=== PATIENT | female | born 1955 | race Caucasian/White ===

== ENCOUNTER → 2019-08-18 08:15 | Outpatient (BNVA) | payer MEDICARE, MEDICAID, SELFPAY | PROVIDERS: PCP Nurse Practitioner Family; Visit Provider Psychiatry & Neurology Psychiatry | DX: F33.2 Major depressive disorder, recurrent severe without psychotic features (principal); F41.1 Generalized anxiety disorder; F43.12 Post-traumatic stress disorder, chronic | CPT/HCPCS: 99204 ==

== ENCOUNTER 2019-08-27 17:51 | Emergency (ER) | payer MEDICARE, MEDICAID, SELFPAY ==
[2019-08-27 17:53] VITALS: BP 159/72; PULSE 68; RESP 12; TEMP 36.9; O2SAT 95; BMI 38.2
--- NOTE | 2019-08-27 18:24 | W.ED.WEAKNES ---
HPI - Weakness General: Chief complaint: Weakness Stated complaint: Weakness and fatigue Time Seen by Provider: 08/27/19 18:10 History of Present Illness: HPI Narrative: Patient states she feels generally weak and not well. States she had roughly 5 L drawn off in dialysis today. States this is typical for her. She is on a strict 32 oz fluid restriction. States she is nauseated. States they jack out her dialysis fropm 4 to 4.5 hours today which did make her tired. Is alert and oriented, no pain anywhere, no soa, just malaise. She is able to eat ice chips and states that these are helping with nausea. MD Complaint: generalized weakness Onset (ago): hour(s) Duration: constant Severity: moderate Severity scale (1-10): 4 Relieving factors: none Exacerbating factors: movement Associated symptoms: Reports nausea; Denies chest pain, chills, dysuria, easy bruising, fever(s) or headache(s) Review of Systems Const: Reports: fatigue and malaise; Denies: fever, chills or change in appetite Eyes: Denies: change in vision, blurry vision, eye discharge or eye redness ENMT: Denies: throat pain, uvular edema, painful swallowing, mouth pain, dental pain, nasal congestion or facial/sinus pain Card: Denies: chest pain, irregular heart rhythm, swelling of feet/ankles, shortness of breath on exertion, shortness of breath when lying down or leg pain with exertion Resp: Denies: shortness of breath, productive cough, wheezing or coughing up blood GI: Reports: nausea : Denies: flank pain, difficulty urinating, painful urination, urinary frequency, urinary urgency or urinary hesitancy Musc: Denies: neck pain, back pain, extremity pain or extremity swelling Skin/Breast: Denies: rash, itching, redness, yellow skin or dry skin Neuro: Denies: headache, numbness in extremities, weakness in extremities, changes in sensation, lack of coordination or difficulty walking Psych: Denies: anxiety, depression, mood swings, panic attacks, sleeping less, suicidal ideation or homicidal ideation Endo: Denies: excessive urination, excessive thirst or tired all the time Hussein/Lymph: Denies: easy bruising, petechiae or enlarged lymph nodes All/Imm: Denies: hives, throat swelling, facial swelling, acute wheezing or seasonal allergies PFSH ED PFSH: Statuses (acute, chronic, etc) shown below reflect problem list status as previously entered and may not be historically accurate Medical History Chronic disease of respiratory system (Acute) Diabetes (Acute) End stage renal disease (Acute) High blood pressure (Acute) Hypertension (Acute) Surgical History History of cholecystectomy (Acute) Stented coronary artery (Acute) Social History Smoking and tobacco status: former smoker Quit status (tobacco): has quit using tobacco Year quit tobacco: 2009 Second hand smoke exposure: Yes Smoking risk assessment/counseling performed?: No Physical Exam Const: COMMON NORMALS: no apparent distress, oriented x3, no limitations, healthy appearing, alert and well nourished GENERAL APPEARANCE: cooperative, comfortable, well kempt and well developed ORIENTATION/CONSCIOUSNESS: Yes awake, Yes oriented to person, Yes oriented to place and Yes oriented to time HENMT: COMMON NORMALS: normocephalic, head/scalp atraumatic, hearing grossly normal bilaterally, external ears normal, EAC's normal, TM's normal bilaterally, external nose normal, nasal mucous membranes and turbinates normal, moist oral mucous membranes, oropharynx normal, dentition normal and gingiva normal HEAD & SCALP: normal to inspection, normocephalic and atraumatic FACE & SINUS: normal facial exam NOSE: external nose normal and nasal mucous membranes and turbinates normal EXTERNAL EAR: Yes external ears normal EXTERNAL AUDITORY CANAL: EAC's normal TYMPANIC MEMBRANE: TM's normal bilaterally MOUTH: oral and palatal mucosa normal, lip normal and tongue normal THROAT: no uvular edema Eye: COMMON NORMALS: PERRL, EOMs intact bilaterally, conjunctivae normal, no scleral icterus and normal visual levi by confrontation GENERAL EYE: normal appearance of both eyes and normal light reflex VISUAL ACUITY: Yes acuity normal ALIGNMENT: Yes alignment normal PERIORBITAL: periorbital findings normal EYELID: eyelids normal CONJUNCTIVA: Yes conjunctivae normal SCLERA: sclerae normal PUPIL: Yes PERRL and Yes accommodation reflex normal DIRECT OPHTHALMOSCOPY: Yes normal light reflex Neck/C-Spine: COMMON NORMALS: full ROM, no lymphadenopathy, supple, no meningeal signs and no JVD GENERAL: Yes normal visual inspection CAROTIDS: Yes normal carotid upstroke CERVICAL SPINE: Yes cervical ROM normal Lymph: LYMPHATIC: no lymphadenopathy noted Chest: COMMONS NORMALS: inspection of chest normal CHEST: Yes symmetrical chest wall rise Resp: COMMON NORMALS: normal respiratory effort, no retractions, no use of accessory muscles and clear to auscultation bilaterally EFFORT & INSPECTION: Yes able to speak in complete sentences and Yes symmetric chest movement AUSCULTATION: clear to auscultation bilaterally Cardio: COMMON NORMALS: no JVD, regular rate, regular rhythm, S1 normal heart sound, S2 normal heart sound, no murmurs and peripheral pulses 2+ throughout RATE: regular rate RHYTHM: regular rhythm HEART SOUNDS: S1 normal and S2 normal PERIPHERAL PULSES: pulses 2+ throughout GI: COMMON NORMALS: normal to inspection, nondistended, normoactive bowel sounds and non-tender : COMMON NORMALS: Yes no CVA tenderness BLADDER/KIDNEY EXAM: Yes no CVA tenderness Back/Pelvis: COMMON NORMALS: no CVA tenderness, thoracic and lumbar spine normal to inspection, no thoracic nor lumbar tenderness and thoraco-lumbar ROM normal Extremity: COMMON NORMALS: normal to inspection, full ROM, normal capillary refill, no calf tenderness and no pedal edema Neuro: COMMON NORMALS: oriented x3, CN's II-XII intact bilaterally, moves all extremities, no focal motor deficits, no sensory deficits noted and gait normal SENSORIUM/ORIENTATION: Yes alert, Yes oriented to person, Yes oriented to place and Yes oriented to time MENINGEAL SIGNS: Yes no meningeal signs SPEECH: speech normal GAIT: Yes normal gait MOTOR EXAM: strength 5/5 throughout, no pronator drift and no tremor noted Psych: COMMON NORMALS: mental status grossly normal, thought process normal, cooperative, affect normal, speech normal and activity/motor behavior normal APPEARANCE: Yes well kempt SPEECH: Yes normal speech THOUGHT PROCESS: normal thought process THOUGHT CONTENT: Yes normal thought content INSIGHT: insight good Skin: COMMON NORMALS: no rashes or lesions noted, no wounds, skin turgor normal and no jaundice GENERAL SKIN EXAM: no rashes or lesions noted and turgor normal Course ED course: Patient resting in bed. Troponin is chronically elevated and todays level is lower than last recorded in June. Vital Signs: Vital signs: Vital Signs Temperature 98.4 F 08/27/19 17:53 Pulse Rate 64 08/27/19 19:47 Respiratory Rate 18 08/27/19 19:47 Blood Pressure 124/52 08/27/19 19:47 Pulse Oximetry 94 08/27/19 19:47 MDM - Weakness Differential Diagnosis: Weakness Differential Diagnosis: Likely anemia and dehydration Lab Data: Attestation: I reviewed the patient's lab results. Labs: Lab Results 08/27/19 08/27/19 08/27/19 Range/Units 18:25 18:25 18:25 WBC 7.1 (4.0-10.0) 10^3/ uL RBC 3.86 L (4.1-5.3) 10^6/u L Hgb 11.2 L (11.5-15.3) g/dL Hct 36.2 L (37.0-47.0) % MCV 93.8 (81-99) fL MCH 29.0 (28.0-34.0) pg MCHC 30.9 (30.0-36.0) g/dL RDW 13.6 (12.1-15.1) % Plt Count 154 (130-400) 10^3/c mm MPV 11.1 H (7.4-10.4) fL Neut % (Auto) 81.8 % Lymph % (Auto) 11.5 % [place] % (Auto) 5.3 % Eos % (Auto) 0.7 % Baso % (Auto) 0.1 % Neut # (Auto) 5.8 (1.8-7.7) 10^3/u L Lymph # (Auto) 0.8 (0.8-4.8) 10^3/u L [place] # (Auto) 0.4 (0.2-0.9) 10^3/u L Eos # (Auto) 0.1 (0.0-0.8) 10^3/u L Baso # (Auto) 0.0 (0.0-0.1) 10^3/u L Nucleated RBC % (a uto) 0 % Nucleated RBCs # 0.0 /100WBC Sodium 137 (136-145) mmol/L Potassium 4.9 (3.5-5.1) mmol/L Chloride 96 L (98-107) mmol/L Carbon Dioxide 30 H (22-29) mmol/L Anion Gap 15.9 (5-19) BUN 35 H (8-23) mg/dL Creatinine 6.6 H* (0.5-0.9) mg/dL GFR Calculation 6.3 L (90-130) mL/min Glucose 176 H (74-106) mg/dL Calcium 9.6 (8.8-10.2) mg/Dl Phosphorus 4.5 (2.5-4.5) mg/dL Magnesium 2.0 (1.7-2.3) mg/dL Total Bilirubin 0.3 (0.15-1.2) mg/dL AST 13 (0-32) U/L ALT 13 (0-33) U/L Alkaline Phosphata se 103 (35-105) IU/L Troponin T Gen 5 n g/L 120 H* (0-10) ng/mL Total Protein 7.3 (6.6-8.7) g/dL Albumin 4.0 (3.5-5.2) g/dL Globulin 3.3 (1.3-4.6) g/dL 08/27/19 Range/Units 20:09 WBC (4.0-10.0) 10^3/ uL RBC (4.1-5.3) 10^6/u L Hgb (11.5-15.3) g/dL Hct (37.0-47.0) % MCV (81-99) fL MCH (28.0-34.0) pg MCHC (30.0-36.0) g/dL RDW (12.1-15.1) % Plt Count (130-400) 10^3/c mm MPV (7.4-10.4) fL Neut % (Auto) % Lymph % (Auto) % [place] % (Auto) % Eos % (Auto) % Baso % (Auto) % Neut # (Auto) (1.8-7.7) 10^3/u L Lymph # (Auto) (0.8-4.8) 10^3/u L [place] # (Auto) (0.2-0.9) 10^3/u L Eos # (Auto) (0.0-0.8) 10^3/u L Baso # (Auto) (0.0-0.1) 10^3/u L Nucleated RBC % (a uto) % Nucleated RBCs # /100WBC Sodium (136-145) mmol/L Potassium (3.5-5.1) mmol/L Chloride (98-107) mmol/L Carbon Dioxide (22-29) mmol/L Anion Gap (5-19) BUN (8-23) mg/dL Creatinine (0.5-0.9) mg/dL GFR Calculation (90-130) mL/min Glucose (74-106) mg/dL Calcium (8.8-10.2) mg/Dl Phosphorus (2.5-4.5) mg/dL Magnesium (1.7-2.3) mg/dL Total Bilirubin (0.15-1.2) mg/dL AST (0-32) U/L ALT (0-33) U/L Alkaline Phosphata se (35-105) IU/L Troponin T Gen 5 n g/L 120 H* (0-10) ng/mL Total Protein (6.6-8.7) g/dL Albumin (3.5-5.2) g/dL Globulin (1.3-4.6) g/dL Discharge Plan Discharge Patient Disposition: Home, Self-Care Clinical Impression: Malaise and fatigue Condition: Stable Prescriptions: New Zofran 4 mg tablet 4 mg PO Q6H 7 Days Qty: 28 RF: 0 No Action metoprolol tartrate 50 mg tablet 50 mg PO DAILY RF: 0 zolpidem [Ambien] 5 mg tablet 5 mg PO .Hs RF: 0 ciprofloxacin HCl [Cipro] 500 mg tablet 500 mg PO BID RF: 0 metronidazole [Flagyl] 500 mg tablet 500 mg PO Q8H RF: 0 prednisone 20 mg tablet 20 mg PO BID RF: 0 doxycycline hyclate 100 mg capsule 100 mg PO BID RF: 0 metoprolol succinate [Toprol XL] 25 mg tablet extended release 24 hr 12.5 mg PO DAILY RF: 0 Eliquis 2.5 mg tablet 2.5 mg PO BID RF: 0 meloxicam 7.5 mg tablet 7.5 mg PO DAILY RF: 0 diphenoxylate-atropine [Lomotil] 2.5-0.025 mg tablet 2 tab PO QID RF: 0 losartan 100 mg tablet 100 mg PO DAILY RF: 0 minoxidil 2.5 mg tablet 2.5 mg PO BID RF: 0 oxycodone-acetaminophen 5-325 mg tablet 1 tab PO BID PRNRF: 0 levothyroxine [Synthroid] 25 mcg tablet 25 mcg PO DAILY RF: 0 trazodone 50 mg tablet See Rx Instructions PO .HS PRN (Reason: sleep) Qty: 60 RF: 1 clopidogrel [Plavix] 75 mg tablet 75 mg PO DAILY Qty: 30 RF: 6 Referrals: [facility] [Other] Laisha Campoverde [Primary Care Provider] - Discharge Diet: Usual diet Discharge Activity: Resume usual activity Patient Instructions: Fatigue (ED) Coding Level of Care Code ED [employer] Representative for Hector Fwcallie Exam Problem Focused
[2019-08-27] MEDS: sodium chloride 0.9% 500 ML IV (18:42)
[2019-08-27 19:00] LABS: Basophils % 0.1 %; Eosinophils # 0.1 10^3/uL (0.0-0.8); Eosinophils % 0.7 %; Hematocrit 36.2 % (37.0-47.0); Hemoglobin 11.2 g/dL (11.5-15.3); Lymphocytes # 0.8 10^3/uL (0.8-4.8); Lymphocytes % 11.5 %; Mean Corpuscular HGB Conc 30.9 g/dL (30.0-36.0); Mean Corpuscular Volume 93.8 fL (81-99); Mean Platelet Volume 11.1 fL (7.4-10.4); Monocytes # 0.4 10^3/uL (0.2-0.9); Monocytes % 5.3 %; Neutrophils # 5.8 10^3/uL (1.8-7.7); Neutrophils % 81.8 %; Nucleated Red Blood Cells % 0 %; Platelet Count 154 10^3/cmm (130-400); Red Blood Count 3.86 10^6/uL (4.1-5.3); Red Cell Distribution Width 13.6 % (12.1-15.1); White Blood Count 7.1 10^3/uL (4.0-10.0)
[2019-08-27 19:10] LABS: Alanine Aminotransferase 13 U/L (0-33); Alkaline Phosphatase 103 IU/L (35-105); Anion Gap 15.9 (5-19); Aspartate Amino Transferase 13 U/L (0-32); Blood Urea Nitrogen 35 mg/dL (8-23); Calcium 9.6 mg/Dl (8.8-10.2); Carbon Dioxide 30 mmol/L (22-29); Chloride 96 mmol/L (98-107); Globulin 3.3 g/dL (1.3-4.6); Glomerular Filtration Rate 6.3 mL/min (90-130); Glucose 176 mg/dL (74-106); Phosphorus 4.5 mg/dL (2.5-4.5); Potassium 4.9 mmol/L (3.5-5.1); Sodium 137 mmol/L (136-145); Total Bilirubin 0.3 mg/dL (0.15-1.2); Total Protein 7.3 g/dL (6.6-8.7)
--- NOTE | 2019-08-27 19:14 | PC.NURSE ---
CREATININE 6.6
--- NOTE | 2019-08-27 19:20 | PC.NURSE ---
Introduced self to patient and initiated vital signs. Pt is A&O x 4 and agreeable. Pt states that the reason for the ER visit today is due to general malaise due to taking off too much fluid during dialysis . Reassured patient of needs and will continue to monitor. Awaiting provider at bedside.
[2019-08-27 19:47] VITALS: BP 124/52; PULSE 64; RESP 18; O2SAT 94
[2019-08-27 20:30] LABS: Troponin T (5th) Once 120 ng/mL (0-10)
[2019-08-27 20:48] LABS: Troponin T (5th) Once 120 ng/mL (0-10)
[2019-08-27 21:00] VITALS: BP 146/49; RESP 18; O2SAT 96
[2019-08-27 22:00] VITALS: BP 93/67; RESP 18; O2SAT 95
[2019-08-27 23:00] VITALS: BP 173/123; PULSE 66; RESP 18; TEMP 36.5; O2SAT 95
[2019-08-28] VITALS (8 sets, daily range): BP systolic 107–140; BP diastolic 42–114; PULSE 64–74; RESP 16–18; O2SAT 92–96
--- NOTE | 2019-08-28 01:01 | PC.NURSE ---
Patient is resting comfortably in the room.
== END 2019-08-28 07:32 | disposition home or self-care (01) ==
PROVIDERS: Emergency Provider Emergency Medicine; PCP Nurse Practitioner Family
DX: R53.81 Other malaise (principal); R53.83 Other fatigue; Z79.01 Long term (current) use of anticoagulants; Z79.02 Long term (current) use of antithrombotics/antiplatelets; Z87.891 Personal history of nicotine dependence; E11.22 Type 2 diabetes mellitus with diabetic chronic kidney disease; I12.0 Hypertensive chronic kidney disease with stage 5 chronic kidney disease or end stage renal disease; N18.6 End stage renal disease
CPT/HCPCS: 80053; 83735; 84100; 84484; 85025; 96360; 99282; J7040

== ENCOUNTER 2019-09-09 15:53 | Observation (INO) | payer MEDICARE, MEDICAID, SELFPAY ==
[2019-09-09] VITALS (7 sets, daily range): BP systolic 174–198; BP diastolic 78–90; PULSE 71–112; RESP 16–18; TEMP 36.6–36.8; O2SAT 97–100; BMI 39.4
--- NOTE | 2019-09-09 16:02 | ED_ITS ---
Entered by Harper Ko, acting as scribe for Keith Vincent DO HPI - Chest Pain General: Chief Complaint: Chest Pain Stated Complaint: CHEST PAIN Time Seen by Provider: 09/09/19 16:02 History of Present Illness: HPI narrative: 64 yo female presents with chest pain. Pt states that she had to go to [place] today, she was on her way back when her chest started hurting and it radiated down her arms. Pt states that she became short of breath. Pt states that she has had a stent placed about 5-6 months ago. Pt states that her pain isn't as bad right now. Pt states that EMS gave her some aspirin. MD complaint: chest pain Associated symptoms: Reports dyspnea; Deny abdominal pain, fever(s), nausea, palpitations or vomiting Review of Systems Const: Reports: fatigue and malaise; Denies: fever, body aches, change in appetite or change in weight Eyes: Denies: change in vision, blurry vision, blind spots, photophobia, eye discomfort, eye discharge or eye redness ENMT: Denies: throat pain, uvular edema, enlarged tonsils, painful swallowing, hoarseness or mouth pain Card: Reports: chest pain and shortness of breath on exertion; Denies: palpitations or irregular heart rhythm Resp: Reports: shortness of breath; Denies: productive cough, non-productive cough, wheezing, pain on inspiration or change in phlegm color GI: Denies: abdominal pain, nausea, vomiting or vomiting blood : Denies: flank pain, difficulty urinating, painful urination or urinary frequency Musc: Denies: neck pain, back pain, extremity pain or extremity swelling Skin/Breast: Denies: rash, itching, redness, sensitivity to light, skin pain or skin swelling Neuro: Denies: headache, numbness in extremities, weakness in extremities or changes in sensation Psych: Reports: sleeping less; Denies: anxiety, depression, mood swings, panic attacks or sleeping more Endo: Denies: excessive urination, excessive thirst or tired all the time PFSH ED PFSH: Statuses (acute, chronic, etc) shown below reflect problem list status as previously entered and may not be historically accurate Medical History Chronic disease of respiratory system (Acute) Diabetes (Acute) End stage renal disease (Acute) High blood pressure (Acute) Hypertension (Acute) Surgical History History of cholecystectomy (Acute) Stented coronary artery (Acute) Social History Smoking and tobacco status: former smoker Quit status (tobacco): has quit using tobacco Year quit tobacco: 2009 Second hand smoke exposure: Yes Smoking risk assessment/counseling performed?: No Physical Exam Const: COMMON NORMALS: no apparent distress, average body habitus, oriented x3, no limitations, healthy appearing, alert and well nourished HENMT: COMMON NORMALS: normocephalic, head/scalp atraumatic, hearing grossly normal bilaterally, external ears normal, EAC's normal, TM's normal bilaterally, external nose normal, oropharynx normal, dentition normal and gingiva normal; nasal mucous membranes&turbinates abnorm and oral mucous membranes not moist HEAD & SCALP: normocephalic and atraumatic NOSE: external nose normal; nasal mucous membranes&turbinates abnorm EXTERNAL EAR: Yes external ears normal EXTERNAL AUDITORY CANAL: EAC's normal TYMPANIC MEMBRANE: TM's normal bilaterally THROAT: no uvular edema Eye: COMMON NORMALS: PERRL, EOMs intact bilaterally, conjunctivae normal, no scleral icterus, no papilledema, normal visual levi by confrontation and fundi normal bilaterally CONJUNCTIVA: Yes conjunctivae normal PUPIL: Yes PERRL DIRECT OPHTHALMOSCOPY: Yes no papilledema and Yes fundi normal bilaterally Neck/C-Spine: COMMON NORMALS: full ROM, no lymphadenopathy, supple, no meningeal signs, no JVD, thyroid normal and no carotid bruits THYROID: thyroid normal Chest: COMMONS NORMALS: inspection of chest normal and palpation of chest normal Resp: COMMON NORMALS: normal respiratory effort, no retractions, no use of accessory muscles, clear to auscultation bilaterally and percussion normal AUSCULTATION: clear to auscultation bilaterally PERCUSSION: percussion normal Cardio: COMMON NORMALS: no JVD, regular rate, regular rhythm, S1 normal heart sound, S2 normal heart sound, no gallops, no clicks, no murmurs, no rub and peripheral pulses 2+ throughout RATE: regular rate RHYTHM: regular rhythm HEART SOUNDS: S1 normal and S2 normal PERIPHERAL PULSES: pulses 2+ throughout GI: COMMON NORMALS: normal to inspection, nondistended, normoactive bowel sounds, soft to palpation, non-tender, no hepatosplenomegaly, no masses and no bruits PALPATION: Yes soft and Yes no hepatosplenomegaly : COMMON NORMALS: Yes no CVA tenderness and Yes external appearance normal BLADDER/KIDNEY EXAM: Yes no CVA tenderness Back/Pelvis: COMMON NORMALS: no CVA tenderness, thoracic and lumbar spine normal to inspection, no thoracic nor lumbar tenderness, thoraco-lumbar ROM normal and straight leg raise negative bilaterally Extremity: COMMON NORMALS: normal to inspection, full ROM, normal capillary refill, no joint enlargement, no clubbing, cyanosis or edema, no calf tenderness and no pedal edema Neuro: COMMON NORMALS: oriented x3 SENSORIUM/ORIENTATION: Yes alert MENINGEAL SIGNS: Yes no meningeal signs Skin: COMMON NORMALS: no rashes or lesions noted, no wounds, skin turgor normal, no jaundice, no petechiae and no mottling GENERAL SKIN EXAM: no rashes or lesions noted and turgor normal Course Vital Signs: Vital signs: Vital Signs Temperature 97.9 F 09/09/19 15:56 Pulse Rate 89 09/09/19 15:56 Respiratory Rate 18 09/09/19 15:56 Blood Pressure 174/84 09/09/19 15:56 Pulse Oximetry 97 09/09/19 15:56 MDM - Chest Pain Lab Data: Labs: Lab Results 09/09/19 09/09/19 09/09/19 Range/Units 16:27 16:27 16:27 WBC 9.3 (4.0-10.0) 10^3/ uL RBC 3.43 L (4.1-5.3) 10^6/u L Hgb 10.5 L (11.5-15.3) g/dL Hct 34.2 L (37.0-47.0) % MCV 99.7 H (81-99) fL MCH 30.6 (28.0-34.0) pg MCHC 30.7 (30.0-36.0) g/dL RDW 13.3 (12.1-15.1) % Plt Count 181 (130-400) 10^3/c mm MPV 11.7 H (7.4-10.4) fL Neut % (Auto) 76.5 % Lymph % (Auto) 17.6 % [place] % (Auto) 4.7 % Eos % (Auto) 0.1 % Baso % (Auto) 0.1 % Neut # (Auto) 7.1 (1.8-7.7) 10^3/u L Lymph # (Auto) 1.6 (0.8-4.8) 10^3/u L [place] # (Auto) 0.4 (0.2-0.9) 10^3/u L Eos # (Auto) 0.0 (0.0-0.8) 10^3/u L Baso # (Auto) 0.0 (0.0-0.1) 10^3/u L Nucleated RBC % (a uto) 0 % Nucleated RBCs # 0.0 /100WBC Sodium 138 (136-145) mmol/L Potassium 4.8 (3.5-5.1) mmol/L Chloride 97 L (98-107) mmol/L Carbon Dioxide 22 (22-29) mmol/L Anion Gap 23.8 H (5-19) BUN 101 H* D (8-23) mg/dL Creatinine 12.0 H* (0.5-0.9) mg/dL GFR Calculation 3.2 L (90-130) mL/min Glucose 287 H (74-106) mg/dL Calcium 9.2 (8.5-10.5) mg/dL Total Bilirubin 0.3 (0.15-1.2) mg/dL AST 10 (0-32) U/L ALT 8 (0-33) U/L Alkaline Phosphata se 78 (35-105) IU/L Troponin T Baselin e 451 H* (0-10) ng/mL NT-Pro-B Natriuret Pep 89136 H (0-125) pg/mL Total Protein 6.8 (6.6-8.7) g/dL Albumin 3.9 (3.5-5.2) g/dL Globulin 2.9 (1.3-4.6) g/dL Lipase 29 (13-60) U/L Discharge Plan Discharge Patient Disposition: Admitted As Inpatient Clinical Impression: Chest pain Qualifiers: Chest pain type: chest pain due to myocardial ischemia Ischemic chest pain type: unstable angina pectoris Qualified Code(s): I20.0 - Unstable angina Chronic renal failure Qualifiers: Chronic kidney disease stage: unspecified stage Qualified Code(s): N18.9 - Chronic kidney disease, unspecified Condition: Stable Referrals: [facility] [Other] Laisha Campoverde [Primary Care Provider] - Coding Level of Care Code ED [facility] Former for [facility] Fwd Exam Problem Focused The documentation recorded by the Maikel finley Kialy, accurately reflects the service I personally performed and the decisions made by me, Keith Vincent, DO Sep 09, 2019 15:53
--- NOTE | 2019-09-09 16:03 | ECG_ITS ---
Measurements Intervals [place] Rate: 79 P: 66 SC: 176 QRS: -5 QRSD: 78 T: 79 QT: 363 QTc: 418 SINUS RHYTHM POSSIBLE LEFT ATRIAL ENLARGEMENT [-0.1mV P WAVE IN V1/V2] NONSPECIFIC T-WAVE ABNORMALITY Compared to ECG 07/04/2019 04:54:53 T-wave abnormality now present Prolonged QT interval no longer present Electronically Signed On 09-09-2019 17:36:43 STRUCTURES ASSEMBLER by Karan Allison M.D. [id number]
--- NOTE | 2019-09-09 16:25 | XR_ITS ---
WS: [id number] CHEST XRAY TECHNIQUE: Portable chest. CLINICAL INFORMATION: chest pain COMPARISON: July 03, 2019 FINDINGS: Heart: Cardiomegaly. Aortic calcification. Right central venous catheter with tip in the SVC. Lungs: Chronic emphysematous changes. No acute pulmonary infiltrates. Bones: Normal visualized bony structures. XR/XR chest 1V portable [id number] IMPRESSION: Cardiomegaly. No acute chest findings.
[2019-09-09 16:49] LABS: Basophils % 0.1 %; Eosinophils % 0.1 %; Hematocrit 34.2 % (37.0-47.0); Hemoglobin 10.5 g/dL (11.5-15.3); Lymphocytes # 1.6 10^3/uL (0.8-4.8); Lymphocytes % 17.6 %; Mean Corpuscular HGB Conc 30.7 g/dL (30.0-36.0); Mean Corpuscular Hemoglobin 30.6 pg (28.0-34.0); Mean Corpuscular Volume 99.7 fL (81-99); Mean Platelet Volume 11.7 fL (7.4-10.4); Monocytes # 0.4 10^3/uL (0.2-0.9); Monocytes % 4.7 %; Neutrophils # 7.1 10^3/uL (1.8-7.7); Neutrophils % 76.5 %; Nucleated Red Blood Cells % 0 %; Platelet Count 181 10^3/cmm (130-400); Red Blood Count 3.43 10^6/uL (4.1-5.3); Red Cell Distribution Width 13.3 % (12.1-15.1); White Blood Count 9.3 10^3/uL (4.0-10.0)
[2019-09-09 17:06] LABS: Alanine Aminotransferase 8 U/L (0-33); Albumin Level 3.9 g/dL (3.5-5.2); Alkaline Phosphatase 78 IU/L (35-105); Anion Gap 23.8 (5-19); Aspartate Amino Transferase 10 U/L (0-32); Calcium 9.2 mg/dL (8.5-10.5); Carbon Dioxide 22 mmol/L (22-29); Chloride 97 mmol/L (98-107); Globulin 2.9 g/dL (1.3-4.6); Glomerular Filtration Rate 3.2 mL/min (90-130); Glucose 287 mg/dL (74-106); Lipase 29 U/L (13-60); Potassium 4.8 mmol/L (3.5-5.1); Sodium 138 mmol/L (136-145); Total Bilirubin 0.3 mg/dL (0.15-1.2); Total Protein 6.8 g/dL (6.6-8.7)
[2019-09-09 17:20] LABS: Troponin(5th) Baseline 451 ng/mL (0-10)
[2019-09-09 17:21] LABS: Blood Urea Nitrogen 101 mg/dL (8-23)
[2019-09-09 17:29] LABS: NT Pro B Type Natriuretic Pept 64294 pg/mL (0-125)
--- NOTE | 2019-09-09 18:01 | PC.NURSE ---
pt given a sandwich and sprite at this time.
--- NOTE | 2019-09-09 18:17 | P.HP_ITS ---
Providers/Chief Complaint Primary Care Provider: Laisha Campoverde Chief Complaint: CHEST PAIN History of Present Illness Amanda Ha is a 64 year old female with past medical history of hypertension, diabetes, dyslipidemia, end-stage renal disease on hemodialysis through a port in her right chest as the fistula in her left arm is not functioning and has been followed by a vascular surgeon for that, CAD post PCI to mid LAD in December 2018 with presented to the hospital in June 2019 with symptoms of chest pain and at that time stress test showed small area of mild reversibility in the basal to mid inferolateral segment and artifact could not be ruled out because no prone images could be done. She presents to the ER today as on her way back from her doctors visit to [place] she started having chest pressure-like symptoms radiating down both her arms without any nausea or vomiting, diaphoresis, dizziness, palpitations. Patient states usually she does not have any chest pain or shortness of breath on rest or exertion. She can do her usual activities without any difficulties other than back pain. Patient states since her PCI this is her third time she has had chest pain and it has been increasing every time gradually. Patient usually goes for dialysis Friday but she missed her dialysis session yesterday because she did not feel well. Patient denies of having any palpitations, loss of consciousness, dizziness. Patient at baseline is occasionally noncompliant with the dialysis. In the ER patient was treated with nitro and her symptoms were relieved she was found to have high blood pressure for which her usual oral medications were given. Patient states she usually takes her medications but sometimes she forgets. Usually her blood pressure ranges from 150- 160. Last Stress test in 06/29 PERFUSION FINDINGS Large area fixed perfusion defect noted in mid to distal anterior and inferoapical wall of the left ventricle suggestive of old myocardial infarction versus scarring without significant mavis-infarct ischemia. Medium-size area of decreased tracer uptake was noted in basal to distal inferior and inferolateral wall on rest images which improved over stress images in the inferior wall suggestive of artifact. There appeared to be small area of reversibility in the basal to mid inferolateral wall whcih in the absence of prone images could be artifact. FUNCTIONAL RESULTS (calculated via Gated SPECT) Stress Image LV EF (%): 23 Stress EDV (mL):243 TID: 1.1 Stress ESV (mL):187 Rest Image LV EF (%): 23 FUNCTIONAL FINDINGS: Mid to distal anterior apical and inferoapical dyskinesis IMPRESSIONS Large area of old myocardial infarction versus scarring noted in mid to distal anterior, apical wall of the left ventricle extending into the inferoapical region without mavis-infarct ischemia. Small area of mild reversibility noted in basal to mid inferolateral lateral segment of the left ventricle which in the absence of prone images could also represent artifact however cannot rule out ischemia, clinical correlation advised.TID ratio is elevated which could be secondary to left ventricle hypertrophy/subendocardial ischemia , multivessel coronary artery disease is another possibility. Lupe Bertrand MD (Electronically Signed) Final Date: 24 June 2019 15:53 Last ECHO 06/2019 FINDINGS Left Ventricle Left ventricular cavity not well visualized. Normal left ventricular size, systolic function and wall thickness, with no regional wall motion abnormalities. Grade I/IV diastolic dysfunction (abnormal relaxation filling pattern), normal to mildly elevated filling pressures. Left ventricular ejection fraction is estimated at 60%. Right Ventricle Normal right ventricular size and systolic function. Normal right ventricular systolic pressure. Right Atrium Mildly increased right atrial size. Left Atrium Mildly increased left atrial size. Mitral Valve Structurally normal mitral valve. Trace mitral valve regurgitation. Aortic Valve Structurally normal aortic valve without significant sclerosis or stenosis. There is no aortic regurgitation. Tricuspid Valve Structurally normal tricuspid valve without significant stenosis or regurgitation. Pulmonary artery systolic pressure is normal. Pulmonic Valve Pulmonic valve not well visualized. Pericardium Normal pericardium without effusion. Aorta Normal ascending aorta dimension. CONCLUSIONS Left ventricular cavity not well visualized. Normal left ventricular size, systolic function and wall thickness, with no regional wall motion abnormalities. Grade I/IV diastolic dysfunction (abnormal relaxation filling pattern), normal to mildly elevated filling pressures. Left ventricular ejection fraction is estimated at 60%. Mildly increased right atrial size. Mildly increased left atrial size. Structurally normal mitral valve. Trace mitral valve regurgitation. No change from 01/04/2019 Dr. Karan Allison MD (Electronically Signed) Final Date: 17 June 2019 11:42 S Review of Systems Const: Denies: fever, chills, body aches, change in appetite, malaise, night sweats, diaphoresis, change in sleep pattern, daytime sleepiness or snoring Eyes: Denies: change in vision, blurry vision, photophobia, eye discomfort or eye discharge ENMT: Denies: throat pain, enlarged tonsils, hoarseness, mouth pain, oral sores/lesions, dry mouth, tinnitus, nasal congestion or post nasal drip Card: Reports: chest pain; Denies: palpitations, irregular heart rhythm, edema, swelling of feet/ankles, lightheadedness, syncope, pre-syncope, shortness of breath on exertion, shortness of breath when lying down, leg pain with exertion or bluish discoloration of hands/feet Resp: Denies: shortness of breath, productive cough, non-productive cough, wheezing, stridor, pain on inspiration, change in phlegm color, coughing up blood or chest congestion GI: Denies: abdominal pain, nausea, vomiting, vomiting blood, coffee grounds in vomit, difficulty swallowing, heartburn/indigestion, diarrhea, constipation, bloating, cramping, change in bowel habits, painful bowel movements, blood in stool or black tarry stool : Denies: flank pain, painful urination, urinary frequency, urinary urgency, urinary hesitancy, nighttime urination or blood in urine Musc: Denies: neck pain, back pain, extremity pain, joint pain, joint swelling, redness, joint stiffness or limited range of motion Neuro: Denies: headache, numbness in extremities, weakness in extremities, changes in sensation, lack of coordination, difficulty walking, frequent falls, dizziness, vertigo, confusion, slurred speech, difficulty communicating thoughts or seizure-like activity Psych: Denies: anxiety, depression, mood swings, panic attacks, hopelessness or irritability Endo: Denies: excessive urination, excessive thirst, tired all the time, cold intolerance, excessive sweating, flushing or heat intolerance Hussein/Lymph: Denies: easy bruising or easy bleeding All/Imm: Denies: tongue swelling, facial swelling or acute wheezing Medications/Allergies Home Medications Medication Instructions Recorded Confirmed Last Taken Type aspirin [Aspir-81] 81 mg PO DAILY 09/09/19 09/09/19 09/08/19 History Allergies Allergy/AdvReac Type Severity Reaction Status Date / Time adhesive Allergy Unknown Verified 09/07/19 14:46 codeine Allergy Unknown Verified 09/07/19 14:46 duloxetine [From Cymbalta] Allergy Unknown Verified 09/07/19 14:46 PFSH Acute PFSH: Statuses (acute, chronic, etc) shown below reflect problem list status as previously entered and may not be historically accurate Medical History Chronic disease of respiratory system (Acute) Diabetes (Acute) End stage renal disease (Acute) High blood pressure (Acute) Hypertension (Acute) Surgical History History of cholecystectomy (Acute) Stented coronary artery (Acute) Social History Smoking and tobacco status: former smoker Quit status (tobacco): has quit using tobacco Year quit tobacco: 2009 Second hand smoke exposure: Yes Smoking risk assessment/counseling performed?: No Vitals/I&O/Wt Last Vital Signs Temp 97.9 F 09/09/19 15:56 Pulse 78 09/09/19 17:55 Resp 18 09/09/19 17:55 BP 174/84 09/09/19 17:55 Pulse Ox 99 09/09/19 17:55 Weight last 48 hrs Weight 114.305 kg Physical Exam Narrative: EXAM NARRATIVE: General: No acute distress, AO x3 HEENT: PERRLA, pupils bilaterally equal and reactive Chest: Normal vesicular breath sounds, no added sounds, equal good air entry bilaterally CVS: S1-S2 regular, no murmurs, no tachycardia, no gallops, no rubs Abdomen: Soft, nontender, no organomegaly, bowel sounds present Neuro: No focal deficits, no facial deformity, AO x3, power 5/5 in all limbs Data : 09/09/19 16:27 09/09/19 16:27 A&P Assessment and plan (1) Chest pain: Status: Acute Qualifiers: Chest pain type: chest pain due to myocardial ischemia Ischemic chest pain type: unstable angina pectoris Qualified Code(s): I20.0 - Unstable angina Code(s): R07.9 - Chest pain, unspecified (2) Chronic renal failure: Status: Acute Qualifiers: Chronic kidney disease stage: unspecified stage Qualified Code(s): N18.9 - Chronic kidney disease, unspecified Code(s): N18.9 - Chronic kidney disease, unspecified Additional A&P Information Chest discomfort: Most likely atypical due to missed dialysis session and elevated blood pressures. Given her extensive cardiac history unstable angina cannot be ruled out. Patient's last stress test in June was inconclusive as no prone images were available so artifact could not be ruled out. Patient has been having recurrent episodes of chest pain since her PCI in December 2018. Just because patient recently had a stress test there is no point of doing a stress test again. We will continue with home dose of aspirin, Plavix, statin. We will check lipid panel, TSH tomorrow morning. Last HbA1c in February 2019 was 5.6. Continue home dose of Lopressor, losartan. Cardiac diet. ESRD on maintenance hemodialysis: Patient missed her dialysis session yesterday. We will consult nephrology for dialysis tomorrow morning. Patient does not have any symptoms of blood work suggestive of acidosis, hyperkalemia. Her creatinine right now is 12. Baseline creatinine mostly seems to be running from 6-7. But she does have had creatinine as high as 12.4 in past. Hypertension: Blood pressure right now elevated. On evaluation blood pressure was 170/84. We will continue her home medications of losartan, Lopressor, minoxidil. Continue chronic home medications for now. Full code Cardiac renal diet Attestations Medical Necessity Statement*: Admission for more likely less than 2 midnights for atypical chest discomfort. 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
--- NOTE | 2019-09-09 18:44 | PC.NURSE ---
ekg done 1843
--- NOTE | 2019-09-09 19:49 | PC.NURSE ---
Introduced self to patient and initiated vital signs. Pt is A&O x 4 and agreeable. Pt states that the reason for the ER visit today is due to chest pain which presented around 1100 today. Reassured patient of needs and will continue to monitor.
--- NOTE | 2019-09-09 20:47 | PM.CONSULT ---
Providers/Reason For Consult Consulting Physican/Specialty*: Cardiovascular medicine Reason for Consult*: Recurrent chest pain Attending Physician: Keegan Forrest MD Primary Care Provider: Laisha Campoverde History of Present Illness History of Present Illness Amanda Ha is a 64 year old female who is back today with chest pain. She is an end-stage renal disease patient with a tremendous number of medical problems who visits the hospital and the emergency room frequently with chest pain. When one looks back over her recent chart this is the 10th admission since December of last year for chest pain. On the first of those she had two stents placed to her LAD. She literally came back the day after she was discharged after the stent was placed on January 06 and was readmitted. She was discharged the following day and returned again to the hospital the day after that. Therefore she had 3 admissions in 5 days. After that she was discharged in the early part of January. She has been readmitted on January 30, March 01, May 18, June 17, June 22 and July 03. She has had 2 stress test during that time. The most recent was on June 24 which showed a scar in the distribution of the LAD. There was no obvious significant ischemia. The stents are in the LAD. At the time of her angiogram in December of last year her right coronary artery and circumflex showed mild disease. She is a noncompliant patient and on half of those last 10 admissions she has missed her dialysis session the day before. She will then become volume overloaded and hypertensive and present to the emergency room. That is what happened again this time. She missed her dialysis yesterday stating that I did not feel good . She has told me that before. She was driving today and had the onset of chest pain and presented herself to the emergency room. She was hypertensive with a blood pressure of 175/84. She has not been given any medications here in the emergency room. Her chest pain has resolved entirely. Her troponin is mildly elevated but usually is. Her creatinine is 12. Her EKG is unchanged from previous tracings. Her BNP is greater than 64,000. She has a history of diastolic heart failure. Review of Systems General: Reports: 10 or more systems reviewed and unremarkable except in HPI and below Meds/Allergies Home Medications and Allergies Home Medications Medication Instructions Recorded Confirmed Type apixaban 2.5 mg tablet 2.5 mg PO BID 08/18/19 09/09/19 History diphenoxylate-atropine 2.5 2 tab PO QID 08/18/19 09/09/19 History mg-0.025 mg tablet levothyroxine 25 mcg tablet 25 mcg PO DAILY tab 08/18/19 09/09/19 History losartan 100 mg tablet 100 mg PO DAILY tab 08/18/19 09/09/19 History meloxicam 7.5 mg tablet 7.5 mg PO DAILY tab 08/18/19 09/09/19 History metoprolol succinate 25 mg 12.5 mg PO DAILY tab 08/18/19 09/09/19 History tablet,extended release 24 hr minoxidil 2.5 mg tablet 2.5 mg PO BID 08/18/19 09/09/19 History oxycodone-acetaminophen 5 mg-325 1 tab PO BID PRN tab 08/18/19 09/09/19 History mg tablet zolpidem 5 mg tablet 5 mg PO .Hs tab 08/18/19 09/09/19 History aspirin [Aspir-81] 81 mg PO DAILY 09/09/19 09/09/19 History Allergies Allergy/AdvReac Type Severity Reaction Status Date / Time adhesive Allergy Unknown Verified 09/07/19 14:46 codeine Allergy Unknown Verified 09/07/19 14:46 duloxetine [From Cymbalta] Allergy Unknown Verified 09/07/19 14:46 PFSH Acute PFSH: Statuses (acute, chronic, etc) shown below reflect problem list status as previously entered and may not be historically accurate Medical History Anemia (Acute) Anticoagulation adequate with anticoagulant therapy (Acute) Atrial fibrillation (Acute) Chronic bronchitis (Acute) Chronic chest pain (Acute) Chronic disease of respiratory system (Acute) Chronic pain disorder (Acute) Diabetes (Acute) Diastolic heart failure (Acute) Emphysema of lung (Acute) End-stage renal disease on hemodialysis (Acute) Fibromyalgia (Acute) GERD (gastroesophageal reflux disease) (Acute) Hypertension (Acute) Hypothyroidism (Acute) Irritable bowel syndrome (Acute) Noncompliance (Acute) Sleep apnea (Acute) Venous insufficiency (Acute) Surgical History History of cholecystectomy (Acute) Stented coronary artery (Acute) Social History (Reviewed 09/09/19 @ 16:05 by Harper Banegas Smoking and tobacco status: former smoker Quit status (tobacco): has quit using tobacco Year quit tobacco: 2009 Second hand smoke exposure: Yes Smoking risk assessment/counseling performed?: No Vitals/I&O/Wt Last Vital Signs Temp 97.9 F 09/09/19 15:56 Pulse 78 09/09/19 17:55 Resp 18 09/09/19 17:55 BP 174/84 09/09/19 17:55 Pulse Ox 99 09/09/19 17:55 Weight last 48 hrs Weight 252 lb Physical Exam Narrative: EXAM NARRATIVE: GENERAL: In general she looks perfectly comfortable and well without chest pain at this time HEENT: Exam within normal limits. NECK: Supple without jugular vein distention. The carotid upstroke is normal without bruits. BACK: Exam normal. LUNGS: Clear. HEART: Regular rate and rhythm. ABDOMEN: Benign without organomegaly or tenderness. EXTREMITIES: No edema. NEUROLOGIC: Exam normal. SKIN: Unremarkable. Data Other Data: Other data: BNP greater than 64,000. First troponin IV 51. Second 468. 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 (3) Atrial fibrillation: Status: Acute Code(s): I48.91 - Unspecified atrial fibrillation (4) Diastolic heart failure: Status: Acute Code(s): I50.30 - Unspecified diastolic (congestive) heart failure (5) Chronic pain disorder: Status: Acute Code(s): G89.4 - Chronic pain syndrome (6) Chronic renal failure: Status: Acute Qualifiers: Chronic kidney disease stage: unspecified stage Qualified Code(s): N18.9 - Chronic kidney disease, unspecified Code(s): N18.9 - Chronic kidney disease, unspecified (7) Chest pain: Status: Acute Qualifiers: Chest pain type: chest pain due to myocardial ischemia Ischemic chest pain type: unstable angina pectoris Qualified Code(s): I20.0 - Unstable angina Code(s): R07.9 - Chest pain, unspecified (8) Osteoarthritis of left knee: Status: Acute Code(s): M17.12 - Unilateral primary osteoarthritis, left knee (9) Post-traumatic stress disorder, chronic: Status: Acute Code(s): F43.12 - Post-traumatic stress disorder, chronic (10) Generalized anxiety disorder: Status: Acute Code(s): F41.1 - Generalized anxiety disorder (11) Major depressive disorder, recurrent severe without psychotic features: Status: Acute Code(s): F33.2 - Major depressive disorder, recurrent severe without psychotic features (12) Chronic chest pain: Status: Acute Code(s): R07.9 - Chest pain, unspecified; G89.29 - Other chronic pain (13) Noncompliance: Status: Acute Code(s): Z91.19 - Patient's noncompliance with other medical treatment and regimen (14) Elevated troponin: Status: Acute Code(s): R79.89 - Other specified abnormal findings of blood chemistry Additional A&P Information This appears to be another episode of volume overload with hypertension as a result of her skipping her dialysis session. The troponin elevation is chronic and I do not think to the relatively small delta of 17 is clinically significant in his situation. She does this on multiple occasions and simply does not go to her dialysis session which causes volume overload, hypertension and then she develops chest pain. This is much like 5 or 6 of the previous admissions over the last several weeks to months. There is been no change in her EKG. Her BNP is over 64,000. At this point I would continue to treat her medically. I do not see an indication for stress testing or coronary angiography. I would not stop the Eliquis at this point. I would continue her diet, plan to dialyze her as soon as possible hopefully tomorrow and then discharge her thereafter. 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 History Comprehensive Exam Comprehensive Medical Decision Making High Complexity Diagnoses End-stage renal disease on hemodialysis N18.6; Z99.2 Anticoagulation adequate with anticoagulant therapy Z79.01 Atrial fibrillation I48.91 Diastolic heart failure I50.30 Chronic pain disorder G89.4 Chronic renal failure N18.9 Chronic kidney disease stage: unspecified stage Chest pain I20.0 Chest pain type: chest pain due to myocardial ischemia Ischemic chest pain type: unstable angina pectoris Osteoarthritis of left knee M17.12 Post-traumatic stress disorder, chronic F43.12 Generalized anxiety disorder F41.1 Major depressive disorder, recurrent severe without psychotic features F33.2 Chronic chest pain R07.9; G89.29 Noncompliance Z91.19 Elevated troponin R79.89 Time Spent (min) 84
--- NOTE | 2019-09-09 21:30 | PC.NURSE ---
Received patient via stretcher from the emergency room. Patient is alert and oriented at this time. Patient denies pain at this time. Redressed patient's IV site, 20Gauge in the right A/C. Flushes, IV patent and blood return. Admission assessment completed per flow sheet. Provided teaching to patient regarding hospital room orientation and call light system. Return demonstration regarding call light system. Notified Dr. Lee, patient states, I am a diabetic New orders received for AC and HS blood sugar checks and sliding scale. Patient has left arm fistula and dialysis cath on the right chest. Will continue to monitor patient and instructed patient to notify nursing of any needs. Patient verbalizes understanding. Care Continued.
[2019-09-09 21:42] LABS: Glucose Point of Care 245 mg/dL (70-110)
[2019-09-09] MEDS: zolpidem 5 mg Tablet PO (21:49)
[2019-09-09] MEDS: losartan 50 mg Tablet 100 MG PO (21:49)
[2019-09-09] MEDS: diphenoxylate/atropine Tablet 2 TAB PO (21:50)
--- NOTE | 2019-09-09 22:03 | ECG_ITS ---
Measurements Intervals [place] Rate: 77 P: 73 AR: 167 QRS: 17 QRSD: 98 T: 80 QT: 391 QTc: 445 SINUS RHYTHM NONSPECIFIC T-WAVE ABNORMALITY Compared to ECG 09/09/2019 16:06:03 No significant changes Electronically Signed On 09-10-2019 15:57:14 TECHNICAL SERVICE REP by Karan Allison M.D. [email or web address]
[2019-09-09] MEDS: oxyCODONE-APAP 5-325 mg Tablet 1 TAB PO (23:23)
[2019-09-10] VITALS (7 sets, daily range): BP systolic 128–198; BP diastolic 50–90; PULSE 70–112; RESP 12–20; TEMP 36.8–36.9; O2SAT 95–97
[2019-09-10 06:56] LABS: Basophils % 0.3 %; Eosinophils # 0.1 10^3/uL (0.0-0.8); Eosinophils % 0.9 %; Hematocrit 29.6 % (37.0-47.0); Lymphocytes # 1.9 10^3/uL (0.8-4.8); Lymphocytes % 24.2 %; Mean Corpuscular HGB Conc 30.4 g/dL (30.0-36.0); Mean Corpuscular Volume 95.5 fL (81-99); Mean Platelet Volume 10.9 fL (7.4-10.4); Monocytes # 0.6 10^3/uL (0.2-0.9); Monocytes % 7.8 %; Neutrophils % 65.6 %; Nucleated Red Blood Cells % 0 %; Platelet Count 167 10^3/cmm (130-400); Red Cell Distribution Width 13.5 % (12.1-15.1); White Blood Count 7.7 10^3/uL (4.0-10.0)
[2019-09-10 07:14] LABS: Alanine Aminotransferase 7 U/L (0-33); Albumin Level 3.3 g/dL (3.5-5.2); Alkaline Phosphatase 65 IU/L (35-105); Anion Gap 23.3 (5-19); Aspartate Amino Transferase 9 U/L (0-32); Carbon Dioxide 23 mmol/L (22-29); Chloride 95 mmol/L (98-107); Glomerular Filtration Rate 3.1 mL/min (90-130); Glucose 167 mg/dL (74-106); Potassium 5.3 mmol/L (3.5-5.1); Sodium 136 mmol/L (136-145); Total Bilirubin 0.3 mg/dL (0.15-1.2); Total Protein 6.3 g/dL (6.6-8.7)
[2019-09-10 07:23] LABS: Blood Urea Nitrogen 104 mg/dL (8-23); Phosphorus 8.7 mg/dL (2.5-4.5)
[2019-09-10 07:53] LABS: Glucose Point of Care 135 mg/dL (70-110)
--- NOTE | 2019-09-10 08:51 | P.PN_ITS ---
Subjective Subjective: Interval history: Amanda has had no problems overnight. I see her as she is being dialyzed this morning. No further chest pain. Vitals/I&O/Wt Last Vital Signs Temp 98.4 F 09/10/19 04:00 Pulse 79 09/10/19 07:49 Resp 12 09/10/19 07:49 BP 128/50 09/10/19 07:49 Pulse Ox 96 09/10/19 07:49 09/09/19 09/10/19 09/10/19 22:59 06:59 14:59 Intake Total 300 / 300 Balance 300 / 300 Weight last 48 hrs Weight 259 lb 12.8 oz Weight 252 lb Physical Exam Narrative: EXAM NARRATIVE: GENERAL: In general she is comfortable lying flat in dialysis. HEENT: Exam within normal limits. NECK: Supple without jugular vein distention. The carotid upstroke is normal without bruits. BACK: Exam normal. LUNGS: Clear. HEART: Regular rate and rhythm. ABDOMEN: Benign without organomegaly or tenderness. EXTREMITIES: No edema. NEUROLOGIC: Exam normal. SKIN: Unremarkable. Data : 09/10/19 06:50 09/10/19 06:50 A&P Assessment and plan (1) Elevated troponin: Status: Acute Code(s): R79.89 - Other specified abnormal findings of blood chemistry (2) Chronic chest pain: Status: Acute Code(s): R07.9 - Chest pain, unspecified; G89.29 - Other chronic pain (3) Noncompliance: Status: Acute Code(s): Z91.19 - Patient's noncompliance with other medical treatment and regimen (4) End-stage renal disease on hemodialysis: Status: Acute Code(s): N18.6 - End stage renal disease; Z99.2 - Dependence on renal dialysis (5) Anticoagulation adequate with anticoagulant therapy: Status: Acute Code(s): Z79.01 - penitentiary (current) use of anticoagulants (6) Atrial fibrillation: Status: Acute Code(s): I48.91 - Unspecified atrial fibrillation (7) Diastolic heart failure: Status: Acute Code(s): I50.30 - Unspecified diastolic (congestive) heart failure (8) Chronic pain disorder: Status: Acute Code(s): G89.4 - Chronic pain syndrome (9) Major depressive disorder, recurrent severe without psychotic features: Status: Acute Code(s): F33.2 - Major depressive disorder, recurrent severe without psychotic features (10) Generalized anxiety disorder: Status: Acute Code(s): F41.1 - Generalized anxiety disorder Additional A&P Information She remained stable. From my standpoint, she can be discharged after dialysis. I have asked her many times to keep her dialysis schedule. No change in medications. Attestations Medical Necessity Statement*: Not applicable Coding Level of Care Code Acute Sales Order Coordinator for [facility] Fwd History Detailed Exam Detailed Medical Decision Making Moderate Complexity Diagnoses Elevated troponin R79.89 Chronic chest pain R07.9; G89.29 Noncompliance Z91.19 End-stage renal disease on hemodialysis N18.6; Z99.2 Anticoagulation adequate with anticoagulant therapy Z79.01 Atrial fibrillation I48.91 Diastolic heart failure I50.30 Chronic pain disorder G89.4 Major depressive disorder, recurrent severe without psychotic features F33.2 Generalized anxiety disorder F41.1
[2019-09-10] MEDS: oxyCODONE-APAP 5-325 mg Tablet 1 TAB PO (11:29)
--- NOTE | 2019-09-10 12:09 | PC.NURSE ---
dialysis completed.pt tolerated procedure well
[2019-09-10] MEDS: aspirin 81 mg EC Tablet PO (12:35)
[2019-09-10] MEDS: levothyroxine 25 mcg Tablet PO (12:35)
[2019-09-10] MEDS: minoxidil 10 mg Tablet 2.5 MG PO (12:36)
[2019-09-10] MEDS: diphenoxylate/atropine Tablet 2 TAB PO (12:36)
[2019-09-10] MEDS: metoprolol succinate ER (24 HR) 25 mg Tablet 12.5 MG PO (12:38)
[2019-09-10] MEDS: losartan 50 mg Tablet 100 MG PO (12:38)
[2019-09-10] MEDS: apixaban 5 mg Tablet 2.5 MG PO (12:39)
[2019-09-10] MEDS: clopidogrel 75 mg Tablet PO (12:39)
[2019-09-10] MEDS: meloxicam 7.5 mg tablet PO (12:40)
--- NOTE | 2019-09-10 12:49 | P.DS_ITS ---
Discharge Providers Date of Admission: 09/09/19 17:29 Date of Discharge: 09/10/19 Attending Provider at Admission: Keegan Forrest MD Attending Provider at Discharge: Keegan Forrest MD Primary Care Provider: Laisha Campoverde Diagnoses at Discharge Discharge Diagnosis (1) Elevated troponin: Status: Acute (2) Chronic chest pain: Status: Acute (3) Noncompliance: Status: Acute (4) End-stage renal disease on hemodialysis: Status: Acute (5) Anticoagulation adequate with anticoagulant therapy: Status: Acute (6) Atrial fibrillation: Status: Acute (7) Diastolic heart failure: Status: Acute (8) Chronic pain disorder: Status: Acute (9) Major depressive disorder, recurrent severe without psychotic features: Status: Acute (10) Generalized anxiety disorder: Status: Acute Reason for Visit Reason for Visit: Reason For Visit: CHEST PAIN, CRF Hospital Course Discharge Summary: Amanda Ha is a 64 year old female with past medical history of hypertension, diabetes, dyslipidemia, end-stage renal disease on hemodialysis through a port in her right chest as the fistula in her left arm is not functioning and has been followed by a vascular surgeon for that, CAD post PCI to mid LAD in December 2018 with presented to the hospital in June 2019 with symptoms of chest pain and at that time stress test showed small area of mild reversibility in the basal to mid inferolateral segment and artifact could not be ruled out because no prone images could be done. She presents to the ER on September 09 as [address] her way back from her doctors visit to [place] she started having chest pressure-like symptoms radiating down both her arms without any nausea or vomiting, diaphoresis, dizziness, palpitations. Patient states usually she does not have any chest pain or shortness of breath on rest or exertion. She can do her usual activities without any difficulties other than back pain. Patient usually goes for dialysis Friday but she missed her dialysis session yesterday because she did not feel well. Patient was admitted to the hospital to rule out ACS due to her significant cardiac history. Patient was seen by technology architect and it was deemed as she recently had a stress test and for last 2 months her symptoms are most likely due to missed dialysis session leading to mildly elevated blood pressures. Patient did not have any similar symptoms while being in the hospital. Patient underwent dialysis on September 10. Patient stated she missed her dialysis session because she was feeling overwhelmed with her appointment with vascular surgeon at [place] for nonfunctioning graft. Patient denies of having any suicidal or homicidal ideations and is very compliant with her medications. Home health has been set up for patient has she lives alone to help her with her daily affairs. She is being discharged in hemodynamically stable condition at chest pain-free state. Physical Exam Narrative: EXAM NARRATIVE: General: No acute distress, AO x3 HEENT: PERRLA, pupils bilaterally equal and reactive Chest: Normal vesicular breath sounds, no added sounds, equal good air entry bilaterally CVS: S1-S2 regular, no murmurs, no tachycardia, no gallops, no rubs Abdomen: Soft, nontender, no organomegaly, bowel sounds present Neuro: No focal deficits, no facial deformity, AO x3, power 5/5 in all limbs Discharge Data Data Completed and Pending: Completed Studies During Hospitalization Category Date Time Status XR chest 1V kayce ble [id number] Stat Exams 09/09/19 16:25 Completed Pending at discharge Category Date Time Status Complete Blood Co unt w/Auto AM LABS Lab 09/11/19 04:00 Ordered Complete Blood Co unt w/Auto AM LABS Lab 09/12/19 04:00 Ordered Comprehensive Met abolic Panel AM LA BS Lab 09/11/19 04:00 Ordered Comprehensive Met abolic Panel AM LA BS Lab 09/12/19 04:00 Ordered Phosphorus AM LAB S Lab 09/11/19 04:00 Ordered Phosphorus AM LAB S Lab 09/12/19 04:00 Ordered Labs from last 24 hours 09/10/19 09/10/19 09/10/19 07:48 06:50 06:50 WBC 7.7 RBC 3.10 L Hgb 9.0 L Hct 29.6 L MCV 95.5 MCH 29.0 MCHC 30.4 RDW 13.5 Plt Count 167 MPV 10.9 H Neut % (Auto) 65.6 Lymph % (Auto) 24.2 [place] % (Auto) 7.8 Eos % (Auto) 0.9 Baso % (Auto) 0.3 Neut # (Auto) 5.0 Lymph # (Auto) 1.9 [place]borne # (Auto) 0.6 Eos # (Auto) 0.1 Baso # (Auto) 0.0 Nucleated RBC % (a uto) 0 Nucleated RBCs # 0.0 Sodium 136 Potassium 5.3 H Chloride 95 L Carbon Dioxide 23 Anion Gap 23.3 H BUN 104 H* Creatinine 12.3 H* GFR Calculation 3.1 L Glucose 167 H POC Glucose 135 Calcium 9.0 Phosphorus 8.7 H* Total Bilirubin 0.3 AST 9 ALT 7 Alkaline Phosphata se 65 Troponin I 6 Hour Troponin I Hi Sens Del Troponin T Baselin e Troponin T 120 Min [place] Delta Troponin T NT-Pro-B Natriuret Pep Total Protein 6.3 L Albumin 3.3 L Globulin 3.0 Lipase 09/09/19 09/09/19 09/09/19 22:05 21:34 18:30 WBC RBC Hgb Hct MCV MCH MCHC RDW Plt Count MPV Neut % (Auto) Lymph % (Auto) Os[place] % (Auto) Eos % (Auto) Baso % (Auto) Neut # (Auto) Lymph # (Auto) [place] # (Auto) Eos # (Auto) Baso # (Auto) Nucleated RBC % (a uto) Nucleated RBCs # Sodium Potassium Chloride Carbon Dioxide Anion Gap BUN Creatinine GFR Calculation Glucose POC Glucose 245 Calcium Phosphorus Total Bilirubin AST ALT Alkaline Phosphata se Troponin I 6 Hour 472.0 H Troponin I Hi Sens Del 21.0 H* Troponin T Baselin e Troponin T 120 Min [place] 468.30 H Delta Troponin T 17.30 H* NT-Pro-B Natriuret Pep Total Protein Albumin Globulin Lipase 09/09/19 09/09/19 09/09/19 16:27 16:27 16:27 WBC 9.3 RBC 3.43 L Hgb 10.5 L Hct 34.2 L MCV 99.7 H MCH 30.6 MCHC 30.7 RDW 13.3 Plt Count 181 MPV 11.7 H Neut % (Auto) 76.5 Lymph % (Auto) 17.6 [place] % (Auto) 4.7 Eos % (Auto) 0.1 Baso % (Auto) 0.1 Neut # (Auto) 7.1 Lymph # (Auto) 1.6 [place] # (Auto) 0.4 Eos # (Auto) 0.0 Baso # (Auto) 0.0 Nucleated RBC % (a uto) 0 Nucleated RBCs # 0.0 Sodium 138 Potassium 4.8 Chloride 97 L Carbon Dioxide 22 Anion Gap 23.8 H BUN 101 H* D Creatinine 12.0 H* GFR Calculation 3.2 L Glucose 287 H POC Glucose Calcium 9.2 Phosphorus Total Bilirubin 0.3 AST 10 ALT 8 Alkaline Phosphata se 78 Troponin I 6 Hour Troponin I Hi Sens Del Troponin T Baselin e 451 H* Troponin T 120 Min [place] Troponin T NT-Pro-B Natriuret Pep 20109 H Total Protein 6.8 Albumin 3.9 Globulin 2.9 Lipase 29 Vitals: Last Vital Signs Temp 98.4 F 09/10/19 04:00 Pulse 87 09/10/19 12:00 Resp 20 H 09/10/19 12:00 BP 144/61 09/10/19 12:38 Pulse Ox 97 09/10/19 12:00 Discharge Plan Discharge Patient Disposition: Home Health Service Condition: Stable Prescriptions: Continued zolpidem [Ambien] 5 mg tablet 5 mg PO .Hs RF: 0 metoprolol succinate [Toprol XL] 25 mg tablet extended release 24 hr 12.5 mg PO DAILY RF: 0 Eliquis 2.5 mg tablet 2.5 mg PO BID RF: 0 meloxicam 7.5 mg tablet 7.5 mg PO DAILY RF: 0 diphenoxylate-atropine [Lomotil] 2.5-0.025 mg tablet 2 tab PO QID RF: 0 losartan 100 mg tablet 100 mg PO DAILY RF: 0 minoxidil 2.5 mg tablet 2.5 mg PO BID RF: 0 oxycodone-acetaminophen 5-325 mg tablet 1 tab PO BID PRN (Reason: Pain) RF: 0 levothyroxine [Synthroid] 25 mcg tablet 25 mcg PO DAILY RF: 0 trazodone 50 mg tablet See Rx Instructions PO .HS PRN (Reason: sleep) Qty: 60 RF: 1 clopidogrel [Plavix] 75 mg tablet 75 mg PO DAILY Qty: 30 RF: 6 Aspir-81 81 mg Tablet,Delayed Release (Dr/Ec) 81 mg PO DAILY RF: 0 Discharge Orders: Discharge Order (Routine); Ordered 09/10/19 Ordered By: Keegan Forrest Referrals: Laisha Campoverde [Primary Care Provider] - 2 weeks (You have a hospital followup at [facility] with Laisha Campoverde on September 24 at 10:15am. Any appointment changes, please call them at [phone]) Lupe Bertrand MD [Physician] - 2 weeks (You have a cardiology followup at [facility] with ERIKA Pereyra on FridaySeptember 20 at 10:00am . Any appointment changes, please call them at [phone]) Discharge Diet: Cardiac Discharge Activity: Resume usual activity Patient Instructions: Chest Pain (DC) Discharge Date/Time: 09/10/19 14:31 Discharge Attestations Time Spent in Discharge Care*: less than 30 min Specific Discharge Activities: Specific discharge activities: educating p atient, discussing with pillowcase maker/social workers/dc planners and evaluating patient/reviewing data Status at Discharge: Cognitive status at discharge: cognitively intact , Behavioral status at discharge: cooperative , Functional status at discharge: independent ambulation Overall status at discharge: patient is back to baseline Quality Metrics Clinical Quality Measures During this hospital stay, did patient experience: None Coding Level of Care Code 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
== END 2019-09-10 14:31 | disposition home health service (06) ==
LOC: ER 19:54 → CSU 19:56
PROVIDERS: Admitting Provider Student in an Organized Health Care Education/Training Program; Emergency Provider Family Medicine; PCP Nurse Practitioner Family; Visit Provider Student in an Organized Health Care Education/Training Program
DX: R07.89 Other chest pain (principal); I12.0 Hypertensive chronic kidney disease with stage 5 chronic kidney disease or end stage renal disease; N18.6 End stage renal disease; E11.22 Type 2 diabetes mellitus with diabetic chronic kidney disease; E78.5 Hyperlipidemia, unspecified; R79.89 Other specified abnormal findings of blood chemistry; Z91.19 Patient's noncompliance with other medical treatment and regimen; Z99.2 Dependence on renal dialysis; Z79.01 Long term (current) use of anticoagulants; I48.91 Unspecified atrial fibrillation; I50.30 Unspecified diastolic (congestive) heart failure; G89.29 Other chronic pain; F41.9 Anxiety disorder, unspecified; Z79.82 Long term (current) use of aspirin; Z79.02 Long term (current) use of antithrombotics/antiplatelets; F33.2 Major depressive disorder, recurrent severe without psychotic features; M79.7 Fibromyalgia; G47.30 Sleep apnea, unspecified; Z95.5 Presence of coronary angioplasty implant and graft; Z82.49 Family history of ischemic heart disease and other diseases of the circulatory system; Z87.891 Personal history of nicotine dependence
CPT/HCPCS: 12345; 36415; 36416; 71045; 80053; 82962; 83690; 83880; 84100; 84484; 85025; 93005; 96374; 99283; 99285; G0378

== ENCOUNTER 2019-09-11 13:16 | Observation (INO) | payer MEDICARE, MEDICAID, SELFPAY ==
[2019-09-11] VITALS (13 sets, daily range): BP systolic 134–166; BP diastolic 43–93; PULSE 63–86; RESP 17–20; TEMP 36.4–36.8; O2SAT 93–98; BMI 39.1
--- NOTE | 2019-09-11 13:42 | ED_ITS ---
Entered by Irene Sheth, acting as scribe for HPI - Back Pain/Injury General: Chief Complaint: Back Pain/Injury Stated Complaint: BACK PAIN ; N/V Time Seen by Provider: 09/11/19 13:41 Source: patient and RN notes reviewed Mode of arrival: EMS Limitations: no limitations History of Present Illness: HPI Narrative: 64 yo female presents to ED with complaints of back pain (chronic), dizziness, nausea and vomiting (since 0600 this morning). The patient states her back has worsened over the weekend. She said she has had back pain all her life but it has worsened. The pain is worse in her lumbar, on both sides of her spine. She is due to see Dr Kofi molina. She said she has had nausea and liquid diarrhea that began at 0600 this morning. The patient was discharged yesterday from a 2 day inpatient stay here. MD elicited complaint: back pain (chronic) Pertinent past history: prior back pain Onset (ago): year(s) (chronic) Timing: constant Severity: severe Similar Symptoms Previously: Yes Quality: sharp and spasming Location: lumbar spine and thoracic spine Radiation: none Exacerbating factors: movement and supine positioning Relieving factors: none Context: other (chronic) Associated symptoms: Reports no associated symptoms; Deny abdominal pain, chills, dysuria, fever(s) or urinary urgency Work related injury: No Review of Systems General: Reports: 10 or more systems reviewed and unremarkable except in HPI and below Const: Denies: fever, chills or body aches Eyes: Denies: photophobia ENMT: Denies: enlarged tonsils Card: Reports: chest pain; Denies: palpitations, irregular heart rhythm, edema or swelling of feet/ankles Resp: Denies: shortness of breath, productive cough or non-productive cough GI: Denies: abdominal pain : Denies: flank pain, difficulty urinating, painful urination, urinary f requency, urinary urgency or urinary hesitancy Musc: Reports: extremity pain (left shoulder), joint pain (left shoulder) and limited range of motion; Denies: neck pain or extremity swelling Skin/Breast: Denies: rash, itching or redness Neuro: Denies: headache, numbness in extremities or weakness in extremities Psych: Denies: sleeping more Endo: Denies: excessive urination, excessive thirst or tired all the time All/Imm: Denies: acute wheezing PFSH ED PFSH: Statuses (acute, chronic, etc) shown below reflect problem list status as previously entered and may not be historically accurate Medical History (Updated 09/11/19 @ 19:52 by Emily Malloy MD, [facility]) Anemia (Acute) Anticoagulation adequate with anticoagulant therapy (Acute) Atrial fibrillation (Acute) Carotid artery disease (Acute) Chronic bronchitis (Acute) Chronic chest pain (Acute) Chronic disease of respiratory system (Acute) Chronic pain disorder (Acute) Coronary artery disease (Acute) Diabetes (Acute) Diastolic heart failure (Acute) Emphysema of lung (Acute) End-stage renal disease on hemodialysis (Acute) Fibromyalgia (Acute) GERD (gastroesophageal reflux disease) (Acute) Hypertension (Acute) Hypothyroidism (Acute) Irritable bowel syndrome (Acute) Noncompliance (Acute) Sleep apnea (Acute) Venous insufficiency (Acute) Surgical History (Updated 09/11/19 @ 18:17 by Ruben Marie MD) History of appendectomy (Acute) History of cholecystectomy (Acute) Stented coronary artery (Acute) Family History (Updated 09/11/19 @ 18:17 by Ruben Marie MD) Other CAD (coronary artery disease) Social History (Updated 09/11/19 @ 18:18 by Ruben Marie MD) Smoking and tobacco status: former smoker Quit status (tobacco): has quit using tobacco Year quit tobacco: 2009 Second hand smoke exposure: Yes Smoking risk assessment/counseling performed?: No Alcohol intake: never Substance/Drug Use: unknown Physical Exam Const: COMMON NORMALS: no apparent distress, average body habitus, oriented x3, no limitations, healthy appearing, alert and well nourished HENMT: COMMON NORMALS: normocephalic, head/scalp atraumatic and moist oral mucous membranes HEAD & SCALP: normocephalic and atraumatic Eye: COMMON NORMALS: PERRL, EOMs intact bilaterally, conjunctivae normal and no scleral icterus CONJUNCTIVA: Yes conjunctivae normal PUPIL: Yes PERRL Neck/C-Spine: COMMON NORMALS: full ROM, supple, no meningeal signs, no JVD and no carotid bruits Chest: COMMONS NORMALS: inspection of chest normal and palpation of chest normal Resp: COMMON NORMALS: normal respiratory effort, no retractions, no use of accessory muscles, clear to auscultation bilaterally and percussion normal AUSCULTATION: clear to auscultation bilaterally PERCUSSION: percussion normal Cardio: COMMON NORMALS: no JVD, regular rate, regular rhythm, S1 normal heart sound, S2 normal heart sound, no gallops, no clicks, no murmurs, no rub and peripheral pulses 2+ throughout RATE: regular rate RHYTHM: regular rhythm HEART SOUNDS: S1 normal and S2 normal PERIPHERAL PULSES: pulses 2+ throughout GI: COMMON NORMALS: normal to inspection, nondistended, normoactive bowel sounds, soft to palpation, non-tender, no hepatosplenomegaly, no masses and no bruits PALPATION: Yes soft and Yes no hepatosplenomegaly : COMMON NORMALS: Yes no CVA tenderness BLADDER/KIDNEY EXAM: Yes no CVA tenderness Back/Pelvis: COMMON NORMALS: no CVA tenderness LUMBAR SPINE/LOWER BACK: Yes paraspinal muscle tenderness and Yes paraspinal muscle spasm Extremity: COMMON NORMALS: normal to inspection, full ROM, normal capillary refill, no calf tenderness and no pedal edema Neuro: COMMON NORMALS: oriented x3 SENSORIUM/ORIENTATION: Yes alert MENINGEAL SIGNS: Yes no meningeal signs OTHER: significant lightheadedness on sitting Skin: COMMON NORMALS: no rashes or lesions noted, no wounds, skin turgor normal, no jaundice, no petechiae and no mottling GENERAL SKIN EXAM: no rashes or lesions noted and turgor normal Course Consultations: Consultation #1: Dr. Marie, hospitalist. He kindly accepted the patient to his service. Vital Signs: Vital signs: Vital Signs Temperature 98.2 F 09/11/19 13:33 Pulse Rate 76 09/11/19 19:07 Respiratory Rate 18 09/11/19 19:07 Blood Pressure 157/48 09/11/19 19:07 Pulse Oximetry 98 09/11/19 19:07 MDM - Back Pain/Injury MDM Narrative: Medical decision making narrative: 64-year-old female patient who presented to the emergency department back pain, nausea and dizziness. She was discharged yesterday from the hospital for chest pain and elevated troponin. She has had a recent cardiac work-up with no significant findings. Evaluation in the ED shows an elevated troponin, up from what it was on admission, but of more concern is the fact that she has severe dizziness and l ightheadedness when she sits or stands. She is able to lie down without difficulty. About a year ago she had a carotid Doppler which showed greater than 70% occlusion in 1 of her carotid arteries. Uncertain if this may be related to the occlusion. She is being admitted to the hospital on observation status for further evaluation and management. Medical Records: Attestation: I reviewed the patient's medical records. Lab Data: Attestation: I reviewed the patient's lab results. Labs: Lab Results 09/11/19 09/11/19 09/11/19 Range/Units 14:14 14:32 14:32 WBC 7.4 (4.0-10.0) 10^3/ uL RBC 3.53 L (4.1-5.3) 10^6/u L Hgb 10.7 L (11.5-15.3) g/dL Hct 34.7 L (37.0-47.0) % MCV 98.3 (81-99) fL MCH 30.3 (28.0-34.0) pg MCHC 30.8 (30.0-36.0) g/dL RDW 13.4 (12.1-15.1) % Plt Count 170 (130-400) 10^3/c mm MPV 10.6 H (7.4-10.4) fL Neut % (Auto) 69.0 % Lymph % (Auto) 18.0 % [place] % (Auto) 10.0 % Eos % (Auto) 1.5 % Baso % (Auto) 0.3 % Neut # (Auto) 5.1 (1.8-7.7) 10^3/u L Lymph # (Auto) 1.3 (0.8-4.8) 10^3/u L [place] # (Auto) 0.7 (0.2-0.9) 10^3/u L Eos # (Auto) 0.1 (0.0-0.8) 10^3/u L Baso # (Auto) 0.0 (0.0-0.1) 10^3/u L Nucleated RBC % (a uto) 0 % Nucleated RBCs # 0.0 /100WBC Sodium (136-145) mmol/L Potassium (3.5-5.1) mmol/L Chloride (98-107) mmol/L Carbon Dioxide (22-29) mmol/L Anion Gap (5-19) BUN (8-23) mg/dL Creatinine (0.5-0.9) mg/dL GFR Calculation (90-130) mL/min Glucose (74-106) mg/dL Calcium (8.5-10.5) mg/dL Total Bilirubin (0.15-1.2) mg/dL AST (0-32) U/L ALT (0-33) U/L Alkaline Phosphata se (35-105) IU/L Troponin T Gen 5 n g/L 545 H* (0-10) ng/mL Total Protein (6.6-8.7) g/dL Albumin (3.5-5.2) g/dL Globulin (1.3-4.6) g/dL Lipase (13-60) U/L Influenza Type A A g Negative (Negative) POC Influenza B Ag Negative (Negative) 09/11/19 09/11/19 Range/Units 14:32 16:31 WBC (4.0-10.0) 10^3/ uL RBC (4.1-5.3) 10^6/u L Hgb (11.5-15.3) g/dL Hct (37.0-47.0) % MCV (81-99) fL MCH (28.0-34.0) pg MCHC (30.0-36.0) g/dL RDW (12.1-15.1) % Plt Count (130-400) 10^3/c mm MPV (7.4-10.4) fL Neut % (Auto) % Lymph % (Auto) % [place] % (Auto) % Eos % (Auto) % Baso % (Auto) % Neut # (Auto) (1.8-7.7) 10^3/u L Lymph # (Auto) (0.8-4.8) 10^3/u L [place] # (Auto) (0.2-0.9) 10^3/u L Eos # (Auto) (0.0-0.8) 10^3/u L Baso # (Auto) (0.0-0.1) 10^3/u L Nucleated RBC % (a uto) % Nucleated RBCs # /100WBC Sodium 139 (136-145) mmol/L Potassium 5.4 H (3.5-5.1) mmol/L Chloride 99 (98-107) mmol/L Carbon Dioxide 25 (22-29) mmol/L Anion Gap 20.4 H (5-19) BUN 74 H (8-23) mg/dL Creatinine 9.6 H* (0.5-0.9) mg/dL GFR Calculation 4.1 L (90-130) mL/min Glucose 172 H (74-106) mg/dL Calcium 9.1 (8.5-10.5) mg/dL Total Bilirubin 0.3 (0.15-1.2) mg/dL AST 9 (0-32) U/L ALT 7 (0-33) U/L Alkaline Phosphata se 75 (35-105) IU/L Troponin T Gen 5 n g/L 531 H* (0-10) ng/mL Total Protein 6.7 (6.6-8.7) g/dL Albumin 3.7 (3.5-5.2) g/dL Globulin 3.0 (1.3-4.6) g/dL Lipase 28 (13-60) U/L Influenza Type A A g (Negative) POC Influenza B Ag (Negative) Discharge Plan Discharge Patient Disposition: Placed in Observation Admit Provider: Ruben Marie Clinical Impression: Dizziness, Low back pain Condition: Stable Coding Level of Care Code ED Pharmaceutical Officer for g Fwd The documentation recorded by the Domenic finley Valerie R, accurately reflects the service I personally performed and the decisions made by Gama pathak Adegoke I, MD, [facility] Sep 11, 2019 13:16
--- NOTE | 2019-09-11 13:59 | ECG_ITS ---
Measurements Intervals [place] Rate: 77 P: 61 AR: 165 QRS: -18 QRSD: 83 T: 68 QT: 369 QTc: 420 SINUS RHYTHM POSSIBLE ANTERIOR MYOCARDIAL INFARCTION , OF INDETERMINATE AGE [30 ms Q WAVE IN V3/V4, OR R < 0.2 mV IN V4] Compared to ECG 09/09/2019 22:55:00 Myocardial infarct finding now present T-wave abnormality no longer present Electronically Signed On 09-11-2019 16:24:57 VISUAL MERCHANDISING SPECIALIST by Lisa Watson M.D. [email or web address]
[2019-09-11] MEDS: ondansetron 2 mg/ML SDV 2 mL 4 MG IM (14:17)
[2019-09-11] MEDS: orphenadrine 30 mg/mL Inj 2 mL 60 MG IM (14:18)
[2019-09-11 14:42] LABS: Basophils % 0.3 %; Eosinophils # 0.1 10^3/uL (0.0-0.8); Eosinophils % 1.5 %; Hematocrit 34.7 % (37.0-47.0); Hemoglobin 10.7 g/dL (11.5-15.3); Lymphocytes # 1.3 10^3/uL (0.8-4.8); Mean Corpuscular HGB Conc 30.8 g/dL (30.0-36.0); Mean Corpuscular Hemoglobin 30.3 pg (28.0-34.0); Mean Corpuscular Volume 98.3 fL (81-99); Mean Platelet Volume 10.6 fL (7.4-10.4); Monocytes # 0.7 10^3/uL (0.2-0.9); Neutrophils # 5.1 10^3/uL (1.8-7.7); Nucleated Red Blood Cells % 0 %; Platelet Count 170 10^3/cmm (130-400); Red Blood Count 3.53 10^6/uL (4.1-5.3); Red Cell Distribution Width 13.4 % (12.1-15.1); White Blood Count 7.4 10^3/uL (4.0-10.0)
[2019-09-11] MEDS: fentaNYL 50 mcg/mL INJ 2mL IVP (14:44)
[2019-09-11 14:57] LABS: Alanine Aminotransferase 7 U/L (0-33); Albumin Level 3.7 g/dL (3.5-5.2); Alkaline Phosphatase 75 IU/L (35-105); Anion Gap 20.4 (5-19); Aspartate Amino Transferase 9 U/L (0-32); Blood Urea Nitrogen 74 mg/dL (8-23); Calcium 9.1 mg/dL (8.5-10.5); Carbon Dioxide 25 mmol/L (22-29); Chloride 99 mmol/L (98-107); Glomerular Filtration Rate 4.1 mL/min (90-130); Glucose 172 mg/dL (74-106); Lipase 28 U/L (13-60); Potassium 5.4 mmol/L (3.5-5.1); Sodium 139 mmol/L (136-145); Total Bilirubin 0.3 mg/dL (0.15-1.2); Total Protein 6.7 g/dL (6.6-8.7)
[2019-09-11 15:02] LABS: Troponin T (5th) Once 545 ng/mL (0-10)
[2019-09-11 15:05] LABS: Influenza A by IFA Negative (Negative); Influenza B by IFA Negative (Negative)
[2019-09-11 17:05] LABS: Troponin T (5th) Once 531 ng/mL (0-10)
--- NOTE | 2019-09-11 17:06 | PC.NURSE ---
2 [facility] trop 53
--- NOTE | 2019-09-11 18:11 | PM.CONSULT ---
Providers/Reason For Consult Consulting Physican/Specialty*: Hospitalist Reason for Consult*: Elevated troponin Primary Care Provider: Laisha Campoverde History of Present Illness History of Present Illness Amanda Ha is a 64 year old female who was recently in the hospital for chest pain and elevated troponin and had cardiology consultation performed. She represents reporting initially she has low back pain that has been bothering her while in the hospital and was worse today. She reports this is been going on for quite a while and is paraspinal. She has had no fevers. She reports she had dialysis and had a normal session yesterday. She reports she has been compliant with her medicines. She reports since this morning she is also had some dizziness. She describes some dizziness when she sits up, associated with some nausea. She reports the room is not spinning. She denies any focal neurologic defects. She reports when she lays back she feels better and is not dizzy and is not nauseous. She specifically denies any chest discomfort, upper back pain. Review of Systems General: Reports: 10 or more systems reviewed and unremarkable except in HPI and below Const: Denies: fever or chills Eyes: Denies: blurry vision ENMT: Denies: throat pain Card: Reports: lightheadedness; Denies: chest pain Resp: Denies: shortness of breath GI: Denies: abdominal pain : Denies: flank pain Musc: Denies: neck pain Skin/Breast: Denies: rash Neuro: Reports: dizziness; Denies: headache Psych: Denies: anxiety Endo: Reports: tired all the time Hussein/Lymph: Denies: easy bruising All/Imm: Denies: hives Meds/Allergies Home Medications and Allergies Home Medications Medication Instructions Recorded Confirmed Type apixaban 2.5 mg tablet 2.5 mg PO BID 08/18/19 09/09/19 History diphenoxylate-atropine 2.5 2 tab PO QID 08/18/19 09/09/19 History mg-0.025 mg tablet levothyroxine 25 mcg tablet 25 mcg PO DAILY tab 08/18/19 09/09/19 History losartan 100 mg tablet 100 mg PO DAILY tab 08/18/19 09/09/19 History meloxicam 7.5 mg tablet 7.5 mg PO DAILY tab 08/18/19 09/09/19 History metoprolol succinate 25 mg 12.5 mg PO DAILY tab 08/18/19 09/09/19 History tablet,extended release 24 hr minoxidil 2.5 mg tablet 2.5 mg PO BID 08/18/19 09/09/19 History oxycodone-acetaminophen 5 mg-325 1 tab PO BID PRN tab 08/18/19 09/09/19 History mg tablet zolpidem 5 mg tablet 5 mg PO .Hs tab 08/18/19 09/09/19 History Aspir-81 81 mg PO DAILY 09/09/19 09/09/19 History Allergies Allergy/AdvReac Type Severity Reaction Status Date / Time adhesive Allergy Unknown Verified 09/07/19 14:46 codeine Allergy Unknown Verified 09/07/19 14:46 duloxetine [From Cymbalta] Allergy Unknown Verified 09/07/19 14:46 PFSH Acute PFSH: Statuses (acute, chronic, etc) shown below reflect problem list status as previously entered and may not be historically accurate Medical History (Updated 09/11/19 @ 18:31 by Ruben Marie MD) Anemia (Acute) Anticoagulation adequate with anticoagulant therapy (Acute) Atrial fibrillation (Acute) Carotid artery disease (Acute) Chronic bronchitis (Acute) Chronic chest pain (Acute) Chronic disease of respiratory system (Acute) Chronic pain disorder (Acute) Coronary artery disease (Acute) Diabetes (Acute) Diastolic heart failure (Acute) Emphysema of lung (Acute) End-stage renal disease on hemodialysis (Acute) Fibromyalgia (Acute) GERD (gastroesophageal reflux disease) (Acute) Hypertension (Acute) Hypothyroidism (Acute) Irritable bowel syndrome (Acute) Noncompliance (Acute) Sleep apnea (Acute) Venous insufficiency (Acute) Surgical History (Updated 09/11/19 @ 18:17 by Ruben Marie MD) History of appendectomy (Acute) History of cholecystectomy (Acute) Stented coronary artery (Acute) Family History (Updated 09/11/19 @ 18:17 by Ruben Marie MD) Other CAD (coronary artery disease) Social History (Updated 09/11/19 @ 18:18 by Ruben Marie MD) Smoking and tobacco status: former smoker Quit status (tobacco): has quit using tobacco Year quit tobacco: 2009 Second hand smoke exposure: Yes Smoking risk assessment/counseling performed?: No Alcohol intake: never Substance/Drug Use: unknown Vitals/I&O/Wt Last Vital Signs Temp 98.2 F 09/11/19 13:33 Pulse 63 09/11/19 17:30 Resp 18 09/11/19 17:30 BP 134/53 09/11/19 17:30 Pulse Ox 97 09/11/19 17:30 Weight last 48 hrs Weight 113.398 kg Physical Exam Narrative: EXAM NARRATIVE: General exam is an obese white female in no apparent distress HEENT: Pupils equally round reactive to light. Oropharynx is clear Neck is supple no lymphadenopathy or thyromegaly Cardiovascular regular rate and rhythm without murmur. Dialysis catheter noted chest Lungs clear no wheezing or crackles Abdomen is soft, obese. Nontender. Positive bowel sounds. Extremities no cyanosis clubbing or edema, AV fistula with positive thrill and bruit deferred Skin without rash Neuro no obvious focal deficits. Reports significant dizziness with sitting up. Reports she is unable to stand secondary to dizziness. However, orthostatic blood pressures and heart rates obtained laying and sitting demonstrate no orthostasis. Data Other Data: Other data: Liver function tests normal. EKG demonstrates a sinus rhythm, left axis deviation, poor R wave progression unchanged from prior. Chest x-ray shows dialysis catheter, no infiltrate. Troponin 531 at 2 hours, 545 initially. Influenza negative. A&P Assessment and plan (1) Elevated troponin: Elevated troponin is similar to her previous. She has no evidence of chest discomfort currently. EKG is unchanged. This is secondary to her renal disease. Status: Acute Code(s): R79.89 - Other specified abnormal findings of blood chemistry (2) Dizziness: At this point she reports dizziness with standing. She reports she cannot ambulate. She did have dialysis yesterday. Secondary to her inability to stand we cannot get true orthostatic blood pressures on her. Dizziness could be secondary to atherosclerotic disease, or just some fluid depletion from recent dialysis. We will give back a slight amount of fluid. CTA of neck and head. Status: Acute Code(s): R42 - Dizziness and giddiness (3) Low back pain: Musculoskeletal Status: Acute Code(s): M54.5 - Low back pain Additional A&P Information End-stage renal disease on hemodialysis Hypertension Coronary disease Anemia, chronic History of paroxysmal atrial fibrillation History of diastolic heart failure, currently compensated Type 2 diabetes Chronic pain syndrome GERD Hypothyroidism Multiple other medical problems as outlined in past medical history Consult Attestations Medical Necessity Statement: Will need less than 2 midnight stay for evaluation of dizziness. Time Spent in Patient Care: Greater than 35 minutes Coding Level of Care Code Acute Pegger Dobby Looms for Chg Fwd Diagnoses Elevated troponin R79.89 Dizziness R42 Low back pain M54.5
[2019-09-11] MEDS: sodium chloride 0.9% 250 ML IV (19:05)
--- NOTE | 2019-09-11 19:08 | CTR_ITS ---
PROCEDURE INFORMATION: Exam: CT Angiography Head With Contrast Exam date and time: 09/11/2019 7:16 PM Age: 64 years old Clinical indication: Condition or disease; Occlusion or stenosis of cerebral arteries; Additional info: Dizziness, history of severe carotid artery disease TECHNIQUE: Imaging protocol: Computed tomography angiography of the head with intravenous contrast. 3D rendering: MIP and/or 3D reconstructed images were created by the technologist. Total DLP: 2598.74 mGy-cm Radiation optimization: All CT scans at this facility use at least one of these dose optimization techniques: automated exposure control; mA and/or kV adjustment per patient size (includes targeted exams where dose is matched to clinical indication); or iterative reconstruction. Contrast material: VISI; Contrast volume: 95 ml; Contrast route: IV; COMPARISON: CT head wo con* [id number] 06/05/2019 7:52 PM FINDINGS: Right internal carotid artery: Calcified plaque within the cavernous portion of the right internal carotid artery with moderate stenosis. Right anterior cerebral artery: Unremarkable. No occlusion or significant stenosis. No aneurysm. Right middle cerebral artery: Unremarkable. No occlusion or significant stenosis. No aneurysm. 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 Right vertebral artery: Calcified plaque with moderate stenosis in the intracranial portion of the distal right vertebral artery. Left internal carotid artery: Calcified plaque in the cavernous portion of the left internal carotid artery with mild stenosis. Left anterior cerebral artery: Unremarkable. No occlusion or significant stenosis. No aneurysm. Left middle cerebral artery: Unremarkable. No occlusion or significant stenosis. No aneurysm. Left posterior cerebral artery: Unremarkable. No occlusion or significant stenosis. No aneurysm. Left vertebral artery: Calcified plaque with severe stenosis of the distal intracranial portion of the left vertebral artery. Basilar artery: Unremarkable. No occlusion or significant stenosis. No aneurysm. IMPRESSION: 1. Calcified plaque in the distal vertebral arteries with moderate stenosis on the right and severe stenosis on the left. 2. Calcified plaque in the cavernous portions of the internal carotid arteries with moderate stenosis on the right and mild stenosis on the left. PROCEDURE INFORMATION: Exam: CT Angiography Neck With Contrast Exam date and time: 09/11/2019 7:16 PM Age: 64 years old Clinical indication: Condition or disease; Occlusion or stenosis of cerebral arteries; Additional info: Dizziness, history of severe carotid artery disease TECHNIQUE: Imaging protocol: Computed tomography angiography of the neck with intravenous contrast. 3D rendering: MIP and/or 3D reconstructed images were created by the technologist. Total DLP: 2598.74 mGy-cm Radiation optimization: All CT scans at this facility use at least one of these dose optimization techniques: automated exposure control; mA and/or kV adjustment per patient size (includes targeted exams where dose is matched to clinical indication); or iterative reconstruction. Contrast material: VISI; Contrast volume: 95 ml; Contrast route: IV; COMPARISON: CT head wo con* [id number] 06/05/2019 7:52 PM FINDINGS: VASCULATURE: Right common carotid artery: Unremarkable. No stenosis. No dissection or occlusion. Right internal carotid artery: Calcified plaque with 50% diameter stenosis of the proximal right internal carotid artery. Right external carotid artery: Unremarkable. No occlusion or stenosis of the origin. Right vertebral artery: Calcified plaque with moderate stenosis in the proximal right vertebral artery. Left common carotid artery: Unremarkable. No stenosis. No dissection or occlusion. Left internal carotid artery: Calcified plaque with 90% stenosis in the proximal left internal carotid artery. Left external carotid artery: Calcified plaque with severe stenosis in the proximal left external carotid artery. Left vertebral artery: Calcified plaque and mild stenosis in the proximal left vertebral artery. Subclavian arteries: Calcified atherosclerotic plaque and severe stenosis in the proximal left subclavian artery. NECK: Bones/joints: No acute fracture. Soft tissues: Normal. No significant soft tissue swelling. CT/CT angio headneck* [id number] IMPRESSION: 1. Calcified plaque with 90% diameter stenosis in the proximal left internal carotid artery. 2. Calcified plaque with 50% stenosis in the proximal right internal carotid artery. 3. Calcified plaque with severe stenosis in the proximal left subclavian artery. 4. Calcified plaque with moderate stenosis in the proximal right vertebral artery. COMMENT: Reference per NASCET criteria for degree of stenosis: Mild: less than 50% stenosis. Moderate: 50-69% stenosis. Severe: 70-94% stenosis. Near occlusion: 95-99% stenosis. Radiation Dose CTDIVOL = (mGy): DLP = 2598.74~2598.74 (mGy-cm)
[2019-09-11] MEDS: iodixanol 320 mg/mL 100mL Btl IV (19:17)
[2019-09-11] MEDS: fentaNYL 50 mcg/mL INJ 2mL XX (19:47)
[2019-09-11] MEDS: promethazine 25 mg/mL SDV 1 mL IM (19:47)
[2019-09-12] VITALS (8 sets, daily range): BP systolic 128–173; BP diastolic 71–88; PULSE 69–86; RESP 18–24; TEMP 36.6–36.9; O2SAT 95–98
[2019-09-12] MEDS: trazodone 50 mg Tablet 25 MG PO (00:48)
[2019-09-12] MEDS: oxyCODONE-APAP 5-325 mg Tablet 1 TAB PO ×3 (00:49→18:02)
[2019-09-12 06:29] LABS: Basophils % 0.2 %; Eosinophils # 0.2 10^3/uL (0.0-0.8); Eosinophils % 2.1 %; Hematocrit 32.2 % (37.0-47.0); Hemoglobin 10.1 g/dL (11.5-15.3); Lymphocytes # 2.5 10^3/uL (0.8-4.8); Lymphocytes % 30.9 %; Mean Corpuscular HGB Conc 31.4 g/dL (30.0-36.0); Mean Corpuscular Hemoglobin 30.5 pg (28.0-34.0); Mean Corpuscular Volume 97.3 fL (81-99); Mean Platelet Volume 11.5 fL (7.4-10.4); Monocytes # 0.6 10^3/uL (0.2-0.9); Monocytes % 7.9 %; Neutrophils # 4.7 10^3/uL (1.8-7.7); Neutrophils % 58.2 %; Nucleated Red Blood Cells % 0 %; Platelet Count 173 10^3/cmm (130-400); Red Blood Count 3.31 10^6/uL (4.1-5.3); Red Cell Distribution Width 13.4 % (12.1-15.1)
[2019-09-12 06:42] LABS: Anion Gap 23.6 (5-19); Carbon Dioxide 21 mmol/L (22-29); Chloride 97 mmol/L (98-107); Glomerular Filtration Rate 3.6 mL/min (90-130); Glucose 121 mg/dL (74-106); Osmolality Calculated 283 mOsm/kg (285-295); Potassium 5.6 mmol/L (3.5-5.1); Sodium 136 mmol/L (136-145)
[2019-09-12 06:43] LABS: Blood Urea Nitrogen 84 mg/dL (8-23)
[2019-09-12] MEDS: metoprolol succinate ER (24 HR) 25 mg Tablet 12.5 MG PO (09:53)
[2019-09-12] MEDS: apixaban 5 mg Tablet 2.5 MG PO ×2 (09:53→18:02)
[2019-09-12] MEDS: clopidogrel 75 mg Tablet PO (09:53)
[2019-09-12] MEDS: aspirin 81 mg EC Tablet PO (09:53)
[2019-09-12] MEDS: levothyroxine 25 mcg Tablet PO (09:53)
--- NOTE | 2019-09-12 12:05 | PM.CONSULT ---
Providers/Reason For Consult Consulting Physican/Specialty*: [place]/ Telephrology Reason for Consult*: ESRD management and dialysis needs Requesting Physcian: Ruben Marie Attending Physician: Ruben Marie MD Primary Care Provider: Laisha Campoverde History of Present Illness History of Present Illness Amanda Ha is a 64 year old female who presented with dizziness & feeling of passing out. Nephrology was consulted for ESRD management and dialysis needs. No chest pain or shortness of breath. Last dialysis was on friday. No nausea or vomiting Review of Systems Const: Denies: fever, chills or body aches Eyes: Denies: blurry vision ENMT: Denies: throat pain Card: Reports: lightheadedness and pre-syncope; Denies: chest pain, palpitations or shortness of breath on exertion GI: Denies: abdominal pain, nausea, vomiting or diarrhea : Denies: flank pain Musc: Denies: back pain Skin/Breast: Denies: rash Neuro: Denies: headache Meds/Allergies Home Medications and Allergies Home Medications Medication Instructions Recorded Confirmed Type apixaban 2.5 mg tablet 2.5 mg PO BID 08/18/19 09/11/19 History diphenoxylate-atropine 2.5 2 tab PO QID 08/18/19 09/11/19 History mg-0.025 mg tablet levothyroxine 25 mcg tablet 25 mcg PO DAILY tab 08/18/19 09/11/19 History losartan 100 mg tablet 100 mg PO DAILY tab 08/18/19 09/11/19 History meloxicam 7.5 mg tablet 7.5 mg PO DAILY tab 08/18/19 09/11/19 History metoprolol succinate 25 mg 12.5 mg PO DAILY tab 08/18/19 09/11/19 History tablet,extended release 24 hr minoxidil 2.5 mg tablet 2.5 mg PO BID 08/18/19 09/11/19 History oxycodone-acetaminophen 5 mg-325 1 tab PO BID PRN tab 08/18/19 09/11/19 History mg tablet zolpidem 5 mg tablet 5 mg PO .Hs tab 08/18/19 09/11/19 History aspirin [Aspir-81] 81 mg PO DAILY 09/09/19 09/11/19 History Allergies Allergy/AdvReac Type Severity Reaction Status Date / Time adhesive Allergy Unknown Verified 09/07/19 14:46 codeine Allergy Unknown Verified 09/07/19 14:46 duloxetine [From Cymbalta] Allergy Unknown Verified 09/07/19 14:46 Current Medications Current Medications Generic Name Dose Route Start Last Admin Trade Name Freq PRN Reason Stop Dose Admin Apixaban 2.5 mg 09/12/19 09:00 09/12/19 09:53 Eliquis PO 2.5 mg BID JOSEFINA Administration Aspirin 81 mg 09/12/19 09:00 09/12/19 09:53 Aspirin Ec PO 81 mg DAILY JOSEFINA Administration Clopidogrel Bisulfate 75 mg 09/12/19 09:00 09/12/19 09:53 Plavix PO 75 mg DAILY JOSEFINA Administration Levothyroxine Sodium 25 mcg 09/12/19 09:00 09/12/19 09:53 Synthroid PO 25 mcg DAILY JOSEFINA Administration Metoprolol Succinate 12.5 mg 09/12/19 09:00 09/12/19 09:53 Toprol Xl PO 12.5 mg DAILY JOSEFINA Administration Oxycodone/Acetaminophen 1 tab 09/12/19 00:41 09/12/19 09:53 Percocet 5-325 Mg PO 1 tab BID JOSEFINA Administration Promethazine HCl 25 mg 09/11/19 19:37 09/11/19 19:47 Phenergan IM 25 mg Q6H PRN Administration NAUSEA Trazodone HCl 25 mg 09/12/19 00:30 09/12/19 00:48 Desyrel PO 25 mg BEDTIME JOSEFINA Administration PFSH Acute PFSH: Statuses (acute, chronic, etc) shown below reflect problem list status as previously entered and may not be historically accurate Medical History Anemia (Acute) Anticoagulation adequate with anticoagulant therapy (Acute) Atrial fibrillation (Acute) Carotid artery disease (Acute) Chronic bronchitis (Acute) Chronic chest pain (Acute) Chronic disease of respiratory system (Acute) Chronic pain disorder (Acute) Coronary artery disease (Acute) Diabetes (Acute) Diastolic heart failure (Acute) Emphysema of lung (Acute) End-stage renal disease on hemodialysis (Acute) Fibromyalgia (Acute) GERD (gastroesophageal reflux disease) (Acute) Hypertension (Acute) Hypothyroidism (Acute) Irritable bowel syndrome (Acute) Noncompliance (Acute) Sleep apnea (Acute) Venous insufficiency (Acute) Surgical History History of appendectomy (Acute) History of cholecystectomy (Acute) Stented coronary artery (Acute) Family History Other CAD (coronary artery disease) Social History Smoking and tobacco status: former smoker Quit status (tobacco): has quit using tobacco Year quit tobacco: 2009 Second hand smoke exposure: Yes Smoking risk assessment/counseling performed?: No Alcohol intake: never Substance/Drug Use: unknown Vitals/I&O/Wt Last Vital Signs Temp 98.4 F 09/12/19 11:18 Pulse 69 09/12/19 11:18 Resp 24 H 09/12/19 11:18 BP 173/88 09/12/19 11:18 Pulse Ox 95 09/12/19 11:18 09/11/19 09/12/19 09/12/19 22:59 06:59 14:59 Intake Total 480 / 480 300 / 780 240 / 240 Balance 480 / 480 300 / 780 240 / 240 Weight last 48 hrs Weight 108.862 kg Weight 113.398 kg Physical Exam Const: COMMON NORMALS: no apparent distress GENERAL APPEARANCE: cooperative and comfortable ORIENTATION/CONSCIOUSNESS: Yes awake, Yes oriented to person, Yes oriented to place and Yes oriented to time Resp: COMMON NORMALS: clear to auscultation bilaterally AUSCULTATION: clear to auscultation bilaterally Cardio: COMMON NORMALS: S1 normal heart sound and S2 normal heart sound HEART SOUNDS: S1 normal and S2 normal GI: AUSCULTATION: Yes normoactive bowel sounds Extremity: GENERAL: Yes edema Neuro: SENSORIUM/ORIENTATION: Yes oriented to person, Yes oriented to place and Yes oriented to time Skin: COMMON NORMALS: no rashes or lesions noted GENERAL SKIN EXAM: no rashes or lesions noted A&P Assessment and plan (1) End-stage renal disease on hemodialysis: No indication for dialysis today. Will plan tommorrow Status: Acute Code(s): N18.6 - End stage renal disease; Z99.2 - Dependence on renal dialysis (2) Hypertension: BP under control Status: Acute Code(s): I10 - Essential (primary) hypertension (3) Anemia: Hb within goal Status: Acute Code(s): D64.9 - Anemia, unspecified Consult Attestations Medical Necessity Statement: Near syncope Coding Level of Care Code Acute Padding Machine Operator for Chg Fwd Diagnoses End-stage renal disease on hemodialysis N18.6; Z99.2 Hypertension I10 Anemia D64.9
--- NOTE | 2019-09-12 12:27 | P.TS_ITS ---
Transfer Summary Providers Date of Admission: 09/11/19 18:54 Date of Discharge: 09/12/19 Attending Provider at Admission: Ruben Marie MD Attending Provider at Transfer: Ruben Marie MD Primary Care Provider: Laisha Campoverde Anticipated Date of Transfer: Anticipated date of transfer: 09/12/19 Receiving Facility & Provider: Receiving Provider: [] Receiving facility: [] Diagnoses at Discharge Discharge Diagnosis (1) End-stage renal disease on hemodialysis: Status: Acute Problem details: Receives dialysis Friday. Potassium slightly high. Kayexalate given 30 g p.o. on September 12 (2) Hypertension: Status: Acute Problem details: Elevated but stable (3) Anemia: Status: Acute Problem details: Stable Reason for Visit Reason for Visit: Reason For Visit: BACK PAIN ; N/V Hospital Course Hospital Course: Amanda is a 64-year-old white female who presented to the emergency department complaining of dizziness, vomiting upon standing and sitting up. She was not orthostatic. She had received dialysis that day and reported she regularly receives dialysis and had not missed any sessions lately. She reported no significant headache. She reported no chest discomfort. She was having some low back pain as well. Laboratory demonstrated an elevated troponin of 531, elevated potassium of 5.4. The emergency department asked that I evaluate her for her elevated troponin. She had had a recent hospital stay and cardiology consultation within 7 days regarding this, which was thought to be secondary to her renal failure. She had had a recent stress test, in June which showed no obvious ischemia. The main concern I had in the emergency department was possible posterior circulation symptoms with severe dizziness with standing. Evaluation occurred with a CTA of her head and neck. 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 Right side demonstrated moderate disease. No vascular surgery availability and I discussed this in detail with the patient. She requested transfer to [facility] where she had seen vascular surgery regarding difficulty with an AV fistula in her left arm. This was arranged. Dr. Rincon graciously accepted the patient. At time of transfer, patient had had resolution of her dizziness. She did receive a fluid bolus initially secondary to this. Physical Exam Narrative: EXAM NARRATIVE: General exam no apparent distress Cardiovascular regular in rhythm without murmur Lungs clear Abdomen is soft obese nontender Extremities no cyanosis or clubbing. Left AV fistula with thrill and bruit. Neuro no obvious focal deficits. TS Data Data Completed and Pending: Completed Studies During Hospitalization Category Date Time Status CT angio headneck * [id number] Urge nt Cat Scan 09/11/19 19:08 Completed Pending at discharge Category Date Time Status Clostridium Diffi cile BY PCR Stat Lab 09/11/19 21:43 Uncollected Labs from last 24 hours 09/12/19 09/12/19 09/11/19 06:21 06:21 16:31 WBC 8.0 RBC 3.31 L Hgb 10.1 L Hct 32.2 L MCV 97.3 MCH 30.5 MCHC 31.4 RDW 13.4 Plt Count 173 MPV 11.5 H Neut % (Auto) 58.2 Lymph % (Auto) 30.9 [place] % (Auto) 7.9 Eos % (Auto) 2.1 Baso % (Auto) 0.2 Neut # (Auto) 4.7 Lymph # (Auto) 2.5 [place] # (Auto) 0.6 Eos # (Auto) 0.2 Baso # (Auto) 0.0 Nucleated RBC % (a uto) 0 Nucleated RBCs # 0.0 Sodium 136 Potassium 5.6 H Chloride 97 L Carbon Dioxide 21 L Anion Gap 23.6 H BUN 84 H* Creatinine 10.7 H* GFR Calculation 3.6 L Glucose 121 H Calculated Osmolal ity 283 L Calcium 9.0 Total Bilirubin AST ALT Alkaline Phosphata se Troponin T Gen 5 n g/L 531 H* Total Protein Albumin Globulin Lipase Influenza Type A A g POC Influenza B Ag 09/11/19 09/11/19 09/11/19 14:32 14:32 14:32 WBC 7.4 RBC 3.53 L Hgb 10.7 L Hct 34.7 L MCV 98.3 MCH 30.3 MCHC 30.8 RDW 13.4 Plt Count 170 MPV 10.6 H Neut % (Auto) 69.0 Lymph % (Auto) 18.0 [place] % (Auto) 10.0 Eos % (Auto) 1.5 Baso % (Auto) 0.3 Neut # (Auto) 5.1 Lymph # (Auto) 1.3 [place] # (Auto) 0.7 Eos # (Auto) 0.1 Baso # (Auto) 0.0 Nucleated RBC % (a uto) 0 Nucleated RBCs # 0.0 Sodium 139 Potassium 5.4 H Chloride 99 Carbon Dioxide 25 Anion Gap 20.4 H BUN 74 H Creatinine 9.6 H* GFR Calculation 4.1 L Glucose 172 H Calculated Osmolal ity Calcium 9.1 Total Bilirubin 0.3 AST 9 ALT 7 Alkaline Phosphata se 75 Troponin T Gen 5 n g/L 545 H* Total Protein 6.7 Albumin 3.7 Globulin 3.0 Lipase 28 Influenza Type A A g POC Influenza B Ag 09/11/19 14:14 WBC RBC Hgb Hct MCV MCH MCHC RDW Plt Count MPV Neut % (Auto) Lymph % (Auto) [place] % (Auto) Eos % (Auto) Baso % (Auto) Neut # (Auto) Lymph # (Auto) [place] # (Auto) Eos # (Auto) Baso # (Auto) Nucleated RBC % (a uto) Nucleated RBCs # Sodium Potassium Chloride Carbon Dioxide Anion Gap BUN Creatinine GFR Calculation Glucose Calculated Osmolal ity Calcium Total Bilirubin AST ALT Alkaline Phosphata se Troponin T Gen 5 n g/L Total Protein Albumin Globulin Lipase Influenza Type A A g Negative POC Influenza B Ag Negative Vitals: Last Vital Signs Temp 98.4 F 09/12/19 11:18 Pulse 69 09/12/19 11:18 Resp 24 H 09/12/19 11:18 BP 173/88 09/12/19 11:18 Pulse Ox 95 09/12/19 11:18 TS Medications Medications Home Medications apixaban 2.5 mg tablet 2.5 mg PO BID 08/18/19 [History Confirmed 09/11/19] diphenoxylate-atropine 2.5 mg-0.025 mg tablet 2 tab PO QID 08/18/19 [History Confirmed 09/11/19] levothyroxine 25 mcg tablet 25 mcg PO DAILY tab 08/18/19 [History Confirmed 09/11/19] losartan 100 mg tablet 100 mg PO DAILY tab 08/18/19 [History Confirmed 09/11/19] meloxicam 7.5 mg tablet 7.5 mg PO DAILY tab 08/18/19 [History Confirmed 09/11/19] metoprolol succinate 25 mg tablet,extended release 24 hr 12.5 mg PO DAILY tab 08/18/19 [History Confirmed 09/11/19] minoxidil 2.5 mg tablet 2.5 mg PO BID 08/18/19 [History Confirmed 09/11/19] oxycodone-acetaminophen 5 mg-325 mg tablet 1 tab PO BID PRN tab 08/18/19 [History Confirmed 09/11/19] trazodone 50 mg tablet See Rx Instructions PO .HS PRN #60 tab 08/18/19 [Rx Confirmed 09/11/19] zolpidem 5 mg tablet 5 mg PO .Hs tab 08/18/19 [History Confirmed 09/11/19] clopidogrel 75 mg tablet 75 mg PO DAILY #30 tab 08/27/19 [Rx Confirmed 09/11/19] aspirin [Aspir-81] 81 mg PO DAILY 09/09/19 [History Confirmed 09/11/19] Active Medications Apixaban (Eliquis) 2.5 mg PO BID [facility] Last Admin: 09/12/19 09:53 Dose: 2.5 mg Documented by: Aspirin (Aspirin Ec) 81 mg PO DAILY [facility] Last Admin: 09/12/19 09:53 Dose: 81 mg Documented by: Atorvastatin Calcium (Lipitor) 40 mg PO BEDTIME [facility] Clopidogrel Bisulfate (Plavix) 75 mg PO DAILY [facility] Last Admin: 09/12/19 09:53 Dose: 75 mg Documented by: Levothyroxine Sodium (Synthroid) 25 mcg PO DAILY [facility] Last Admin: 09/12/19 09:53 Dose: 25 mcg Documented by: Metoprolol Succinate (Toprol Xl) 12.5 mg PO DAILY [facility] Last Admin: 09/12/19 09:53 Dose: 12.5 mg Documented by: Ondansetron HCl (Zofran) 4 mg IVP Q6H PRN PRN Reason: vomiting, or N/V if npo Oxycodone/Acetaminophen (Percocet 5-325 Mg) 1 tab PO BID [facility] Last Admin: 09/12/19 09:53 Dose: 1 tab Documented by: Promethazine HCl (Phenergan) 25 mg IM Q6H PRN PRN Reason: NAUSEA Last Admin: 09/11/19 19:47 Dose: 25 mg Documented by: Trazodone HCl (Desyrel) 25 mg PO BEDTIME [facility] Last Admin: 09/12/19 00:48 Dose: 25 mg Documented by: Discharge Plan Discharge Patient Disposition: Xfer Other Condition: Stable Prescriptions: No Action zolpidem [Ambien] 5 mg tablet 5 mg PO .Hs RF: 0 metoprolol succinate [Toprol XL] 25 mg tablet extended release 24 hr 12.5 mg PO DAILY RF: 0 Eliquis 2.5 mg tablet 2.5 mg PO BID RF: 0 meloxicam 7.5 mg tablet 7.5 mg PO DAILY RF: 0 diphenoxylate-atropine [Lomotil] 2.5-0.025 mg tablet 2 tab PO QID RF: 0 losartan 100 mg tablet 100 mg PO DAILY RF: 0 minoxidil 2.5 mg tablet 2.5 mg PO BID RF: 0 oxycodone-acetaminophen 5-325 mg tablet 1 tab PO BID PRN (Reason: Pain) RF: 0 levothyroxine [Synthroid] 25 mcg tablet 25 mcg PO DAILY RF: 0 trazodone 50 mg tablet See Rx Instructions PO .HS PRN (Reason: sleep) Qty: 60 RF: 1 clopidogrel [Plavix] 75 mg tablet 75 mg PO DAILY Qty: 30 RF: 6 aspirin [Aspir-81] 81 mg Tablet,Delayed Release (Dr/Ec) 81 mg PO DAILY RF: 0 Discharge Orders: Transfer Out of Facility (Order); Ordered 09/12/19 Ordered By: Ruben Marie Transfer Attestations Time Spent in Transfer Care*: greater than 30 min Status at Transfer: Cognitive status at transfer: cognitively intact , Behavioral status at transfer: cooperative , Quality Metrics Clinical Quality Measures: During this hospital stay, did patient experience: None Coding Level of Care Code Acute Ambulance Operations Supervisor for Hector Hutchins Diagnoses End-stage renal disease on hemodialysis N18.6; Z99.2 Hypertension I10 Anemia D64.9
[2019-09-12] MEDS: sodium polystyrene sulfonate 15 gm/60 mL Btl 30 GM PO (12:37)
--- NOTE | 2019-09-12 13:44 | PC.CHAP ---
Pastoral Care Encounter/Spiritual Assessment Type of Contact [] Declined all round logger visit [] Patient/Family/Request visit [] Outpatient visit [] Follow-up visit [] Physician referral [] Code/Alert [] Routine visit [] Staff referral [] Actively dying [] Patient sleeping [] Family support [] [] Out of room [] Palliative care [] [x] Receiving care in room [] Pre-surgical visit [] Trauma [] Long length of stay [] ICU visit [x] Other: precautions Relational/Emotional Strength [] Patient feels connected with others/family/visitors/staff [] Distress [] Loneliness/isolation [] Abandonment Spirituality of Patient [] Person of [place] [] Attends Spiritism of their [place] [] Believes in Prayer [] Reads Bible or Confucianism materials [] There are Spiritual issues to be addressed Fly Tier Interventions [] Prayer [] Active listening [] Non-anxious presence [] Spiritual/emotional support [] Crisis/trauma care [] Spiritual counseling [] Bereavement support [] Provided bereavement packet [] Provided Bible/devotional materials [] Provided toy/stuffed animal, coloring book to patient or family member [] Provided Communion [] Anointing/[place] [] Salvation [] Completed spiritual assessment [] Other: Impact on Illness or Injury [] Angry [] Fearful [] Anxious [] Often cries [] Exhaustion [] Unable to work [] Unable to attend taoism [] Unable to walk/stand [] Unable to read [] Unable to drive [] Unable to eat/drink [] Unable to sleep [] Unable to be with family [] Patient intubated [] Other: Summary pt, was busy with staff also precautions,, recheck for follow up visit Time spent with patient 5 min.
[2019-09-12] MEDS: atorvastatin 40 mg Tablet PO (20:21)
--- NOTE | 2019-09-12 20:40 | PC.NURSE ---
Addendum entered by Lucille Balderas RN 09/12/19 20:46: 2000- Bed assignment from Rhoda Gonzalez RN 6C 6210 Bed 2 at 2000 Miya Holm RN Original Note: 2023: Report called to Miya TAPIA on 6C 6210 bed 2 on patient. All questions answered. Phone #- [phone] Report faxed to [phone]
--- NOTE | 2019-09-12 22:20 | PC.NURSE ---
[facility] here to transfer patient at this time. All belongings with patient. IV access was lost due to patient acidently pulling out. Attempt x2. EMS notified. Will call ETA to [place].
== END 2019-09-12 22:20 | disposition other institution (70) ==
LOC: ER 13:50 → MEDSURG 19:36
PROVIDERS: Admitting Provider Internal Medicine; Emergency Provider Family Medicine; PCP Nurse Practitioner Family; Visit Provider Internal Medicine
DX: E11.22 Type 2 diabetes mellitus with diabetic chronic kidney disease (principal); I12.0 Hypertensive chronic kidney disease with stage 5 chronic kidney disease or end stage renal disease; N18.6 End stage renal disease; Z99.2 Dependence on renal dialysis; Z79.891 Long term (current) use of opiate analgesic; I48.91 Unspecified atrial fibrillation; G89.29 Other chronic pain; I50.30 Unspecified diastolic (congestive) heart failure; J43.9 Emphysema, unspecified; E03.9 Hypothyroidism, unspecified; G47.30 Sleep apnea, unspecified; Z91.19 Patient's noncompliance with other medical treatment and regimen; I25.10 Atherosclerotic heart disease of native coronary artery without angina pectoris; Z87.891 Personal history of nicotine dependence
CPT/HCPCS: 12345; 36415; 70496; 70498; 80048; 80053; 83690; 84484; 85025; 87804; 93005; 96361; 96372; 96374; 96375; 96376; 99283; 99285; G0378; J2360; J2405; J2550; J3010; J7050; Q3014; Q9967

== ENCOUNTER 2019-10-07 14:08 | Outpatient (CLI) | payer MEDICARE, MEDICAID, SELFPAY ==
--- NOTE | 2019-10-07 14:18 | CT_ITS ---
WS: [id number] CT CERVICAL SPINE TECHNIQUE: Noncontrast CT of the cervical spine with coronal and sagittal reformatted images. CLINICAL INFORMATION: RIGHT C-7 FRACTURE COMPARISON: None. DLP: 1674.[address] scans at [facility] use at least one of these dose optimization techniques: automat ed exposure control; mA and/or kV adjustment per patient size (includes targeted exams where dose is matched to clinical indication); or iterative reconstruction. FINDINGS: Straightening of the normal cervical lordosis. Normal C1-C2 articulation. No high-grade central canal stenosis. Normal dens. The previously described right C7 superior articular facet fracture appears stable. Stable displaced fragment in the right lateral recess is unchanged in appearance and appears well-corticated. This res ults in mild narrowing of the right C6-7 neural foramen. C2-C3: Normal. C3-C4: Normal. C4-C5: Mild disc osteophytic ridging. Mild bilateral foraminal narrowing. Spinal canal is patent. Mil d facet arthropathy. C5-C6: Disc osteophyte complex eccentric to the left with endplate ridging. Mild left and no signific ant right foraminal narrowing. Mild central canal stenosis. Mild facet arthropathy. C6-C7: Disc osteophytic ridging. Spinal canal and foramen are patent. Mild narrowing of the right nir ral foramen due to well-corticated bony fragment C7-T1: No significant disc bulging. Spinal canal and foramen are patent. Mastoid air cells are well aerated. Vascular calcification. CT/CT cervical spin wo con* [id number] IMPRESSION: 1. Previously described right C7 superior articular facet fracture is stable. Small well-corticated fracture fragment in the right proximal C6-7 neural dona en with mild right foraminal narrowing. 2. Mild spondylitic changes cervical spine with tiny disc osteophyte protrusio ns at C4-C5 and C5-C6 with mild central canal stenosis. 3. Mild left C5-C6 bony foraminal narrowing.
== END 2019-10-07 14:09 | disposition home or self-care (01) ==
LOC: RADWPI 14:13
PROVIDERS: PCP Nurse Practitioner Family; Visit Provider Nurse Practitioner Family
DX: S12.600A Unspecified displaced fracture of seventh cervical vertebra, initial encounter for closed fracture (principal); X58.XXXA Exposure to other specified factors, initial encounter; M47.892 Other spondylosis, cervical region; M50.21 Other cervical disc displacement, high cervical region
CPT/HCPCS: 72125

== ENCOUNTER 2019-10-11 11:29 | Observation (INO) | payer MEDICARE, MEDICAID, SELFPAY ==
[2019-10-11 11:29] VITALS: BP 175/70; PULSE 65; RESP 16; TEMP 36.6; O2SAT 95; BMI 38.8
--- NOTE | 2019-10-11 11:37 | ED_ITS ---
Entered by Irene Sheth, acting as scribe for Emily Malloy MD, [facility]PI - General Adult General: Chief complaint: General Medical Stated complaint: DIARRHEA, NO DIALYSIS X 1 WK Time Seen by Provider: 10/11/19 11:37 Source: patient and RN notes reviewed Mode of arrival: EMS Limitations: no limitations History of Present Illness: HPI narrative: 64 yo female presents to ED with complaints of constant diarrhea. The patient states she has had chronic diarrhea for over a week, I can't take 2 steps before I crap all over myself . She said she has had diarrhea all her life (then described as loose stool) but now it is runny not solid. She had surgery for fistula placement on her L upper arm 2 weeks ago (she still has the ayo in her arm). She denies blood in her stool and states she has had no fever. complaint: Diarrhea Onset (ago): week(s) (1) Location: abdomen Radiation: non-radiation Severity: severe Quality: aching Pain Consistency: intermittent Relieving factors: none Exacerbating factors: none Associated symptoms: Reports no associated symptoms and chest pain; Deny dyspnea, headache(s), nausea, rash, palpitations or vomiting Review of Systems General: Reports: 10 or more systems reviewed and unremarkable except in HPI and below Const: Denies: fever, chills or body aches Eyes: Denies: change in vision or blurry vision ENMT: Denies: throat pain, enlarged tonsils, painful swallowing, hoarseness, mouth pain or swelling of lips/tongue Card: Reports: chest pain; Denies: palpitations or irregular heart rhythm Resp: Denies: shortness of breath, productive cough or non-productive cough GI: Denies: abdominal pain, nausea or vomiting : Denies: flank pain, difficulty urinating, painful urination, urinary frequency, urinary urgency or urinary hesitancy Musc: Denies: neck pain or back pain Skin/Breast: Denies: rash, itching or redness Neuro: Denies: headache, numbness in extremities or weakness in extremities Endo: Denies: excessive urination, excessive thirst or tired all the time [facility] ED PFSH: Medical History (Updated 10/11/19 @ 19:06 by Emily Malloy MD, [facility] Anemia Anemia Stable Anticoagulation adequate with anticoagulant therapy Atrial fibrillation Carotid artery disease Chronic bronchitis Chronic chest pain Chronic disease of respiratory system Chronic pain disorder Coronary artery disease Diabetes Diastolic heart failure Emphysema of lung End-stage renal disease on hemodialysis Receives dialysis Friday. Potassium slightly high. Kayexalate given 30 g p.o. on September 12 Fibromyalgia GERD (gastroesophageal reflux disease) History of common carotid artery stent placement Hypertension Hypertension Elevated but stable Hypothyroidism Irritable bowel syndrome Noncompliance Sleep apnea Venous insufficiency Surgical History History of appendectomy History of cholecystectomy Stented coronary artery Social History Smoking and tobacco status: former smoker Quit status (tobacco): has quit using tobacco Year quit tobacco: 2009 Second hand smoke exposure: Yes Smoking risk assessment/counseling performed?: No Alcohol intake: never Physical Exam Const: COMMON NORMALS: no apparent distress, average body habitus, oriented x3, no limitations, healthy appearing, alert and well nourished HENMT: COMMON NORMALS: normocephalic, head/scalp atraumatic and moist oral mucous membranes HEAD & SCALP: normocephalic and atraumatic Eye: COMMON NORMALS: PERRL, EOMs intact bilaterally, conjunctivae normal and no scleral icterus CONJUNCTIVA: Yes conjunctivae normal PUPIL: Yes PERRL Neck/C-Spine: COMMON NORMALS: full ROM, supple, no meningeal signs, no JVD and no carotid bruits Chest: COMMONS NORMALS: inspection of chest normal and palpation of chest normal Resp: COMMON NORMALS: normal respiratory effort, no retractions, no use of accessory muscles, clear to auscultation bilaterally and percussion normal AUSCULTATION: clear to auscultation bilaterally PERCUSSION: percussion normal Cardio: COMMON NORMALS: no JVD, regular rate, regular rhythm, S1 normal heart sound, S2 normal heart sound, no gallops, no clicks, no rub and peripheral pulses 2+ throughout RATE: regular rate RHYTHM: regular rhythm HEART SOUNDS: S1 normal, S2 normal and murmur PERIPHERAL PULSES: pulses 2+ throughout GI: COMMON NORMALS: normal to inspection, nondistended, normoactive bowel sounds, soft to palpation, non-tender, no hepatosplenomegaly, no masses and no bruits PALPATION: Yes soft and Yes no hepatosplenomegaly : COMMON NORMALS: Yes no CVA tenderness BLADDER/KIDNEY EXAM: Yes no CVA tenderness Back/Pelvis: COMMON NORMALS: no CVA tenderness Extremity: COMMON NORMALS: normal to inspection, full ROM, normal capillary refill and no calf tenderness Neuro: COMMON NORMALS: oriented x3 SENSORIUM/ORIENTATION: Yes alert MENINGEAL SIGNS: Yes no meningeal signs Skin: COMMON NORMALS: no rashes or lesions noted, no wounds, skin turgor normal, no jaundice, no petechiae and no mottling GENERAL SKIN EXAM: no rashes or lesions noted and turgor normal Course Reevaluation(s): Reevaluation #1: Discussed her CT scan findings with her as well as her labs. She has features consistent with acute diverticulitis. Discussed that she will need antibiotics she voiced understanding. I also asked about her dialysis session and she has missed it for the last 1 week because of the diarrhea according to her. She has been diarrhea free throughout her ED stay. She is asked to call the dialysis center to see if she can get dialyzed today as her normal schedule is Mondays, Wednesdays, Fridays. She will call them and let me know. Time: 13:39 Consultations: Consultation #1: Dr. Johnson, hospitalist. He kindly accepted the patient to his service. Time: 14:50 Consultation #2: Tele-Nephrology. There is a patient currently undergoing dialysis. If they are done early this patient can be dialyzed today, if not then she will be dialyzed in the morning. Time: 15:00 Vital Signs: Vital signs: Vital Signs Temperature 98.7 F 10/11/19 18:05 Pulse Rate 75 10/11/19 18:05 Respiratory Rate 16 10/11/19 18:05 Blood Pressure 173/83 10/11/19 18:05 Pulse Oximetry 96 10/11/19 18:05 MDM - General Adult MDM Narrative: Medical decision making narrative: 64-year-old female patient with a history of end-stage renal failure on dialysis Wednesdays and Fridays presents to the emergency department with diarrhea. She has lower abdominal pain and watery stools for about a week. Because of the severe watery stools that she has no control over she has missed dialysis for about a week. Evaluation here in the emergency department shows she has acute diverticulitis. She also has critically elevated creatinine secondary to missing dialysis for about a week. Because she needs dialysis she is been admitted to the hospital for hemodialysis either today or tomorrow. Medical Records: Attestation: I reviewed the patient's medical records. Lab Data: Attestation: I reviewed the patient's lab results. Labs: Lab Results 10/11/19 10/11/19 10/11/19 Range/Units 12:15 12:15 12:15 WBC 7.4 (4.0-10.0) 10^3/ uL RBC 3.22 L (4.1-5.3) 10^6/u L Hgb 9.6 L (11.5-15.3) g/dL Hct 31.7 L (37.0-47.0) % MCV 98.4 (81-99) fL MCH 29.8 (28.0-34.0) pg MCHC 30.3 (30.0-36.0) g/dL RDW 14.1 (12.1-15.1) % Plt Count 189 (130-400) 10^3/c mm MPV 10.7 H (7.4-10.4) fL Neut % (Auto) 62.6 % Lymph % (Auto) 25.4 % [place] % (Auto) 6.0 % Eos % (Auto) 3.9 % Baso % (Auto) 0.3 % Neut # (Auto) 4.6 (1.8-7.7) 10^3/u L Lymph # (Auto) 1.9 (0.8-4.8) 10^3/u L [place] # (Auto) 0.4 (0.2-0.9) 10^3/u L Eos # (Auto) 0.3 (0.0-0.8) 10^3/u L Baso # (Auto) 0.0 (0.0-0.1) 10^3/u L Nucleated RBC % (a uto) 0 % Nucleated RBCs # 0.0 /100WBC Sodium 139 (136-145) mmol/L Potassium 5.4 H (3.5-5.1) mmol/L Chloride 98 (98-107) mmol/L Carbon Dioxide 19 L (22-29) mmol/L Anion Gap 27.4 H (5-19) BUN 123 H* (8-23) mg/dL Creatinine 14.6 H* (0.5-0.9) mg/dL GFR Calculation 2.5 L (90-130) mL/min Glucose 120 H (65-115) mg/dL Lactate 0.6 (0.5-2.2) mmol/L Calcium 9.1 (8.5-10.5) mg/dL Total Bilirubin 0.3 (0.15-1.2) mg/dL AST 10 (0-32) U/L ALT 7 (0-33) U/L Alkaline Phosphata se 94 (35-105) IU/L Total Protein 6.6 (6.6-8.7) g/dL Albumin 3.7 (3.5-5.2) g/dL Globulin 2.9 (1.3-4.6) g/dL Lipase 24 (13-60) U/L Imaging Data^: CT Abd/Pel: Radiologist's impression: [place] [address] CT Scan Report Signed Patient: Amanda Ha #: [id number] : 3Acct#:[id number] Age/Sex: 64 / FADM Date: 10/11/19 Loc: ERRoom/Bed: Attending Dr: Ordering Provider/Ordering MD: Emily Malloy MD, [facility] Date of Service: 10/11/19 Procedure(s): CT abdomen pelvis [facility] [address] Accession Number(s): [id number] Report Number: [id number] WS: [id number] CT ABDOMEN AND PELVIS NONCONTRAST HISTORY: diarrhea, abdominal pain TECHNIQUE: Imaging performed through the abdomen and pelvis. Coronal and sagittal reformats are submitted. All CT scans at [facility] use at least one of these dose optimization techniques: automated exposure control; mA and/or kV adjustment per patient size (includes targeted exams where dose is matched to clinical indication); or iterative reconstruction. DLP: 2003.74 mGy.cm COMPARISON: 07/02/2019 Lower thorax: Dependent changes and mild groundglass attenuation at the lung bases. Cardiac size is moderately enlarged. No pericardial effusion. Small hiatal hernia. Liver: Normal, no mass or intrahepatic dilatation. Gallbladder: Cholecystectomy. Pancreas: Normal. Spleen: Normal size spleen with granulomata. Adrenal glands: Normal. Right kidney: Diffuse cortical atrophy and cortical thinning with perinephric stranding. Similar to the prior study. Left kidney: Diffuse cortical thinning and atrophy. Again noted are cystic masses exophytic from the kidney. The largest from the lower pole measures 2.2 cm and is unchanged. Moderate atherosclerosis with no aneurysm. Extensive calcifications in the mesenteric arteries. No free fluid, intraperitoneal air or significant lymphadenopathy. GI tract: Numerous diverticula in the descending and sigmoid colon. Very mild s tranding around the sigmoid colon which may represent very early diverticulitis. No free fluid or abscess. Prior appendectomy. Abdominal wall: Diffuse mild anasarca. Pelvis: Atrophied uterus. Urinary bladder is not distended. No pelvic mass or adenopathy. Osseous structures: No osteoblastic or osteolytic bone disease. CT/CT abdomen pelvis wo con [id number] IMPRESSION: 1. Descending and sigmoid diverticulosis. Focal area of soft tissue thickening with adjacent pericolonic inflammation involving the sigmoid. Suspicious for acute diverticulitis. 2. No abscess or free fluid. 3. Prior cholecystectomy and appendectomy. 4. Moderate diffuse cortical thinning and atrophy, no change. Dictated By:Estela Dos Santos DO Signed By:Estela Dos Santos DOSigned Date/Time:10/11/19 1227 DD/ Discharge Plan Discharge Patient Disposition: Admitted As Inpatient Admit Provider: Naveen Johnson Clinical Impression: Diverticulitis, End-stage renal disease on hemodialysis Condition: Stable Interventions: ED Discharge Assessment Last Done: 10/11/19 18:42 Discharge Date/Time: 10/11/19 18:43 Coding Level of Care Code ED Council Member for Chg Fwd Exam Comprehensive The documentation recorded by the Domenic finley Valerie R, accurately reflects the service I personally performed and the decisions made by Gama pathak Adegoke I, MD, [facility] Oct 11, 2019 11:29
--- NOTE | 2019-10-11 11:49 | CT_ITS ---
WS: [id number] CT ABDOMEN AND PELVIS NONCONTRAST HISTORY: diarrhea, abdominal pain TECHNIQUE: Imaging performed through the abdomen and pelvis. Coronal and sagittal reformats are submi tted. All CT scans at [facility] use at least one of these dose optimization techniques: automated exposure control; mA and/or kV adjustment per patient size (includes targeted exams where d ose is matched to clinical indication); or iterative reconstruction. DLP: 2003.74 mGy.cm COMPARISON: 07/02/2019 Lower thorax: Dependent changes and mild groundglass attenuation at the lung bases. Cardiac size is m oderately enlarged. No pericardial effusion. Small hiatal hernia. Liver: Normal, no mass or intrahepatic dilatation. Gallbladder: Cholecystectomy. Pancreas: Normal. Spleen: Normal size spleen with granulomata. Adrenal glands: Normal. Right kidney: Diffuse cortical atrophy and cortical thinning with perinephric stranding. Similar to t he prior study. Left kidney: Diffuse cortical thinning and atrophy. Again noted are cystic masses exophytic from the kidney. The largest from the lower pole measures 2.2 cm and is unchanged. Moderate atherosclerosis with no aneurysm. Extensive calcifications in the mesenteric arteries. No free fluid, intraperitoneal air or significant lymphadenopathy. GI tract: Numerous diverticula in the descending and sigmoid colon. Very mild stranding around the si gmoid colon which may represent very early diverticulitis. No free fluid or abscess. Prior appendecto my. Abdominal wall: Diffuse mild anasarca. Pelvis: Atrophied uterus. Urinary bladder is not distended. No pelvic mass or adenopathy. Osseous structures: No osteoblastic or osteolytic bone disease. CT/CT abdomen pelvis wo con [id number] IMPRESSION: 1. Descending and sigmoid diverticulosis. Focal area of soft tissue thickening with adjacent pericolonic inflammation involving the sigmoid. Suspicious for a cute diverticulitis. 2. No abscess or free fluid. 3. Prior cholecystectomy and appendectomy. 4. Moderate diffuse cortical thinning and atrophy, no change.
[2019-10-11 12:29] LABS: Basophils % 0.3 %; Eosinophils # 0.3 10^3/uL (0.0-0.8); Eosinophils % 3.9 %; Hematocrit 31.7 % (37.0-47.0); Hemoglobin 9.6 g/dL (11.5-15.3); Lymphocytes # 1.9 10^3/uL (0.8-4.8); Lymphocytes % 25.4 %; Mean Corpuscular HGB Conc 30.3 g/dL (30.0-36.0); Mean Corpuscular Hemoglobin 29.8 pg (28.0-34.0); Mean Corpuscular Volume 98.4 fL (81-99); Mean Platelet Volume 10.7 fL (7.4-10.4); Monocytes # 0.4 10^3/uL (0.2-0.9); Neutrophils # 4.6 10^3/uL (1.8-7.7); Neutrophils % 62.6 %; Nucleated Red Blood Cells % 0 %; Platelet Count 189 10^3/cmm (130-400); Red Blood Count 3.22 10^6/uL (4.1-5.3); Red Cell Distribution Width 14.1 % (12.1-15.1); White Blood Count 7.4 10^3/uL (4.0-10.0)
[2019-10-11 12:53] LABS: Lactate (Lactic Acid level) 0.6 mmol/L (0.5-2.2)
[2019-10-11 12:54] LABS: Alanine Aminotransferase 7 U/L (0-33); Albumin Level 3.7 g/dL (3.5-5.2); Alkaline Phosphatase 94 IU/L (35-105); Anion Gap 27.4 (5-19); Aspartate Amino Transferase 10 U/L (0-32); Calcium 9.1 mg/dL (8.5-10.5); Carbon Dioxide 19 mmol/L (22-29); Chloride 98 mmol/L (98-107); Globulin 2.9 g/dL (1.3-4.6); Glomerular Filtration Rate 2.5 mL/min (90-130); Glucose 120 mg/dL (65-115); Lipase 24 U/L (13-60); Potassium 5.4 mmol/L (3.5-5.1); Sodium 139 mmol/L (136-145); Total Bilirubin 0.3 mg/dL (0.15-1.2); Total Protein 6.6 g/dL (6.6-8.7)
[2019-10-11 13:05] LABS: Blood Urea Nitrogen 123 mg/dL (8-23)
[2019-10-11] MEDS: metroNIDAZOLE IV 500 MG/100 ML PREMIX 100 MG IV (13:39)
--- NOTE | 2019-10-11 15:45 | P.HP_ITS ---
Providers/Chief Complaint Primary Care Provider: Laisha Campoverde Chief Complaint: DIARRHEA, NO DIALYSIS X 1 WK History of Present Illness Amanda Ha is a 64 year old female with a history of end-stage renal disease on dialysis, with a recent history of left AV fistula revision, has a right pigtail catheter in place, dialysis days Friday, diastolic CHF, history of left carotid artery stenosis and severe left basilar disease status post stent placement in [facility], atrial fibrillation on Eliquis, CAD status post stenting in December 2017 on aspirin and Plavix, hypertension, hyperlipidemia, type 2 diabetes mellitus [id number] not on any medications, hypothyroidism, obstructive sleep apnea, who presents to the emergency room due to complaints of 1 week history of diarrhea. Patient states that she was in [facility] September 11, she had dizziness and was found to have severe left carotid artery and severe left vertebral basilar disease, she was transferred to [facility], vascular interventions, patient states that she received bilateral stenting of her carotids, in addition her AV fistula access was having issues, so she had a revision of her AV fistula, and has a right dialysis catheter placed to receive dialysis. She was discharged home after a few days. At home she was getting dialysis Friday, doing well. However about a week ago she started developed profuse watery diarrhea, 6-7 bowel movements a day, no bloody stools, no abdominal pain, no fevers, no chills, no nausea, no vomiting, has been trying to hydrate well, no fevers, no chills, no sick contacts, no recent travel, denies any recent antibiotic use, denies any previous history of abdomen diarrhea. Patient states that diarrhea persisted for a week, worsened in severity, such that whenever she would stand up she would get diarrhea, diarrhea was foul-smelling, unfortunately she was unable to go to dialysis for a week given her severe episodes of diarrhea. Patient presents today to the emergency room as her diarrhea has persisted. In the emergency room patient had a CT scan of abdomen which showed concerns for diverticulitis, patient received antibiotics, in addition patient was found to have uremia and elevated creatinine, and as she had missed dialysis for a week nephrology was consulted for inpatient dialysis. Review of Systems Const: Denies: fever, chills, fatigue or malaise Eyes: Denies: change in vision or blurry vision ENMT: Denies: nasal congestion Resp: Denies: shortness of breath, productive cough, non-productive cough or wheezing GI: Denies: abdominal pain, nausea, vomiting, vomiting blood, diarrhea, constipation, blood in stool or black tarry stool : Denies: flank pain, painful urination or urinary frequency Musc: Denies: neck pain or back pain Skin/Breast: Denies: rash Neuro: Denies: headache, dizziness or vertigo Psych: Denies: anxiety or depression Endo: Denies: excessive urination or excessive thirst Medications/Allergies Allergies Allergy/AdvReac Type Severity Reaction Status Date / Time adhesive Allergy Unknown Verified 09/07/19 14:46 codeine Allergy Unknown Verified 09/07/19 14:46 duloxetine [From Cymbalta] Allergy Unknown Verified 09/07/19 14:46 Additional Medication Information Additional Medication Information: Eliquis 2.5 twice daily Aspirin 81 mg once daily Plavix 75 mg once daily Levothyroxine 25 mcg once daily Losartan 100 mg p.o. daily Meloxicam 7.5 p.o. q. as needed Metoprolol 12.5 p.o. daily Minoxidil 2.5 p.o. twice daily Oxycodone 5 1 tab p.o. twice daily Trazodone 50 mg nightly as needed Ambien 5 mg p.o. nightly PFSH Acute PFSH: Medical History (Updated 10/11/19 @ 16:01 by Naveen Johnson MD) Anemia Anemia Stable Anticoagulation adequate with anticoagulant therapy Atrial fibrillation Carotid artery disease Chronic bronchitis Chronic chest pain Chronic disease of respiratory system Chronic pain disorder Coronary artery disease Diabetes Diastolic heart failure Emphysema of lung End-stage renal disease on hemodialysis Receives dialysis Friday. Potassium slightly high. Kayexalate given 30 g p.o. on September 12 Fibromyalgia GERD (gastroesophageal reflux disease) History of common carotid artery stent placement Hypertension Hypertension Elevated but stable Hypothyroidism Irritable bowel syndrome Noncompliance Sleep apnea Venous insufficiency Surgical History History of appendectomy History of cholecystectomy Stented coronary artery Social History Smoking and tobacco status: former smoker Quit status (tobacco): has quit using tobacco Year quit tobacco: 2010 Second hand smoke exposure: Yes Smoking risk assessment/counseling performed?: No Alcohol intake: never Vitals/I&O/Wt Last Vital Signs Temp 97.8 F 10/11/19 11:29 Pulse 65 10/11/19 11:29 Resp 16 10/11/19 11:29 BP 175/70 10/11/19 11:29 Pulse Ox 95 10/11/19 11:29 Weight last 48 hrs Weight 112.491 kg Physical Exam Const: COMMON NORMALS: no apparent distress and oriented x3 GENERAL APPEARANCE: cooperative and comfortable HENMT: COMMON NORMALS: normocephalic HEAD & SCALP: normocephalic Eye: COMMON NORMALS: PERRL, EOMs intact bilaterally and no papilledema GENERAL EYE: normal appearance of both eyes PUPIL: Yes PERRL DIRECT OPHTHALMOSCOPY: Yes no papilledema Neck/C-Spine: COMMON NORMALS: full ROM, no lymphadenopathy, no JVD and thyroid normal THYROID: thyroid normal Lymph: LYMPHATIC: no lymphadenopathy noted Resp: COMMON NORMALS: normal respiratory effort, no retractions, no use of accessory muscles and clear to auscultation bilaterally AUSCULTATION: clear to auscultation bilaterally Cardio: COMMON NORMALS: no JVD, regular rate, regular rhythm, S1 normal heart sound, S2 normal heart sound, no gallops, no clicks and no murmurs RATE: regular rate RHYTHM: regular rhythm HEART SOUNDS: S1 normal and S2 normal GI: COMMON NORMALS: normal to inspection, nondistended, normoactive bowel sounds, soft to palpation, non-tender and no hepatosplenomegaly PALPATION: Yes soft and Yes no hepatosplenomegaly Extremity: COMMON NORMALS: normal to inspection, full ROM and no pedal edema Neuro: COMMON NORMALS: oriented x3, CN's II-XII intact bilaterally, moves all extremities and no focal motor deficits Psych: COMMON NORMALS: mental status grossly normal, thought process normal and cooperative THOUGHT PROCESS: normal thought process Skin: NARRATIVE SKIN EXAM: Left AV fistula site, surgical ayo in place, has erythema on staple sites, slightly warm, nontender, Has a right pigtail catheter in place Data : 10/11/19 12:15 10/11/19 12:15 A&P Assessment and plan (1) Diverticulitis: -Sigmoid diverticulitis -IV hydration -Ciprofloxacin and Flagyl -Stool studies to rule out C. difficile -Monitor clinical progress Status: Acute Code(s): K57.92 - Diverticulitis of intestine, part unspecified, without perforation or abscess without bleeding (2) AVF (arteriovenous fistula): -Status post revision -Surgical ayo in place, surgical site has slight erythema, slight warmth -Unlikely cellulitis, no fevers, no sick than white count, will get CRP, pro-Maurisio, blood cultures Status: Acute Code(s): I77.0 - Arteriovenous fistula, acquired (3) Hypertension: Status: Acute Code(s): I10 - Essential (primary) hypertension (4) End-stage renal disease on hemodialysis: -Dialysis today by Dr. Harris, right dialysis port in place Status: Acute Code(s): N18.6 - End stage renal disease; Z99.2 - Dependence on renal dialysis (5) Atrial fibrillation: Status: Acute Code(s): I48.91 - Unspecified atrial fibrillation (6) Diastolic heart failure: Status: Acute Code(s): I50.30 - Unspecified diastolic (congestive) heart failure (7) Generalized anxiety disorder: Status: Acute Code(s): F41.1 - Generalized anxiety disorder (8) Chronic pain disorder: Status: Acute Code(s): G89.4 - Chronic pain syndrome (9) Coronary artery disease: Stent placed December 2018, on aspirin and Plavix Status: Acute Code(s): I25.10 - Atherosclerotic heart disease of [place] coronary artery without angina pectoris (10) History of common carotid artery stent placement: -We will get records from [facility] Status: Acute Code(s): Z98.890 - Other specified postprocedural states; Z95.828 - Presence of other vascular implants and grafts Attestations Medical Necessity Statement*: Patient requires hospitalization, outpatient with observation, for diverticulitis, uremia, elevated creatinine secondary to missed dialysis Coding Level of Care Code Acute [employer] for [facility] Fwd Diagnoses Diverticulitis K57.92 AVF (arteriovenous fistula) I77.0 Hypertension I10 End-stage renal disease on hemodialysis N18.6; Z99.2 Atrial fibrillation I48.91 Diastolic heart failure I50.30 Generalized anxiety disorder F41.1 Chronic pain disorder G89.4 Coronary artery disease I25.10 History of common carotid artery stent placement Z98.890; Z95.828
--- NOTE | 2019-10-11 16:14 | PC.PHAR ---
PT STATES THIS IS ALL THE MEDICATIONS SHE TAKES.PT STATES SHE GETS HER MEDICATIONS FROM A [employer] BUT FILLS SOME OF HER MEDICATIONS AT [facility]
--- NOTE | 2019-10-11 17:13 | PM.PN ---
Subjective Subjective: Interval history: Amanda is known to be non-compliant with her dialysis and has missed dialysis for 2 weeks due to diarrhea. She has mild global edema and exertional dyspnea. AVF working well, recently had vasc surgery eval. No other acute uremic Sx. She denies abdo pain, denies nausea and vomiting Vitals/I&O/Wt Last Vital Signs Temp 97.8 F 10/11/19 11:29 Pulse 65 10/11/19 11:29 Resp 16 10/11/19 11:29 BP 175/70 10/11/19 11:29 Pulse Ox 95 10/11/19 11:29 Weight last 48 hrs Weight 112.491 kg Physical Exam Const: COMMON NORMALS: no apparent distress and oriented x3 HENMT: COMMON NORMALS: normocephalic and head/scalp atraumatic HEAD & SCALP: normocephalic and atraumatic Neck/C-Spine: COMMON NORMALS: no JVD Lymph: LYMPHATIC: no lymphadenopathy noted Resp: COMMON NORMALS: normal respiratory effort and no retractions Cardio: COMMON NORMALS: no JVD and regular rate RATE: regular rate GI: COMMON NORMALS: normal to inspection, nondistended, normoactive bowel sounds Extremity: COMMON NORMALS: normal to inspection GENERAL: Yes edema and No hypertrophy Neuro: COMMON NORMALS: oriented x3 and CN's II-XII intact bilaterally Data : 10/11/19 12:15 10/11/19 12:15 A&P Additional A&P Information 1. ESRD - will dialyze her this evening - 2K, UF 3-4L, 3.5hr treatment - dose meds for eGFR < 15 on dialysis 2. Hypertension - Bp and edema should improve with dialysis 3. Anemia and bone mgmt to be deferred to the outpatient clinic 4. Diarrhea per primary team Attestations Medical Necessity Statement*: mgmt of esrd Coding Level of Care Code Acute Straightener And Aligner for Hector Hutchins
[2019-10-11 18:05] VITALS: BP 173/83; PULSE 75; RESP 16; TEMP 37.1; O2SAT 96
[2019-10-11] MEDS: losartan 50 mg Tablet 100 MG PO (18:33)
[2019-10-11 19:53] LABS: Hepatitis B Surface Antigen. Non-Reactive (Nonreactive)
[2019-10-11 23:29] VITALS: BP 177/80; PULSE 74; RESP 24; TEMP 36.4; O2SAT 94
[2019-10-11] MEDS: apixaban 5 mg Tablet 2.5 MG PO (23:52)
[2019-10-11] MEDS: ciprofloxacin 400 MG/200 ML PREMIX 200 MG IV (23:55)
[2019-10-11 23:56] LABS: Procalcitonin 0.42 ng/mL (0-0.5)
[2019-10-12] MEDS: metroNIDAZOLE IV 500 MG/100 ML PREMIX 100 MG IV ×2 (00:05→07:45)
[2019-10-12 00:07] LABS: C Reactive Protein 18.3 mg/L (0.0-4.9)
[2019-10-12 03:28] VITALS: BP 141/51; PULSE 78; RESP 20; TEMP 37.1; O2SAT 90
[2019-10-12] MEDS: trazodone 50 mg Tablet PO (04:32)
[2019-10-12 05:12] LABS: Alanine Aminotransferase 6 U/L (0-33); Albumin Level 3.4 g/dL (3.5-5.2); Alkaline Phosphatase 92 IU/L (35-105); Anion Gap 22.4 (5-19); Aspartate Amino Transferase 15 U/L (0-32); Blood Urea Nitrogen 51 mg/dL (8-23); Calcium 8.9 mg/dL (8.5-10.5); Carbon Dioxide 23 mmol/L (22-29); Chloride 97 mmol/L (98-107); Glomerular Filtration Rate 4.6 mL/min (90-130); Glucose 116 mg/dL (65-115); Magnesium 1.8 mg/dL (1.7-2.3); Phosphorus 6.2 mg/dL (2.5-4.5); Potassium 4.4 mmol/L (3.5-5.1); Sodium 138 mmol/L (136-145); Total Bilirubin 0.4 mg/dL (0.15-1.2); Total Protein 6.4 g/dL (6.6-8.7)
[2019-10-12 05:16] LABS: Basophils % 0.3 %; Eosinophils # 0.2 10^3/uL (0.0-0.8); Eosinophils % 2.5 %; Hematocrit 44.8 % (37.0-47.0); Hemoglobin 14.2 g/dL (11.5-15.3); Lymphocytes # 0.9 10^3/uL (0.8-4.8); Lymphocytes % 15.2 %; Mean Corpuscular HGB Conc 31.7 g/dL (30.0-36.0); Mean Corpuscular Hemoglobin 29.6 pg (28.0-34.0); Mean Corpuscular Volume 93.3 fL (81-99); Monocytes # 0.3 10^3/uL (0.2-0.9); Monocytes % 5.4 %; Neutrophils # 4.7 10^3/uL (1.8-7.7); Neutrophils % 76.1 %; Nucleated Red Blood Cells % 0 %; Platelet Count 116 10^3/cmm (130-400); Red Cell Distribution Width 14.3 % (12.1-15.1); White Blood Count 6.1 10^3/uL (4.0-10.0)
[2019-10-12 06:38] LABS: Glucose Point of Care 125 mg/dL (70-110)
[2019-10-12 08:00] VITALS: BP 186/73; PULSE 74; RESP 20; TEMP 37.2; O2SAT 94
[2019-10-12] MEDS: metoprolol succinate ER (24 HR) 25 mg Tablet 12.5 MG PO (09:30)
[2019-10-12 09:31] VITALS: BP 186/73
[2019-10-12] MEDS: losartan 50 mg Tablet 100 MG PO (09:31)
[2019-10-12] MEDS: levothyroxine 25 mcg Tablet PO (09:31)
[2019-10-12] MEDS: aspirin 81 mg EC Tablet PO (09:31)
[2019-10-12] MEDS: clopidogrel 75 mg Tablet PO (09:31)
[2019-10-12] MEDS: apixaban 5 mg Tablet 2.5 MG PO (09:31)
[2019-10-12 10:01] LABS: Glucose Point of Care 113 mg/dL (70-110)
[2019-10-12] MEDS: ciprofloxacin 400 MG/200 ML PREMIX 200 MG IV (10:03)
--- NOTE | 2019-10-12 10:30 | P.PN_ITS ---
Subjective Subjective: Interval history: No new issues. Her diarrhea has completely resolved following admission to the hospital. No uremic Sx. No edema and no other volume Sx. Medications: Medication Review Details: Eliquis 2.5 twice daily Aspirin 81 mg once daily Plavix 75 mg once daily Levothyroxine 25 mcg once daily Losartan 100 mg p.o. daily Meloxicam 7.5 p.o. q. as needed Metoprolol 12.5 p.o. daily Minoxidil 2.5 p.o. twice daily Oxycodone 5 1 tab p.o. twice daily Trazodone 50 mg nightly as needed Ambien 5 mg p.o. nightly Vitals/I&O/Wt Last Vital Signs Temp 98.9 F 10/12/19 08:00 Pulse 74 10/12/19 08:00 Resp 20 H 10/12/19 08:00 BP 186/73 10/12/19 09:31 Pulse Ox 94 10/12/19 08:00 10/11/19 10/12/19 10/12/19 22:59 06:59 14:59 Intake Total 522 / 522 Balance 522 / 522 Weight last 48 hrs Weight 112.491 kg Physical Exam Const: COMMON NORMALS: no apparent distress and oriented x3 HENMT: COMMON NORMALS: normocephalic and head/scalp atraumatic HEAD & SCALP: normocephalic and atraumatic Neck/C-Spine: COMMON NORMALS: no JVD Lymph: LYMPHATIC: no lymphadenopathy noted Resp: COMMON NORMALS: normal respiratory effort and no retractions Cardio: COMMON NORMALS: no JVD and regular rate RATE: regular rate GI: COMMON NORMALS: normal to inspection, nondistended, normoactive bowel sounds Extremity: COMMON NORMALS: normal to inspection GENERAL: Yes edema and No hypertrophy Neuro: COMMON NORMALS: oriented x3 and CN's II-XII intact bilaterally Data : 10/12/19 04:10 10/12/19 04:10 A&P Additional A&P Information 1. ESRD - will cont MWF schedule, ie HD tomorrow if she happens to remain in house - dose meds for eGFR < 15 on dialysis 2. Hypertension - Bp a little high, defer to outpatient to up-titrate meds 3. Anemia and bone mgmt to be deferred to the outpatient clinic 4. Diarrhea per primary team 5. Dialysis non-compliance - She wasn't able to go to dialysis due to severe diarrhea, unremitting as an outpatient that spontaneously resolved as soon as she was admitted. This is very fortunate that it was not prohibitive in the hospital to her care and rapidly improved. Hopefully it will not continue to be an issue to her dialysis attendance as soon as she is discharged. Attestations Medical Necessity Statement*: mgmt of dialysis Coding Level of Care Code Acute Engineering Test Mechanic for Hector Hutchins
[2019-10-12 11:08] VITALS: BP 139/69; PULSE 72; RESP 18; TEMP 36.8; O2SAT 93
[2019-10-12 11:10] VITALS: BP 139/69; PULSE 72; RESP 18; TEMP 36.8; O2SAT 93
[2019-10-12 12:06] LABS: Glucose Point of Care 225 mg/dL (70-110)
--- NOTE | 2019-10-12 12:31 | PM.DCS ---
Discharge Providers Date of Admission: 10/11/19 16:30 Date of Discharge: October 12, 2019 Attending Provider at Admission: Naveen Johnson MD Attending Provider at Discharge: Naveen Johnson MD Primary Care Provider: Laisha Campoverde Diagnoses at Discharge Discharge Diagnosis (1) Diverticulitis: Status: Acute (2) AVF (arteriovenous fistula): Status: Acute (3) Hypertension: Status: Acute Problem details: Elevated but stable (4) End-stage renal disease on hemodialysis: Status: Acute Problem details: Receives dialysis Friday. Potassium slightly high. Kayexalate given 30 g p.o. on September 12 (5) Atrial fibrillation: Status: Acute (6) Diastolic heart failure: Status: Acute (7) Generalized anxiety disorder: Status: Acute (8) Chronic pain disorder: Status: Acute (9) Coronary artery disease: Status: Acute (10) History of common carotid artery stent placement: Status: Acute Reason for Visit Reason for Visit: Reason For Visit: DIARRHEA Hospital Course Discharge Summary: Amanda Ha is a 64 year old female with a history of end-stage renal disease on dialysis, with a recent history of left AV fistula revision, has a right pigtail catheter in place, dialysis days Friday, diastolic CHF, history of left carotid artery stenosis and severe left basilar disease status post bilateral carotid placement in [facility] a few weeks ago, atrial fibrillation on Eliquis, CAD status post stenting in December 2017 on aspirin and Plavix, hypertension, hyperlipidemia, type 2 diabetes mellitus [id number] not on any medications, hypothyroidism, obstructive sleep apnea, who presents to the emergency room due to complaints of 1 week history of diarrhea and missing dialysis for a week. Patient was admitted for acute diverticulitis, although she is minimally symptomatic except for diarrhea, received IV hydration, IV antibiotics, pain control, she clinically improved, was discharged on instructions to drink plenty of electrolyte balance fluids, ciprofloxacin and Flagyl for 7 remaining days and to follow-up with primary care provider 1 week. For her missed dialysis days, creatinine on discharge was 14.6, BUN 123, potassium 5.4 patient received inpatient dialysis, she was discharged home with instructions to resume dialysis tomorrow, dialysis days are Friday. Repeat CMP tomorrow. Physical Exam Const: COMMON NORMALS: no apparent distress and oriented x3 HENMT: COMMON NORMALS: normocephalic HEAD & SCALP: normocephalic Neck/C-Spine: COMMON NORMALS: no JVD Resp: COMMON NORMALS: normal respiratory effort, no retractions, no use of accessory muscles and clear to auscultation bilaterally AUSCULTATION: clear to auscultation bilaterally Cardio: COMMON NORMALS: no JVD, regular rate, regular rhythm, S1 normal heart sound and S2 normal heart sound RATE: regular rate RHYTHM: regular rhythm HEART SOUNDS: S1 normal and S2 normal GI: COMMON NORMALS: normal to inspection, nondistended, normoactive bowel sounds, soft to palpation, non-tender, no hepatosplenomegaly, no masses and no bruits PALPATION: Yes soft and Yes no hepatosplenomegaly Extremity: COMMON NORMALS: normal capillary refill, no clubbing, cyanosis or edema, no calf tenderness and no pedal edema Neuro: COMMON NORMALS: oriented x3 Psych: COMMON NORMALS: mental status grossly normal Discharge Data Data Completed and Pending: Completed Studies During Hospitalization Category Date Time Status CT abdomen pelvis wo con [id number] Urge nt Cat Scan 10/11/19 11:49 Completed Pending at discharge Category Date Time Status Blood Culture Sta t Lab 10/11/19 04:00 Results Clostridium Diffi cile BY PCR Routin e Lab 10/11/19 23:01 Ordered Clostridium Diffi cile BY PCR Stat Lab 10/11/19 11:48 Ordered Complete Blood Co unt w/Auto AM LABS Lab 10/13/19 04:00 Ordered Complete Blood Co unt w/Auto AM LABS Lab 10/14/19 04:00 Ordered Comprehensive Met abolic Panel AM LA BS Lab 10/13/19 04:00 Ordered Comprehensive Met abolic Panel AM LA BS Lab 10/14/19 04:00 Ordered Enteric Bacterial Panel by PCR Rout ine Lab 10/11/19 23:01 Ordered Enteric Parasite Panel by PCR Mayrai ne Lab 10/11/19 23:01 Ordered Immunochemical Fe izabela OCB Routine Lab 10/11/19 23:01 Ordered Lactoferrin Routi ne Lab 10/11/19 23:01 Ordered Magnesium AM LABS Lab 10/13/19 04:00 Ordered Magnesium AM LABS Lab 10/14/19 04:00 Ordered OVA and Parasites , Conc and PE Rout ine Lab 10/11/19 23:01 Ordered Phosphorus AM LAB S Lab 10/13/19 04:00 Ordered Phosphorus AM LAB S Lab 10/14/19 04:00 Ordered Labs from last 24 hours 10/12/19 10/12/19 10/12/19 11:06 07:28 06:20 WBC RBC Hgb Hct MCV MCH MCHC RDW Plt Count MPV Neut % (Auto) Lymph % (Auto) [place] % (Auto) Eos % (Auto) Baso % (Auto) Neut # (Auto) Lymph # (Auto) [place] # (Auto) Eos # (Auto) Baso # (Auto) Nucleated RBC % (a uto) Nucleated RBCs # Sodium Potassium Chloride Carbon Dioxide Anion Gap BUN Creatinine GFR Calculation Glucose POC Glucose 225 113 125 Lactate Calcium Phosphorus Magnesium Total Bilirubin AST ALT Alkaline Phosphata se C-Reactive Protein Total Protein Albumin Globulin Lipase Procalcitonin Hep Bs Antigen 10/12/19 10/12/19 10/11/19 04:10 04:10 12:15 WBC 6.1 RBC 4.80 Hgb 14.2 D Hct 44.8 D MCV 93.3 D MCH 29.6 MCHC 31.7 RDW 14.3 Plt Count 116 L MPV 11.0 H Neut % (Auto) 76.1 Lymph % (Auto) 15.2 [place] % (Auto) 5.4 Eos % (Auto) 2.5 Baso % (Auto) 0.3 Neut # (Auto) 4.7 Lymph # (Auto) 0.9 [place] # (Auto) 0.3 Eos # (Auto) 0.2 Baso # (Auto) 0.0 Nucleated RBC % (a uto) 0 Nucleated RBCs # 0.0 Sodium 138 Potassium 4.4 Chloride 97 L Carbon Dioxide 23 Anion Gap 22.4 H BUN 51 H Creatinine 8.6 H* GFR Calculation 4.6 L Glucose 116 H POC Glucose Lactate Calcium 8.9 Phosphorus 6.2 H Magnesium 1.8 Total Bilirubin 0.4 AST 15 ALT 6 Alkaline Phosphata se 92 C-Reactive Protein 18.3 H Total Protein 6.4 L Albumin 3.4 L Globulin 3.0 Lipase Procalcitonin 0.42 Hep Bs Antigen 10/11/19 10/11/19 10/11/19 12:15 12:15 12:15 WBC RBC Hgb Hct MCV MCH MCHC RDW Plt Count MPV Neut % (Auto) Lymph % (Auto) [place] % (Auto) Eos % (Auto) Baso % (Auto) Neut # (Auto) Lymph # (Auto) [place] # (Auto) Eos # (Auto) Baso # (Auto) Nucleated RBC % (a uto) Nucleated RBCs # Sodium 139 Potassium 5.4 H Chloride 98 Carbon Dioxide 19 L Anion Gap 27.4 H BUN 123 H* Creatinine 14.6 H* GFR Calculation 2.5 L Glucose 120 H POC Glucose Lactate 0.6 Calcium 9.1 Phosphorus Magnesium Total Bilirubin 0.3 AST 10 ALT 7 Alkaline Phosphata se 94 C-Reactive Protein Total Protein 6.6 Albumin 3.7 Globulin 2.9 Lipase 24 Procalcitonin Hep Bs Antigen Non-reactive Vitals: Last Vital Signs Temp 98.3 F 10/12/19 11:10 Pulse 72 10/12/19 11:10 Resp 18 10/12/19 11:10 BP 139/69 10/12/19 11:10 Pulse Ox 93 10/12/19 11:10 Discharge Plan Discharge Patient Disposition: Home, Self-Care Condition: Stable Prescriptions: New oxycodone-acetaminophen 5-325 mg Tablet 1 tab PO BID PRN (Reason: Pain) 30 Days RF: 0 zolpidem 5 mg Tablet 5 mg PO .Hs 30 Days RF: 0 metoprolol succinate 25 mg Tablet Extended Release 24 Hr 12.5 mg PO DAILY Qty: 30 RF: 0 ciprofloxacin HCl 250 mg tablet 250 mg PO DAILY 13 Days Qty: 13 RF: 0 Flagyl 500 mg tablet 500 mg PO Q8H 13 Days Qty: 39 RF: 0 Continued Eliquis 2.5 mg tablet 2.5 mg PO BID RF: 0 diphenoxylate-atropine [Lomotil] 2.5-0.025 mg tablet 2 tab PO QID RF: 0 losartan 100 mg tablet 100 mg PO DAILY RF: 0 minoxidil 2.5 mg tablet 2.5 mg PO BID RF: 0 levothyroxine [Synthroid] 25 mcg tablet 100 mcg PO DAILY RF: 0 trazodone 50 mg tablet See Rx Instructions PO .HS PRN (Reason: sleep) Qty: 60 RF: 1 clopidogrel [Plavix] 75 mg tablet 75 mg PO DAILY Qty: 30 RF: 6 aspirin [Aspir-81] 81 mg Tablet,Delayed Release (Dr/Ec) 81 mg PO DAILY RF: 0 Lipitor 80 mg Tablet 80 mg PO DAILY RF: 0 desoximetasone 0.05 % cream See Rx Instructions .ROUTE .COMPLEX RF: 0 [place] 5-325 mg Tablet 1 tab PO QID PRN (Reason: Pain) RF: 0 isosorbide mononitrate 30 mg tablet extended release 24 hr 30 mg PO DAILY RF: 0 lidocaine-prilocaine 2.5-2.5 % cream See Rx Instructions .ROUTE .COMPLEX RF: 0 doxazosin 8 mg Tablet 8 mg PO DAILY RF: 0 Nexium 40 mg Capsule,Delayed Release(Dr/Ec) 40 mg PO DAILY RF: 0 calcipotriene 0.005 % cream See Rx Instructions .ROUTE .COMPLEX RF: 0 Nitrostat 0.4 mg Tablet, Sublingual 0.4 mg SUBLINGUAL Q5M PRN (Reason: Chest Pain) RF: 0 Singulair 10 mg Tablet 10 mg PO DAILY RF: 0 gabapentin 100 mg Capsule 100 mg PO BID RF: 0 ProAir HFA 90 mcg/actuation Hfa Aerosol Inhaler 2 puff INHALATION Q4H PRN (Reason: Shortness Of Breath) RF: 0 cholestyramine (with sugar) 4 gram powder in packet 4 g PO BID PRN (Reason: UNKNOWN) RF: 0 Auryxia 210 mg iron tablet See Rx Instructions .ROUTE .COMPLEX RF: 0 Humalog KwikPen Insulin 100 unit/mL insulin pen See Rx Instructions .ROUTE .COMPLEX RF: 0 melatonin 10 mg Tablet 10 mg PO BEDTIME PRN (Reason: Sleep) RF: 0 Held meloxicam 7.5 mg tablet 7.5 mg PO DAILY RF: 0 Hold Instructions: Resume on 11/09/19. Discontinued metoprolol succinate [Toprol XL] 25 mg tablet extended release 24 hr 25 mg PO DAILY RF: 0 Discharge Orders: Discharge Order (Routine); Ordered 10/12/19 Ordered By: Naveen Johnson Other Ambulatory Orders: Comprehensive Metabolic Panel (Routine) Timeframe: 1 Day Facility: [facility] - Location: Lab - Main Lab Ordered By: Naveen Johnson Referrals: Laisha Campoverde [Primary Care Provider] - 10/19/19 8:00 am Discharge Diet: GI Soft Discharge Activity: Resume usual activity Patient Instructions: Ciprofloxacin (By mouth), Metoprolol (By mouth), Oxycodone/Acetaminophen (By mouth), Zolpidem (By mouth), Coronary Artery Disease (DC), Diverticulitis (DC), Hemodialysis (GEN), Diverticulitis Diet (DC) Activity Restrictions/Additional Instructions: -Drink plenty of electrolyte balance fluids -Consume a GI soft diet -Take antibiotics as prescribed, if you develop diarrhea please come back to emergency room Please follow-up with primary care in 1 week -Please resume dialysis schedule Friday, you must go to dialysis tomorrow -Please follow-up with vascular as scheduled Discharge Attestations Time Spent in Discharge Care*: less than 30 min Status at Discharge: Cognitive status at discharge: cognitively intact, Behavioral status at discharge: cooperative, Quality Metrics Clinical Quality Measures During this hospital stay, did patient experience: None Coding Level of Care Code Acute Environmental Consultant for Hector Hutchins Diagnoses Diverticulitis K57.92 AVF (arteriovenous fistula) I77.0 Hypertension I10 End-stage renal disease on hemodialysis N18.6; Z99.2 Atrial fibrillation I48.91 Diastolic heart failure I50.30 Generalized anxiety disorder F41.1 Chronic pain disorder G89.4 Coronary artery disease I25.10 History of common carotid artery stent placement Z98.890; Z95.828
[2019-10-12 12:45] VITALS: BP 139/69; PULSE 72; RESP 18; TEMP 36.8; O2SAT 93
== END 2019-10-12 12:46 | disposition home or self-care (01) ==
LOC: ER 13:02 → MEDSURG 17:22
PROVIDERS: Internal Medicine Nephrology; Admitting Provider Family Medicine; Emergency Provider Family Medicine; PCP Nurse Practitioner Family; Visit Provider Family Medicine
DX: E11.22 Type 2 diabetes mellitus with diabetic chronic kidney disease (principal); I13.2 Hypertensive heart and chronic kidney disease with heart failure and with stage 5 chronic kidney disease, or end stage renal disease; I50.30 Unspecified diastolic (congestive) heart failure; N18.6 End stage renal disease; K57.92 Diverticulitis of intestine, part unspecified, without perforation or abscess without bleeding; I48.91 Unspecified atrial fibrillation; F41.1 Generalized anxiety disorder; G89.4 Chronic pain syndrome; I25.10 Atherosclerotic heart disease of native coronary artery without angina pectoris; Z95.828 Presence of other vascular implants and grafts; Z99.2 Dependence on renal dialysis; Z79.01 Long term (current) use of anticoagulants; Z95.5 Presence of coronary angioplasty implant and graft; Z79.82 Long term (current) use of aspirin; Z79.02 Long term (current) use of antithrombotics/antiplatelets; J43.9 Emphysema, unspecified; G47.30 Sleep apnea, unspecified; Z87.891 Personal history of nicotine dependence; D63.1 Anemia in chronic kidney disease; Z91.15 Patient's noncompliance with renal dialysis
CPT/HCPCS: 12345; 36415; 36416; 73221; 74176; 80053; 82962; 83605; 83690; 83735; 84100; 84145; 85025; 86140; 87040; 87340; 96365; 99282; 99285; G0378; J0744; Q3014; S0030

== ENCOUNTER 2019-10-21 11:43 | Emergency (ER) | payer MEDICARE, MEDICAID, SELFPAY ==
[2019-10-21 11:45] VITALS: BMI 69.2
--- NOTE | 2019-10-21 11:47 | ED_ITS ---
Entered by Irene Sheth, acting as scribe for Oct 21, 2019 11:43 HPI - Dizziness General: Chief Complaint: Dizziness Stated Complaint: dizziness Time Seen by Provider: 10/21/19 11:43 Source: patient, EMS and RN notes reviewed Mode of arrival: EMS Limitations: no limitations History of Present Illness: HPI Narrative: 64 yo female presents to ED with complaints of dizziness and leg weakness. The patient states this began at 0730. She said she was on the elevator and her legs gave out. She describes her dizziness as lightheadedness. She has a history of HTN and her medication was changed within the last 3 weeks. She has a shunt in her L arm for dialysis on . She states she did get dialysis yesterday. She has had neck pain and neck stiffness since February. MD elicited complaint: dizziness and lightheadedness Pertinent past history: other (HTN) Onset (ago): hour(s) (4 (0730)) Timing: sudden onset Severity: moderate Description: lightheadedness Context: change in medication History of similar symptoms: Yes Exacerbating factors: movement/ambulation and change in body position Relieving factors: remaining still and medication Associated symptoms: Reports other (weakness); Denies change in hearing, chest pain, chills, diaphoresis, ear discharge, headache(s), malaise, nausea, palpitations, syncope or vomiting Associated neuro symptoms: Reports extremity weakness; Deny confusion or numbness in extremities Review of Systems General: Reports: other (negative unless marked) Const: Denies: fever, chills, body aches, fatigue, malaise or diaphoresis Eyes: Denies: change in vision or blurry vision ENMT: Denies: throat pain, painful swallowing, hoarseness, ear pain, ear discharge, Change in hearing or nasal discharge Card: Denies: chest pain, palpitations, irregular heart rhythm, syncope, pre- syncope, shortness of breath on exertion or shortness of breath when lying down Resp: Denies: shortness of breath, productive cough, non-productive cough, wheezing, coughing up blood or chest congestion GI: Denies: abdominal pain, nausea, vomiting, vomiting blood, coffee grounds in vomit, diarrhea, constipation, cramping, blood in stool or black tarry stool : Denies: flank pain, painful urination, urinary frequency, urinary urgency, decreased urine ouput, urinary incontinence or blood in urine Musc: Denies: neck pain, back pain, extremity pain, extremity swelling, joint pain, joint swelling, joint warmth or joint stiffness Skin/Breast: Denies: rash, skin tenderness or yellow skin Neuro: Denies: headache, numbness in extremities, changes in sensation, lack of coordination, difficulty walking, vertigo or confusion Endo: Denies: excessive thirst, tired all the time, cold intolerance, excessive sweating, flushing or hot flashes Hussein/Lymph: Denies: easy bruising, easy bleeding, petechiae or enlarged lymph nodes All/Imm: Denies: hives, throat swelling, tongue swelling, facial swelling or acute wheezing PFSH ED PFSH: Medical History (Updated 10/21/19 @ 14:21 by Em Kapadia) Anemia Anemia Stable Anticoagulation adequate with anticoagulant therapy Atrial fibrillation Carotid artery disease Chronic bronchitis Chronic chest pain Chronic disease of respiratory system Chronic pain disorder Coronary artery disease Diabetes Diastolic heart failure Emphysema of lung End-stage renal disease on hemodialysis Receives dialysis Friday. Potassium slightly high. Kayexalate given 30 g p.o. on September 12 Fibromyalgia GERD (gastroesophageal reflux disease) History of common carotid artery stent placement Hypertension Hypertension Elevated but stable Hypothyroidism Irritable bowel syndrome Noncompliance Sleep apnea Venous insufficiency Surgical History History of appendectomy History of cholecystectomy Stented coronary artery Social History Smoking and tobacco status: former smoker Quit status (tobacco): has quit using tobacco Year quit tobacco: 2009 Second hand smoke exposure: Yes Smoking risk assessment/counseling performed?: No Alcohol intake: never Physical Exam Const: COMMON NORMALS: no apparent distress, oriented x3, no limitations, healthy appearing and well nourished EXAM LIMITATIONS: no altered mental status GENERAL APPEARANCE: cooperative, well kempt and well developed ORIENTATION/CONSCIOUSNESS: Yes awake HENMT: COMMON NORMALS: normocephalic, head/scalp atraumatic, hearing grossly normal bilaterally, external ears normal, EAC's normal, external nose normal and moist oral mucous membranes HEAD & SCALP: normal to inspection, normocephalic and atraumatic FACE & SINUS: normal facial exam and face symmetric NOSE: external nose normal and nares normal EXTERNAL EAR: Yes external ears normal EXTERNAL AUDITORY CANAL: EAC's normal MOUTH: oral and palatal mucosa normal and tongue normal Eye: COMMON NORMALS: PERRL, EOMs intact bilaterally, conjunctivae normal and no scleral icterus GENERAL EYE: normal appearance of both eyes and normal light reflex CONJUNCTIVA: Yes conjunctivae normal SCLERA: sclerae normal CORNEA: Yes corneas normal PUPIL: Yes PERRL DIRECT OPHTHALMOSCOPY: Yes normal light reflex Neck/C-Spine: COMMON NORMALS: full ROM, no lymphadenopathy, supple, no meningeal signs and no JVD GENERAL: Yes normal visual inspection, Yes trachea midline and Yes tender CERVICAL SPINE: Yes cervical ROM normal Chest: COMMONS NORMALS: inspection of chest normal and palpation of chest normal Resp: COMMON NORMALS: normal respiratory effort, no retractions, no use of accessory muscles and clear to auscultation bilaterally EFFORT & INSPECTION: Yes able to speak in complete sentences AUSCULTATION: clear to auscultation bilaterally Cardio: COMMON NORMALS: no JVD, regular rate, regular rhythm, S1 normal heart sound, S2 normal heart sound, no gallops, no clicks, no murmurs and no rub JUGULAR VENOUS DISTENTION: no JVD RATE: regular rate RHYTHM: regular rhythm HEART SOUNDS: S1 normal and S2 normal GI: COMMON NORMALS: soft to palpation, non-tender, no hepatosplenomegaly and no masses INSPECTION: Yes normal to inspection PALPATION: Yes soft and Yes no hepatosplenomegaly : COMMON NORMALS: Yes no CVA tenderness BLADDER/KIDNEY EXAM: Yes no CVA tenderness Back/Pelvis: COMMON NORMALS: no CVA tenderness, thoracic and lumbar spine normal to inspection, no thoracic nor lumbar tenderness and thoraco-lumbar ROM normal Extremity: COMMON NORMALS: normal to inspection, full ROM, normal capillary refill, no joint enlargement, no clubbing, cyanosis or edema and no calf tenderness OTHER: bilateral lower extremity weakness Neuro: COMMON NORMALS: oriented x3, CN's II-XII intact bilaterally, moves all extremities, no focal motor deficits and no sensory deficits noted MENINGEAL SIGNS: Yes no meningeal signs Psych: COMMON NORMALS: mental status grossly normal, thought process normal, cooperative, affect normal, speech normal and activity/motor behavior normal APPEARANCE: Yes well kempt SPEECH: Yes normal speech THOUGHT PROCESS: normal thought process Skin: COMMON NORMALS: no rashes or lesions noted, skin turgor normal, no jaundice, no petechiae and no mottling GENERAL SKIN EXAM: no rashes or lesions noted and turgor normal Course Vital Signs: Vital signs: Vital Signs Temperature 97.8 F 10/21/19 11:51 Pulse Rate 58 L 10/21/19 12:01 Respiratory Rate 18 10/21/19 11:51 Blood Pressure 112/42 10/21/19 12:01 Pulse Oximetry 95 10/21/19 11:51 MDM - Dizziness MDM Narrative: Medical decision making narrative: Patient is received a little over 500 cc of fluids and her orthostasis has resolved. She is no longer lightheaded or dizzy. I believe they probably took off too much food yesterday during dialysis. Patient's chest x-ray also notes that her dialysis catheter is suboptimally placed with the tip barely in the SVC. I reviewed all this with Dr. Max and he would like the dialysis catheter taped securely as possible and they will assess it tomorrow before using. The patient does have a fistula placed and the plan was to use it tomorrow but he would like the chest catheter left in place just in case. I reviewed all this with the patient and she is in agreement. She declines to wait for repeat troponin as she has had no chest pain. I believe her troponin was elevated secondary to her chronic renal failure. Lab Data: Attestation: I reviewed the patient's lab results. Labs: Lab Results 10/21/19 10/21/19 10/21/19 Range/Units 12:09 12:09 12:09 WBC 7.2 (4.0-10.0) 10^3/ uL RBC 3.83 L (4.1-5.3) 10^6/u L Hgb 11.2 L (11.5-15.3) g/dL Hct 36.5 L (37.0-47.0) % MCV 95.3 (81-99) fL MCH 29.2 (28.0-34.0) pg MCHC 30.7 (30.0-36.0) g/dL RDW 13.5 (12.1-15.1) % Plt Count 219 (130-400) 10^3/c mm MPV 10.7 H (7.4-10.4) fL Neut % (Auto) 68.9 % Lymph % (Auto) 20.6 % Cottle % (Auto) 6.7 % Eos % (Auto) 1.9 % Baso % (Auto) 0.4 % Neut # (Auto) 5.0 (1.8-7.7) 10^3/u L Lymph # (Auto) 1.5 (0.8-4.8) 10^3/u L Cottle # (Auto) 0.5 (0.2-0.9) 10^3/u L Eos # (Auto) 0.1 (0.0-0.8) 10^3/u L Baso # (Auto) 0.0 (0.0-0.1) 10^3/u L Nucleated RBC % (a uto) 0 % Nucleated RBCs # 0.0 /100WBC Sodium 132 L (136-145) mmol/L Potassium 4.6 (3.5-5.1) mmol/L Chloride 91 L (98-107) mmol/L Carbon Dioxide 22 (22-29) mmol/L Anion Gap 23.6 H (5-19) BUN 72 H (8-23) mg/dL Creatinine 7.0 H* (0.5-0.9) mg/dL GFR Calculation 5.9 L (90-130) mL/min Glucose 174 H (65-115) mg/dL Calculated Osmolal ity 278 L (285-295) mOsm/k g Calcium 10.0 (8.5-10.5) mg/dL Total Bilirubin 0.3 (0.15-1.2) mg/dL AST 14 (0-32) U/L ALT 7 (0-33) U/L Alkaline Phosphata se 87 (35-105) IU/L Troponin T Baselin e 66 H (0-10) ng/mL Total Protein 7.7 (6.6-8.7) g/dL Albumin 4.3 (3.5-5.2) g/dL Globulin 3.4 (1.3-4.6) g/dL Imaging Data^: CXR: Radiologist's impression: [address] [address] XRay Report Signed Patient: Amanda Ha #: [id number] : 3Acct#:[id number] Age/Sex: 64 / FADM Date: 10/21/19 Loc: ERRoom/Bed: Attending Dr: Ordering Provider/Ordering MD: Em Kapadia DO Date of Service: 10/21/19 Procedure(s): XR chest 1V portable 13219 Accession Number(s): [id number] Report Number: [id number] WS: [id number] Portable AP upright chest, 10/21/2019 Clinical Data: cough Comparison: Portable chest, 09/09/2019. Findings: No nodules, masses or effusions are seen. The heart is slightly enlarged. The pulmonary vascularity is not increased. No pneumonia or pn eumothorax is seen. A right dialysis catheter ends in the superior vena cava. The aortic arch shows calcification. Monitor leads are on the chest wall. XR/XR chest 1V portable [id number] Impression: Cardiomegaly and atherosclerosis. Dictated By:Laisha He MD Signed By:Laisha He MDSigned Date/Time:10/21/19 1230 DD/ Discharge Plan Discharge Patient Disposition: Home, Self-Care Clinical Impression: Orthostasis Condition: Stable Prescriptions: No Action Eliquis 2.5 mg tablet 2.5 mg PO BID RF: 0 meloxicam 7.5 mg tablet 7.5 mg PO DAILY RF: 0 Hold Instructions: Resume on 11/09/19. diphenoxylate-atropine [Lomotil] 2.5-0.025 mg tablet 2 tab PO QID RF: 0 losartan 100 mg tablet 100 mg PO DAILY RF: 0 minoxidil 2.5 mg tablet 2.5 mg PO BID RF: 0 levothyroxine [Synthroid] 25 mcg tablet 100 mcg PO DAILY RF: 0 trazodone 50 mg tablet See Rx Instructions PO .HS PRN (Reason: sleep) Qty: 60 RF: 1 clopidogrel [Plavix] 75 mg tablet 75 mg PO DAILY Qty: 30 RF: 6 aspirin [Aspir-81] 81 mg Tablet,Delayed Release (Dr/Ec) 81 mg PO DAILY RF: 0 atorvastatin [Lipitor] 80 mg Tablet 80 mg PO DAILY RF: 0 hydrocodone-acetaminophen [Snyder] 5-325 mg Tablet 1 tab PO QID PRN (Reason: Pain) RF: 0 isosorbide mononitrate 30 mg tablet extended release 24 hr 30 mg PO DAILY RF: 0 lidocaine-prilocaine 2.5-2.5 % cream See Rx Instructions .ROUTE .COMPLEX RF: 0 doxazosin 8 mg Tablet 8 mg PO DAILY RF: 0 esomeprazole magnesium [Nexium] 40 mg Capsule,Delayed Release(Dr/Ec) 40 mg PO DAILY RF: 0 nitroglycerin [Nitrostat] 0.4 mg Tablet, Sublingual 0.4 mg SUBLINGUAL Q5M PRN (Reason: Chest Pain) RF: 0 montelukast [Singulair] 10 mg Tablet 10 mg PO DAILY RF: 0 gabapentin 100 mg Capsule 100 mg PO BID RF: 0 albuterol sulfate [ProAir HFA] 90 mcg/actuation Hfa Aerosol Inhaler 2 puff INHALATION Q4H PRN (Reason: Shortness Of Breath) RF: 0 cholestyramine (with sugar) 4 gram powder in packet 4 g PO BID PRN (Reason: UNKNOWN) RF: 0 Auryxia 210 mg iron tablet See Rx Instructions .ROUTE .COMPLEX RF: 0 insulin lispro [Humalog KwikPen Insulin] 100 unit/mL insulin pen See Rx Instructions .ROUTE .COMPLEX RF: 0 melatonin 10 mg Tablet 10 mg PO BEDTIME PRN (Reason: Sleep) RF: 0 oxycodone-acetaminophen 5-325 mg Tablet 1 tab PO BID PRN (Reason: Pain) 30 Days RF: 0 zolpidem 5 mg Tablet 5 mg PO .Hs 30 Days RF: 0 metoprolol succinate 25 mg tablet extended release 24 hr 50 mg PO DAILY RF: 0 minoxidil 2.5 mg Tablet 2.5 mg PO DAILY RF: 0 Discharge Orders: Discharge Order (Routine); Ordered 10/21/19 Ordered By: Em Kapadia [facility] Chivo Max MD [Referring] - 1-3 days (Be certain to go for dialysis tomorrow as Dr. Max is going to assess your chest catheter and see if it can be used any longer.) Discharge Diet: Usual diet Discharge Activity: Increase activity as tolerated Patient Instructions: Dehydration (ED) Activity Restrictions/Additional Instructions: Please return to the ER immediately for any of the signs or symptoms listed on your discharge instruction sheets, worsening/changing of your symptoms, you are not getting better as quickly as expected, or for ANY other cause or concerns. Keep your catheter as secure as possible until seen and evaluated by the dialysis nurse and Dr. Max tomorrow. They will determine tomorrow whether to begin using your fistula or to continue using that catheter. Coding Level of Care Code ED Sprinkler Tender for Chg Fwd Exam Comprehensive The documentation recorded by the Domenic finley Valerie R, accurately ref lects the service I personally performed and the decisions made by , Em Kapadia Oct 21, 2019 11:43
[2019-10-21 11:51] VITALS: BP 91/45; PULSE 60; RESP 18; TEMP 36.6; O2SAT 95
--- NOTE | 2019-10-21 11:51 | XR_ITS ---
WS: [id number] Portable AP upright chest, 10/21/2019 Clinical Data: cough Comparison: Portable chest, 09/09/2019. Findings: No nodules, masses or effusions are seen. The heart is slightly enlarged. The pulmonary vas cularity is not increased. No pneumonia or pneumothorax is seen. A right dialysis catheter ends in th e superior vena cava. The aortic arch shows calcification. Monitor leads are on the chest wall. XR/XR chest 1V portable [id number] Impression: Cardiomegaly and atherosclerosis.
--- NOTE | 2019-10-21 11:51 | ECG_ITS ---
Measurements Intervals [place] Rate: 60 P: 66 OR: 175 QRS: 1 QRSD: 90 T: 78 QT: 439 QTc: 440 SINUS RHYTHM POSSIBLE ANTERIOR MYOCARDIAL INFARCTION [30 ms Q WAVE IN V3/V4, OR R < 0.2 mV IN V4], OF INDETERMINATE AGE Compared to ECG 09/11/2019 14:11:07 No significant changes Electronically Signed On 10-21-2019 17:22:34 CDT by Karan Allison M.D. [email or web address]
[2019-10-21 12:01] VITALS: BP 112/42; BP 79/39; BP 87/43; PULSE 58; PULSE 63; PULSE 76
[2019-10-21 12:17] LABS: Basophils % 0.4 %; Eosinophils # 0.1 10^3/uL (0.0-0.8); Eosinophils % 1.9 %; Hematocrit 36.5 % (37.0-47.0); Hemoglobin 11.2 g/dL (11.5-15.3); Lymphocytes # 1.5 10^3/uL (0.8-4.8); Lymphocytes % 20.6 %; Mean Corpuscular HGB Conc 30.7 g/dL (30.0-36.0); Mean Corpuscular Hemoglobin 29.2 pg (28.0-34.0); Mean Corpuscular Volume 95.3 fL (81-99); Mean Platelet Volume 10.7 fL (7.4-10.4); Monocytes # 0.5 10^3/uL (0.2-0.9); Monocytes % 6.7 %; Neutrophils % 68.9 %; Nucleated Red Blood Cells % 0 %; Platelet Count 219 10^3/cmm (130-400); Red Blood Count 3.83 10^6/uL (4.1-5.3); Red Cell Distribution Width 13.5 % (12.1-15.1); White Blood Count 7.2 10^3/uL (4.0-10.0)
[2019-10-21] MEDS: sodium chloride 0.9% 1,000 ML 999 ML IV (12:17)
[2019-10-21 12:32] LABS: Alanine Aminotransferase 7 U/L (0-33); Albumin Level 4.3 g/dL (3.5-5.2); Alkaline Phosphatase 87 IU/L (35-105); Anion Gap 23.6 (5-19); Aspartate Amino Transferase 14 U/L (0-32); Blood Urea Nitrogen 72 mg/dL (8-23); Carbon Dioxide 22 mmol/L (22-29); Chloride 91 mmol/L (98-107); Globulin 3.4 g/dL (1.3-4.6); Glomerular Filtration Rate 5.9 mL/min (90-130); Glucose 174 mg/dL (65-115); Osmolality Calculated 278 mOsm/kg (285-295); Potassium 4.6 mmol/L (3.5-5.1); Sodium 132 mmol/L (136-145); Total Bilirubin 0.3 mg/dL (0.15-1.2); Total Protein 7.7 g/dL (6.6-8.7)
[2019-10-21 12:34] LABS: Troponin(5th) Baseline 66 ng/mL (0-10)
--- NOTE | 2019-10-21 14:16 | PC.NURSE ---
PT RECIEVED 500ML NS THROUGH IV, NOT 1000ML. PER VERBAL ORDER BY DR. EM
[2019-10-21 14:34] VITALS: RESP 16; O2SAT 94
[2019-10-21 14:35] LABS: Troponin 5 2HR 62.91 ng/mL (0-10)
[2019-10-21 15:01] LABS: Troponin 5 2HR Delta -3.09 ABS# (0-10)
[2019-10-21 15:49] VITALS: BP 164/60; PULSE 70; RESP 17; O2SAT 95
--- NOTE | 2019-10-21 17:51 | ECG_ITS ---
Measurements Intervals [place] Rate: 55 P: 55 WV: 181 QRS: -7 QRSD: 106 T: 76 QT: 473 QTc: 454 SINUS BRADYCARDIA POSSIBLE ANTERIOR MYOCARDIAL INFARCTION , OF INDETERMINATE AGE [30 ms Q WAVE IN V3/V4, OR R < 0.2 mV IN V4] Compared to ECG 09/11/2019 14:11:07 Sinus rhythm no longer present Myocardial infarct finding still present Electronically Signed On 10-21-2019 17:25:08 CDT by Karan Allison M.D. [email or web address]
== END 2019-10-21 15:50 | disposition home or self-care (01) ==
PROVIDERS: Emergency Provider Emergency Medicine; PCP Nurse Practitioner Family
DX: I95.1 Orthostatic hypotension (principal); I48.91 Unspecified atrial fibrillation; I25.10 Atherosclerotic heart disease of native coronary artery without angina pectoris; I13.2 Hypertensive heart and chronic kidney disease with heart failure and with stage 5 chronic kidney disease, or end stage renal disease; I50.30 Unspecified diastolic (congestive) heart failure; E11.22 Type 2 diabetes mellitus with diabetic chronic kidney disease; N18.6 End stage renal disease; J43.9 Emphysema, unspecified; E03.9 Hypothyroidism, unspecified; Z87.891 Personal history of nicotine dependence; Z99.2 Dependence on renal dialysis
CPT/HCPCS: 12345; 36415; 71045; 80053; 84484; 85025; 93005; 96360; 96361; 99284; A9270; J7030

== ENCOUNTER 2019-11-04 07:21 | Inpatient (IN) | payer MEDICARE, MEDICAID, SELFPAY ==
[2019-11-04] VITALS (31 sets, daily range): BP systolic 85–191; BP diastolic 36–83; PULSE 62–86; RESP 18–32; TEMP 36.6–36.8; O2SAT 82–99; BMI 44.3
--- NOTE | 2019-11-04 07:37 | CT_ITS ---
WS: [id number] CT CERVICAL SPINE HISTORY: fall TECHNIQUE: Contiguous 2.5 mm axial imaging performed through the entire cervical spine. Sagittal and coronal reformats also performed. All CT scans at [facility] use at least one of these do se optimization techniques: automated exposure control; mA and/or kV adjustment per patient size (inc ludes targeted exams where dose is matched to clinical indication); or iterative reconstruction. DLP: 919.32 mGy.cm COMPARISON: 10/07/2019 Study is limited by motion. Normal cervical alignment. There is mild disc space narrowing throughout and small endplate osteophytes. Craniocervical junction is normal. C2-C3: Normal. C3-C4: Small central osteophyte and disc. No encroachment. C4-C5: Mild osteophytic ridging and central disc protrusion. No stenosis. C5-C6: Osteophytic ridging slightly asymmetric to the LEFT. Mild LEFT foraminal stenosis. There is mi ld central stenosis due to disc and osteophyte disease. C6-C7: Mild diffuse osteophytic ridging. There are small well-corticated bony fragments near the RIGH T foramen. These correspond to fractures previously described which are stable. Superior articular fa cet fracture of C7 appears healed. C7-T1: Normal. Lung apices are clear. Extensive calcifications in the vertebral and the visualized carotid arteries. CT/CT cervical spin wo con* [id number] IMPRESSION: 1. No acute cervical spine fracture. 2. Remote healed fracture with osseous fragmentation involving the superior RI GHT C7 articular facet. No interval change.
--- NOTE | 2019-11-04 07:37 | XR_ITS ---
WS: [id number] Portable AP upright chest, 11/04/2019 Clinical Data: cough/congestion Comparison: Portable chest, 10/21/2019. Findings: No nodules, masses or effusions are seen. The heart is enlarged. The pulmonary vascularity is slightly increased. No pneumonia or pneumothorax is seen. The aortic arch shows calcification and tortuosity. XR/XR chest 1V portable [id number] Impression: 1. Cardiomegaly and mild pulmonary vascular congestion. 2. Atherosclerosis.
--- NOTE | 2019-11-04 07:37 | CT_ITS ---
WS: [id number] CT HEAD NONCONTRAST HISTORY: trauma TECHNIQUE: Contiguous axial imaging performed through the brain in 2.5 mm imaging. Bone and soft tiss ue windows. Sagittal and coronal reformats reviewed. All CT scans at [facility] use at ast one of these dose optimization techniques: automated exposure control; mA and/or kV adjustment pe r patient size (includes targeted exams where dose is matched to clinical indication); or iterative r econstruction. DLP: 1227.96 mGy.cm COMPARISON: 06/05/2019 Limited by mild motion artifact. Mild atrophy and mild chronic microvascular ischemic disease. No acute infarct is identified. The gra y-white matter differentiation is preserved as on the prior study. No prior large territory infarcts. Ventricles: Normal size with no hydrocephalus. Paranasal sinuses: As visualized are clear. Mastoid air cells: Well pneumatized. Calvarium and scalp: No calvarial fracture. Small amount of subcutaneous edema over the frontal bone, just to the LEFT of midline. CT/CT head wo con* [id number] IMPRESSION: 1. No acute intracranial hemorrhage. 2. Mild atrophy and chronic ischemic disease. Similar to the prior study of . 3. Scalp hematoma over the LEFT frontal region.
--- NOTE | 2019-11-04 07:38 | ECG_ITS ---
Measurements Intervals [place] Rate: 63 P: 268 VT: 149 QRS: -63 QRSD: 146 T: 110 QT: 475 QTc: 487 SINUS RHYTHM LEFT AXIS DEVIATION [QRS AXIS < -30] LEFT BUNDLE BRANCH BLOCK Compared to ECG 10/21/2019 14:07:09 Left-axis deviation now present Left bundle-branch block now present Myocardial infarct finding no longer present Electronically Signed On 11-04-2019 17:58:23 CDT by Tamie Brand M.D. [id number]
--- NOTE | 2019-11-04 07:39 | W.ED.AMS ---
Documented by User: KENISHA Bearden 11/04/19 09:43 HPI - Altered Mental Status General: Chief Complaint: Altered Mental Status Stated Complaint: AMS Time Seen by Provider: 11/04/19 07:39 Source: EMS Mode of arrival: EMS Limitations: altered mental status History of Present Illness: HPI narrative: Patient is a 64-year-old female with a history of end-stage renal disease on dialysis, diastolic CHF, morbid obesity, atrial fibrillation on Eliquis, CAD, hypertension, hyperlipidemia, and type 2 diabetes mellitus here after being brought by EMS for complaints of found down in her home and AMS. According to EMS report she was on the toilet when she pushed/pulled some type of life alert system that alerted EMS to respond. They state when they got to patient's house it was completely unlivable/filthy. They state patient was found down in the bathroom. She was alert but seemed to be altered. Upon arrival patient can tell me that her name is Pat . She can tell me she is in a hospital. She does not answer any further questioning. MD complaint: altered mental status Onset (ago): hour(s) Review of Systems General: Reports: ROS unobtainable due to mental status PFSH ED PFSH: Medical History (Updated 11/05/19 @ 14:23 by Milan Hannah DO) Anemia Anticoagulation adequate with anticoagulant therapy Atrial fibrillation Carotid artery disease Chronic bronchitis Chronic pain disorder Coronary artery disease Diabetes Diastolic heart failure Emphysema of lung End-stage renal disease on hemodialysis Receives dialysis Friday. Fibromyalgia GERD (gastroesophageal reflux disease) Hypertension Elevated but stable Hypothyroidism Irritable bowel syndrome Sleep apnea Venous insufficiency Surgical History (Updated 11/04/19 @ 10:33 by Christin Charles DO) AVF (arteriovenous fistula) History of appendectomy History of cholecystectomy History of common carotid artery stent placement S/P hemodialysis catheter insertion Stented coronary artery PCI to mid LAD in December 2018 Family History Other CAD (coronary artery disease) Social History Smoking and tobacco status: former smoker Quit status (tobacco): has quit using tobacco Year quit tobacco: 2009 Second hand smoke exposure: Yes Smoking risk assessment/counseling performed?: No Alcohol intake: never Physical Exam Const: COMMON NORMALS: alert EXAM LIMITATIONS: altered mental status NUTRITIONAL APPEARANCE: obese morbidly obese ORIENTATION/CONSCIOUSNESS: Yes oriented to person (tells me her name is Pat ) and Yes oriented to place (tells me she is in a hospital ) HENMT: COMMON NORMALS: normocephalic, head/scalp atraumatic, hearing grossly normal bilaterally, external ears normal, EAC's normal, TM's normal bilaterally, external nose normal, nasal mucous membranes and turbinates normal, moist oral mucous membranes and oropharynx normal HEAD & SCALP: normal to inspection, normocephalic and atraumatic NOSE: external nose normal and nasal mucous membranes and turbinates normal EXTERNAL EAR: Yes external ears normal EXTERNAL AUDITORY CANAL: EAC's normal TYMPANIC MEMBRANE: TM's normal bilaterally THROAT: posterior oropharynx normal, tonsils normal and uvula midline Eye: COMMON NORMALS: EOMs intact bilaterally, conjunctivae normal and no scleral icterus CONJUNCTIVA: Yes conjunctivae normal PUPIL: Yes other (small 2mm pupils bilaterally) Neck/C-Spine: COMMON NORMALS: no lymphadenopathy Chest: COMMONS NORMALS: inspection of chest normal and palpation of chest normal Resp: COMMON NORMALS: normal respiratory effort and clear to auscultation bilaterally AUSCULTATION: clear to auscultation bilaterally Cardio: COMMON NORMALS: regular rate and regular rhythm RATE: regular rate RHYTHM: regular rhythm GI: COMMON NORMALS: normal to inspection, nondistended, normoactive bowel sounds, soft to palpation and non-tender PALPATION: Yes soft Extremity: COMMON NORMALS: normal to inspection Neuro: ABRAHAM COMA SCALE: document GCS findings Abraham coma scale eye opening: Spontaneous [place] coma scale verbal response: Confused [place] coma scale motor response: Obey commands Abraham coma scale total score: 14 SENSORIUM/ORIENTATION: Yes alert, Yes oriented to person (tells me her name is Pat ) and Yes oriented to place (tells me she is in a hospital ) Skin: NARRATIVE SKIN EXAM: pt has multiple areas of ecchymosis throughout extremities/abdomen; she has macerations under pannus folds Course Vital Signs: Vital signs: Vital Signs Temperature 98.5 F 11/05/19 13:00 Pulse Rate 90 11/05/19 13:00 Respiratory Rate 21 H 11/05/19 13:00 Blood Pressure 102/79 11/05/19 13:00 Pulse Oximetry 97 11/05/19 13:00 MDM - Altered Mental Status MDM Narrative: Medical decision making narrative: Pt seen in conjunction with Dr. Hannah and he will speak to hospitalist for admission and emergent dialysis. Lab Data: Labs: Lab Results 11/04/19 11/04/19 11/04/19 Range/Units 07:30 07:30 07:30 WBC 11.6 H (4.0-10.0) 10^3/ uL RBC 3.19 L (4.1-5.3) 10^6/u L Hgb 9.6 L (11.5-15.3) g/dL Hct 32.2 L (37.0-47.0) % MCV 100.9 H (81-99) fL MCH 30.1 (28.0-34.0) pg MCHC 29.8 L (30.0-36.0) g/dL RDW 14.5 (12.1-15.1) % Plt Count 173 (130-400) 10^3/c mm MPV 11.7 H (7.4-10.4) fL Neut % (Auto) 86.1 % Lymph % (Auto) 3.7 % Mcclain % (Auto) 5.4 % Eos % (Auto) 0.0 % Baso % (Auto) 0.2 % Neut # (Auto) 10.0 H (1.8-7.7) 10^3/u L Lymph # (Auto) 0.4 L (0.8-4.8) 10^3/u L Mcclain # (Auto) 0.6 (0.2-0.9) 10^3/u L Eos # (Auto) 0.0 (0.0-0.8) 10^3/u L Baso # (Auto) 0.0 (0.0-0.1) 10^3/u L Nucleated RBC % (a uto) 0 % Nucleated RBCs # 0.0 /100WBC PT (10.5-13.3) SECO NDS INR (0.8-1.2) APTT (23.9-36.7) SECO NDS Specimen Type Sample Site ABG pH (7.35-7.45) ABG pCO2 (35-45) mmHg ABG pO2 (80.0-100.0) mmH g ABG HCO3 (22-26) mmol/L ABG O2 Saturation ABG Base Excess (-2.0-2.0) mmol/ L Dustin Test Hematocrit (37-47) % Hgb O2 Saturation (95-100) % Carboxyhemoglobin (0.4-20.1) %THgb Methemoglobin (0.4-1.5) % Total Hemoglobin (12-16) g/dL Ionized Calcium (1.1-1.4) mmol/L O2 Delivery Device FiO2 % Specimen Drawn By District Administrative Assistant ID Sodium Cancelled Potassium Cancelled Chloride Cancelled Carbon Dioxide Cancelled Anion Gap Cancelled BUN Cancelled Creatinine Cancelled GFR Calculation Cancelled Glucose Cancelled Estimat Average Gl ucose Hemoglobin A1c (4.0-6.0) % Calculated Osmolal ity Cancelled Lactate 1.2 (0.5-2.2) mmol/L Calcium Cancelled Magnesium Cancelled Iron (37-145) ug/dL TIBC mcg/dl % Saturation (20-50) % Unsat Iron Binding (112-347) ug/dL Total Bilirubin Cancelled AST Cancelled ALT Cancelled Alkaline Phosphata se Cancelled Ammonia (11-51) umol/L Creatine Kinase Cancelled Troponin T Baselin e (0-10) ng/mL NT-Pro-B Natriuret Pep (0-125) pg/mL Total Protein Cancelled Albumin Cancelled Globulin Cancelled TSH Cancelled Urine Color (Yellow) Urine Appearance (CLEAR) Urine pH (5-7) Ur Specific Gravit y (1.005-1.030) Urine Protein (Negative) Urine Glucose (UA) (Normal) Urine Ketones (Negative) Urine Blood (Negative) Urine Nitrate (Negative) Urine Bilirubin (NEGATIVE) Urine Urobilinogen (Negative) mg/dL Ur Leukocyte Lashanda ase (Negative) Urine RBC (0-2) /hpf Urine WBC (0-5) /hpf Ur Squamous Epith Cells (0-5) Urine Bacteria (NONE) Salicylates Cancelled Urine Opiates Scre en Acetaminophen Cancelled Ur Barbiturates Sc reen Ur Phencyclidine S crn Ur Amphetamines Sc reen U Benzodiazepines Scrn Urine Cocaine Scre en U Marijuana (THC) Screen Ethyl Alcohol Cancelled 11/04/19 11/04/19 11/04/19 Range/Units 07:30 07:30 08:04 WBC (4.0-10.0) 10^3/ uL RBC (4.1-5.3) 10^6/u L Hgb (11.5-15.3) g/dL Hct (37.0-47.0) % MCV (81-99) fL MCH (28.0-34.0) pg MCHC (30.0-36.0) g/dL RDW (12.1-15.1) % Plt Count (130-400) 10^3/c mm MPV (7.4-10.4) fL Neut % (Auto) % Lymph % (Auto) % Mcclain % (Auto) % Eos % (Auto) % Baso % (Auto) % Neut # (Auto) (1.8-7.7) 10^3/u L Lymph # (Auto) (0.8-4.8) 10^3/u L Mcclain # (Auto) (0.2-0.9) 10^3/u L Eos # (Auto) (0.0-0.8) 10^3/u L Baso # (Auto) (0.0-0.1) 10^3/u L Nucleated RBC % (a uto) % Nucleated RBCs # /100WBC PT 16.70 H (10.5-13.3) SECO NDS INR 1.35 H (0.8-1.2) APTT 30.8 (23.9-36.7) SECO NDS Specimen Type Sample Site ABG pH (7.35-7.45) ABG pCO2 (35-45) mmHg ABG pO2 (80.0-100.0) mmH g ABG HCO3 (22-26) mmol/L ABG O2 Saturation ABG Base Excess (-2.0-2.0) mmol/ L Dustin Test Hematocrit (37-47) % Hgb O2 Saturation (95-100) % Carboxyhemoglobin (0.4-20.1) %THgb Methemoglobin (0.4-1.5) % Total Hemoglobin (12-16) g/dL Ionized Calcium (1.1-1.4) mmol/L O2 Delivery Device FiO2 % Specimen Drawn By District Administrative Assistant ID Sodium Potassium Chloride Carbon Dioxide Anion Gap BUN Creatinine GFR Calculation Glucose Estimat Average Gl ucose 117 Hemoglobin A1c 5.7 (4.0-6.0) % Calculated Osmolal ity Lactate (0.5-2.2) mmol/L Calcium Magnesium Iron (37-145) ug/dL TIBC mcg/dl % Saturation (20-50) % Unsat Iron Binding (112-347) ug/dL Total Bilirubin AST ALT Alkaline Phosphata se Ammonia 49 (11-51) umol/L Creatine Kinase Troponin T Baselin e (0-10) ng/mL NT-Pro-B Natriuret Pep (0-125) pg/mL Total Protein Albumin Globulin TSH Urine Color (Yellow) Urine Appearance (CLEAR) Urine pH (5-7) Ur Specific Gravit y (1.005-1.030) Urine Protein (Negative) Urine Glucose (UA) (Normal) Urine Ketones (Negative) Urine Blood (Negative) Urine Nitrate (Negative) Urine Bilirubin (NEGATIVE) Urine Urobilinogen (Negative) mg/dL Ur Leukocyte Lashanda ase (Negative) Urine RBC (0-2) /hpf Urine WBC (0-5) /hpf Ur Squamous Epith Cells (0-5) Urine Bacteria (NONE) Salicylates Urine Opiates Scre en Acetaminophen Ur Barbiturates Sc reen Ur Phencyclidine S crn Ur Amphetamines Sc reen U Benzodiazepines Scrn Urine Cocaine Scre en U Marijuana (THC) Screen Ethyl Alcohol 11/04/19 11/04/19 11/04/19 Range/Units 08:10 08:10 08:16 WBC (4.0-10.0) 10^3/ uL RBC (4.1-5.3) 10^6/u L Hgb (11.5-15.3) g/dL Hct (37.0-47.0) % MCV (81-99) fL MCH (28.0-34.0) pg MCHC (30.0-36.0) g/dL RDW (12.1-15.1) % Plt Count (130-400) 10^3/c mm MPV (7.4-10.4) fL Neut % (Auto) % Lymph % (Auto) % Mcclain % (Auto) % Eos % (Auto) % Baso % (Auto) % Neut # (Auto) (1.8-7.7) 10^3/u L Lymph # (Auto) (0.8-4.8) 10^3/u L Mcclain # (Auto) (0.2-0.9) 10^3/u L Eos # (Auto) (0.0-0.8) 10^3/u L Baso # (Auto) (0.0-0.1) 10^3/u L Nucleated RBC % (a uto) % Nucleated RBCs # /100WBC PT (10.5-13.3) SECO NDS INR (0.8-1.2) APTT (23.9-36.7) SECO NDS Specimen Type Sample Site ABG pH (7.35-7.45) ABG pCO2 (35-45) mmHg ABG pO2 (80.0-100.0) mmH g ABG HCO3 (22-26) mmol/L ABG O2 Saturation ABG Base Excess (-2.0-2.0) mmol/ L Dustin Test Hematocrit (37-47) % Hgb O2 Saturation (95-100) % Carboxyhemoglobin (0.4-20.1) %THgb Methemoglobin (0.4-1.5) % Total Hemoglobin (12-16) g/dL Ionized Calcium (1.1-1.4) mmol/L O2 Delivery Device FiO2 % Specimen Drawn By District Administrative Assistant ID Sodium Potassium Chloride Carbon Dioxide Anion Gap BUN Creatinine GFR Calculation Glucose Estimat Average Gl ucose Hemoglobin A1c (4.0-6.0) % Calculated Osmolal ity Lactate (0.5-2.2) mmol/L Calcium Magnesium Iron (37-145) ug/dL TIBC mcg/dl % Saturation (20-50) % Unsat Iron Binding (112-347) ug/dL Total Bilirubin AST ALT Alkaline Phosphata se Ammonia (11-51) umol/L Creatine Kinase Troponin T Baselin e (0-10) ng/mL NT-Pro-B Natriuret Pep > 10884 H (0-125) pg/mL Total Protein Albumin Globulin TSH Urine Color Yellow (Yellow) Urine Appearance Turbid (CLEAR) Urine pH 6.5 (5-7) Ur Specific Gravit y 1.015 (1.005-1.030) Urine Protein 3+ H (Negative) Urine Glucose (UA) Norm (Normal) Urine Ketones Negative (Negative) Urine Blood 3+ H (Negative) Urine Nitrate Negative (Negative) Urine Bilirubin Neg (NEGATIVE) Urine Urobilinogen Norm (Negative) mg/dL Ur Leukocyte Lashanda ase 2+ H (Negative) Urine RBC 40-50 H (0-2) /hpf Urine WBC Too numerous to c nt H (0-5) /hpf Ur Squamous Epith Cells None (0-5) Urine Bacteria 2+ H (NONE) Salicylates Urine Opiates Scre en Cancelled Acetaminophen Ur Barbiturates Sc reen Cancelled Ur Phencyclidine S crn Cancelled Ur Amphetamines Sc reen Cancelled U Benzodiazepines Scrn Cancelled Urine Cocaine Scre en Cancelled U Marijuana (THC) Screen Cancelled Ethyl Alcohol 11/04/19 11/04/19 11/04/19 Range/Units 08:16 08:16 08:16 WBC (4.0-10.0) 10^3/ uL RBC (4.1-5.3) 10^6/u L Hgb (11.5-15.3) g/dL Hct (37.0-47.0) % MCV (81-99) fL MCH (28.0-34.0) pg MCHC (30.0-36.0) g/dL RDW (12.1-15.1) % Plt Count (130-400) 10^3/c mm MPV (7.4-10.4) fL Neut % (Auto) % Lymph % (Auto) % Mcclain % (Auto) % Eos % (Auto) % Baso % (Auto) % Neut # (Auto) (1.8-7.7) 10^3/u L Lymph # (Auto) (0.8-4.8) 10^3/u L Mcclain # (Auto) (0.2-0.9) 10^3/u L Eos # (Auto) (0.0-0.8) 10^3/u L Baso # (Auto) (0.0-0.1) 10^3/u L Nucleated RBC % (a uto) % Nucleated RBCs # /100WBC PT (10.5-13.3) SECO NDS INR (0.8-1.2) APTT (23.9-36.7) SECO NDS Specimen Type Sample Site ABG pH (7.35-7.45) ABG pCO2 (35-45) mmHg ABG pO2 (80.0-100.0) mmH g ABG HCO3 (22-26) mmol/L ABG O2 Saturation ABG Base Excess (-2.0-2.0) mmol/ L Dustin Test Hematocrit (37-47) % Hgb O2 Saturation (95-100) % Carboxyhemoglobin (0.4-20.1) %THgb Methemoglobin (0.4-1.5) % Total Hemoglobin (12-16) g/dL Ionized Calcium (1.1-1.4) mmol/L O2 Delivery Device FiO2 % Specimen Drawn By District Administrative Assistant ID Sodium 137 Potassium 9.0 H* Chloride 96 L Carbon Dioxide 9 L Anion Gap 41.0 H BUN 170 H* D Creatinine 20.8 H* GFR Calculation 1.7 L Glucose 97 Estimat Average Gl ucose Hemoglobin A1c (4.0-6.0) % Calculated Osmolal ity 289 Lactate (0.5-2.2) mmol/L Calcium 7.8 L Magnesium 2.3 Iron 77 (37-145) ug/dL TIBC 138 mcg/dl % Saturation 55.7 H (20-50) % Unsat Iron Binding 61 L (112-347) ug/dL Total Bilirubin 0.3 AST 23 ALT 19 Alkaline Phosphata se 82 Ammonia (11-51) umol/L Creatine Kinase 720 H* Troponin T Baselin e 121 H* (0-10) ng/mL NT-Pro-B Natriuret Pep (0-125) pg/mL Total Protein 6.8 Albumin 3.8 Globulin 3.0 TSH 3.07 Urine Color (Yellow) Urine Appearance (CLEAR) Urine pH (5-7) Ur Specific Gravit y (1.005-1.030) Urine Protein (Negative) Urine Glucose (UA) (Normal) Urine Ketones (Negative) Urine Blood (Negative) Urine Nitrate (Negative) Urine Bilirubin (NEGATIVE) Urine Urobilinogen (Negative) mg/dL Ur Leukocyte Lashanda ase (Negative) Urine RBC (0-2) /hpf Urine WBC (0-5) /hpf Ur Squamous Epith Cells (0-5) Urine Bacteria (NONE) Salicylates < 0.3 L Urine Opiates Scre en Acetaminophen < 5.0 L Ur Barbiturates Sc reen Ur Phencyclidine S crn Ur Amphetamines Sc reen U Benzodiazepines Scrn Urine Cocaine Scre en U Marijuana (THC) Screen Ethyl Alcohol < 10 03/26/20 Range/Units 09:09 WBC (4.0-10.0) 10^3/ uL RBC (4.1-5.3) 10^6/u L Hgb (11.5-15.3) g/dL Hct (37.0-47.0) % MCV (81-99) fL MCH (28.0-34.0) pg MCHC (30.0-36.0) g/dL RDW (12.1-15.1) % Plt Count (130-400) 10^3/c mm MPV (7.4-10.4) fL Neut % (Auto) % Lymph % (Auto) % Mcclain % (Auto) % Eos % (Auto) % Baso % (Auto) % Neut # (Auto) (1.8-7.7) 10^3/u L Lymph # (Auto) (0.8-4.8) 10^3/u L Mcclain # (Auto) (0.2-0.9) 10^3/u L Eos # (Auto) (0.0-0.8) 10^3/u L Baso # (Auto) (0.0-0.1) 10^3/u L Nucleated RBC % (a uto) % Nucleated RBCs # /100WBC PT (10.5-13.3) SECO NDS INR (0.8-1.2) APTT (23.9-36.7) SECO NDS Specimen Type Arterial Sample Site Rr ABG pH 7.12 L* (7.35-7.45) ABG pCO2 37.2 (35-45) mmHg ABG pO2 108.0 H (80.0-100.0) mmH g ABG HCO3 12.0 L (22-26) mmol/L ABG O2 Saturation 96.2 ABG Base Excess -16.4 L (-2.0-2.0) mmol/ L Dustin Test Pos Hematocrit 29.6 L (37-47) % Hgb O2 Saturation 94.3 L (95-100) % Carboxyhemoglobin 0.4 (0.4-20.1) %THgb Methemoglobin 1.6 H (0.4-1.5) % Total Hemoglobin 9.7 L (12-16) g/dL Ionized Calcium 1.0 L (1.1-1.4) mmol/L O2 Delivery Device Nc FiO2 28.0 % Specimen Drawn By Bd District Administrative Assistant ID Bd Sodium 138.0 Potassium 8.0 H Chloride Carbon Dioxide Anion Gap BUN Creatinine GFR Calculation Glucose 176.0 H Estimat Average Gl ucose Hemoglobin A1c (4.0-6.0) % Calculated Osmolal ity Lactate (0.5-2.2) mmol/L Calcium Magnesium Iron (37-145) ug/dL TIBC mcg/dl % Saturation (20-50) % Unsat Iron Binding (112-347) ug/dL Total Bilirubin AST ALT Alkaline Phosphata se Ammonia (11-51) umol/L Creatine Kinase Troponin T Baselin e (0-10) ng/mL NT-Pro-B Natriuret Pep (0-125) pg/mL Total Protein Albumin Globulin TSH Urine Color (Yellow) Urine Appearance (CLEAR) Urine pH (5-7) Ur Specific Gravit y (1.005-1.030) Urine Protein (Negative) Urine Glucose (UA) (Normal) Urine Ketones (Negative) Urine Blood (Negative) Urine Nitrate (Negative) Urine Bilirubin (NEGATIVE) Urine Urobilinogen (Negative) mg/dL Ur Leukocyte Lashanda ase (Negative) Urine RBC (0-2) /hpf Urine WBC (0-5) /hpf Ur Squamous Epith Cells (0-5) Urine Bacteria (NONE) Salicylates Urine Opiates Scre en Acetaminophen Ur Barbiturates Sc reen Ur Phencyclidine S crn Ur Amphetamines Sc reen U Benzodiazepines Scrn Urine Cocaine Scre en U Marijuana (THC) Screen Ethyl Alcohol Imaging Data^: CT Head: Radiologist's impression: [place] [address] CT Scan Report Signed Patient: Amanda Ha Unit #: [id number] : 1955 Age/Sex: 64 / F ADM Date: 11/04/19 Loc: ER Room/Bed: Attending Dr: Ordering Provider/Ordering MD: Nancy Phelan Date of Service: 11/04/19 Procedure(s): CT head wo con* [id number] Accession Number(s): [id number] Report Number: [id number] WS: [id number] CT HEAD NONCONTRAST HISTORY: trauma TECHNIQUE: Contiguous axial imaging performed through the brain in 2.5 mm imaging. Bone and soft tissue windows. Sagittal and coronal reformats reviewed. All CT scans at [facility] use at least one of these dose optimization techniques: automated exposure control; mA and/or kV adjustment per patient size (includes targeted exams where dose is matched to clinical indication); or iterative reconstruction. DLP: 1227.96 mGy.cm COMPARISON: 06/05/2019 Limited by mild motion artifact. Mild atrophy and mild chronic microvascular ischemic disease. No acute infarct is identified. The gomez-white matter differentiation is preserved as on the prior study. No prior large territory infarcts. Ventricles: Normal size with no hydrocephalus. Paranasal sinuses: As visualized are clear. Mastoid air cells: Well pneumatized. Calvarium and scalp: No calvarial fracture. Small amount of subcutaneous edema over the frontal bone, just to the LEFT of midline. CT/CT head wo con* [id number] IMPRESSION: 1. No acute intracranial hemorrhage. 2. Mild atrophy and chronic ischemic disease. Similar to the prior study of 06/05/2019. 3. Scalp hematoma over the LEFT frontal region. Dictated By: Estela Dos Santos DO Signed By: Estela Dos Santos DO Signed Date/Time: 11/04/19808 DD/ 3 CT cervical: Radiologist's impression: [address] [place] [address] CT Scan Report Signed Patient: Amanda Ha Unit #: [id number] : 1955 Age/Sex: 64 / F ADM Date: 11/04/19 Loc: ER Room/Bed: Attending Dr: Ordering Provider/Ordering MD: Nancy Phelan Date of Service: 11/04/19 Procedure(s): CT cervical spin wo con* [id number] Accession Number(s): [id number] Report Number: [id number] WS: [id number] CT CERVICAL SPINE HISTORY: fall TECHNIQUE: Contiguous 2.5 mm axial imaging performed through the entire cervical spine. Sagittal and coronal reformats also performed. All CT scans at [facility] use at least one of these dose optimization techniques: automated exposure control; mA and/or kV adjustment per patient size (includes targeted exams where dose is matched to clinical indication); or iterative reconstruction. DLP: 919.32 mGy.cm COMPARISON: 10/07/2019 Study is limited by motion. Normal cervical alignment. There is mild disc space narrowing throughout and small endplate osteophytes. Craniocervical junction is normal. C2-C3: Normal. C3-C4: Small central osteophyte and disc. No encroachment. C4-C5: Mild osteophytic ridging and central disc protrusion. No stenosis. C5-C6: Osteophytic ridging slightly asymmetric to the LEFT. Mild LEFT foraminal stenosis. There is mild central stenosis due to disc and osteophyte disease. C6-C7: Mild diffuse osteophytic ridging. There are small well-corticated bony fragments near the RIGHT foramen. These correspond to fractures previously described which are stable. Superior articular facet fracture of C7 appears healed. C7-T1: Normal. Lung apices are clear. Extensive calcifications in the vertebral and the visualized carotid arteries. CT/CT cervical spin wo con* [id number] IMPRESSION: 1. No acute cervical spine fracture. 2. Remote healed fracture with osseous fragmentation involving the superior RIGHT C7 articular facet. No interval change. Dictated By: Estela Dos Santos DO Signed By: Estela Dos Santos DO Signed Date/Time: 11/04/19813 DD/ 8 CXR: Radiologist's impression: [address] [address] XRay Report Signed Patient: Amanda Ha #: [id number] : 1955cct#:[id number] Age/Sex: 64 / FADM Date: 11/04/19 Loc: ERRoom/Bed: Attending Dr: Ordering Provider/Ordering MD: Nancy Phelan Date of Service: 11/04/19 Procedure(s): XR chest 1V portable [id number] Accession Number(s): [id number] Report Number: [id number] WS: [id number] Portable AP upright chest, 11/04/2019 Clinical Data: cough/congestion Comparison: Portable chest, 10/21/2019. Findings: No nodules, masses or effusions are seen. The heart is enlarged. The pulmonary vascularity is slightly increased. No pneumonia or pneumothorax is seen. The aortic arch shows calcification and tortuosity. XR/XR chest 1V portable [id number] Impression: 1. Cardiomegaly and mild pulmonary vascular congestion. 2. Atherosclerosis. Dictated By:Laisha He MD Signed By:Laisha He MDSigned Date/Time:11/04/19823 DD/ 2 Discharge Plan Discharge Patient Disposition: Admitted As Inpatient Admit Provider: Christin Charles Clinical Impression: End-stage renal disease on hemodialysis, Noncompliance, Altered mental status, Urinary tract infection, Acute hyperkalemia Condition: Stable Interventions: ED Discharge Assessment Last Done: 11/04/19 09:46 Discharge Date/Time: 11/04/19 09:49 Coding Level of Care Code ED Property Investor for Chg Fwd Exam Comprehensive Documented by User: Milan Hannah DO 11/05/19 14:23 HPI - Altered Mental Status General: Chief Complaint: Altered Mental Status Stated Complaint: AMS Time Seen by Provider: 11/04/19 07:39 [facility] ED PFSH: Medical History (Updated 11/05/19 @ 14:23 by Milan Hannah DO) Anemia Anticoagulation adequate with anticoagulant therapy Atrial fibrillation Carotid artery disease Chronic bronchitis Chronic pain disorder Coronary artery disease Diabetes Diastolic heart failure Emphysema of lung End-stage renal disease on hemodialysis Receives dialysis Friday. Fibromyalgia GERD (gastroesophageal reflux disease) Hypertension Elevated but stable Hypothyroidism Irritable bowel syndrome Sleep apnea Venous insufficiency Surgical History (Updated 11/04/19 @ 10:33 by Christin Charles DO) AVF (arteriovenous fistula) History of appendectomy History of cholecystectomy History of common carotid artery stent placement S/P hemodialysis catheter insertion Stented coronary artery PCI to mid LAD in December 2018 Family History Other CAD (coronary artery disease) Social History Smoking and tobacco status: former smoker Quit status (tobacco): has quit using tobacco Year quit tobacco: 2009 Second hand smoke exposure: Yes Smoking risk assessment/counseling performed?: No Alcohol intake: never Course Vital Signs: Vital signs: Vital Signs Temperature 98.5 F 11/05/19 13:00 Pulse Rate 90 11/05/19 13:00 Respiratory Rate 21 H 11/05/19 13:00 Blood Pressure 102/79 11/05/19 13:00 Pulse Oximetry 97 11/05/19 13:00 MDM - Altered Mental Status MDM Narrative: Medical decision making narrative: Severely hypokalemic and end-stage renal failure appropriate medications ordered in the emergency room patient was Emergently admitted to the ICU so as to allow for dialysis for hyperkalemia EKG changes of a widened QTC and peaked T waves. Dr. Charles has seen the patient and will admit. Lab Data: Labs: Lab Results 11/04/19 11/04/19 11/04/19 Range/Units 07:30 07:30 07:30 WBC 11.6 H (4.0-10.0) 10^3/ uL RBC 3.19 L (4.1-5.3) 10^6/u L Hgb 9.6 L (11.5-15.3) g/dL Hct 32.2 L (37.0-47.0) % MCV 100.9 H (81-99) fL MCH 30.1 (28.0-34.0) pg MCHC 29.8 L (30.0-36.0) g/dL RDW 14.5 (12.1-15.1) % Plt Count 173 (130-400) 10^3/c mm MPV 11.7 H (7.4-10.4) fL Neut % (Auto) 86.1 % Lymph % (Auto) 3.7 % Mcclain % (Auto) 5.4 % Eos % (Auto) 0.0 % Baso % (Auto) 0.2 % Neut # (Auto) 10.0 H (1.8-7.7) 10^3/u L Lymph # (Auto) 0.4 L (0.8-4.8) 10^3/u L Mcclain # (Auto) 0.6 (0.2-0.9) 10^3/u L Eos # (Auto) 0.0 (0.0-0.8) 10^3/u L Baso # (Auto) 0.0 (0.0-0.1) 10^3/u L Nucleated RBC % (a uto) 0 % Nucleated RBCs # 0.0 /100WBC PT (10.5-13.3) SECO NDS INR (0.8-1.2) APTT (23.9-36.7) SECO NDS Specimen Type Sample Site ABG pH (7.35-7.45) ABG pCO2 (35-45) mmHg ABG pO2 (80.0-100.0) mmH g ABG HCO3 (22-26) mmol/L ABG O2 Saturation ABG Base Excess (-2.0-2.0) mmol/ L Dustin Test Hematocrit (37-47) % Hgb O2 Saturation (95-100) % Carboxyhemoglobin (0.4-20.1) %THgb Methemoglobin (0.4-1.5) % Total Hemoglobin (12-16) g/dL Ionized Calcium (1.1-1.4) mmol/L O2 Delivery Device FiO2 % Specimen Drawn By District Administrative Assistant ID Sodium Cancelled Potassium Cancelled Chloride Cancelled Carbon Dioxide Cancelled Anion Gap Cancelled BUN Cancelled Creatinine Cancelled GFR Calculation Cancelled Glucose Cancelled Estimat Average Gl ucose Hemoglobin A1c (4.0-6.0) % Calculated Osmolal ity Cancelled Lactate 1.2 (0.5-2.2) mmol/L Calcium Cancelled Magnesium Cancelled Iron (37-145) ug/dL TIBC mcg/dl % Saturation (20-50) % Unsat Iron Binding (112-347) ug/dL Total Bilirubin Cancelled AST Cancelled ALT Cancelled Alkaline Phosphata se Cancelled Ammonia (11-51) umol/L Creatine Kinase Cancelled Troponin T Baselin e (0-10) ng/mL NT-Pro-B Natriuret Pep (0-125) pg/mL Total Protein Cancelled Albumin Cancelled Globulin Cancelled TSH Cancelled Urine Color (Yellow) Urine Appearance (CLEAR) Urine pH (5-7) Ur Specific Gravit y (1.005-1.030) Urine Protein (Negative) Urine Glucose (UA) (Normal) Urine Ketones (Negative) Urine Blood (Negative) Urine Nitrate (Negative) Urine Bilirubin (NEGATIVE) Urine Urobilinogen (Negative) mg/dL Ur Leukocyte Lashanda ase (Negative) Urine RBC (0-2) /hpf Urine WBC (0-5) /hpf Ur Squamous Epith Cells (0-5) Urine Bacteria (NONE) Salicylates Cancelled Urine Opiates Scre en Acetaminophen Cancelled Ur Barbiturates Sc reen Ur Phencyclidine S crn Ur Amphetamines Sc reen U Benzodiazepines Scrn Urine Cocaine Scre en U Marijuana (THC) Screen Ethyl Alcohol Cancelled 11/04/19 11/04/19 11/04/19 Range/Units 07:30 07:30 08:04 WBC (4.0-10.0) 10^3/ uL RBC (4.1-5.3) 10^6/u L Hgb (11.5-15.3) g/dL Hct (37.0-47.0) % MCV (81-99) fL MCH (28.0-34.0) pg MCHC (30.0-36.0) g/dL RDW (12.1-15.1) % Plt Count (130-400) 10^3/c mm MPV (7.4-10.4) fL Neut % (Auto) % Lymph % (Auto) % Mcclain % (Auto) % Eos % (Auto) % Baso % (Auto) % Neut # (Auto) (1.8-7.7) 10^3/u L Lymph # (Auto) (0.8-4.8) 10^3/u L Mcclain # (Auto) (0.2-0.9) 10^3/u L Eos # (Auto) (0.0-0.8) 10^3/u L Baso # (Auto) (0.0-0.1) 10^3/u L Nucleated RBC % (a uto) % Nucleated RBCs # /100WBC PT 16.70 H (10.5-13.3) SECO NDS INR 1.35 H (0.8-1.2) APTT 30.8 (23.9-36.7) SECO NDS Specimen Type Sample Site ABG pH (7.35-7.45) ABG pCO2 (35-45) mmHg ABG pO2 (80.0-100.0) mmH g ABG HCO3 (22-26) mmol/L ABG O2 Saturation ABG Base Excess (-2.0-2.0) mmol/ L Dustin Test Hematocrit (37-47) % Hgb O2 Saturation (95-100) % Carboxyhemoglobin (0.4-20.1) %THgb Methemoglobin (0.4-1.5) % Total Hemoglobin (12-16) g/dL Ionized Calcium (1.1-1.4) mmol/L O2 Delivery Device FiO2 % Specimen Drawn By District Administrative Assistant ID Sodium Potassium Chloride Carbon Dioxide Anion Gap BUN Creatinine GFR Calculation Glucose Estimat Average Gl ucose 117 Hemoglobin A1c 5.7 (4.0-6.0) % Calculated Osmolal ity Lactate (0.5-2.2) mmol/L Calcium Magnesium Iron (37-145) ug/dL TIBC mcg/dl % Saturation (20-50) % Unsat Iron Binding (112-347) ug/dL Total Bilirubin AST ALT Alkaline Phosphata se Ammonia 49 (11-51) umol/L Creatine Kinase Troponin T Baselin e (0-10) ng/mL NT-Pro-B Natriuret Pep (0-125) pg/mL Total Protein Albumin Globulin TSH Urine Color (Yellow) Urine Appearance (CLEAR) Urine pH (5-7) Ur Specific Gravit y (1.005-1.030) Urine Protein (Negative) Urine Glucose (UA) (Normal) Urine Ketones (Negative) Urine Blood (Negative) Urine Nitrate (Negative) Urine Bilirubin (NEGATIVE) Urine Urobilinogen (Negative) mg/dL Ur Leukocyte Lashanda ase (Negative) Urine RBC (0-2) /hpf Urine WBC (0-5) /hpf Ur Squamous Epith Cells (0-5) Urine Bacteria (NONE) Salicylates Urine Opiates Scre en Acetaminophen Ur Barbiturates Sc reen Ur Phencyclidine S crn Ur Amphetamines Sc reen U Benzodiazepines Scrn Urine Cocaine Scre en U Marijuana (THC) Screen Ethyl Alcohol 11/04/19 11/04/19 11/04/19 Range/Units 08:10 08:10 08:16 WBC (4.0-10.0) 10^3/ uL RBC (4.1-5.3) 10^6/u L Hgb (11.5-15.3) g/dL Hct (37.0-47.0) % MCV (81-99) fL MCH (28.0-34.0) pg MCHC (30.0-36.0) g/dL RDW (12.1-15.1) % Plt Count (130-400) 10^3/c mm MPV (7.4-10.4) fL Neut % (Auto) % Lymph % (Auto) % Mcclain % (Auto) % Eos % (Auto) % Baso % (Auto) % Neut # (Auto) (1.8-7.7) 10^3/u L Lymph # (Auto) (0.8-4.8) 10^3/u L Mcclain # (Auto) (0.2-0.9) 10^3/u L Eos # (Auto) (0.0-0.8) 10^3/u L Baso # (Auto) (0.0-0.1) 10^3/u L Nucleated RBC % (a uto) % Nucleated RBCs # /100WBC PT (10.5-13.3) SECO NDS INR (0.8-1.2) APTT (23.9-36.7) SECO NDS Specimen Type Sample Site ABG pH (7.35-7.45) ABG pCO2 (35-45) mmHg ABG pO2 (80.0-100.0) mmH g ABG HCO3 (22-26) mmol/L ABG O2 Saturation ABG Base Excess (-2.0-2.0) mmol/ L Dustin Test Hematocrit (37-47) % Hgb O2 Saturation (95-100) % Carboxyhemoglobin (0.4-20.1) %THgb Methemoglobin (0.4-1.5) % Total Hemoglobin (12-16) g/dL Ionized Calcium (1.1-1.4) mmol/L O2 Delivery Device FiO2 % Specimen Drawn By District Administrative Assistant ID Sodium Potassium Chloride Carbon Dioxide Anion Gap BUN Creatinine GFR Calculation Glucose Estimat Average Gl ucose Hemoglobin A1c (4.0-6.0) % Calculated Osmolal ity Lactate (0.5-2.2) mmol/L Calcium Magnesium Iron (37-145) ug/dL TIBC mcg/dl % Saturation (20-50) % Unsat Iron Binding (112-347) ug/dL Total Bilirubin AST ALT Alkaline Phosphata se Ammonia (11-51) umol/L Creatine Kinase Troponin T Baselin e (0-10) ng/mL NT-Pro-B Natriuret Pep > 92694 H (0-125) pg/mL Total Protein Albumin Globulin TSH Urine Color Yellow (Yellow) Urine Appearance Turbid (CLEAR) Urine pH 6.5 (5-7) Ur Specific Gravit y 1.015 (1.005-1.030) Urine Protein 3+ H (Negative) Urine Glucose (UA) Norm (Normal) Urine Ketones Negative (Negative) Urine Blood 3+ H (Negative) Urine Nitrate Negative (Negative) Urine Bilirubin Neg (NEGATIVE) Urine Urobilinogen Norm (Negative) mg/dL Ur Leukocyte Lashanda ase 2+ H (Negative) Urine RBC 40-50 H (0-2) /hpf Urine WBC Too numerous to c nt H (0-5) /hpf Ur Squamous Epith Cells None (0-5) Urine Bacteria 2+ H (NONE) Salicylates Urine Opiates Scre en Cancelled Acetaminophen Ur Barbiturates Sc reen Cancelled Ur Phencyclidine S crn Cancelled Ur Amphetamines Sc reen Cancelled U Benzodiazepines Scrn Cancelled Urine Cocaine Scre en Cancelled U Marijuana (THC) Screen Cancelled Ethyl Alcohol 11/04/19 11/04/19 11/04/19 Range/Units 08:16 08:16 08:16 WBC (4.0-10.0) 10^3/ uL RBC (4.1-5.3) 10^6/u L Hgb (11.5-15.3) g/dL Hct (37.0-47.0) % MCV (81-99) fL MCH (28.0-34.0) pg MCHC (30.0-36.0) g/dL RDW (12.1-15.1) % Plt Count (130-400) 10^3/c mm MPV (7.4-10.4) fL Neut % (Auto) % Lymph % (Auto) % Mcclain % (Auto) % Eos % (Auto) % Baso % (Auto) % Neut # (Auto) (1.8-7.7) 10^3/u L Lymph # (Auto) (0.8-4.8) 10^3/u L Mcclain # (Auto) (0.2-0.9) 10^3/u L Eos # (Auto) (0.0-0.8) 10^3/u L Baso # (Auto) (0.0-0.1) 10^3/u L Nucleated RBC % (a uto) % Nucleated RBCs # /100WBC PT (10.5-13.3) SECO NDS INR (0.8-1.2) APTT (23.9-36.7) SECO NDS Specimen Type Sample Site ABG pH (7.35-7.45) ABG pCO2 (35-45) mmHg ABG pO2 (80.0-100.0) mmH g ABG HCO3 (22-26) mmol/L ABG O2 Saturation ABG Base Excess (-2.0-2.0) mmol/ L Dustin Test Hematocrit (37-47) % Hgb O2 Saturation (95-100) % Carboxyhemoglobin (0.4-20.1) %THgb Methemoglobin (0.4-1.5) % Total Hemoglobin (12-16) g/dL Ionized Calcium (1.1-1.4) mmol/L O2 Delivery Device FiO2 % Specimen Drawn By District Administrative Assistant ID Sodium 137 Potassium 9.0 H* Chloride 96 L Carbon Dioxide 9 L Anion Gap 41.0 H BUN 170 H* D Creatinine 20.8 H* GFR Calculation 1.7 L Glucose 97 Estimat Average Gl ucose Hemoglobin A1c (4.0-6.0) % Calculated Osmolal ity 289 Lactate (0.5-2.2) mmol/L Calcium 7.8 L Magnesium 2.3 Iron 77 (37-145) ug/dL TIBC 138 mcg/dl % Saturation 55.7 H (20-50) % Unsat Iron Binding 61 L (112-347) ug/dL Total Bilirubin 0.3 AST 23 ALT 19 Alkaline Phosphata se 82 Ammonia (11-51) umol/L Creatine Kinase 720 H* Troponin T Baselin e 121 H* (0-10) ng/mL NT-Pro-B Natriuret Pep (0-125) pg/mL Total Protein 6.8 Albumin 3.8 Globulin 3.0 TSH 3.07 Urine Color (Yellow) Urine Appearance (CLEAR) Urine pH (5-7) Ur Specific Gravit y (1.005-1.030) Urine Protein (Negative) Urine Glucose (UA) (Normal) Urine Ketones (Negative) Urine Blood (Negative) Urine Nitrate (Negative) Urine Bilirubin (NEGATIVE) Urine Urobilinogen (Negative) mg/dL Ur Leukocyte Lashanda ase (Negative) Urine RBC (0-2) /hpf Urine WBC (0-5) /hpf Ur Squamous Epith Cells (0-5) Urine Bacteria (NONE) Salicylates < 0.3 L Urine Opiates Scre en Acetaminophen < 5.0 L Ur Barbiturates Sc reen Ur Phencyclidine S crn Ur Amphetamines Sc reen U Benzodiazepines Scrn Urine Cocaine Scre en U Marijuana (THC) Screen Ethyl Alcohol < 10 11/04/19 Range/Units 09:09 WBC (4.0-10.0) 10^3/ uL RBC (4.1-5.3) 10^6/u L Hgb (11.5-15.3) g/dL Hct (37.0-47.0) % MCV (81-99) fL MCH (28.0-34.0) pg MCHC (30.0-36.0) g/dL RDW (12.1-15.1) % Plt Count (130-400) 10^3/c mm MPV (7.4-10.4) fL Neut % (Auto) % Lymph % (Auto) % Mcclain % (Auto) % Eos % (Auto) % Baso % (Auto) % Neut # (Auto) (1.8-7.7) 10^3/u L Lymph # (Auto) (0.8-4.8) 10^3/u L Mcclain # (Auto) (0.2-0.9) 10^3/u L Eos # (Auto) (0.0-0.8) 10^3/u L Baso # (Auto) (0.0-0.1) 10^3/u L Nucleated RBC % (a uto) % Nucleated RBCs # /100WBC PT (10.5-13.3) SECO NDS INR (0.8-1.2) APTT (23.9-36.7) SECO NDS Specimen Type Arterial Sample Site Rr ABG pH 7.12 L* (7.35-7.45) ABG pCO2 37.2 (35-45) mmHg ABG pO2 108.0 H (80.0-100.0) mmH g ABG HCO3 12.0 L (22-26) mmol/L ABG O2 Saturation 96.2 ABG Base Excess -16.4 L (-2.0-2.0) mmol/ L Dustin Test Pos Hematocrit 29.6 L (37-47) % Hgb O2 Saturation 94.3 L (95-100) % Carboxyhemoglobin 0.4 (0.4-20.1) %THgb Methemoglobin 1.6 H (0.4-1.5) % Total Hemoglobin 9.7 L (12-16) g/dL Ionized Calcium 1.0 L (1.1-1.4) mmol/L O2 Delivery Device Nc FiO2 28.0 % Specimen Drawn By Bd District Administrative Assistant ID Bd Sodium 138.0 Potassium 8.0 H Chloride Carbon Dioxide Anion Gap BUN Creatinine GFR Calculation Glucose 176.0 H Estimat Average Gl ucose Hemoglobin A1c (4.0-6.0) % Calculated Osmolal ity Lactate (0.5-2.2) mmol/L Calcium Magnesium Iron (37-145) ug/dL TIBC mcg/dl % Saturation (20-50) % Unsat Iron Binding (112-347) ug/dL Total Bilirubin AST ALT Alkaline Phosphata se Ammonia (11-51) umol/L Creatine Kinase Troponin T Baselin e (0-10) ng/mL NT-Pro-B Natriuret Pep (0-125) pg/mL Total Protein Albumin Globulin TSH Urine Color (Yellow) Urine Appearance (CLEAR) Urine pH (5-7) Ur Specific Gravit y (1.005-1.030) Urine Protein (Negative) Urine Glucose (UA) (Normal) Urine Ketones (Negative) Urine Blood (Negative) Urine Nitrate (Negative) Urine Bilirubin (NEGATIVE) Urine Urobilinogen (Negative) mg/dL Ur Leukocyte Lashanda ase (Negative) Urine RBC (0-2) /hpf Urine WBC (0-5) /hpf Ur Squamous Epith Cells (0-5) Urine Bacteria (NONE) Salicylates Urine Opiates Scre en Acetaminophen Ur Barbiturates Sc reen Ur Phencyclidine S crn Ur Amphetamines Sc reen U Benzodiazepines Scrn Urine Cocaine Scre en U Marijuana (THC) Screen Ethyl Alcohol Discharge Plan Discharge Patient Disposition: Admitted As Inpatient Admit Provider: Christin Charles Clinical Impression: End-stage renal disease on hemodialysis, Noncompliance, Altered mental status, Urinary tract infection, Acute hyperkalemia Condition: Stable Interventions: ED Discharge Assessment Last Done: 11/04/19 09:46 Discharge Date/Time: 11/04/19 09:49 Coding Level of Care Code ED Property Investor for Chg Fwd Exam Comprehensive
[2019-11-04 07:46] LABS: Basophils % 0.2 %; Hematocrit 32.2 % (37.0-47.0); Hemoglobin 9.6 g/dL (11.5-15.3); Lymphocytes # 0.4 10^3/uL (0.8-4.8); Lymphocytes % 3.7 %; Mean Corpuscular HGB Conc 29.8 g/dL (30.0-36.0); Mean Corpuscular Hemoglobin 30.1 pg (28.0-34.0); Mean Corpuscular Volume 100.9 fL (81-99); Mean Platelet Volume 11.7 fL (7.4-10.4); Monocytes # 0.6 10^3/uL (0.2-0.9); Monocytes % 5.4 %; Neutrophils % 86.1 %; Nucleated Red Blood Cells % 0 %; Platelet Count 173 10^3/cmm (130-400); Red Blood Count 3.19 10^6/uL (4.1-5.3); Red Cell Distribution Width 14.5 % (12.1-15.1); White Blood Count 11.6 10^3/uL (4.0-10.0)
--- NOTE | 2019-11-04 07:46 | PC.NURSE ---
Pt to ct
--- NOTE | 2019-11-04 07:51 | PC.NURSE ---
Upon pt assessment, pt is noted to have scattered bruising as well as excoriation to her abdominal folds. Pt has no edema noted in her BLE. Pt also has fistula to left upper arm with good bruit.
[2019-11-04 07:59] LABS: Lactate (Lactic Acid level) 1.2 mmol/L (0.5-2.2)
--- NOTE | 2019-11-04 08:04 | PC.NURSE ---
Lab at bedside to draw blood
--- NOTE | 2019-11-04 08:22 | PC.NURSE ---
Pt was rolled after urine catheterization to inspect backside, pt has blanchable redness to sacral area with some stool noted, no open areas or maceration. Pt cleaned and placed on a chux pad. KENISHA Bearden notified
[2019-11-04 08:26] LABS: INR 1.35 (0.8-1.2); Partial Thromboplastin Time 30.8 SECONDS (23.9-36.7)
[2019-11-04 08:26] LABS: Ammonia 49 umol/L (11-51)
[2019-11-04 08:37] LABS: Add Urine Microscopic? YES; Bilirubin Urine Neg (NEGATIVE); Blood Urine 3+ (Negative); Glucose Urine UA Norm (Normal); Ketones Urine Negative (Negative); Leukocyte Esterase Urine 2+ (Negative); Nitrate Urine Negative (Negative); Protein Urine 3+ (Negative); Specific Gravity, Urine 1.015 (1.005-1.030); Urine Appearance Turbid (CLEAR); Urine Color Yellow (Yellow); Urobilinogen Urine Norm (Negative); pH Urine 6.5 (5-7)
[2019-11-04 08:47] LABS: Alanine Aminotransferase 19 U/L (0-33); Albumin Level 3.8 g/dL (3.5-5.2); Alkaline Phosphatase 82 IU/L (35-105); Aspartate Amino Transferase 23 U/L (0-32); Calcium 7.8 mg/dL (8.5-10.5); Chloride 96 mmol/L (98-107); Glomerular Filtration Rate 1.7 mL/min (90-130); Glucose 97 mg/dL (65-115); Magnesium 2.3 mg/dL (1.7-2.3); Sodium 137 mmol/L (136-145); Total Bilirubin 0.3 mg/dL (0.15-1.2); Total Protein 6.8 g/dL (6.6-8.7)
[2019-11-04 08:49] LABS: Acetaminophen < 5.0 ug/mL (10-30); Alcohol Level < 10 mg/dL (0-10); Carbon Dioxide 9 mmol/L (22-29); Creatine Phosphokinase 720 U/L (26-192); Salicylate < 0.3 mg/dL (3-10); Troponin(5th) Baseline 121 ng/mL (0-10)
[2019-11-04 08:49] LABS: RBC Urine 40-50 /hpf (0-2)
[2019-11-04 08:51] LABS: WBC Urine TOO NUMEROUS TO CNT /hpf (0-5)
[2019-11-04 08:52] LABS: Add Urine Culture? Yes; Bacteria Urine 2+
[2019-11-04 08:52] LABS: Thyroid Stimulating Hormone 3.07 uIU/mL (0.27-4.20)
[2019-11-04] MEDS: dextrose 50% syringe 50 mL IVP (09:12)
[2019-11-04 09:13] LABS: Blood Urea Nitrogen 170 mg/dL (8-23); Osmolality Calculated 289 mOsm/kg (285-295)
[2019-11-04] MEDS: insulin regular-human 100 units/1 mL 15 UNIT IVP (09:13)
[2019-11-04] MEDS: calcium gluconate 0.1 gm/mL 10% SDV 10mL 2 GM IVP (09:13)
[2019-11-04] MEDS: sodium bicarbonate 8.4% 1 mEq/mL 50mL Syr 100 MEQ IVP (09:13)
[2019-11-04] MEDS: dextrose 5%-sod chloride 0.45% 1,000 ML 125 ML IV ×2 (09:13→18:08)
[2019-11-04 09:26] LABS: NT Pro B Type Natriuretic Pept > 70000 pg/mL (0-125)
[2019-11-04] MEDS: cefTRIAXone 1,000 MG in sodium chloride 0.9% (plus) 50 ML 100 MG IV (09:30)
--- NOTE | 2019-11-04 09:34 | PM.CONSULT ---
Providers/Reason For Consult Consulting Physican/Specialty*: antoine moseley md- telenephrology Reason for Consult*: hyperkalemia, ESRD Attending Physician: Christin Charles DO Primary Care Provider: Laisha Campoverde History of Present Illness History of Present Illness Amanda Ha is a 64 year old female h/o DM, ESRD, HTN, CAD, cardotid art disease, diastolic dysfunction, and obesity. Pt called on her lifeline today was found by EMS in her house on toilet w/ blood. she was confused- could only answer that her name was Tra. Pt brought to [facility] where she was found to be uremic, hyperkalemic, and lethargic- appears septic. Pt has a h/o missing dialysis and has had multiple hospital admissions this year. Review of Systems Narrative: unable to obtain due to poor MS Meds/Allergies Home Medications and Allergies Home Medications Medication Instructions Recorded Confirmed Type apixaban 2.5 mg tablet 2.5 mg PO BID 08/18/19 11/04/19 History diphenoxylate-atropine 2.5 2 tab PO QID 08/18/19 11/04/19 History mg-0.025 mg tablet levothyroxine 25 mcg tablet 100 mcg PO DAILY tab 08/18/19 11/04/19 History losartan 100 mg tablet 100 mg PO DAILY tab 08/18/19 11/04/19 History meloxicam 7.5 mg tablet 7.5 mg PO DAILY tab 08/18/19 11/04/19 History minoxidil 2.5 mg tablet 2.5 mg PO BID 08/18/19 11/04/19 History trazodone 50 mg tablet See Rx Instructions PO .HS PRN #60 08/18/19 11/04/19 Rx tab aspirin [Aspir-81] 81 mg PO DAILY 09/09/19 11/04/19 History Auryxia See Rx Instructions .ROUTE .COMPLEX 10/11/19 11/04/19 History albuterol sulfate [ProAir HFA] 2 puff INHALATION Q4H PRN 10/11/19 11/04/19 History atorvastatin [Lipitor] 80 mg PO DAILY 10/11/19 11/04/19 History cholestyramine (with sugar) 4 g PO BID PRN 10/11/19 11/04/19 History doxazosin 8 mg PO DAILY 10/11/19 11/04/19 History esomeprazole magnesium [Nexium] 40 mg PO DAILY 10/11/19 11/04/19 History gabapentin 100 mg PO BID 10/11/19 11/04/19 History hydrocodone-acetaminophen [[place]] 1 tab PO QID PRN 10/11/19 11/04/19 History insulin lispro [Humalog KwikPen See Rx Instructions .ROUTE .COMPLEX 10/11/19 11/04/19 History Insulin] isosorbide mononitrate 30 mg PO DAILY 10/11/19 11/04/19 History lidocaine-prilocaine See Rx Instructions .ROUTE .COMPLEX 10/11/19 11/04/19 History melatonin 10 mg PO BEDTIME PRN 10/11/19 11/04/19 History montelukast [Singulair] 10 mg PO DAILY 10/11/19 11/04/19 History nitroglycerin [Nitrostat] 0.4 mg SUBLINGUAL Q5M PRN 10/11/19 11/04/19 History oxycodone-acetaminophen 1 tab PO BID PRN 30 Days tab 10/12/19 11/04/19 Rx zolpidem 5 mg PO .Hs 30 Days tab 10/12/19 11/04/19 Rx metoprolol succinate 50 mg PO DAILY 10/21/19 11/04/19 History Allergies Allergy/AdvReac Type Severity Reaction Status Date / Time adhesive Allergy Unknown Verified 11/04/19 07:28 codeine Allergy Unknown Verified 11/04/19 07:28 duloxetine [From Cymbalta] Allergy Unknown Verified 11/04/19 07:28 Current Medications Current Medications Generic Name Dose Route Start Last Admin Trade Name Freq PRN Reason Stop Dose Admin Dextrose/Sodium Chloride 1,000 mls @ 125 mls/hr 11/04/19 09:15 11/04/19 09:13 Dextrose 5%-Sod Chloride 0.45% IV 125 mls/hr .Q8H JOSEFINA Administration Ceftriaxone Sodium 1,000 mg/ 50 mls @ 100 mls/hr 11/04/19 09:13 11/04/19 09:30 Sodium Chloride IV 11/04/19 09:42 100 mls/hr ONCE ONE Administration Protocol PFSH Acute PFSH: Social History Smoking and tobacco status: former smoker Quit status (tobacco): has quit using tobacco Year quit tobacco: 2009 Second hand smoke exposure: Yes Smoking risk assessment/counseling performed?: No Alcohol intake: never Vitals/I&O/Wt Last Vital Signs Temp 98.3 F 11/04/19 07:26 Pulse 74 11/04/19 09:29 Resp 18 11/04/19 09:29 BP 130/75 11/04/19 09:20 Pulse Ox 97 11/04/19 09:29 Weight last 48 hrs Weight 113.483 kg Physical Exam Narrative: EXAM NARRATIVE: obese, gargking noises from mouth- not following commands vs noted heent- nc/at neck supple lung crackles heart reg abd soft ext LUE AVF w/ thrill and bruit neuro- responds to painful stimuli A&P Additional A&P Information 64 yr old female w/ AMS 1. ESRD- must have missed a few dialysis sessions. she is uremic and hyperkalemic, and severe met acidosis- will perform emergency HD today and tomorrow -3 hrs, 2k, remove 1 liter 2. AMS- can be her pain meds, vs sepsis vs uremia, vs dm effect- full eval per hospitalist 3. anemia- monitor hgb 4. bone- minerla- metabolism- monitor phos and pth 5. prior to d/c would consult KEVIN, i do not believe that she is safe to live in her home alone. Consult Attestations Medical Necessity Statement: esrd, hyperkalemia, met acidosis, minimally responsive Time Spent in Patient Care: Greater than 35 minutes Coding Level of Care Code Acute Sourcing Intern for Hector Hutchins
--- NOTE | 2019-11-04 09:38 | ECG_ITS ---
Measurements Intervals [place] Rate: 80 P: 75 TX: 163 QRS: 42 QRSD: 92 T: 44 QT: 379 QTc: 438 SINUS RHYTHM POSSIBLE ANTERIOR MYOCARDIAL INFARCTION [30 ms Q WAVE IN V3/V4, OR R < 0.2 mV IN V4], OF INDETERMINATE AGE WARNING: DATA QUALITY MAY AFFECT INTERPRETATION Compared to ECG 10/21/2019 14:07:09 Sinus bradycardia no longer present Myocardial infarct finding still present Electronically Signed On 11-04-2019 18:05:09 CDT by Tamie Brand M.D. [email or web address]
[2019-11-04 09:40] LABS: ABG PCO2 37.2 mmHg (35-45); ABG PH Result 7.12 (7.35-7.45)
[2019-11-04 09:41] LABS: Arterial Blood Gas Hematocrit 29.6 % (37-47); Base Excess ABG -16.4 mmol/L (-2.0-2.0); Blood Gas Drawn By BD; Oxygen Device NC; Oxygen Saturation ABG 96.2
[2019-11-04 09:42] LABS: Carboxyhemoglobin 0.4 %THgb (0.4-20.1); HGB O2 Sat 94.3 % (95-100); Total Hemoglobin 9.7 g/dL (12-16)
[2019-11-04 09:43] LABS: Methemoglobin 1.6 % (0.4-1.5)
--- NOTE | 2019-11-04 10:00 | PC.NURSE ---
Pt here fro ED. Pt confused. arms and legs twitching. Foul smelling excoriation noted in abdominal and groin folds. Peaked T waves/ Sinus rhythy not on monitor. Dr Charles at bedside.
[2019-11-04] MEDS: calcium chloride 10% Syr 10 mL 1 GM IVP (10:01)
--- NOTE | 2019-11-04 10:06 | PM.HP ---
Providers/Chief Complaint Admitting Physician: Christin Charles DO Primary Care Provider: Laisha Campoverde Chief Complaint: SEPSIS, HYPERKALEIMA History of Present Illness Amanda Ha is a 64 year old female that presented to the emergency department today by EMS. Patient was found in her bathroom of her home lying on the floor with altered mental status. Noted to have old blood on the toilet, no family members in the home. Patient was seen and evaluated in the emergency department noted to have hyperkalemia with widened QRS. She was given calcium, insulin, D50 and sodium bicarb and a stat nephrology consult was obtained. Patient was moved immediately to the ICU and emergent dialysis ordered. Patient unable to provide any HPI, she will open her eyes and responds to her name, otherwise confused. Attempted to call her son who is listed as a contact and a friend listed as a contact multiple times with no answer. Review of Systems General: Reports: ROS unobtainable due to medical condition Medications/Allergies Allergies Allergy/AdvReac Type Severity Reaction Status Date / Time adhesive Allergy Unknown Verified 11/04/19 07:28 codeine Allergy Unknown Verified 11/04/19 07:28 duloxetine [From Cymbalta] Allergy Unknown Verified 11/04/19 07:28 PFSH Acute PFSH: Medical History (Updated 11/04/19 @ 10:34 by Christin Charles DO) Anemia Anticoagulation adequate with anticoagulant therapy Atrial fibrillation Carotid artery disease Chronic bronchitis Chronic pain disorder Coronary artery disease Diabetes Diastolic heart failure Emphysema of lung End-stage renal disease on hemodialysis Receives dialysis Friday. Fibromyalgia GERD (gastroesophageal reflux disease) Hypertension Elevated but stable Hypothyroidism Irritable bowel syndrome Sleep apnea Venous insufficiency Surgical History (Updated 11/04/19 @ 10:33 by Christin Charles DO) AVF (arteriovenous fistula) History of appendectomy History of cholecystectomy History of common carotid artery stent placement S/P hemodialysis catheter insertion Stented coronary artery PCI to mid LAD in December 2018 Family History Other CAD (coronary artery disease) Social History Smoking and tobacco status: former smoker Quit status (tobacco): has quit using tobacco Year quit tobacco: 2009 Second hand smoke exposure: Yes Smoking risk assessment/counseling performed?: No Alcohol intake: never Vitals/I&O/Wt Last Vital Signs Temp 98.3 F 11/04/19 07:26 Pulse 75 11/04/19 09:46 Resp 20 H 11/04/19 09:46 BP 151/79 11/04/19 09:46 Pulse Ox 97 11/04/19 09:46 Weight last 48 hrs Weight 113.483 kg Physical Exam Const: GENERAL APPEARANCE: disheveled and lethargic NUTRITIONAL APPEARANCE: overweight OTHER: Will not verbalize but has her eyes open and will respond to verbal commands HENMT: COMMON NORMALS: normocephalic and head/scalp atraumatic HEAD & SCALP: normocephalic and atraumatic OTHER: Thick white plaque on the tongue Eye: COMMON NORMALS: PERRL PUPIL: Yes PERRL Neck/C-Spine: COMMON NORMALS: supple GENERAL: Yes normal visual inspection Resp: OTHER: Oxygen by nasal cannula in place, tachypneic, diminished breath sounds bilaterally with prolonged expiratory phase, no appreciable wheezing or rhonchi Cardio: COMMON NORMALS: regular rate and regular rhythm RATE: regular rate RHYTHM: regular rhythm GI: AUSCULTATION: Yes normoactive bowel sounds PALPATION: Yes soft OTHER: Nontender, no appreciable guarding or rigidity Extremity: COMMON NORMALS: no calf tenderness NARRATIVE EXTREMITY EXAM: No significant lower extremity edema Neuro: OTHER: Altered mental status, patient is awake, does not verbalize, will turn her head and respond to her name. No further neurologic exam able to be obtained due to her clinical condition Skin: OTHER: Patient with large pannus, erythema and excoriation under the pannus. Blanching erythema on the over the sacrum Data : 11/04/19 07:30 11/04/19 16:24 Micro: Microbiology 11/04/19 07:30 Blood Culture - Preliminary Blood SPECIMEN COLLECTED 11/04/19 08:04 Blood Culture - Preliminary Blood SPECIMEN COLLECTED CT Head: I personally reviewed and interpreted this imaging study as follows: Radiologist's impression: IMPRESSION: 1. No acute intracranial hemorrhage. 2. Mild atrophy and chronic ischemic disease. Similar to the prior study of 06/05/2019. 3. Scalp hematoma over the LEFT frontal region. CXR: I personally reviewed and interpreted this imaging study as follows: Radiologist's impression: Impression: 1. Cardiomegaly and mild pulmonary vascular congestion. 2. Atherosclerosis. Other CT: I personally reviewed and interpreted this imaging study as follows: Radiologist's impression: CT cervical spine IMPRESSION: 1. No acute cervical spine fracture. 2. Remote healed fracture with osseous fragmentation involving the superior RIGHT C7 articular facet. No interval change. EKG 1: I personally reviewed and interpreted this EKG as follows: My Interpretation: Widened QRS with peaked T waves A&P Assessment and plan (1) Hyperkalemia: Acute hyperkalemia likely due to patient missing dialysis Nephrology consulted in the ER for emergent dialysis, appreciate recommendations and assistance in patient's care Given calcium gluconate, insulin, D50, bicarb Moved emergently to ICU and emergent dialysis ordered Status: Acute Code(s): E87.5 - Hyperkalemia (2) Altered mental status: Believed to be multifactorial due to uremia, sepsis, patient is on sedating medication including [place] and Percocet as well as trazodone and Ambien. Continue to hold any sedating medications Serial neurologic checks CT scan of the head performed in the ED, report as noted above. Patient does have a history of atrial fibrillation she is on Eliquis at home, history of bilateral carotid stent placement at [facility] in September We will check TSH Urine toxicology screen to determine if any further reason for AMS besides reasons listed above Status: Acute Qualifiers: Altered mental status type: unspecified Qualified Code(s): R41.82 - Altered mental status, unspecified Code(s): R41.82 - Altered mental status, unspecified (3) End-stage renal disease on hemodialysis: Plan for emergent dialysis as above Nephrology consulted, appreciate recommendations and assistance in patient's care. Status: Acute Code(s): N18.6 - End stage renal disease; Z99.2 - Dependence on renal dialysis (4) Coronary artery disease: With a history of stenting, patient is on aspirin, and Eliquis at home Status: Acute Code(s): I25.10 - Atherosclerotic heart disease of [place] coronary artery without angina pectoris (5) Anemia: Acute worsening of anemia Will check FOBT, unable to obtain information from patient at this time Consider general surgery consult for EGD and colonoscopy once clinically stable. Type and screen performed with transfusion if hemoglobin drops less than 8. Patient is on aspirin and Eliquis due to history of coronary artery disease, carotid stenosis and atrial fibrillation Reported to have blood on the toilet in her home, uncertain of etiology Placed on IV PPI Status: Acute Code(s): D64.9 - Anemia, unspecified (6) History of common carotid artery stent placement: Status: Acute Code(s): Z98.890 - Other specified postprocedural states; Z95.828 - Presence of other vascular implants and grafts (7) Urinary tract infection: Sepsis secondary to UTI, continue on Rocephin And culture and blood culture ordered and pending Status: Acute Qualifiers: Hematuria presence: with hematuria Urinary tract infection type: acute cystitis Qualified Code(s): N30.01 - Acute cystitis with hematuria Code(s): N39.0 - Urinary tract infection, site not specified (8) Atrial fibrillation: Currently in sinus rhythm, on Eliquis 2.5 mg twice a day and metoprolol succinate 50 mg daily at home Status: Acute Code(s): I48.91 - Unspecified atrial fibrillation (9) Diastolic heart failure: Diastolic congestive heart failure with fluid overload due to patient missing dialysis Status: Acute Code(s): I50.30 - Unspecified diastolic (congestive) heart failure Additional A&P Information Severe metabolic acidosis: Secondary to above plan for emergent dialysis Cutaneous candidiasis: Nystatin powder Generally unkept with disheveled appearance: visitor services information assistant consulted DVT prophylaxis: SCDs, holding on further heparin at this time due to anemia that appears to be acute Diet: N.p.o. until more alert CODE STATUS: Full code, unable to obtain information from patient and unable to reach listed contact or son. Attestations Medical Necessity Statement*: Patient requires hospitalization due to sepsis secondary to urinary tract infection, acute encephalopathy, acute hyperkalemia with end-stage renal disease on dialysis. 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
[2019-11-04] MEDS: chlorhexidine gluconate 4% Btl 118 mL 1 APPLIC TOPICAL (10:47)
[2019-11-04] MEDS: nystatin powder 15 gm Btl 1 APPLIC TOPICAL ×2 (10:47→22:11)
--- NOTE | 2019-11-04 11:00 | PC.NURSE ---
IV medications on hold until after Dialysis, nurse here to start dialysis.
[2019-11-04 11:12] LABS: Troponin 5 2HR 118.9 ng/mL (0-10); Troponin 5 2HR Delta -2.1 ABS# (0-10)
[2019-11-04 11:14] LABS: Iron 77 ug/dL (37-145); Percent Saturation 55.7 % (20-50); Total Iron Binding Capacity 138 mcg/dl; Unsaturated Iron Binding 61 ug/dL (112-347)
[2019-11-04 11:26] LABS: Hepatitis C Virus Antibody Non-Reactive (Nonreactive)
[2019-11-04 11:27] LABS: Hepatitis B Surface AB. 61.2 (0-8.5); Hepatitis B Surface Antigen. Non-Reactive (Nonreactive)
[2019-11-04 11:31] LABS: Estmated Average Glucose 117; Hemoglobin A1C 5.7 % (4.0-6.0)
--- NOTE | 2019-11-04 13:38 | ECG_ITS ---
Measurements Intervals [place] Rate: 73 P: 67 TX: 149 QRS: -34 QRSD: 109 T: 99 QT: 425 QTc: 469 SINUS RHYTHM WITH ARTIFACT MARKED LEFT AXIS DEVIATION [QRS AXIS < -30] POSSIBLE ANTERIOR MYOCARDIAL INFARCTION, OF INDETERMINATE AGE MODERATE T-WAVE ABNORMALITY, CONSIDER LATERAL ISCHEMIA Compared to ECG 10/21/2019 14:07:09 Ventricular premature complex(es) now present Left-axis deviation now present T-wave abnormality now present Possible ischemia now present Sinus bradycardia no longer present Myocardial infarct finding still present Electronically Signed On 11-04-2019 18:05:49 CDT by Tamie Brand M.D. [email or web address]
[2019-11-04 15:34] LABS: Troponin 5 6HR 154.9 ng/mL (0-10)
[2019-11-04 15:35] LABS: Troponin 5 6HR Delta 33.9 ng/L (0-12)
[2019-11-04] MEDS: pantoprazole 40 mg SDV IVP (16:28)
[2019-11-04 17:22] LABS: Anion Gap 27.8 (5-19); Blood Urea Nitrogen 72 mg/dL (8-23); Calcium 8.4 mg/dL (8.5-10.5); Carbon Dioxide 20 mmol/L (22-29); Chloride 94 mmol/L (98-107); Glucose 133 mg/dL (65-115); Osmolality Calculated 285 mOsm/kg (285-295); Potassium 4.8 mmol/L (3.5-5.1); Sodium 137 mmol/L (136-145)
[2019-11-05] VITALS (15 sets, daily range): BP systolic 102–159; BP diastolic 46–87; PULSE 72–165; RESP 16–27; TEMP 36.7–36.9; O2SAT 88–98
[2019-11-05] MEDS: dextrose 5%-sod chloride 0.45% 1,000 ML 125 ML IV ×3 (02:08→17:42)
[2019-11-05] MEDS: pantoprazole 40 mg SDV IVP ×2 (03:52→16:15)
[2019-11-05 05:18] LABS: Basophils % 0.1 %; Eosinophils % 0.1 %; Hematocrit 27.7 % (37.0-47.0); Hemoglobin 8.4 g/dL (11.5-15.3); Lymphocytes # 0.6 10^3/uL (0.8-4.8); Lymphocytes % 7.6 %; Mean Corpuscular HGB Conc 30.3 g/dL (30.0-36.0); Mean Corpuscular Hemoglobin 29.7 pg (28.0-34.0); Mean Corpuscular Volume 97.9 fL (81-99); Mean Platelet Volume 12.2 fL (7.4-10.4); Monocytes # 0.7 10^3/uL (0.2-0.9); Monocytes % 8.3 %; Neutrophils # 6.8 10^3/uL (1.8-7.7); Neutrophils % 83.3 %; Nucleated Red Blood Cells % 0 %; Platelet Count 144 10^3/cmm (130-400); Red Blood Count 2.83 10^6/uL (4.1-5.3); Red Cell Distribution Width 14.6 % (12.1-15.1); White Blood Count 8.2 10^3/uL (4.0-10.0)
[2019-11-05 06:17] LABS: Alanine Aminotransferase 21 U/L (0-33); Albumin Level 3.6 g/dL (3.5-5.2); Alkaline Phosphatase 71 IU/L (35-105); Anion Gap 26.4 (5-19); Aspartate Amino Transferase 53 U/L (0-32); Calcium 7.7 mg/dL (8.5-10.5); Carbon Dioxide 20 mmol/L (22-29); Chloride 96 mmol/L (98-107); Globulin 2.1 g/dL (1.3-4.6); Glucose 171 mg/dL (65-115); Osmolality Calculated 288 mOsm/kg (285-295); Potassium 5.4 mmol/L (3.5-5.1); Sodium 137 mmol/L (136-145); Total Bilirubin 0.4 mg/dL (0.15-1.2); Total Protein 5.7 g/dL (6.6-8.7)
[2019-11-05 06:24] LABS: Calcium 7.7 mg/dL (8.5-10.5); Parathyroid Hormone 469.5 pg/mL (15-65)
[2019-11-05 06:38] LABS: Blood Urea Nitrogen 83 mg/dL (8-23); Phosphorus 11.1 mg/dL (2.5-4.5)
[2019-11-05 07:26] LABS: Ferritin 700 ng/mL (15-150)
[2019-11-05] MEDS: cefTRIAXone 1,000 MG in sodium chloride 0.9% (plus) 50 ML 100 MG IV ×2 (09:57→22:22)
[2019-11-05] MEDS: nystatin powder 15 gm Btl 1 APPLIC TOPICAL ×2 (09:58→22:52)
--- NOTE | 2019-11-05 10:13 | P.PN_ITS ---
Subjective Subjective: Interval history: Still complaining of diarrhea. About to start dialysis today. No uremic Sx. No fevers, chills. Diarrhea is chronic issue for her. Vitals/I&O/Wt Last Vital Signs Temp 97.9 F 11/04/19 14:00 Pulse 86 11/05/19 08:46 Resp 18 11/05/19 08:46 BP 122/55 11/05/19 08:00 Pulse Ox 95 11/05/19 08:46 11/04/19 11/05/19 11/05/19 22:59 06:59 14:59 Intake Total 1000 / 1050 999 / 2049 Balance 1000 / 1050 999 / 2049 Weight last 48 hrs Weight 119.884 kg Weight 113.483 kg Physical Exam Const: COMMON NORMALS: no apparent distress HENMT: COMMON NORMALS: normocephalic and head/scalp atraumatic HEAD & SCALP: normocephalic and atraumatic Neck/C-Spine: COMMON NORMALS: no JVD Lymph: LYMPHATIC: no lymphadenopathy noted Chest: COMMONS NORMALS: inspection of chest normal Resp: COMMON NORMALS: normal respiratory effort and no retractions Cardio: COMMON NORMALS: no JVD, regular rate and regular rhythm RATE: regular rate RHYTHM: regular rhythm GI: COMMON NORMALS: normal to inspection, nondistended, normoactive bowel sounds : COMMON NORMALS: Yes no CVA tenderness and Yes external appearance normal BLADDER/KIDNEY EXAM: Yes no CVA tenderness Back/Pelvis: COMMON NORMALS: no CVA tenderness Data : 11/05/19 04:58 11/05/19 04:58 Micro: Microbiology 11/04/19 07:30 Blood Culture - Preliminary Blood NEGATIVE TO DATE 11/04/19 08:04 Blood Culture - Preliminary Blood NEGATIVE TO DATE A&P Additional A&P Information 1. ESRD - for HD today and then cont MWF schedule - 2K, 2L UF - am labs 2. Diarrhea - chronic issue - this has become the reason that she claims that she is not attending dialysis regularly - surgery to consider EGD and colonoscopy - mgmt per Dr Charles 3. Hyperphos - questionable compliance with diet and binder therapy; will give Phoslo as binder - low Calcium; likely to be due to lack of endogenous calcitriol (She would normally receive iv 1,25OHVitD on dialysis, ie [facility]) - will give oral calcitriol 4. 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
--- NOTE | 2019-11-05 10:18 | P.PN_ITS ---
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
--- NOTE | 2019-11-05 10:58 | PM.PN ---
Subjective Subjective: Interval history: Patient awake and working with occupational therapist at time of exam this morning. She was able to stand up and transfer to the chair at bedside with a walker. She was alert and oriented to person, place. She reported remembering what occurred that brought her into the hospital. Reported that her last session of dialysis was last Friday. She stated that she has been having chronic diarrhea for several months. Patient denies any chest pain or shortness of breath. When asking her if she had any home health she reported some is inconsistent answers, stated yes but then reported that she did not and just had on certified home health aide. Reported to OT that she had someone that lives at home with her but then when asked the name she said she lived at home alone. Vitals/I&O/Wt Last Vital Signs Temp 97.9 F 11/04/19 14:00 Pulse 86 11/05/19 08:46 Resp 18 11/05/19 08:46 BP 122/55 11/05/19 08:00 Pulse Ox 95 11/05/19 08:46 11/04/19 11/05/19 11/05/19 22:59 06:59 14:59 Intake Total 1000 / 1050 1000 / 2050 Balance 1000 / 1050 1000 / 2050 Weight last 48 hrs Weight 119.884 kg Weight 113.483 kg Physical Exam Const: COMMON NORMALS: alert GENERAL APPEARANCE: cooperative ORIENTATION/CONSCIOUSNESS: Yes awake, Yes oriented to person and Yes oriented to place HENMT: COMMON NORMALS: normocephalic and head/scalp atraumatic HEAD & SCALP: normocephalic and atraumatic Eye: COMMON NORMALS: PERRL PUPIL: Yes PERRL Neck/C-Spine: COMMON NORMALS: supple GENERAL: Yes normal visual inspection Resp: COMMON NORMALS: normal respiratory effort and clear to auscultation bilaterally EFFORT & INSPECTION: Yes able to speak in complete sentences AUSCULTATION: clear to auscultation bilaterally, no rhonchi and no wheezes Cardio: COMMON NORMALS: regular rate and regular rhythm RATE: regular rate RHYTHM: regular rhythm GI: COMMON NORMALS: soft to palpation and non-tender INSPECTION: No abdominal distension AUSCULTATION: Yes normoactive bowel sounds PALPATION: Yes soft Extremity: COMMON NORMALS: no clubbing, cyanosis or edema and no calf tenderness Neuro: COMMON NORMALS: CN's II-XII intact bilaterally, moves all extremities and no focal motor deficits SENSORIUM/ORIENTATION: Yes alert, Yes oriented to person, Yes oriented to place and Yes other (Occasional confusion with inconsistent) SPEECH: speech normal Psych: COMMON NORMALS: mental status grossly normal and cooperative Skin: NARRATIVE SKIN EXAM: Excoriated regions in the groin and under the pannus with erythema Data : 11/05/19 04:58 11/05/19 04:58 Micro: Microbiology 11/04/19 07:30 Blood Culture - Preliminary Blood NEGATIVE TO DATE 11/04/19 08:04 Blood Culture - Preliminary Blood NEGATIVE TO DATE A&P Assessment and plan (1) Hyperkalemia: Potassium of 9.4 on admission, emergent dialysis performed Patient requires dialysis again today. Hyperkalemia improved EKG changes improved ESRD, reported missing 2 dialysis sessions Status: Acute Code(s): E87.5 - Hyperkalemia (2) Altered mental status: Mental status improved today. Continue to be cautious with any sedating medications. Status: Acute Qualifiers: Altered mental status type: unspecified Qualified Code(s): R41.82 - Altered mental status, unspecified Code(s): R41.82 - Altered mental status, unspecified (3) End-stage renal disease on hemodialysis: Again today.Nephrology consultation, appreciate recommendations and assistance with the patient's care Status: Acute Code(s): N18.6 - End stage renal disease; Z99.2 - Dependence on renal dialysis (4) Coronary artery disease: With a history of stenting, patient is on aspirin, and Eliquis at home Status: Acute Code(s): I25.10 - Atherosclerotic heart disease of [place] coronary artery without angina pectoris (5) Anemia: Hemoglobin down to 8.4 On Eliquis and aspirin due to history of atrial fibrillation and coronary artery disease. Holding at this time Patient does not have any bright red blood per rectum, no melanotic stools Continue on EPO Recommend outpatient EGD and colonoscopy Status: Acute Code(s): D64.9 - Anemia, unspecified (6) History of common carotid artery stent placement: Status: Acute Code(s): Z98.890 - Other specified postprocedural states; Z95.828 - Presence of other vascular implants and grafts (7) Urinary tract infection: Sepsis secondary to UTI, continue on Rocephin. Culture showing gram-negative rods Status: Acute Qualifiers: Hematuria presence: with hematuria Urinary tract infection type: acute cystitis Qualified Code(s): N30.01 - Acute cystitis with hematuria Code(s): N39.0 - Urinary tract infection, site not specified (8) Atrial fibrillation: Currently in sinus rhythm, on Eliquis 2.5 mg twice a day and metoprolol succinate 50 mg daily at home Status: Acute Code(s): I48.91 - Unspecified atrial fibrillation (9) Diastolic heart failure: Diastolic congestive heart failure with fluid overload due to patient missing dialysis Status: Acute Code(s): I50.30 - Unspecified diastolic (congestive) heart failure Additional A&P Information Severe metabolic acidosis: Improved following dialysis Cutaneous candidiasis: Nystatin powder Generally unkept with disheveled appearance: patient services specialist consulted Coronary artery disease: Holding aspirin due to concern for anemia, continue on statin, continue on metoprolol Chronic diarrhea: This is been progressing over the past several months: We will place stool cultures DVT prophylaxis: SCDs, holding on further heparin at this time due to anemia that appears to be acute Diet: Renal, CODE STATUS: Full code, unable to obtain information from patient and unable to reach listed contact or son. 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
[2019-11-05] MEDS: TRAMadol 50 mg Tablet PO (12:22)
--- NOTE | 2019-11-05 13:56 | PC.NURSE ---
report called to Nini HOLGUIN on [facility]. will transport pt via wheelchair.
[2019-11-05] MEDS: levothyroxine 100 mcg Tablet PO (14:08)
[2019-11-05] MEDS: metoprolol succinate ER (24 HR) 50 mg Tablet PO (14:08)
[2019-11-05] MEDS: atorvastatin 40 mg Tablet 80 MG PO (14:08)
[2019-11-05] MEDS: calcitriol 0.25 mcg Capsule 0.5 MCG PO (14:08)
[2019-11-05] MEDS: chlorhexidine gluconate 4% Btl 118 mL 1 APPLIC TOPICAL (14:13)
[2019-11-05] MEDS: calcium acetate 667 mg Capsule 1334 MG PO (17:44)
[2019-11-05] MEDS: gabapentin 100 mg Capsule PO (17:44)
[2019-11-06] VITALS (8 sets, daily range): BP systolic 134–171; BP diastolic 75–82; PULSE 60–94; RESP 16–20; TEMP 36.5–36.8; O2SAT 92–100
[2019-11-06] MEDS: pantoprazole 40 mg SDV IVP (04:15)
[2019-11-06 05:34] LABS: Basophils % 0.5 %; Eosinophils % 0.5 %; Hematocrit 31.5 % (37.0-47.0); Hemoglobin 9.6 g/dL (11.5-15.3); Lymphocytes # 1.1 10^3/uL (0.8-4.8); Lymphocytes % 13.7 %; Mean Corpuscular HGB Conc 30.5 g/dL (30.0-36.0); Mean Corpuscular Hemoglobin 29.3 pg (28.0-34.0); Mean Platelet Volume 11.6 fL (7.4-10.4); Monocytes # 0.7 10^3/uL (0.2-0.9); Monocytes % 9.1 %; Neutrophils # 6.2 10^3/uL (1.8-7.7); Neutrophils % 75.3 %; Nucleated Red Blood Cells % 0 %; Platelet Count 127 10^3/cmm (130-400); Red Blood Count 3.28 10^6/uL (4.1-5.3); Red Cell Distribution Width 14.6 % (12.1-15.1); White Blood Count 8.2 10^3/uL (4.0-10.0)
[2019-11-06 05:44] LABS: Alanine Aminotransferase 27 U/L (0-33); Albumin Level 3.8 g/dL (3.5-5.2); Alkaline Phosphatase 71 IU/L (35-105); Anion Gap 21.8 (5-19); Blood Urea Nitrogen 56 mg/dL (8-23); Calcium 8.2 mg/dL (8.5-10.5); Carbon Dioxide 23 mmol/L (22-29); Chloride 93 mmol/L (98-107); Globulin 2.2 g/dL (1.3-4.6); Glomerular Filtration Rate 3.8 mL/min (90-130); Glucose 158 mg/dL (65-115); Magnesium 1.9 mg/dL (1.7-2.3); Osmolality Calculated 278 mOsm/kg (285-295); Potassium 4.8 mmol/L (3.5-5.1); Sodium 133 mmol/L (136-145); Total Bilirubin 0.4 mg/dL (0.15-1.2)
[2019-11-06 05:56] LABS: Aspartate Amino Transferase 78 U/L (0-32)
[2019-11-06 05:57] LABS: Phosphorus 7.8 mg/dL (2.5-4.5)
[2019-11-06] MEDS: dextrose 5%-sod chloride 0.45% 1,000 ML 125 ML IV (06:28)
[2019-11-06] MEDS: calcium acetate 667 mg Capsule 1334 MG PO ×3 (09:30→17:55)
[2019-11-06] MEDS: levothyroxine 100 mcg Tablet PO (09:30)
[2019-11-06] MEDS: metoprolol succinate ER (24 HR) 50 mg Tablet PO (09:30)
[2019-11-06] MEDS: atorvastatin 40 mg Tablet 80 MG PO (09:30)
[2019-11-06] MEDS: gabapentin 100 mg Capsule PO ×2 (09:30→17:55)
[2019-11-06] MEDS: isosorbide mononitrate ER 30 mg Tablet PO (09:31)
[2019-11-06] MEDS: cefTRIAXone 1,000 MG in sodium chloride 0.9% (plus) 50 ML 100 MG IV (09:31)
[2019-11-06] MEDS: calcitriol 0.25 mcg Capsule 0.5 MCG PO (09:33)
[2019-11-06] MEDS: chlorhexidine gluconate 4% Btl 118 mL 1 APPLIC TOPICAL (11:25)
[2019-11-06] MEDS: nystatin powder 15 gm Btl 1 APPLIC TOPICAL ×2 (11:26→20:37)
[2019-11-06] MEDS: aspirin 81 mg EC Tablet PO (11:58)
[2019-11-06] MEDS: famotidine 20 mg/2 mL INJ IVP ×2 (11:59→20:35)
[2019-11-06] MEDS: clopidogrel 75 mg Tablet PO (11:59)
--- NOTE | 2019-11-06 12:21 | PM.PN ---
Subjective Subjective: Interval history: No acute events overnight. On examination patient sitting comfortably at the edge of the bed. Patient is able to have complete conversation with me. She states she has been having diarrhea for over 10 years on and off and has been diagnosed of IBS as an outpatient by her primary care provider. She denies of having any nausea, vomiting, headache, palpitations, weakness at present. Labs, vitals noted. Vitals/I&O/Wt Last Vital Signs Temp 97.9 F 11/06/19 11:54 Pulse 61 11/06/19 11:54 Resp 16 11/06/19 11:54 BP 165/80 11/06/19 11:54 Pulse Ox 99 11/06/19 11:54 11/05/19 11/06/19 11/06/19 22:59 06:59 14:59 Intake Total 1135.833 / 2185.833 1000 / 3185.833 240 / 240 Balance 1135.833 / 2185.833 1000 / 3185.833 240 / 240 Weight last 48 hrs Weight 121.472 kg Weight 119.884 kg Physical Exam Const: COMMON NORMALS: alert GENERAL APPEARANCE: cooperative and disheveled NUTRITIONAL APPEARANCE: overweight ORIENTATION/CONSCIOUSNESS: Yes awake, Yes oriented to person and Yes oriented to place HENMT: COMMON NORMALS: normocephalic and head/scalp atraumatic HEAD & SCALP: normocephalic and atraumatic OTHER: Thick white plaque on the tongue Eye: COMMON NORMALS: PERRL PUPIL: Yes PERRL Neck/C-Spine: COMMON NORMALS: supple GENERAL: Yes normal visual inspection Resp: COMMON NORMALS: normal respiratory effort and clear to auscultation bilaterally EFFORT & INSPECTION: Yes able to speak in complete sentences AUSCULTATION: clear to auscultation bilaterally, no rhonchi and no wheezes Cardio: COMMON NORMALS: regular rate and regular rhythm RATE: regular rate RHYTHM: regular rhythm GI: COMMON NORMALS: soft to palpation and non-tender INSPECTION: No abdominal distension AUSCULTATION: Yes normoactive bowel sounds PALPATION: Yes soft OTHER: Nontender, no appreciable guarding or rigidity Extremity: COMMON NORMALS: no clubbing, cyanosis or edema and no calf tenderness NARRATIVE EXTREMITY EXAM: No significant lower extremity edema Neuro: COMMON NORMALS: CN's II-XII intact bilaterally, moves all extremities and no focal motor deficits SENSORIUM/ORIENTATION: Yes alert, Yes oriented to person, Yes oriented to place and Yes other (Occasional confusion with inconsistent) SPEECH: speech normal Psych: COMMON NORMALS: mental status grossly normal and cooperative Skin: NARRATIVE SKIN EXAM: Excoriated regions in the groin and under the pannus with erythema OTHER: Patient with large pannus, erythema and excoriation under the pannus. Blanching erythema on the over the sacrum Data : 11/06/19 05:17 11/06/19 05:17 Micro: Microbiology 11/04/19 08:10 Urine Culture - Final Urine,Clean Catch Escherichia coli 11/05/19 14:40 Stool Lactoferrin - Final Stool C.difficile Toxin B Gene (PCR) - Final Occult Blood (FIT) - Final 11/04/19 07:30 Blood Culture - Preliminary Blood NEGATIVE TO DATE 11/04/19 08:04 Blood Culture - Preliminary Blood NEGATIVE TO DATE A&P Assessment and plan (1) Altered mental status: Resolved as uremia has been resolved as well. Continue be cautious with sedating medications. Status: Acute Qualifiers: Altered mental status type: unspecified Qualified Code(s): R41.82 - Altered mental status, unspecified Code(s): R41.82 - Altered mental status, unspecified (2) Urinary tract infection: Urine cultures growing E. coli. Patient is already on Rocephin. We will continue the same. Depending on sensitivities when can most likely transition to oral Levaquin to finish her treatment course of 5 days. Day 3 today. Status: Acute Qualifiers: Hematuria presence: with hematuria Urinary tract infection type: acute cystitis Qualified Code(s): N30.01 - Acute cystitis with hematuria Code(s): N39.0 - Urinary tract infection, site not specified (3) End-stage renal disease on hemodialysis: Appreciate nephrology recommendations. Patient needed to extra sessions of dialysis for last 2 days. Can go back to her baseline schedule of dialysis on Friday, Friday, Friday. Status: Acute Code(s): N18.6 - End stage renal disease; Z99.2 - Dependence on renal dialysis (4) Hyperkalemia: Resolved. Because of missing multiple sessions of dialysis with baseline ESRD. Status: Acute Code(s): E87.5 - Hyperkalemia (5) Anemia: Hemoglobin 9.6 today. Patient denies of having any melena. States she has been having diarrhea for many years which is her baseline on and off. We will start her back on her home dose of aspirin, Plavix, Eliquis. Discussed with patient in detail regarding possible chances of melena while being on these medications she understands and would want to be continued on the same medications. Stool for occult blood positive. Continue to monitor hemoglobin while being on aspirin, Plavix, Eliquis. Continue on EPO Recommend outpatient EGD and colonoscopy Status: Acute Code(s): D64.9 - Anemia, unspecified (6) Coronary artery disease: Recent history of carotid artery stenting, on aspirin and Plavix as an outpatient. We will restart aspirin Plavix today. Status: Acute Code(s): I25.10 - Atherosclerotic heart disease of [place] coronary artery without angina pectoris (7) History of common carotid artery stent placement: Status: Acute Code(s): Z98.890 - Other specified postprocedural states; Z95.828 - Presence of other vascular implants and grafts (8) Atrial fibrillation: Currently in sinus rhythm, At home on Eliquis 2.5 mg twice a day and metoprolol succinate 50 mg daily. Continue home medications. Status: Acute Code(s): I48.91 - Unspecified atrial fibrillation (9) Diastolic heart failure: Diastolic congestive heart failure with fluid overload due to patient missing dialysis. Patient is euvolemic today. We will stop the IV fluids which was started on admission. Status: Acute Code(s): I50.30 - Unspecified diastolic (congestive) heart failure (10) Chronic diarrhea: Has been diagnosed of IBS as an outpatient. Patient states she has been having diarrhea for many years. Patient has not had colonoscopy more than 4 to 5 years. Stool studies appreciated and are negative for enteric bacteria parasite panel, C. difficile. The lactoferrin mildly elevated. Imodium as needed. Discussed with patient for possible follow-up as an outpatient with fur blower at [facility]. Patient is agreeable to the treatment plan. Status: Acute Code(s): K52.9 - Noninfective gastroenteritis and colitis, unspecified Additional A&P Information Severe metabolic acidosis: Resolved. Cutaneous candidiasis: Nystatin powder Generally unkept with disheveled appearance: professional services manager consulted Coronary artery disease: Holding aspirin due to concern for anemia, continue on statin, continue on metoprolol DVT prophylaxis: SCDs, holding on further heparin at this time due to anemia that appears to be acute Diet: Renal, CODE STATUS: Full code, Attestations Medical Necessity Statement*: MIssed dialysis session, ESRD, chronic diarrhea, anemia Time Spent in Patient Care: Greater than 35 minutes Coding Level of Care Code Acute Brush Cleaner for g Fwd Diagnoses Altered mental status R41.82 Altered mental status type: unspecified Urinary tract infection N30.01 Hematuria presence: with hematuria Urinary tract infection type: acute cystitis End-stage renal disease on hemodialysis N18.6; Z99.2 Hyperkalemia E87.5 Anemia D64.9 Coronary artery disease I25.10 History of common carotid artery stent placement Z98.890; Z95.828 Atrial fibrillation I48.91 Diastolic heart failure I50.30 Chronic diarrhea K52.9
[2019-11-06] MEDS: apixaban 5 mg Tablet 2.5 MG PO (17:55)
[2019-11-06 18:05] LABS: Alveolar-Arterial Oxygen Gradi 41.4 mmHg (5-10); Blood Gas Allen Test Pos; Blood Gas Sample Site Radial, right; Blood Gas Sample Type Arterial
[2019-11-06] MEDS: trazodone 50 mg Tablet PO (20:41)
[2019-11-07] VITALS (7 sets, daily range): BP systolic 105–178; BP diastolic 49–91; PULSE 59–65; RESP 15–20; TEMP 36.3–37.6; O2SAT 92–100
[2019-11-07 05:28] LABS: Basophils % 0.5 %; Eosinophils # 0.1 10^3/uL (0.0-0.8); Eosinophils % 1.7 %; Hematocrit 30.7 % (37.0-47.0); Hemoglobin 9.3 g/dL (11.5-15.3); Lymphocytes # 1.3 10^3/uL (0.8-4.8); Lymphocytes % 16.3 %; Mean Corpuscular HGB Conc 30.3 g/dL (30.0-36.0); Mean Corpuscular Hemoglobin 29.9 pg (28.0-34.0); Mean Corpuscular Volume 98.7 fL (81-99); Mean Platelet Volume 11.8 fL (7.4-10.4); Monocytes # 0.7 10^3/uL (0.2-0.9); Monocytes % 9.1 %; Neutrophils # 5.7 10^3/uL (1.8-7.7); Neutrophils % 71.3 %; Nucleated Red Blood Cells % 0 %; Platelet Count 150 10^3/cmm (130-400); Red Blood Count 3.11 10^6/uL (4.1-5.3); Red Cell Distribution Width 14.3 % (12.1-15.1); White Blood Count 8.1 10^3/uL (4.0-10.0)
[2019-11-07 05:44] LABS: Alanine Aminotransferase 28 U/L (0-33); Albumin Level 3.5 g/dL (3.5-5.2); Alkaline Phosphatase 73 IU/L (35-105); Anion Gap 21.8 (5-19); Aspartate Amino Transferase 41 U/L (0-32); Blood Urea Nitrogen 67 mg/dL (8-23); Carbon Dioxide 24 mmol/L (22-29); Chloride 93 mmol/L (98-107); Globulin 2.6 g/dL (1.3-4.6); Glomerular Filtration Rate 3.3 mL/min (90-130); Glucose 104 mg/dL (65-115); Magnesium 1.9 mg/dL (1.7-2.3); Osmolality Calculated 277 mOsm/kg (285-295); Potassium 4.8 mmol/L (3.5-5.1); Sodium 134 mmol/L (136-145); Total Bilirubin 0.3 mg/dL (0.15-1.2); Total Protein 6.1 g/dL (6.6-8.7)
[2019-11-07 05:52] LABS: Phosphorus 8.9 mg/dL (2.5-4.5)
--- NOTE | 2019-11-07 07:50 | PM.PN ---
Subjective Subjective: Interval history: c/o depression, pains, diarrhea. no sob, no cp, no kramer Medications: Reviewed: Yes Medication Review Details: Current Medications Acetaminophen (Tylenol) 650 mg PO Q6H PRN PRN Reason: Mild/Mod Pain Or Temp >/= 101 Albuterol Sulfate (Albuterol) 2.5 mg INHALATION Q6H.RESPIRATORY PRN PRN Reason: SHORTNESS OF BREATH Albuterol Sulfate (Ventolin) 2 puff INHALATION Q4H.RESPIRATORY PRN PRN Reason: Shortness Of Breath Apixaban (Eliquis) 2.5 mg PO BID [facility] Last Admin: 11/06/19 17:55 Dose: 2.5 mg Documented by: Aspirin (Aspirin Ec) 81 mg PO DAILY [facility] Last Admin: 11/06/19 11:58 Dose: 81 mg Documented by: Atorvastatin Calcium (Lipitor) 80 mg PO DAILY [facility] Last Admin: 11/06/19 09:30 Dose: 80 mg Documented by: Bisacodyl (Dulcolax) 10 mg PO DAILY PRN PRN Reason: CONSTIPATION Calcitriol (Rocaltrol) 0.5 mcg PO DAILY [facility] Last Admin: 11/06/19 09:33 Dose: 0.5 mcg Documented by: Calcium Acetate (Phoslo) 1,334 mg PO TIDWM [facility] Last Admin: 11/06/19 17:55 Dose: 1,334 mg Documented by: Chlorhexidine Gluconate (Betasept) 1 applic TOPICAL DAILY [facility] Last Admin: 11/06/19 11:25 Dose: 1 applic Documented by: Cholestyramine Resin (Questran) 4 gm PO BID PRN PRN Reason: UNKNOWN Clopidogrel Bisulfate (Plavix) 75 mg PO DAILY [facility] Last Admin: 11/06/19 11:59 Dose: 75 mg Documented by: Famotidine (Pepcid Inj) 20 mg IVP Q12H [facility] Last Admin: 11/06/19 20:35 Dose: 20 mg Documented by: Gabapentin (Neurontin) 100 mg PO BID [facility] Last Admin: 11/06/19 17:55 Dose: 100 mg Documented by: Ceftriaxone Sodium 1,000 mg/ (Sodium Chloride) 50 mls @ 100 mls/hr IV DAILY [facility]; Protocol Isosorbide Mononitrate (Imdur) 30 mg PO DAILY [facility] Last Admin: 11/06/19 09:31 Dose: 30 mg Documented by: Levothyroxine Sodium (Synthroid) 100 mcg PO DAILY [facility] Last Admin: 11/06/19 09:30 Dose: 100 mcg Documented by: Metoprolol Succinate (Toprol Xl) 50 mg PO DAILY [facility] Last Admin: 11/06/19 09:30 Dose: 50 mg Documented by: Nitroglycerin (Nitrostat) 0.4 mg SUBLINGUAL Q5M PRN PRN Reason: Chest Pain Non-Formulary Medication (Ferric Citrate [Auryxia]) 3 tab .ROUTE .COMPLEX [facility] Nystatin (Nystatin Powder) 1 applic TOPICAL Q12H [facility] Last Admin: 11/06/19 20:37 Dose: 1 applic Documented by: Tramadol HCl (Ultram) 50 mg PO Q8H PRN PRN Reason: MODERATE PAIN Last Admin: 11/05/19 12:22 Dose: 50 mg Documented by: Trazodone HCl (Desyrel) 50 mg PO BEDTIME PRN PRN Reason: sleep Last Admin: 11/06/19 20:41 Dose: 50 mg Documented by: Vitals/I&O/Wt Last Vital Signs Temp 97.8 F 11/07/19 04:00 Pulse 59 L 11/07/19 04:00 Resp 15 11/07/19 04:00 BP 105/49 11/07/19 04:00 Pulse Ox 92 11/07/19 04:00 11/06/19 11/07/19 11/07/19 22:59 06:59 14:59 Intake Total 560 / 920 120 / 1040 Balance 560 / 920 120 / 1040 Weight last 48 hrs Weight 126.779 kg Weight 121.472 kg Physical Exam Narrative: EXAM NARRATIVE: obese, comfortable, nard. vs noted heent- nc/at neck supple lung crackles heart reg no rub, +BIBIANA abd soft, nt, nd, +BS ext LUE AVF w/ thrill and bruit neuro-a,a, o x 3, from x 4 weak pulses + b/l Data : 11/07/19 05:06 11/07/19 05:06 Micro: Microbiology 11/05/19 14:40 Stool Lactoferrin - Final Stool Enteric Pathogens (PCR) - Final Parasite Antigen Panel - Final C.difficile Toxin B Gene (PCR) - Final Occult Blood (FIT) - Final 11/04/19 08:10 Urine Culture - Final Urine,Clean Catch Escherichia coli A&P Assessment and plan (1) Altered mental status: Status: Acute Qualifiers: Altered mental status type: unspecified Qualified Code(s): R41.82 - Altered mental status, unspecified Code(s): R41.82 - Altered mental status, unspecified (2) Urinary tract infection: uti w/ e coli- renal dosea abx Status: Acute Qualifiers: Hematuria presence: with hematuria Urinary tract infection type: acute cystitis Qualified Code(s): N30.01 - Acute cystitis with hematuria Code(s): N39.0 - Urinary tract infection, site not specified (3) End-stage renal disease on hemodialysis: plan on HD in am- monitor avf Status: Acute Code(s): N18.6 - End stage renal disease; Z99.2 - Dependence on renal dialysis (4) Hyperkalemia: Resolved. Because of missing multiple sessions of dialysis with baseline ESRD. Status: Acute Code(s): E87.5 - Hyperkalemia (5) Anemia: Hemoglobin 9.3 today. Patient is aspirin, Plavix, Eliquis. Continue on EPO agree w/ outpatient EGD and colonoscopy Status: Acute Code(s): D64.9 - Anemia, unspecified (6) Coronary artery disease: Recent history of carotid artery stenting, on aspirin and Plavix as an outpatient. W. Status: Acute Code(s): I25.10 - Atherosclerotic heart disease of [place] coronary artery without angina pectoris (7) History of common carotid artery stent placement: Status: Acute Code(s): Z98.890 - Other specified postprocedural states; Z95.828 - Presence of other vascular implants and grafts (8) Atrial fibrillation: Currently in sinus rhythm, At home on Eliquis 2.5 mg twice a day and metoprolol succinate 50 mg daily. Continue home medications. Status: Acute Code(s): I48.91 - Unspecified atrial fibrillation (9) Diastolic heart failure: Diastolic congestive heart failure per cardiology. Status: Acute Code(s): I50.30 - Unspecified diastolic (congestive) heart failure (10) Chronic diarrhea: Has been diagnosed of IBS as an outpatient. Patient states she has been having diarrhea for many years. per hospitalist Status: Acute Code(s): K52.9 - Noninfective gastroenteritis and colitis, unspecified Attestations Medical Necessity Statement*: improved uremia Time Spent in Patient Care: 16 - 35 minutes Coding Level of Care Code Acute Head Of It for Chg Fwd Diagnoses Altered mental status R41.82 Altered mental status type: unspecified Urinary tract infection N30.01 Hematuria presence: with hematuria Urinary tract infection type: acute cystitis End-stage renal disease on hemodialysis N18.6; Z99.2 Hyperkalemia E87.5 Anemia D64.9 Coronary artery disease I25.10 History of common carotid artery stent placement Z98.890; Z95.828 Atrial fibrillation I48.91 Diastolic heart failure I50.30 Chronic diarrhea K52.9
--- NOTE | 2019-11-07 08:30 | PC.SOCIAL ---
IM follow up explained copy provided. Patient had no questions and verbalized understanding.
--- NOTE | 2019-11-07 08:41 | PC.NURSE ---
WOUND NOTE Erythema present to air. applied Nystain powder applied. SMW, SUPERVISOR CONTACT [employer]
[2019-11-07] MEDS: apixaban 5 mg Tablet 2.5 MG PO ×2 (08:47→17:39)
[2019-11-07] MEDS: calcium acetate 667 mg Capsule 1334 MG PO ×3 (08:47→17:39)
[2019-11-07] MEDS: atorvastatin 40 mg Tablet 80 MG PO (08:48)
[2019-11-07] MEDS: aspirin 81 mg EC Tablet PO (08:48)
[2019-11-07] MEDS: metoprolol succinate ER (24 HR) 50 mg Tablet PO (08:49)
[2019-11-07] MEDS: calcitriol 0.25 mcg Capsule 0.5 MCG PO (08:49)
[2019-11-07] MEDS: gabapentin 100 mg Capsule PO ×2 (08:53→17:39)
[2019-11-07] MEDS: levothyroxine 100 mcg Tablet PO (08:53)
[2019-11-07] MEDS: isosorbide mononitrate ER 30 mg Tablet PO (08:53)
[2019-11-07] MEDS: clopidogrel 75 mg Tablet PO (08:53)
[2019-11-07] MEDS: nystatin powder 15 gm Btl 1 APPLIC TOPICAL (08:53)
[2019-11-07] MEDS: chlorhexidine gluconate 4% Btl 118 mL 1 APPLIC TOPICAL (08:53)
[2019-11-07] MEDS: cefTRIAXone 1,000 MG in sodium chloride 0.9% (plus) 50 ML 100 MG IV (08:54)
[2019-11-07] MEDS: famotidine 20 mg/2 mL INJ IVP ×2 (12:08→21:59)
--- NOTE | 2019-11-07 14:59 | PM.PN ---
Subjective Subjective: Interval history: The patient states that she had not done dialysis prior to admission secondary to diarrhea. This is a chronic problem. She says that she would be okay was seen a surgeon for a colonoscopy here in town. The patient denies any significant pain other than mild pain in her knees with ambulation. The patient's nurse notes that she has been confused at times and was found walking down the hallway without her walker and at one time thought her son was in her room when he was not. Vitals/I&O/Wt Last Vital Signs Temp 99.7 F H 11/07/19 12:00 Pulse 65 11/07/19 12:00 Resp 18 11/07/19 12:00 BP 176/91 11/07/19 12:00 Pulse Ox 97 11/07/19 12:00 11/06/19 11/07/19 11/07/19 22:59 06:59 14:59 Intake Total 560 / 920 120 / 1040 740 / 740 Balance 560 / 920 120 / 1040 740 / 740 Weight last 48 hrs Weight 279 lb 8 oz Weight 267 lb 12.8 oz Physical Exam Narrative: EXAM NARRATIVE: General: Alert and oriented, however with confusion and mistaken information at times. Mouth: Mucous membranes are moist without signs of infection Cardiac: Regular rate and rhythm without murmurs Lungs: Clear to auscultation bilaterally Abdomen: Soft, nontender without hepatosplenomegaly noted Extremities: No edema. Fistula in the left arm seems to be working. Data : 11/07/19 05:06 11/07/19 05:06 Micro: Microbiology 11/05/19 14:40 Stool Lactoferrin - Final Stool Enteric Pathogens (PCR) - Final Parasite Antigen Panel - Final C.difficile Toxin B Gene (PCR) - Final Occult Blood (FIT) - Final 11/04/19 08:10 Urine Culture - Final Urine,Clean Catch Escherichia coli A&P Assessment and plan (1) Chronic diarrhea: Status: Acute Code(s): K52.9 - Noninfective gastroenteritis and colitis, unspecified (2) Acute hyperkalemia: Status: Acute Code(s): E87.5 - Hyperkalemia (3) Altered mental status: Status: Acute Qualifiers: Altered mental status type: unspecified Qualified Code(s): R41.82 - Altered mental status, unspecified Code(s): R41.82 - Altered mental status, unspecified (4) Hypertension: Status: Acute Code(s): I10 - Essential (primary) hypertension (5) End-stage renal disease on hemodialysis: Status: Acute Code(s): N18.6 - End stage renal disease; Z99.2 - Dependence on renal dialysis Additional A&P Information 1. Renal failure on hemodialysis -the patient is to get hemodialysis done tomorrow morning. The patient is concerned that her fistula is not working correctly, however it seems to be. We will check with hemodialysis and make sure that they are not having problems with it. If they are, we will check to see if a PICC line is needed. Overall improving well. 2. Acute hyperkalemia -patient's potassium levels have decreased to normal range thanks to emergent hemodialysis. 3. Anemia -this seems to be stable. Okay to continue with blood thinners 4. Altered mental status -the patient continues to have some altered mental status and I am concerned about her ability to care for herself with this. She does have associated weakness as well and she would likely benefit from a [facility] facility placement. This is currently in the process and we will follow-up on how she is doing tomorrow. 5. Chronic diarrhea -the patient will likely need an outpatient colonoscopy to evaluate her chronic diarrhea. This is the reason that she stopped going to dialysis as she could not have dialysis stopped quickly enough when she needed to have a bowel movement. 6. Atrial fibrillation -continue with anticoagulation as ordered. 7. Prophylaxis -the patient is currently on Eliquis, so no further DVT prophylaxis is needed. Attestations Medical Necessity Statement*: Patient continues to need inpatient therapy for treatment of the above issues. I expect her stay to continue to cross 2 midnights. 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
[2019-11-07] MEDS: TRAMadol 50 mg Tablet PO (19:37)
[2019-11-07] MEDS: trazodone 50 mg Tablet PO (19:47)
[2019-11-07 20:47] LABS: Glucose Point of Care 152 mg/dL (70-110)
[2019-11-08] VITALS (8 sets, daily range): BP systolic 148–190; BP diastolic 72–84; PULSE 63–65; RESP 17–24; TEMP 36.3–37.1; O2SAT 90–95
--- NOTE | 2019-11-08 03:29 | PC.NURSE ---
pt has been confused throughout the night. pt thinks there are dogs in her room, patient continues to get out of bed without notifying staff, bed alarm is reset everytime, patient thinks she is going to the store or going to see a friend.
[2019-11-08] MEDS: TRAMadol 50 mg Tablet PO (05:27)
[2019-11-08 06:06] LABS: Alanine Aminotransferase 108 U/L (0-33); Albumin Level 3.4 g/dL (3.5-5.2); Alkaline Phosphatase 101 IU/L (35-105); Anion Gap 26.1 (5-19); Aspartate Amino Transferase 121 U/L (0-32); Blood Urea Nitrogen 80 mg/dL (8-23); Calcium 8.6 mg/dL (8.5-10.5); Carbon Dioxide 19 mmol/L (22-29); Chloride 89 mmol/L (98-107); Globulin 2.8 g/dL (1.3-4.6); Glucose 124 mg/dL (65-115); Magnesium 1.9 mg/dL (1.7-2.3); Osmolality Calculated 269 mOsm/kg (285-295); Potassium 5.1 mmol/L (3.5-5.1); Sodium 129 mmol/L (136-145); Total Bilirubin 0.4 mg/dL (0.15-1.2); Total Protein 6.2 g/dL (6.6-8.7)
[2019-11-08 06:35] LABS: Phosphorus 8.8 mg/dL (2.5-4.5)
[2019-11-08 06:36] LABS: Glucose Point of Care 114 mg/dL (70-110)
--- NOTE | 2019-11-08 08:00 | PM.PN ---
Subjective Subjective: Interval history: feels better. Medications: Reviewed: Yes Medication Review Details: Current Medications Acetaminophen (Tylenol) 650 mg PO Q6H PRN PRN Reason: Mild/Mod Pain Or Temp >/= 101 Albuterol Sulfate (Albuterol) 2.5 mg INHALATION Q6H.RESPIRATORY PRN PRN Reason: SHORTNESS OF BREATH Albuterol Sulfate (Ventolin) 2 puff INHALATION Q4H.RESPIRATORY PRN PRN Reason: Shortness Of Breath Apixaban (Eliquis) 2.5 mg PO BID [facility] Last Admin: 11/07/19 17:39 Dose: 2.5 mg Documented by: Aspirin (Aspirin Ec) 81 mg PO DAILY [facility] Last Admin: 11/07/19 08:48 Dose: 81 mg Documented by: Atorvastatin Calcium (Lipitor) 80 mg PO DAILY [facility] Last Admin: 11/07/19 08:48 Dose: 80 mg Documented by: Bisacodyl (Dulcolax) 10 mg PO DAILY PRN PRN Reason: CONSTIPATION Calcitriol (Rocaltrol) 0.5 mcg PO DAILY [facility] Last Admin: 11/07/19 08:49 Dose: 0.5 mcg Documented by: Calcium Acetate (Phoslo) 1,334 mg PO TIDWM [facility] Last Admin: 11/07/19 17:39 Dose: 1,334 mg Documented by: Chlorhexidine Gluconate (Betasept) 1 applic TOPICAL DAILY [facility] Last Admin: 11/07/19 08:53 Dose: 1 applic Documented by: Cholestyramine Resin (Questran) 4 gm PO BID PRN PRN Reason: UNKNOWN Clopidogrel Bisulfate (Plavix) 75 mg PO DAILY [facility] Last Admin: 11/07/19 08:53 Dose: 75 mg Documented by: Famotidine (Pepcid Inj) 20 mg IVP Q12H [facility] Last Admin: 11/07/19 21:59 Dose: 20 mg Documented by: Gabapentin (Neurontin) 100 mg PO BID [facility] Last Admin: 11/07/19 17:39 Dose: 100 mg Documented by: Ceftriaxone Sodium 1,000 mg/ (Sodium Chloride) 50 mls @ 100 mls/hr IV DAILY [facility]; Protocol Last Admin: 11/07/19 08:54 Dose: 100 mls/hr Documented by: Isosorbide Mononitrate (Imdur) 30 mg PO DAILY [facility] Last Admin: 11/07/19 08:53 Dose: 30 mg Documented by: Levothyroxine Sodium (Synthroid) 100 mcg PO DAILY [facility] Last Admin: 11/07/19 08:53 Dose: 100 mcg Documented by: Metoprolol Succinate (Toprol Xl) 50 mg PO DAILY [facility] Last Admin: 11/07/19 08:49 Dose: 50 mg Documented by: Nitroglycerin (Nitrostat) 0.4 mg SUBLINGUAL Q5M PRN PRN Reason: Chest Pain Non-Formulary Medication (Ferric Citrate [Auryxia]) 3 tab .ROUTE .COMPLEX [facility] Nystatin (Nystatin Powder) 1 applic TOPICAL Q12H [facility] Last Admin: 11/08/19 00:08 Dose: Not Given Documented by: Tramadol HCl (Ultram) 50 mg PO Q8H PRN PRN Reason: MODERATE PAIN Last Admin: 11/08/19 05:27 Dose: 50 mg Documented by: Trazodone HCl (Desyrel) 50 mg PO BEDTIME PRN PRN Reason: sleep Last Admin: 11/07/19 19:47 Dose: 50 mg Documented by: Vitals/I&O/Wt Last Vital Signs Temp 98.6 F 11/08/19 07:59 Pulse 63 11/08/19 07:59 Resp 18 11/08/19 07:59 BP 190/74 11/08/19 07:59 Pulse Ox 94 11/08/19 07:59 11/07/19 11/08/19 11/08/19 22:59 06:59 14:59 Intake Total 620 / 1360 150 / 1510 Balance 620 / 1360 150 / 1510 Weight last 48 hrs Weight 128.423 kg Weight 126.779 kg Physical Exam Narrative: EXAM NARRATIVE: obese, comfortable, nard. vs noted heent- nc/at neck supple lung crackles heart reg no rub, +BIBIANA abd soft, nt, nd, +BS ext LUE AVF w/ thrill and bruit neuro-a,a, o x 3, from x 4 weak pulses + b/l Data : 11/07/19 05:06 11/08/19 05:20 A&P Assessment and plan (1) Urinary tract infection: uti w/ e coli- renal dosea abx Status: Acute Qualifiers: Hematuria presence: with hematuria Urinary tract infection type: acute cystitis Qualified Code(s): N30.01 - Acute cystitis with hematuria Code(s): N39.0 - Urinary tract infection, site not specified (2) End-stage renal disease on hemodialysis: hd now via LUE AVF- has good thrill and bruit- 3.5 hrs, 2k bath, remove 3 l as tolerated high phos on binders- PLEASE PUT ON 2 GM PHOSPHORUS DIET -MONITOR AVF TODAY Status: Acute Code(s): N18.6 - End stage renal disease; Z99.2 - Dependence on renal dialysis (3) Anemia: Hemoglobin 9.3 today. Patient is aspirin, Plavix, Eliquis. Continue on EPO agree w/ outpatient EGD and colonoscopy Status: Acute Code(s): D64.9 - Anemia, unspecified (4) Diastolic heart failure: Diastolic congestive heart failure per cardiology. chaklenge fluid removal on dialysis Status: Acute Code(s): I50.30 - Unspecified diastolic (congestive) heart failure Attestations Medical Necessity Statement*: per hospitalist Time Spent in Patient Care: 16 - 35 minutes Coding Level of Care Code Acute Facility Environmental Technician for Chg Fwd Diagnoses Urinary tract infection N30.01 Hematuria presence: with hematuria Urinary tract infection type: acute cystitis End-stage renal disease on hemodialysis N18.6; Z99.2 Anemia D64.9 Diastolic heart failure I50.30
[2019-11-08] MEDS: aspirin 81 mg EC Tablet PO (10:09)
[2019-11-08] MEDS: calcitriol 0.25 mcg Capsule 0.5 MCG PO (10:09)
[2019-11-08] MEDS: levothyroxine 100 mcg Tablet PO (10:09)
[2019-11-08] MEDS: isosorbide mononitrate ER 30 mg Tablet PO (10:10)
[2019-11-08] MEDS: gabapentin 100 mg Capsule PO ×2 (10:10→17:24)
[2019-11-08] MEDS: atorvastatin 40 mg Tablet 80 MG PO (10:10)
[2019-11-08] MEDS: clopidogrel 75 mg Tablet PO (10:10)
[2019-11-08] MEDS: metoprolol succinate ER (24 HR) 50 mg Tablet PO (10:10)
[2019-11-08] MEDS: calcium acetate 667 mg Capsule 1334 MG PO ×2 (10:11→17:25)
[2019-11-08] MEDS: apixaban 5 mg Tablet 2.5 MG PO ×2 (10:11→17:24)
[2019-11-08] MEDS: nystatin powder 15 gm Btl 1 APPLIC TOPICAL (10:12)
[2019-11-08] MEDS: cefTRIAXone 1,000 MG in sodium chloride 0.9% (plus) 50 ML 100 MG IV (10:12)
--- NOTE | 2019-11-08 11:01 | P.PN_ITS ---
Subjective Subjective: Interval history: No acute events overnight. On examination sitting comfortably in chair, complaining of pain in her neck. Denies having on any nausea, vomiting, headache, palpitations. States her diarrhea has improved as well. Patient is due for dialysis at noon today. Labs noted. Vitals/I&O/Wt Last Vital Signs Temp 98.6 F 11/08/19 07:59 Pulse 63 11/08/19 07:59 Resp 18 11/08/19 07:59 BP 190/74 11/08/19 07:59 Pulse Ox 94 11/08/19 07:59 11/07/19 11/08/19 11/08/19 22:59 06:59 14:59 Intake Total 620 / 1410 150 / 1560 Balance 620 / 1410 150 / 1560 Weight last 48 hrs Weight 128.423 kg Weight 126.779 kg Physical Exam Const: COMMON NORMALS: alert GENERAL APPEARANCE: cooperative and disheveled NUTRITIONAL APPEARANCE: overweight ORIENTATION/CONSCIOUSNESS: Yes awake, Yes oriented to person and Yes oriented to place HENMT: COMMON NORMALS: normocephalic and head/scalp atraumatic HEAD & SCALP: normocephalic and atraumatic OTHER: Thick white plaque on the tongue Eye: COMMON NORMALS: PERRL PUPIL: Yes PERRL Neck/C-Spine: COMMON NORMALS: supple GENERAL: Yes normal visual inspection Resp: COMMON NORMALS: normal respiratory effort and clear to auscultation bilaterally EFFORT & INSPECTION: Yes able to speak in complete sentences AUSCULTATION: clear to auscultation bilaterally, no rhonchi and no wheezes Cardio: COMMON NORMALS: regular rate and regular rhythm RATE: regular rate RHYTHM: regular rhythm GI: COMMON NORMALS: soft to palpation and non-tender INSPECTION: No abdominal distension AUSCULTATION: Yes normoactive bowel sounds PALPATION: Yes soft OTHER: Nontender, no appreciable guarding or rigidity Extremity: COMMON NORMALS: no clubbing, cyanosis or edema and no calf tenderness NARRATIVE EXTREMITY EXAM: No significant lower extremity edema Neuro: COMMON NORMALS: CN's II-XII intact bilaterally, moves all extremities and no focal motor deficits SENSORIUM/ORIENTATION: Yes alert, Yes oriented to person, Yes oriented to place and Yes other (Occasional confusion with inconsistent) SPEECH: speech normal Psych: COMMON NORMALS: mental status grossly normal and cooperative Skin: NARRATIVE SKIN EXAM: Excoriated regions in the groin and under the pannus with erythema OTHER: Patient with large pannus, erythema and excoriation under the pannus. Blanching erythema on the over the sacrum Data : 11/07/19 05:06 11/08/19 05:20 A&P Assessment and plan (1) Urinary tract infection: Urine cultures growing E. coli resistant to levofloxacin. Patient is on ceftriaxone which the cultures are sensitive to. Day 4/5 of treatment today. Status: Acute Qualifiers: Hematuria presence: with hematuria Urinary tract infection type: acute cystitis Qualified Code(s): N30.01 - Acute cystitis with hematuria Code(s): N39.0 - Urinary tract infection, site not specified (2) End-stage renal disease on hemodialysis: Appreciate nephrology recommendations. Needed extra dialysis on admission for 2 days. Back to her baseline. Can go back to her baseline schedule of dialysis on Friday, Friday, Friday. Status: Acute Code(s): N18.6 - End stage renal disease; Z99.2 - Dependence on renal dialysis (3) Chronic diarrhea: Has been diagnosed of IBS as an outpatient. Patient states she has been having diarrhea for many years. Patient has not had colonoscopy more than 4 to 5 years. Stool studies appreciated and are negative for enteric bacteria parasite panel, C. difficile. The lactoferrin mildly elevated. Imodium as needed. Discussed with patient for possible follow-up as an outpatient with machine plaster mixer at [facility]. Patient is agreeable to the treatment plan. Status: Acute Code(s): K52.9 - Noninfective gastroenteritis and colitis, unspecified (4) Altered mental status: Resolved as uremia has been resolved as well. Continue be cautious with sedating medications. Status: Acute Qualifiers: Altered mental status type: unspecified Qualified Code(s): R41.82 - Altered mental status, unspecified Code(s): R41.82 - Altered mental status, unspecified (5) Hyperkalemia: Resolved. Because of missing multiple sessions of dialysis with baseline ESRD. Status: Acute Code(s): E87.5 - Hyperkalemia (6) Anemia: Stable. Hemoglobin 9.6 today. Patient denies of having any melena. States she has been having diarrhea for many years which is her baseline on and off. Continue with home dose of aspirin, Plavix, Eliquis. Discussed with patient in detail regarding possible chances of melena while being on these medications she understands and would want to be continued on the same medications. Stool for occult blood positive. Continue to monitor hemoglobin while being on aspirin, Plavix, Eliquis. Continue on EPO Recommend outpatient EGD and colonoscopy Status: Acute Code(s): D64.9 - Anemia, unspecified (7) History of common carotid artery stent placement: Recent history of carotid artery stenting earlier this month. Continue with aspirin, Plavix. CT scan done earlier this admission on November 03 showed no acute changes. Patient is AO x3 right now, without any confusion. Status: Acute Code(s): Z98.890 - Other specified postprocedural states; Z95.828 - Presence of other vascular implants and grafts (8) Atrial fibrillation: Currently in sinus rhythm, At home on Eliquis 2.5 mg twice a day and metoprolol succinate 50 mg daily. Continue home medications. Status: Acute Code(s): I48.91 - Unspecified atrial fibrillation (9) Diastolic heart failure: Diastolic congestive heart failure with fluid overload due to patient missing dialysis. Patient is euvolemic today. Status: Acute Code(s): I50.30 - Unspecified diastolic (congestive) heart failure (10) Coronary artery disease: Stable. No chest pain. Status: Acute Code(s): I25.10 - Atherosclerotic heart disease of samish coronary artery without angina pectoris Additional A&P Information Severe metabolic acidosis: Resolved. Cutaneous candidiasis: Nystatin powder Generally unkept with disheveled appearance: financial services rep consulted Coronary artery disease: Holding aspirin due to concern for anemia, continue on statin, continue on metoprolol DVT prophylaxis: SCDs, holding on further heparin at this time due to anemia that appears to be acute Diet: Renal, 2 g phosphorus daily CODE STATUS: Full code, Dispo: Awaiting authorization from SNF placement. Attestations Medical Necessity Statement*: ESRD, chronic anemia, chronic diarrhea, awaiting authorization for SNF placement. Time Spent in Patient Care: Greater than 35 minutes Coding Level of Care Code Acute Mems Process Engineer for Hector Fwcallie Diagnoses Urinary tract infection N30.01 Hematuria presence: with hematuria Urinary tract infection type: acute cystitis End-stage renal disease on hemodialysis N18.6; Z99.2 Chronic diarrhea K52.9 Altered mental status R41.82 Altered mental status type: unspecified Hyperkalemia E87.5 Anemia D64.9 History of common carotid artery stent placement Z98.890; Z95.828 Atrial fibrillation I48.91 Diastolic heart failure I50.30 Coronary artery disease I25.10
[2019-11-08] MEDS: famotidine 20 mg/2 mL INJ IVP (11:10)
--- NOTE | 2019-11-08 11:45 | P.DS_ITS ---
Discharge Providers Date of Admission: 11/04/19 09:27 Date of Discharge: November 08, 2019 Attending Provider at Admission: Christin Charles DO Attending Provider at Discharge: Keegan Forrest MD Consults: Telemetry nephrology: [place] Primary Care Provider: Laisha Campoverde Diagnoses at Discharge Discharge Diagnosis (1) Urinary tract infection: Status: Acute Qualifiers: Hematuria presence: with hematuria Urinary tract infection type: acute cystitis Qualified Code(s): N30.01 - Acute cystitis with hematuria (2) End-stage renal disease on hemodialysis: Status: Acute (3) Chronic diarrhea: Status: Acute (4) Altered mental status: Status: Acute Qualifiers: Altered mental status type: unspecified Qualified Code(s): R41.82 - Altered mental status, unspecified (5) Hyperkalemia: Status: Acute (6) Anemia: Status: Acute (7) History of common carotid artery stent placement: Status: Acute (8) Atrial fibrillation: Status: Acute (9) Diastolic heart failure: Status: Acute (10) Coronary artery disease: Status: Acute Reason for Visit Reason for Visit: Reason For Visit: [facility] Course Discharge Summary: Amanda Ha is a 64 year old female with a history of end-stage renal disease on dialysis, with a recent history of left AV fistula revision, has a right pigtail catheter in place, dialysis days Friday, diastolic CHF, history of left carotid artery stenosis and severe left basilar disease status post stent placement in [facility], atrial fibrillation on Eliquis, CAD status post stenting in December 2017 on aspirin and Plavix, hypertension, hyperlipidemia, type 2 diabetes mellitus [id number] not on any medications, hypothyroidism, obstructive sleep apnea, who presented to the ED on November 03 by EMS. Patient was found in her bathroom of her home lying on the floor with altered mental status. Noted to have old blood on the toilet, no family members in the home. Patient was seen and evaluated in the emergency department noted to have hyperkalemia with widened QRS. She was given calcium, insulin, D50 and sodium bicarb and a stat nephrology consult was obtained. Patient was moved immediatel y to the ICU and emergent dialysis ordered. Patient underwent emergent dialysis after which her mentation improved and metabolic acidosis, EKG changes and hyperkalemia resolved. She underwent CT head which is negative for any acute stroke or bleeding. Urine studies were done which are concerning for UTI and a urine cultures are growing E. coli which is resistant to levofloxacin but susceptible to ceftriaxone. Patient has received 4 days of ceftriaxone till now and will need 1 more dose. Since admission patient has done well after her dialysis and has been improving gradually. Patient has been having recurrent diarrhea as per her for last 10 years for which she has been diagnosed of IBS as an outpatient. Infective sources of diarrhea were ruled out with a negative stool studies for C. difficile, enteric and parasitic work-up. Stool for occult blood was positive but her hemoglobin had remained stable and because patient needs aspirin Plavix because of recent stenting into her carotid artery they were continued. Patient is on Eliquis for chronic atrial fibrillation which was continued as well as her hemoglobin has remained stable all these medications were continued. Patient is advised to follow-up with a manager nursing at [facility] where her vascular surgeons are for IBS and she is agreeable for the plan. Patient is been discharged in hemodynamically stable condition to SNF because of severe deconditioning for physical therapy with advised to follow-up with manager nursing at [facility] and continue dialysis sessions on Friday, Friday and Friday. Patient had last therapy session on November 07. Physical Exam Const: COMMON NORMALS: alert GENERAL APPEARANCE: cooperative and disheveled NUTRITIONAL APPEARANCE: overweight ORIENTATION/CONSCIOUSNESS: Yes awake, Yes oriented to person and Yes oriented to place HENMT: COMMON NORMALS: normocephalic and head/scalp atraumatic HEAD & SCALP: normocephalic and atraumatic OTHER: Thick white plaque on the tongue Eye: COMMON NORMALS: PERRL PUPIL: Yes PERRL Neck/C-Spine: COMMON NORMALS: supple GENERAL: Yes normal visual inspection Resp: COMMON NORMALS: normal respiratory effort and clear to auscultation bilaterally EFFORT & INSPECTION: Yes able to speak in complete sentences AUSCULTATION: clear to auscultation bilaterally, no rhonchi and no wheezes Cardio: COMMON NORMALS: regular rate and regular rhythm RATE: regular rate RHYTHM: regular rhythm GI: COMMON NORMALS: soft to palpation and non-tender INSPECTION: No abdominal distension AUSCULTATION: Yes normoactive bowel sounds PALPATION: Yes soft OTHER: Nontender, no appreciable guarding or rigidity Extremity: COMMON NORMALS: no clubbing, cyanosis or edema and no calf tenderness NARRATIVE EXTREMITY EXAM: No significant lower extremity edema Neuro: COMMON NORMALS: CN's II-XII intact bilaterally, moves all extremities and no focal motor deficits SENSORIUM/ORIENTATION: Yes alert, Yes oriented to person, Yes oriented to place and Yes other (Occasional confusion with inconsistent) SPEECH: speech normal Psych: COMMON NORMALS: mental status grossly normal and cooperative Skin: NARRATIVE SKIN EXAM: Excoriated regions in the groin and under the pannus with erythema OTHER: Patient with large pannus, erythema and excoriation under the pannus. Blanching erythema on the over the sacrum Discharge Data Data Completed and Pending: Completed Studies During Hospitalization Category Date Time Status CT cervical spin wo con* [id number] Urge nt Cat Scan 11/04/19 07:[address] head wo con* 7 0450 Urgent Cat Scan 11/04/19 07:37 Completed XR chest 1V kayce ble [id number] Urgent Exams 11/04/19 07:37 Completed Pending at discharge Category Date Time Status Blood Culture Sta t Lab 11/04/19 07:30 Results Comprehensive Met abolic Panel AM LA BS Lab 11/09/19 04:00 Ordered Comprehensive Met abolic Panel AM LA BS Lab 11/10/19 04:00 Ordered Drug Screen, Urin e Routine Lab 11/05/19 14:57 Ordered Magnesium AM LABS Lab 11/09/19 04:00 Ordered Magnesium AM LABS Lab 11/10/19 04:00 Ordered Phosphorus AM LAB S Lab 11/09/19 04:00 Ordered Phosphorus AM LAB S Lab 11/10/19 04:00 Ordered Urine Culture Sta t Lab 11/04/19 10:37 Uncollected Labs from last 24 hours 11/08/19 11/08/19 11/07/19 06:33 05:20 20:44 Sodium 129 L Potassium 5.1 Chloride 89 L Carbon Dioxide 19 L Anion Gap 26.1 H BUN 80 H Creatinine 12.7 H* GFR Calculation 3.0 L Glucose 124 H POC Glucose 114 152 Calculated Osmolal ity 269 L Calcium 8.6 Phosphorus 8.8 H* Magnesium 1.9 Total Bilirubin 0.4 AST 121 H ALT 108 H Alkaline Phosphata se 101 Total Protein 6.2 L Albumin 3.4 L Globulin 2.8 Vitals: Last Vital Signs Temp 97.4 F L 11/08/19 11:37 Pulse 64 11/08/19 11:37 Resp 18 11/08/19 11:37 BP 177/80 11/08/19 11:37 Pulse Ox 93 11/08/19 11:37 Discharge Plan Discharge Patient Disposition: Xfer SNF Condition: Stable Prescriptions: New ceftriaxone 1 gram recon soln 1 gm IV Q24H Qty: 1 RF: 0 Continued Eliquis 2.5 mg tablet 2.5 mg PO BID RF: 0 meloxicam 7.5 mg tablet 7.5 mg PO DAILY RF: 0 Hold Instructions: Resume on 11/09/19. diphenoxylate-atropine [Lomotil] 2.5-0.025 mg tablet 2 tab PO QID RF: 0 losartan 100 mg tablet 100 mg PO DAILY RF: 0 levothyroxine [Synthroid] 25 mcg tablet 100 mcg PO DAILY RF: 0 trazodone 50 mg tablet See Rx Instructions PO .HS PRN (Reason: sleep) Qty: 60 RF: 1 aspirin [Aspir-81] 81 mg Tablet,Delayed Release (Dr/Ec) 81 mg PO DAILY RF: 0 atorvastatin [Lipitor] 80 mg Tablet 80 mg PO DAILY RF: 0 hydrocodone-acetaminophen [[place]] 5-325 mg Tablet 1 tab PO QID PRN (Reason: Pain) RF: 0 isosorbide mononitrate 30 mg tablet extended release 24 hr 30 mg PO DAILY RF: 0 lidocaine-prilocaine 2.5-2.5 % cream See Rx Instructions .ROUTE .COMPLEX RF: 0 doxazosin 8 mg Tablet 8 mg PO DAILY RF: 0 esomeprazole magnesium [Nexium] 40 mg Capsule,Delayed Release(Dr/Ec) 40 mg PO DAILY RF: 0 nitroglycerin [Nitrostat] 0.4 mg Tablet, Sublingual 0.4 mg SUBLINGUAL Q5M PRN (Reason: Chest Pain) RF: 0 montelukast [Singulair] 10 mg Tablet 10 mg PO DAILY RF: 0 gabapentin 100 mg Capsule 100 mg PO BID RF: 0 albuterol sulfate [ProAir HFA] 90 mcg/actuation Hfa Aerosol Inhaler 2 puff INHALATION Q4H PRN (Reason: Shortness Of Breath) RF: 0 cholestyramine (with sugar) 4 gram powder in packet 4 g PO BID PRN (Reason: UNKNOWN) RF: 0 Auryxia 210 mg iron tablet See Rx Instructions .ROUTE .COMPLEX RF: 0 insulin lispro [Humalog KwikPen Insulin] 100 unit/mL insulin pen See Rx Instructions .ROUTE .COMPLEX RF: 0 melatonin 10 mg Tablet 10 mg PO BEDTIME PRN (Reason: Sleep) RF: 0 oxycodone-acetaminophen 5-325 mg Tablet 1 tab PO BID PRN (Reason: Pain) 30 Days RF: 0 zolpidem 5 mg Tablet 5 mg PO .Hs 30 Days RF: 0 metoprolol succinate 25 mg tablet extended release 24 hr 50 mg PO DAILY RF: 0 Discontinued minoxidil 2.5 mg tablet 2.5 mg PO BID RF: 0 Discharge Orders: Discharge Order (Routine); Ordered 11/08/19 Ordered By: Keegan Forrest Referrals: DENIS [Other] Laisha Campoverde [Primary Care Provider] - Discharge Diet: As Directed Discharge Activity: Resume usual activity Patient Instructions: Ceftriaxone (Injection), Renal Failure Diet (DC), Sepsis (DC) Activity Restrictions/Additional Instructions: Renal diabetic 2 g daily phosphate diet. Patient needs 1 dose of ceftriaxone tomorrow to complete 5-day course of UTI. Follow-up with manager nursing at [facility] for chronic IBS. Discharge Attestations Time Spent in Discharge Care*: greater than 30 min Specific Discharge Activities: Specific discharge activities: educating patient, discussing with pcp/other providers, discussing with case work aide/social workers/dc planners and evaluating patient/reviewing data Status at Discharge: Cognitive status at discharge: cognitively intact , Behavioral status at discharge: cooperative , Functional status at discharge: independent ambulation Overall status at discharge: patient is back to baseline Quality Metrics Clinical Quality Measures During this hospital stay, did patient experience: None Coding Level of Care Code Acute Pick Up Attendant for g Fwd Exam Comprehensive Diagnoses Urinary tract infection N30.01 Hematuria presence: with hematuria Urinary tract infection type: acute cystitis End-stage renal disease on hemodialysis N18.6; Z99.2 Chronic diarrhea K52.9 Altered mental status R41.82 Altered mental status type: unspecified Hyperkalemia E87.5 Anemia D64.9 History of common carotid artery stent placement Z98.890; Z95.828 Atrial fibrillation I48.91 Diastolic heart failure I50.30 Coronary artery disease I25.10
--- NOTE | 2019-11-08 13:00 | PC.OT ---
OT tx attempted at this time. Pt is off the floor in dialysis this afternoon. Will attempt to resume OT tx in the a.m.
[2019-11-08 20:49] LABS: Glucose Point of Care 118 mg/dL (70-110)
--- NOTE | 2019-11-18 09:15 | PC.SOCIAL ---
Home meds were sent to a different Amanda gonzalez close to same day. That patient did not take the medications. Meds brought back to facility by Miya Price and discussed with Selena Haney. Selena gave the medications to director Aniat Alicea to review and have sent to correct patient.
== END 2019-11-08 19:00 | disposition skilled nursing facility (03) | DRG 871 ==
LOC: ER 09:30 → ICU 09:30 → MEDSURG 11-05 14:37
PROVIDERS: Family Medicine; Internal Medicine Nephrology; Physician Assistant; Admitting Provider Family Medicine; Emergency Provider Family Medicine; PCP Nurse Practitioner Family; Visit Provider Student in an Organized Health Care Education/Training Program
DX: A41.9 Sepsis, unspecified organism (principal); I50.33 Acute on chronic diastolic (congestive) heart failure; N18.6 End stage renal disease; I13.2 Hypertensive heart and chronic kidney disease with heart failure and with stage 5 chronic kidney disease, or end stage renal disease; N30.01 Acute cystitis with hematuria; E87.2 Acidosis; Z16.20 Resistance to unspecified antibiotic; E87.5 Hyperkalemia; I48.91 Unspecified atrial fibrillation; I25.10 Atherosclerotic heart disease of native coronary artery without angina pectoris; D63.1 Anemia in chronic kidney disease; K52.9 Noninfective gastroenteritis and colitis, unspecified; B96.20 Unspecified Escherichia coli [E. coli] as the cause of diseases classified elsewhere; E11.9 Type 2 diabetes mellitus without complications; Z99.2 Dependence on renal dialysis; Z87.891 Personal history of nicotine dependence; Z79.82 Long term (current) use of aspirin; Z79.52 Long term (current) use of systemic steroids; Z79.899 Other long term (current) drug therapy; Z79.890 Hormone replacement therapy; Z79.891 Long term (current) use of opiate analgesic; Z98.890 Other specified postprocedural states; Z95.828 Presence of other vascular implants and grafts
CPT/HCPCS: 12345; 36415; 36416; 36600; 70450; 71045; 72125; 80048; 80051; 80053; 80307; 81001; 82140; 82274; 82310; 82550; 82728; 82810; 82962; 83036; 83540; 83550; 83605; 83630; 83735; 83880; 83970; 83986; 84100; 84443; 84484; 85025; 85610; 85730; 86706; 86803; 86850; 86900; 87040; 87077; 87086; 87186; 87340; 87493; 87506; 90935; 93005; 94640; 94664; 96375; 97110; 97116; 97162; 97166; 97530; 97535; 99284; C9113; J0610; J0696; J1815; J3490; J7611; J7799; Q3014; Q4081

== ENCOUNTER 2019-12-06 19:03 | Emergency (ER) | payer MEDICARE, MEDICAID, SELFPAY ==
--- NOTE | 2019-12-06 19:07 | XRR_ITS ---
PROCEDURE INFORMATION: Exam: XR Chest, 1 View Exam date and time: 12/06/2019 7:44 PM Age: 64 years old Clinical indication: Dyspnea and shortness of breath; Additional info: Fever TECHNIQUE: Imaging protocol: XR of the chest Views: 1 view. COMPARISON: CR XR chest 1V portable [id number] 11/04/2019 8:00 AM FINDINGS: Lungs: Low lung volumes are seen. No consolidation. Pleural space: Unremarkable. No pleural effusion. No pneumothorax. Heart/Mediastinum: Unremarkable. There is moderate cardiomegaly for projection. Bones/joints: Unremarkable. XR/XR chest 1V portable [id number] IMPRESSION: Moderate cardiomegaly for projection. Low lung volumes Otherwise No acute findings.
[2019-12-06 19:11] VITALS: BP 177/97; PULSE 93; RESP 17; TEMP 37.1; O2SAT 90; BMI 39.1
[2019-12-06 19:31] LABS: Basophils % 0.4 %; Eosinophils # 0.1 10^3/uL (0.0-0.8); Hematocrit 34.3 % (37.0-47.0); Hemoglobin 10.4 g/dL (11.5-15.3); Lymphocytes # 0.9 10^3/uL (0.8-4.8); Lymphocytes % 18.2 %; Mean Corpuscular HGB Conc 30.3 g/dL (30.0-36.0); Mean Corpuscular Hemoglobin 30.5 pg (28.0-34.0); Mean Corpuscular Volume 100.6 fL (81-99); Mean Platelet Volume 11.1 fL (7.4-10.4); Monocytes # 0.4 10^3/uL (0.2-0.9); Neutrophils # 3.5 10^3/uL (1.8-7.7); Neutrophils % 70.8 %; Nucleated Red Blood Cells % 0 %; Platelet Count 172 10^3/cmm (130-400); Red Blood Count 3.41 10^6/uL (4.1-5.3); White Blood Count 4.9 10^3/uL (4.0-10.0)
[2019-12-06 19:34] LABS: ABG PCO2 50.9 mmHg (35-45); ABG PH Result 7.46 (7.35-7.45); Arterial Blood Gas Hematocrit 30.1 % (37-47); Base Excess ABG 10.9 mmol/L (-2.0-2.0); Blood Gas Allen Test Pos; Blood Gas Sample Site Radial, left; Blood Gas Sample Type Arterial; HCO3 ABG 36.1 mmol/L (22-26); Oxygen Device NC; PO2 ABG 93.1 mmHg (80.0-100.0)
[2019-12-06 19:52] LABS: Lactate (Lactic Acid level) 1.2 mmol/L (0.5-2.2)
--- NOTE | 2019-12-06 20:00 | ED_ITS ---
HPI - General Adult General: Chief complaint: General Medical Stated complaint: SOB/FEVER Time Seen by Provider: 12/06/19 19:11 History of Present Illness: HPI narrative: Amanda aH is a nice 64-year-old female who comes in stating that she has had a cough and been short of breath since this afternoon. She had a subjective fever but no measured fever. She denies any chest pain. She states that she just feels achy and weak all over. She did get a full course of dialysis today. She denies any headache, sore throat, loss of sense of smell or other complaints. Associated symptoms: Reports dyspnea; Deny chest pain, confusion, diaphoresis, headache(s), malaise, nausea, rash, palpitations, syncope or vomiting Review of Systems General: Reports: other (negative unless marked) Const: Reports: fever (Subjective) and body aches; Denies: chills, fatigue, malaise or diaphoresis Eyes: Denies: change in vision or blurry vision ENMT: Denies: throat pain, painful swallowing, hoarseness, ear pain, ear discharge, Change in hearing or nasal discharge Card: Denies: chest pain, palpitations, irregular heart rhythm, syncope, pre- syncope, shortness of breath on exertion or shortness of breath when lying down Resp: Reports: shortness of breath and productive cough; Denies: wheezing, coughing up blood or chest congestion GI: Denies: abdominal pain, nausea, vomiting, vomiting blood, coffee grounds in vomit, diarrhea, constipation, cramping, blood in stool or black tarry stool : Denies: flank pain, painful urination, urinary frequency, urinary urgency, decreased urine ouput, urinary incontinence or blood in urine Musc: Denies: neck pain, back pain, extremity pain, extremity swelling, joint pain, joint swelling, joint warmth or joint stiffness Skin/Breast: Denies: rash, skin tenderness or yellow skin Neuro: Denies: headache, numbness in extremities, weakness in extremities, changes in sensation, lack of coordination, difficulty walking, dizziness, vertigo or confusion Endo: Denies: excessive thirst, tired all the time, cold intolerance, excessive sweating, flushing or hot flashes Hussein/Lymph: Denies: easy bruising, easy bleeding, petechiae or enlarged lymph nodes All/Imm: Denies: hives, throat swelling, tongue swelling, facial swelling or acute wheezing PFSH ED PFSH: Medical History Anemia Anticoagulation adequate with anticoagulant therapy Atrial fibrillation Carotid artery disease Chronic bronchitis Chronic diarrhea Chronic pain disorder Coronary artery disease Diabetes Diastolic heart failure Emphysema of lung End-stage renal disease on hemodialysis Fibromyalgia GERD (gastroesophageal reflux disease) Hypertension Elevated but stable Hypothyroidism Irritable bowel syndrome Sleep apnea Venous insufficiency Surgical History AVF (arteriovenous fistula) History of appendectomy History of cholecystectomy History of common carotid artery stent placement S/P hemodialysis catheter insertion Stented coronary artery PCI to mid LAD in December 2018 Family History Other CAD (coronary artery disease) Social History Smoking and tobacco status: former smoker Quit status (tobacco): has quit using tobacco Year quit tobacco: 2009 Second hand smoke exposure: Yes Smoking risk assessment/counseling performed?: No Alcohol intake: never Physical Exam Const: COMMON NORMALS: no apparent distress, oriented x3, no limitations, healthy appearing and well nourished EXAM LIMITATIONS: no altered mental status GENERAL APPEARANCE: cooperative, well kempt and well developed ORIENTATION/CONSCIOUSNESS: Yes awake HENMT: COMMON NORMALS: normocephalic, head/scalp atraumatic, hearing grossly normal bilaterally, external ears normal, EAC's normal, external nose normal and moist oral mucous membranes HEAD & SCALP: normal to inspection, normocephalic and atraumatic FACE & SINUS: normal facial exam and face symmetric NOSE: external nose normal and nares normal EXTERNAL EAR: Yes external ears normal EXTERNAL AUDITORY CANAL: EAC's normal MOUTH: oral and palatal mucosa normal and tongue normal Eye: COMMON NORMALS: PERRL, EOMs intact bilaterally, conjunctivae normal and no scleral icterus GENERAL EYE: normal appearance of both eyes and normal light reflex CONJUNCTIVA: Yes conjunctivae normal SCLERA: sclerae normal CORNEA: Yes corneas normal PUPIL: Yes PERRL DIRECT OPHTHALMOSCOPY: Yes normal light reflex Neck/C-Spine: COMMON NORMALS: full ROM, no lymphadenopathy, supple, no meningeal signs and no JVD GENERAL: Yes normal visual inspection and Yes trachea midline CERVICAL SPINE: Yes cervical ROM normal Chest: COMMONS NORMALS: inspection of chest normal and palpation of chest normal Resp: COMMON NORMALS: normal respiratory effort, no retractions, no use of accessory muscles and clear to auscultation bilaterally EFFORT & INSPECTION: Yes able to speak in complete sentences AUSCULTATION: clear to auscultation bilaterally Cardio: COMMON NORMALS: no JVD, regular rate, regular rhythm, S1 normal heart sound, S2 normal heart sound, no gallops, no clicks, no murmurs and no rub JUGULAR VENOUS DISTENTION: no JVD RATE: regular rate RHYTHM: regular rhythm HEART SOUNDS: S1 normal and S2 normal GI: COMMON NORMALS: soft to palpation, non-tender, no hepatosplenomegaly and no masses INSPECTION: Yes normal to inspection PALPATION: Yes soft and Yes no hepatosplenomegaly : COMMON NORMALS: Yes no CVA tenderness BLADDER/KIDNEY EXAM: Yes no CVA tenderness Back/Pelvis: COMMON NORMALS: no CVA tenderness, thoracic and lumbar spine normal to inspection, no thoracic nor lumbar tenderness and thoraco-lumbar ROM normal Extremity: COMMON NORMALS: normal to inspection, full ROM, normal capillary refill, no joint enlargement, no clubbing, cyanosis or edema and no calf tenderness Neuro: COMMON NORMALS: oriented x3, CN's II-XII intact bilaterally, moves all extremities, no focal motor deficits and no sensory deficits noted MENINGEAL SIGNS: Yes no meningeal signs Psych: COMMON NORMALS: mental status grossly normal, thought process normal, cooperative, affect normal, speech normal and activity/motor behavior normal APPEARANCE: Yes well kempt SPEECH: Yes normal speech THOUGHT PROCESS: normal thought process Skin: COMMON NORMALS: no rashes or lesions noted, skin turgor normal, no jaundice, no petechiae and no mottling GENERAL SKIN EXAM: no rashes or lesions noted and turgor normal Course Vital Signs: Vital signs: Vital Signs Temperature 98.8 F 12/06/19 19:11 Pulse Rate 81 12/06/19 20:39 Respiratory Rate 20 H 12/06/19 20:39 Blood Pressure 177/97 12/06/19 19:11 Pulse Oximetry 97 12/06/19 20:39 MDM - General Adult MDM Narrative: Medical decision making narrative: Amanda is a very nice 64-year-old female who comes in with mild shortness of breath and cough productive of yellow sputum. She is not had a fever. Her cough is a change from her baseline and she is wheezing mildly on exam. After inhalers her wheezing has resolved. She is having no chest pain. Her EKG show baseline changes but no other acute findings. Her troponin is elevated but consistent with her normal and her end-stage renal disease. She declines to stay for any further cardiac evaluation would like to go home. I will send a COVID-19 screening test on her but at this time I am not highly suspicious for this but will do this just for her surveillance. Patient agrees to return should her symptoms worsen but at this time she is feeling better and would like to go home. I did discuss the patient's elevated potassium with Dr. Lay Tavarez the tele-director of communications. She states that the patient only has mild hyperkalemia and since she is not volume overloaded she can just receive some Kayexalate this evening and continue her with her normal dialysis schedule on Friday, Friday and Friday. Lab Data: Labs: Lab Results 12/06/19 12/06/19 12/06/19 Range/Units 19:20 19:20 19:20 WBC 4.9 (4.0-10.0) 10^3/ uL RBC 3.41 L (4.1-5.3) 10^6/u L Hgb 10.4 L (11.5-15.3) g/dL Hct 34.3 L (37.0-47.0) % MCV 100.6 H (81-99) fL MCH 30.5 (28.0-34.0) pg MCHC 30.3 (30.0-36.0) g/dL RDW 17.0 H (12.1-15.1) % Plt Count 172 (130-400) 10^3/c mm MPV 11.1 H (7.4-10.4) fL Neut % (Auto) 70.8 % Lymph % (Auto) 18.2 % [place] % (Auto) 8.0 % Eos % (Auto) 2.0 % Baso % (Auto) 0.4 % Neut # (Auto) 3.5 (1.8-7.7) 10^3/u L Lymph # (Auto) 0.9 (0.8-4.8) 10^3/u L [place] # (Auto) 0.4 (0.2-0.9) 10^3/u L Eos # (Auto) 0.1 (0.0-0.8) 10^3/u L Baso # (Auto) 0.0 (0.0-0.1) 10^3/u L Nucleated RBC % (a uto) 0 % Nucleated RBCs # 0.0 /100WBC Specimen Type Sample Site ABG pH (7.35-7.45) ABG pCO2 (35-45) mmHg ABG pO2 (80.0-100.0) mmH g ABG HCO3 (22-26) mmol/L ABG Base Excess (-2.0-2.0) mmol/ L Dustin Test Hematocrit (37-47) % O2 Delivery Device O2 Liters/Min % Senior Asp Net Developer ID Sodium 143 (136-145) mmol/L Potassium 5.4 H (3.5-5.1) mmol/L Chloride 94 L (98-107) mmol/L Carbon Dioxide 35 H (22-29) mmol/L Anion Gap 19.4 H (5-19) BUN 25 H (8-23) mg/dL Creatinine 6.1 H* (0.5-0.9) mg/dL GFR Calculation 6.9 L (90-130) mL/min Glucose 95 (65-115) mg/dL Calculated Osmolal ity 293 (285-295) mOsm/k g Lactate (0.5-2.2) mmol/L Calcium 9.0 (8.5-10.5) mg/dL Total Bilirubin 0.8 (0.15-1.2) mg/dL AST 21 (0-32) U/L ALT 16 (0-33) U/L Alkaline Phosphata se 108 H (35-105) IU/L Troponin T Baselin e 106 H* (0-10) ng/mL Total Protein 7.2 (6.6-8.7) g/dL Albumin 4.1 (3.5-5.2) g/dL Globulin 3.1 (1.3-4.6) g/dL 12/06/19 12/06/19 Range/Units 19:22 19:28 WBC (4.0-10.0) 10^3/ uL RBC (4.1-5.3) 10^6/u L Hgb (11.5-15.3) g/dL Hct (37.0-47.0) % MCV (81-99) fL MCH (28.0-34.0) pg MCHC (30.0-36.0) g/dL RDW (12.1-15.1) % Plt Count (130-400) 10^3/c mm MPV (7.4-10.4) fL Neut % (Auto) % Lymph % (Auto) % [place] % (Auto) % Eos % (Auto) % Baso % (Auto) % Neut # (Auto) (1.8-7.7) 10^3/u L Lymph # (Auto) (0.8-4.8) 10^3/u L [place] # (Auto) (0.2-0.9) 10^3/u L Eos # (Auto) (0.0-0.8) 10^3/u L Baso # (Auto) (0.0-0.1) 10^3/u L Nucleated RBC % (a uto) % Nucleated RBCs # /100WBC Specimen Type Arterial Sample Site Radial, left ABG pH 7.46 H (7.35-7.45) ABG pCO2 50.9 H (35-45) mmHg ABG pO2 93.1 (80.0-100.0) mmH g ABG HCO3 36.1 H (22-26) mmol/L ABG Base Excess 10.9 H (-2.0-2.0) mmol/ L Dustin Test Pos Hematocrit 30.1 L (37-47) % O2 Delivery Device Nc O2 Liters/Min 2.0 % Senior Asp Net Developer ID [email or web address] Sodium (136-145) mmol/L Potassium (3.5-5.1) mmol/L Chloride (98-107) mmol/L Carbon Dioxide (22-29) mmol/L Anion Gap (5-19) BUN (8-23) mg/dL Creatinine (0.5-0.9) mg/dL GFR Calculation (90-130) mL/min Glucose (65-115) mg/dL Calculated Osmolal ity (285-295) mOsm/k g Lactate 1.2 (0.5-2.2) mmol/L Calcium (8.5-10.5) mg/dL Total Bilirubin (0.15-1.2) mg/dL AST (0-32) U/L ALT (0-33) U/L Alkaline Phosphata se (35-105) IU/L Troponin T Baselin e (0-10) ng/mL Total Protein (6.6-8.7) g/dL Albumin (3.5-5.2) g/dL Globulin (1.3-4.6) g/dL Imaging Data^: CXR: My impression: Mild interstitial prominence, similar with previous. No acute cardiopulmonary findings. EKG Data^: EKG 1: Attestation: I personally reviewed and interpreted this EKG as follows: EKG interpretation date: 12/06/19 EKG interpretation time: 19:33 Interpretation: Normal sinus rhythm at 86 beats a minute, nonspecific ST and T wave changes, no blocks, normal intervals. Similar to previous. Computer generated interpretation: Chest X-Ray 12/06/19 19:07 IMPRESSION: Moderate cardiomegaly for projection. Low lung volumes Otherwise No acute findings. Discharge Plan Discharge Patient Disposition: Home, Self-Care Clinical Impression: COPD with acute exacerbation Condition: Stable Prescriptions: New doxycycline hyclate 100 mg capsule 100 mg PO BID 10 Days Qty: 20 RF: 0 prednisone 10 mg tablets,dose pack See Rx Instructions .ROUTE .COMPLEX Qty: 21 RF: 0 No Action Eliquis 2.5 mg tablet 2.5 mg PO BID RF: 0 meloxicam 7.5 mg tablet 7.5 mg PO DAILY RF: 0 Hold Instructions: Resume on 11/09/19. diphenoxylate-atropine [Lomotil] 2.5-0.025 mg tablet 2 tab PO QID RF: 0 losartan 100 mg tablet 100 mg PO DAILY RF: 0 levothyroxine [Synthroid] 25 mcg tablet 100 mcg PO DAILY RF: 0 trazodone 50 mg tablet See Rx Instructions PO .HS PRN (Reason: sleep) Qty: 60 RF: 1 atorvastatin 80 mg tablet 80 mg PO DAILY RF: 0 clopidogrel 75 mg tablet 75 mg PO DAILY RF: 0 minoxidil 2.5 mg tablet 2.5 mg PO DAILY RF: 0 famotidine 20 mg Tablet 20 mg PO DAILY RF: 0 Flonase Allergy Relief 50 mcg/actuation [place],Suspension 1 spray INTRANASAL DAILY RF: 0 aspirin [Aspir-81] 81 mg Tablet,Delayed Release (Dr/Ec) 81 mg PO DAILY RF: 0 hydrocodone-acetaminophen [[place]] 5-325 mg Tablet 1 tab PO QID PRN (Reason: Pain) RF: 0 isosorbide mononitrate 30 mg tablet extended release 24 hr 30 mg PO DAILY RF: 0 lidocaine-prilocaine 2.5-2.5 % cream See Rx Instructions .ROUTE .COMPLEX RF: 0 doxazosin 8 mg Tablet 8 mg PO DAILY RF: 0 nitroglycerin [Nitrostat] 0.4 mg Tablet, Sublingual 0.4 mg SUBLINGUAL Q5M PRN (Reason: Chest Pain) RF: 0 montelukast [Singulair] 10 mg Tablet 10 mg PO DAILY RF: 0 gabapentin 100 mg Capsule 100 mg PO BID RF: 0 albuterol sulfate [ProAir HFA] 90 mcg/actuation Hfa Aerosol Inhaler 2 puff INHALATION Q4H PRN (Reason: Shortness Of Breath) RF: 0 insulin lispro [Humalog KwikPen Insulin] 100 unit/mL insulin pen See Rx Instructions .ROUTE .COMPLEX RF: 0 melatonin 10 mg Tablet 10 mg PO BEDTIME PRN (Reason: Sleep) RF: 0 metoprolol succinate 25 mg tablet extended release 24 hr 50 mg PO DAILY RF: 0 Discharge Orders: Discharge Order (Routine); Ordered 12/06/19 Ordered By: Em Kapadia Referrals: [facility] [Other] Laisha Campoverde [Primary Care Provider] - 1-3 days Discharge Diet: Advance as tolerated Patient Instructions: Chronic Obstructive Pulmonary Disease (ED) Activity Restrictions/Additional Instructions: Please return to the ER immediately for any of the signs or symptoms listed on your discharge instruction sheets, worsening/changing of your symptoms, you are not getting better as quickly as expected, or for ANY other cause or concerns. Return to the ER for increased shortness of breath, new onset of fever, new onset of chest pain, or for any other cause for concern. Coding Level of Care Code ED Animal Shelter Worker for [place] Fwd Exam Comprehensive
[2019-12-06 20:01] LABS: Alanine Aminotransferase 16 U/L (0-33); Albumin Level 4.1 g/dL (3.5-5.2); Alkaline Phosphatase 108 IU/L (35-105); Anion Gap 19.4 (5-19); Aspartate Amino Transferase 21 U/L (0-32); Blood Urea Nitrogen 25 mg/dL (8-23); Carbon Dioxide 35 mmol/L (22-29); Chloride 94 mmol/L (98-107); Globulin 3.1 g/dL (1.3-4.6); Glomerular Filtration Rate 6.9 mL/min (90-130); Glucose 95 mg/dL (65-115); Osmolality Calculated 293 mOsm/kg (285-295); Potassium 5.4 mmol/L (3.5-5.1); Sodium 143 mmol/L (136-145); Total Bilirubin 0.8 mg/dL (0.15-1.2); Total Protein 7.2 g/dL (6.6-8.7)
[2019-12-06 20:35] VITALS: PULSE 85; RESP 18; O2SAT 98
[2019-12-06] MEDS: albuterol 8 gm MDI 4 PUFF INHALATION (20:35)
[2019-12-06 20:39] VITALS: PULSE 81; RESP 20; O2SAT 97
[2019-12-06 20:42] LABS: Troponin(5th) Baseline 106 ng/mL (0-10)
[2019-12-06] MEDS: doxycycline 100 mg Tablet PO (21:02)
[2019-12-06] MEDS: predniSONE 20 mg Tablet 60 MG PO (21:02)
[2019-12-06 21:10] VITALS: BP 162/69; PULSE 77; RESP 18; O2SAT 96
[2019-12-06 21:37] LABS: NT Pro B Type Natriuretic Pept 35000 pg/mL (0-125)
--- NOTE | 2019-12-06 21:54 | PC.NURSE ---
Patient refused to drink Kayexalate. Discussed with patient the reason for the medication & the risks of not taking this medication. PAtient stated she understood and did not care, she was not drinking it.
[2019-12-08 19:41] LABS: Quest SARS-CoV-2 RNA NOT DETECTED (NOT DETECTED)
--- NOTE | 2019-12-09 08:47 | PC.NURSE ---
called pt to let her know that her covid test was negative
== END 2019-12-06 21:55 | disposition home or self-care (01) ==
PROVIDERS: Emergency Medicine; Emergency Provider Emergency Medicine; PCP Nurse Practitioner Family
DX: J44.1 Chronic obstructive pulmonary disease with (acute) exacerbation (principal); Z79.01 Long term (current) use of anticoagulants; Z79.02 Long term (current) use of antithrombotics/antiplatelets; Z79.82 Long term (current) use of aspirin; Z79.4 Long term (current) use of insulin; I48.91 Unspecified atrial fibrillation; I25.10 Atherosclerotic heart disease of native coronary artery without angina pectoris; I13.2 Hypertensive heart and chronic kidney disease with heart failure and with stage 5 chronic kidney disease, or end stage renal disease; E11.22 Type 2 diabetes mellitus with diabetic chronic kidney disease; N18.6 End stage renal disease; Z99.2 Dependence on renal dialysis; K21.9 Gastro-esophageal reflux disease without esophagitis; E03.9 Hypothyroidism, unspecified; Z87.891 Personal history of nicotine dependence
CPT/HCPCS: 12345; 36600; 71045; 80053; 82803; 83605; 83880; 84484; 85025; 87040; 87205; 87635; 94640; 99282; 99284; J3535; J7512

== ENCOUNTER 2019-12-23 17:55 | Emergency (ER) | payer MEDICARE, MEDICAID, SELFPAY ==
[2019-12-23] VITALS (17 sets, daily range): BP systolic 126–179; BP diastolic 62–147; PULSE 88–150; RESP 16–26; TEMP 36.8; O2SAT 91–97; BMI 38.3
--- NOTE | 2019-12-23 18:05 | ECG_ITS ---
Measurements Intervals Elizabeth Rate: 92 P: 90 FL: 227 QRS: -60 QRSD: 197 T: 96 QT: 428 QTc: 531 SINUS RHYTHM WITH FIRST DEGREE AV BLOCK LEFT AXIS DEVIATION [QRS AXIS < -30] LEFT BUNDLE BRANCH BLOCK [120+ ms QRS DURATION, 80+ ms Q/S IN V1/V2, 85+ ms R IN I/aVL/V5/V6] Compared to ECG 11/04/2019 13:31:39 First degree AV block now present Left-axis deviation now present Left bundle-branch block now present Myocardial infarct finding no longer present Electronically Signed On 12-24-2019 13:04:40 CDT by Karan Allison M.D. [email or web address]
--- NOTE | 2019-12-23 18:05 | XR_ITS ---
WS: [id number] PORTABLE CHEST HISTORY: sob COMPARISON: 12/06/2019 Mild diffuse pulmonary congestion. No focal pneumonia. No pleural effusion or pneumothorax. Cardiac size: Mildly enlarged cardiac silhouette. Mediastinum/Aorta: Prominent mediastinum similar to prior studies with partially calcified aorta. No osseous abnormality seen. XR/XR chest 1V portable [id number] IMPRESSION: Mild pulmonary venous congestion and cardiomegaly. No pneumonia.
--- NOTE | 2019-12-23 18:06 | ED_ITS ---
HPI - SOB/Dyspnea General: Chief Complaint: Shortness of Breath/Dyspnea Stated Complaint: GENERAL WEAKNESS Time Seen by Provider: 12/23/19 18:04 Source: patient and EMS Mode of arrival: EMS Limitations: no limitations History of Present Illness: HPI Narrative: 64-year-old female with a history of COPD along with dialysis. Patient states she has not received dialysis all week and has had increasing shortness of breath. She states she uses oxygen as needed but has not had to wear 2 L at all times over the last 2 days. She denies any cough or fever. She states she does feel that she is gained weight in her extremities. MD elicited complaint: shortness of breath Pertinent past history: COPD and congestive heart failure Onset (ago): day(s) Associated symptoms: Deny abdominal pain, chest pain, nausea or vomiting Review of Systems Const: Reports: malaise Eyes: Denies: blurry vision or eye discomfort ENMT: Denies: throat pain or dental pain Card: Denies: chest pain Resp: Reports: dyspnea GI: Denies: abdominal pain, nausea, vomiting or diarrhea : Denies: dysuria Musc: Denies: neck pain or back pain Skin/Breast: Denies: rash Neuro: Denies: headache(s) Psych: Denies: depression Hussein/Lymph: Denies: easy bruising All/Imm: Denies: urticaria PFSH ED PFSH: Medical History Anemia Anticoagulation adequate with anticoagulant therapy Atrial fibrillation Carotid artery disease Chronic bronchitis Chronic diarrhea Chronic pain disorder Coronary artery disease Diabetes Diastolic heart failure Emphysema of lung End-stage renal disease on hemodialysis Fibromyalgia GERD (gastroesophageal reflux disease) Hypertension Elevated but stable Hypothyroidism Irritable bowel syndrome Sleep apnea Venous insufficiency Surgical History AVF (arteriovenous fistula) History of appendectomy History of cholecystectomy History of common carotid artery stent placement S/P hemodialysis catheter insertion Stented coronary artery PCI to mid LAD in December 2018 Family History Other CAD (coronary artery disease) Social History Smoking and tobacco status: former smoker Quit status (tobacco): has quit using tobacco Year quit tobacco: 2009 Second hand smoke exposure: Yes Smoking risk assessment/counseling performed?: No Alcohol intake: never Physical Exam Const: COMMON NORMALS: no acute distress, patient oriented x3 and healthy appearing HENMT: COMMON NORMALS: normocephalic and atraumatic HEAD & SCALP: normocephalic and atraumatic Eye: COMMON NORMALS: Equal, round and reactive pupils present and EOMs intact bilaterally PUPIL: Yes Equal, round and reactive pupils present Neck/C-Spine: COMMON NORMALS: full ROM and supple Chest: COMMONS NORMALS: normal inspection of the chest and normal palpation of entire chest wall Resp: COMMON NORMALS: normal respiratory effort, No retractions, No use of accessory muscles and clear to auscultation bilaterally AUSCULTATION: clear to auscultation bilaterally and crackles Cardio: COMMON NORMALS: regular rate, regular rhythm and No murmurs present (Cardio) RATE: regular rate RHYTHM: regular rhythm GI: COMMON NORMALS: Normal to inspection, nondistended, normoactive bowel sounds present, Soft to palpation, non-tender and no masses PALPATION: Yes Soft to palpation Extremity: COMMON NORMALS: normal to inspection and full ROM OTHER: 2+ edema lateral ankles Neuro: COMMON NORMALS: patient oriented x3, moves all extremities and no focal motor deficits Psych: COMMON NORMALS: mental status grossly normal, Normal thought process present and cooperative THOUGHT PROCESS: Normal thought process present Skin: COMMON NORMALS: no rashes or lesions noted and no wounds GENERAL SKIN EXAM: no rashes or lesions noted Course Vital Signs: Vital signs: Vital Signs Temperature 98.3 F 12/23/19 17:57 Pulse Rate 96 12/23/19 20:29 Respiratory Rate 18 12/23/19 20:28 Blood Pressure 163/86 12/23/19 18:59 Pulse Oximetry 96 12/23/19 20:28 MDM - SOB/Dyspnea MDM Narrative: Medical decision making narrative: Patient presents here with hyperkalemia along with fluid overload likely due to missing dialysis. Patient given insulin here along with calcium. She has no EKG findings. [facility] as we have no ICU beds. Lab Data: Labs: Lab Results 12/23/19 12/23/19 12/23/19 Range/Units 18:24 18:24 18:24 WBC 8.5 (4.0-10.0) 10^3/ uL RBC 3.27 L (4.1-5.3) 10^6/u L Hgb 9.8 L (11.5-15.3) g/dL Hct 31.7 L (37.0-47.0) % MCV 96.9 (81-99) fL MCH 30.0 (28.0-34.0) pg MCHC 30.9 (30.0-36.0) g/dL RDW 14.6 (12.1-15.1) % Plt Count 134 (130-400) 10^3/c mm MPV 11.0 H (7.4-10.4) fL Neut % (Auto) 83.2 % Lymph % (Auto) 8.3 % [place] % (Auto) 7.1 % Eos % (Auto) 0.4 % Baso % (Auto) 0.2 % Neut # (Auto) 7.1 (1.8-7.7) 10^3/u L Lymph # (Auto) 0.7 L (0.8-4.8) 10^3/u L [place] # (Auto) 0.6 (0.2-0.9) 10^3/u L Eos # (Auto) 0.0 (0.0-0.8) 10^3/u L Baso # (Auto) 0.0 (0.0-0.1) 10^3/u L Nucleated RBC % (a uto) 0 % Nucleated RBCs # 0.0 /100WBC PT 16.40 H (10.5-13.3) SECO NDS INR 1.28 H (0.8-1.2) Sodium 130 L (136-145) mmol/L Potassium 8.6 H* (3.5-5.1) mmol/L Chloride 87 L (98-107) mmol/L Carbon Dioxide 15 L (22-29) mmol/L Anion Gap 36.6 H (5-19) BUN 106 H* D (8-23) mg/dL Creatinine 16.4 H* (0.5-0.9) mg/dL GFR Calculation 2.2 L (90-130) mL/min Glucose 78 (65-115) mg/dL Calculated Osmolal ity 270 L (285-295) mOsm/k g Calcium 8.4 L (8.5-10.5) mg/dL Total Bilirubin 0.4 (0.15-1.2) mg/dL AST 20 (0-32) U/L ALT 13 (0-33) U/L Alkaline Phosphata se 100 (35-105) IU/L Troponin T Baselin e (0-10) ng/mL NT-Pro-B Natriuret Pep [id number] H (0-125) pg/mL Total Protein 7.4 (6.6-8.7) g/dL Albumin 4.3 (3.5-5.2) g/dL Globulin 3.1 (1.3-4.6) g/dL 12/23/19 Range/Units 18:24 WBC (4.0-10.0) 10^3/ uL RBC (4.1-5.3) 10^6/u L Hgb (11.5-15.3) g/dL Hct (37.0-47.0) % MCV (81-99) fL MCH (28.0-34.0) pg MCHC (30.0-36.0) g/dL RDW (12.1-15.1) % Plt Count (130-400) 10^3/c mm MPV (7.4-10.4) fL Neut % (Auto) % Lymph % (Auto) % [place] % (Auto) % Eos % (Auto) % Baso % (Auto) % Neut # (Auto) (1.8-7.7) 10^3/u L Lymph # (Auto) (0.8-4.8) 10^3/u L [place] # (Auto) (0.2-0.9) 10^3/u L Eos # (Auto) (0.0-0.8) 10^3/u L Baso # (Auto) (0.0-0.1) 10^3/u L Nucleated RBC % (a uto) % Nucleated RBCs # /100WBC PT (10.5-13.3) SECO NDS INR (0.8-1.2) Sodium (136-145) mmol/L Potassium (3.5-5.1) mmol/L Chloride (98-107) mmol/L Carbon Dioxide (22-29) mmol/L Anion Gap (5-19) BUN (8-23) mg/dL Creatinine (0.5-0.9) mg/dL GFR Calculation (90-130) mL/min Glucose (65-115) mg/dL Calculated Osmolal ity (285-295) mOsm/k g Calcium (8.5-10.5) mg/dL Total Bilirubin (0.15-1.2) mg/dL AST (0-32) U/L ALT (0-33) U/L Alkaline Phosphata se (35-105) IU/L Troponin T Baselin e 183 H* (0-10) ng/mL NT-Pro-B Natriuret Pep (0-125) pg/mL Total Protein (6.6-8.7) g/dL Albumin (3.5-5.2) g/dL Globulin (1.3-4.6) g/dL Imaging Data^: CXR: Attestation: I personally reviewed and interpreted this imaging study as follows: My impression: pulmonary edema EKG Data^: EKG 1: Attestation: I personally reviewed and interpreted this EKG as follows: EKG Interpretation Date: 12/23/19 EKG interpretation time: 18:33 Interpretation: nsr hr 97 qrs [address] or t wave abnormality EKG 2: Attestation: I personally reviewed and interpreted this EKG as follows: EKG Interpretation Date: 12/23/19 EKG interpretation time: 20:17 Interpretation: nsr hr 92 no acute change Critical Care Time Critical Care Time: Critical Care Time: Yes Total Critical Care Time: 35 Attestation: This case had a high probability of a clinically significant, sudden, or life threatening deterioration of this patient's condition which required my full and direct attention, intervention and personal management. Discharge Plan Discharge Patient Disposition: Admitted As Inpatient Clinical Impression: Acute hyperkalemia, End-stage renal disease on hemodialysis Condition: Stable Referrals: [facility] [Other] Laisha Campoverde [Primary Care Provider] - Coding Level of Care Code ED Director Private [employer] Therapy Agency for [employer] Fwd Exam Comprehensive
[2019-12-23 18:32] LABS: Basophils % 0.2 %; Eosinophils % 0.4 %; Hematocrit 31.7 % (37.0-47.0); Hemoglobin 9.8 g/dL (11.5-15.3); Lymphocytes # 0.7 10^3/uL (0.8-4.8); Lymphocytes % 8.3 %; Mean Corpuscular HGB Conc 30.9 g/dL (30.0-36.0); Mean Corpuscular Volume 96.9 fL (81-99); Monocytes # 0.6 10^3/uL (0.2-0.9); Monocytes % 7.1 %; Neutrophils # 7.1 10^3/uL (1.8-7.7); Neutrophils % 83.2 %; Nucleated Red Blood Cells % 0 %; Platelet Count 134 10^3/cmm (130-400); Red Blood Count 3.27 10^6/uL (4.1-5.3); Red Cell Distribution Width 14.6 % (12.1-15.1); White Blood Count 8.5 10^3/uL (4.0-10.0)
[2019-12-23 18:47] LABS: INR 1.28 (0.8-1.2)
[2019-12-23 19:18] LABS: Troponin(5th) Baseline 183 ng/mL (0-10)
--- NOTE | 2019-12-23 19:19 | PC.NURSE ---
Received critical troponin 183 from lab, notified Dr. Prakash, no orders at this time
[2019-12-23] MEDS: ipratropium-albuterol 3 mL Neb INHALATION (19:20)
[2019-12-23 19:38] LABS: Alanine Aminotransferase 13 U/L (0-33); Albumin Level 4.3 g/dL (3.5-5.2); Alkaline Phosphatase 100 IU/L (35-105); Anion Gap 36.6 (5-19); Aspartate Amino Transferase 20 U/L (0-32); Calcium 8.4 mg/dL (8.5-10.5); Carbon Dioxide 15 mmol/L (22-29); Chloride 87 mmol/L (98-107); Creatinine Clr Calc Pharmacy 4.3367; Globulin 3.1 g/dL (1.3-4.6); Glomerular Filtration Rate 2.2 mL/min (90-130); Glucose 78 mg/dL (65-115); Osmolality Calculated 270 mOsm/kg (285-295); Sodium 130 mmol/L (136-145); Total Bilirubin 0.4 mg/dL (0.15-1.2); Total Protein 7.4 g/dL (6.6-8.7)
[2019-12-23 20:04] LABS: Blood Urea Nitrogen 106 mg/dL (8-23); Potassium 8.6 mmol/L (3.5-5.1)
--- NOTE | 2019-12-23 20:05 | ECG_ITS ---
Measurements Intervals [place] Rate: 97 P: 82 MI: 214 QRS: -62 QRSD: 173 T: 101 QT: 396 QTc: 504 SINUS RHYTHM WITH FIRST DEGREE AV BLOCK WITH OCCASIONAL VENTRICULAR PREMATURE COMPLEXES LEFT AXIS DEVIATION [QRS AXIS < -30] LEFT BUNDLE BRANCH BLOCK [120+ ms QRS DURATION, 80+ ms Q/S IN V1/V2, 85+ ms R IN I/aVL/V5/V6] Compared to ECG 11/04/2019 13:31:39 Ventricular premature complex(es) now present First degree AV block now present Left-axis deviation now present Left bundle-branch block now present Myocardial infarct finding no longer present Electronically Signed On 12-24-2019 13:06:49 CDT by Karan Allison M.D. [id number]
--- NOTE | 2019-12-23 20:12 | PC.NURSE ---
EKG done at 2009 and shown to ER doctor
[2019-12-23 20:28] LABS: NT Pro B Type Natriuretic Pept 70000 pg/mL (0-125)
[2019-12-23] MEDS: insulin regular-human 100 units/1 mL 10 UNIT IVP (21:05)
[2019-12-23] MEDS: calcium gluconate 0.1 gm/mL 10% SDV 10mL 1 GM IVP (21:06)
[2019-12-23] MEDS: dextrose 50% syringe 50 mL IVP (21:07)
[2019-12-23] MEDS: ondansetron 2 mg/ML SDV 2 mL 4 MG IVP (21:34)
[2019-12-23] MEDS: diphenhydrAMINE 50 mg/mL SDV 1mL IVP (22:49)
[2019-12-23] MEDS: LORazepam 2 mg/mL INJ 1 mL 0.5 MG IVP (22:50)
== END 2019-12-23 23:33 | disposition admitted as inpatient to this hospital (09) ==
PROVIDERS: Emergency Provider Emergency Medicine; PCP Nurse Practitioner Family
DX: I13.2 Hypertensive heart and chronic kidney disease with heart failure and with stage 5 chronic kidney disease, or end stage renal disease (principal); N18.6 End stage renal disease; I50.30 Unspecified diastolic (congestive) heart failure; E87.5 Hyperkalemia; I12.0 Hypertensive chronic kidney disease with stage 5 chronic kidney disease or end stage renal disease; E11.22 Type 2 diabetes mellitus with diabetic chronic kidney disease; Z99.2 Dependence on renal dialysis; I48.91 Unspecified atrial fibrillation; I25.10 Atherosclerotic heart disease of native coronary artery without angina pectoris; Z87.891 Personal history of nicotine dependence
CPT/HCPCS: 12345; 36415; 71045; 80053; 83880; 84484; 85025; 85610; 93005; 94640; 96375; 99283; J0610; J1200; J1815; J2060; J2405; J2930; J7611

== ENCOUNTER 2020-01-16 15:05 | Emergency (ER) | payer MEDICARE, MEDICAID, SELFPAY ==
[2020-01-16 15:09] VITALS: BP 202/105; PULSE 91; RESP 15; TEMP 37; O2SAT 98; BMI 37.3
--- NOTE | 2020-01-16 15:31 | XRR_ITS ---
PROCEDURE INFORMATION: Exam: XR Chest, 1 View Exam date and time: 01/16/2020 3:33 PM Age: 64 years old Clinical indication: Chest pain; Prior surgery; Surgery type: Open heart TECHNIQUE: Imaging protocol: XR of the chest Views: 1 view. COMPARISON: CR XR chest 1V portable [id number] 12/23/2019 6:07 PM FINDINGS: Lungs: There is vascular congestion with cephalization of flow, interstitial edema and ground-glass opacities compatible with CHF. Bibasilar density is increased compared to the prior exam concerning for superimposed atelectasis versus mild pneumonic infiltrates. Pleural space: There are small pleural effusions. No pneumothorax. Heart/Mediastinum: The heart is enlarged. Sternotomy wires and mediastinal surgical clips are present, consistent with previous coronary arterial bypass grafting. Bones/joints: No acute abnormality. XR/XR chest 1V portable [id number] IMPRESSION: 1. There is vascular congestion with cephalization of flow, interstitial edema and ground-glass opacities compatible with CHF. 2. Bibasilar density is increased compared to the prior exam concerning for superimposed atelectasis versus mild pneumonic infiltrates.
--- NOTE | 2020-01-16 15:31 | CTR_ITS ---
PROCEDURE INFORMATION: Exam: CT Angiography Chest With Contrast Exam date and time: 01/16/2020 4:22 PM Age: 64 years old Clinical indication: Chest pain; Other: Central; Prior surgery; Surgery date: <1 month; Surgery type: 3xcabg; Patient HX: C/O cp while walking recent cabg dialysis PT; Additional info: Chest pain; Recent surgery TECHNIQUE: Imaging protocol: Computed tomographic angiography of the chest with intravenous contrast. 3D rendering: MIP and/or 3D reconstructed images were created by the technologist. Radiation optimization: All CT scans at this facility use at least one of these dose optimization techniques: automated exposure control; mA and/or kV adjustment per patient size (includes targeted exams where dose is matched to clinical indication); or iterative reconstruction. Contrast material: VISI 320; Contrast volume: 95 ml; Contrast route: 18G; COMPARISON: CR (CHEST, ) 01/16/2020 3:30 PM RADIATION DOSE METRICS: Total DLP: 575.84 mGy-cm FINDINGS: Pulmonary arteries: There is no pulmonary embolus. Great vessels off aortic arch: There is a left subclavian artery stent. Aorta: Unremarkable. No aortic aneurysm. No aortic dissection. Lungs: There is diffuse interstitial and ground-glass opacity with a tree-in-bud appearance in the lungs compatible with mild pneumonitis and/or interstitial CHF. There is left basilar atelectasis versus infiltrate. There is mild dependent atelectasis. Pleural space: There is a small to moderate size left pleural effusion. There is a trace right pleural effusion. Heart: Sternotomy wires and mediastinal surgical clips are present, consistent with previous coronary arterial bypass grafting. The heart is enlarged. There is a trace pericardial effusion. Mediastinal space: There is mild induration of the retrosternal fat compatible with recent surgery. Lymph nodes: There is a subcarinal lymph node with a short axis measurement of 2.1 cm. There is a lymph node in the as ago esophageal recess image 244 measuring 1.9 cm in short axis. Subcentimeter hilar lymph nodes are noted. Intraperitoneal space: No fluid collection or abscess. Bones/joints: There are moderate degenerative changes in the spine. No osteomyelitis of the sternum. Soft tissues: There is subcutaneous edema and subcutaneous emphysema compatible with probable recent sternotomy. There is induration of the subcutaneous and mesenteric fat compatible with mild anasarca type changes. CT/CT angio chest PE protcl [id number] IMPRESSION: 1. There is no pulmonary embolus. 2. There is diffuse interstitial and ground-glass opacity with a tree-in-bud appearance in the lungs compatible with mild pneumonitis and/or interstitial CHF. There is a small to moderate size left pleural effusion and trace right pleural effusion. 3. There is left basilar atelectasis versus infiltrate. 4. There is a satisfactory appearance of the recent postoperative median sternotomy. Radiation Dose CTDIVOL = (mGy): DLP = 575.84 (mGy-cm)
--- NOTE | 2020-01-16 15:31 | ECG_ITS ---
Measurements Intervals [place] Rate: 90 P: 66 [place]: 151 QRS: 35 QRSD: 80 T: 128 QT: 322 QTc: 396 SINUS RHYTHM ABNORMAL QRS-T ANGLE [QRS-T AXIS DIFFERENCE > 60] Compared to ECG 12/23/2019 20:17:11 First degree AV block no longer present Left-axis deviation no longer present Left bundle-branch block no longer present Electronically Signed On 01-16-2020 19:06:29 CDT by Lupe Bertrand M.D. [id number] f
--- NOTE | 2020-01-16 15:38 | W.ED.CHESTPA ---
HPI - Chest Pain General: Chief Complaint: Chest Pain Stated Complaint: CHEST PAIN Time Seen by Provider: 01/16/20 15:07 History of Present Illness: HPI narrative: Patient had CABG 8 days ago. States she has made little progress towards recovery. Patient had an episode of chest pain, shortness of breath, nausea, and diaphoresis shortly prior to presentation to the emergency room. MD complaint: chest pain, chest heaviness and chest discomfort Pertinent past history: coronary artery disease and CABG (8 days ago) Onset (ago): day(s) Timing of current episode: episodic Prior episodes: Yes Onset: during rest, during exertion and awoke with symptoms Pain location: substernal and left chest Review of Systems General: Reports: 10 or more systems reviewed and unremarkable except in HPI and below PFSH ED PFSH: Medical History Anemia Anticoagulation adequate with anticoagulant therapy Atrial fibrillation Carotid artery disease Chronic bronchitis Chronic diarrhea Chronic pain disorder Coronary artery disease Diabetes Diastolic heart failure Emphysema of lung End-stage renal disease on hemodialysis Fibromyalgia GERD (gastroesophageal reflux disease) Hypertension Elevated but stable Hypothyroidism Irritable bowel syndrome Sleep apnea Venous insufficiency Surgical History AVF (arteriovenous fistula) History of appendectomy History of cholecystectomy History of common carotid artery stent placement S/P hemodialysis catheter insertion Stented coronary artery PCI to mid LAD in December 2018 Family History Other CAD (coronary artery disease) Social History Smoking and tobacco status: current every day smoker Quit status (tobacco): has quit using tobacco Year quit tobacco: 2009 Second hand smoke exposure: Yes Smoking risk assessment/counseling performed?: No Alcohol intake: never Physical Exam Const: COMMON NORMALS: no acute distress, average body habitus, alert and well nourished EXAM LIMITATIONS: altered mental status GENERAL APPEARANCE: cooperative and well developed HENMT: COMMON NORMALS: normocephalic, atraumatic, hearing grossly normal bilaterally, external ears normal, EAC's normal, TM's normal bilaterally, Normal external nose present, Normal nasal mucous membranes and turbinates present, moist oral mucous membranes, oropharynx normal, dentition normal and gingiva normal HEAD & SCALP: normocephalic and atraumatic NOSE: Normal external nose present and Normal nasal mucous membranes and turbinates present EXTERNAL EAR: Yes external ears normal EXTERNAL AUDITORY CANAL: EAC's normal TYMPANIC MEMBRANE: TM's normal bilaterally Eye: COMMON NORMALS: Equal, round and reactive pupils present, EOMs intact bilaterally, conjunctivae normal, no scleral icterus, no papilledema, normal visual levi by confrontation and fundi normal bilaterally CONJUNCTIVA: Yes conjunctivae normal PUPIL: Yes Equal, round and reactive pupils present DIRECT OPHTHALMOSCOPY: Yes no papilledema and Yes fundi normal bilaterally Neck/C-Spine: COMMON NORMALS: full ROM, no lymphadenopathy, supple, no meningeal signs, no JVD, Thyroid normal and No carotid bruits THYROID: Thyroid normal Chest: COMMONS NORMALS: normal inspection of the chest and normal palpation of entire chest wall Resp: COMMON NORMALS: normal respiratory effort, No retractions, No use of accessory muscles, clear to auscultation bilaterally and percussion normal AUSCULTATION: clear to auscultation bilaterally PERCUSSION: percussion normal Cardio: COMMON NORMALS: no JVD, regular rate, regular rhythm, S1 normal heart sound present, S2 normal heart sound present, No gallops present (Cardio), No clicks present (Cardio), No murmurs present (Cardio), No rub (Cardio) and Peripheral pulses 2+ throughout RATE: regular rate RHYTHM: regular rhythm HEART SOUNDS: S1 normal heart sound present and S2 normal heart sound present PERIPHERAL PULSES: Peripheral pulses 2+ throughout GI: COMMON NORMALS: Normal to inspection, nondistended, normoactive bowel sounds present, Soft to palpation, non-tender, No hepatosplenomegaly present, no masses and no bruits PALPATION: Yes Soft to palpation and Yes No hepatosplenomegaly present : COMMON NORMALS: Yes normal external appearance Back/Pelvis: COMMON NORMALS: thoracic and lumbar spine normal to inspection, no thoracic nor lumbar tenderness, thoraco-lumbar ROM normal and straight leg raise negative bilaterally Extremity: COMMON NORMALS: normal to inspection, full ROM, capillary refill normal, no joint enlargement, no clubbing, cyanosis or edema, no calf tenderness and no pedal edema Neuro: SENSORIUM/ORIENTATION: Yes alert and Yes somnolent MENINGEAL SIGNS: Yes no meningeal signs Skin: COMMON NORMALS: no rashes or lesions noted, no wounds, no jaundice and no mottling GENERAL SKIN EXAM: no rashes or lesions noted Course Vital Signs: Vital signs: Vital Signs Temperature 98.6 F 01/16/20 15:09 Pulse Rate 76 01/16/20 17:05 Respiratory Rate 16 01/16/20 17:05 Blood Pressure 188/86 01/16/20 17:05 Pulse Oximetry 98 01/16/20 17:05 MDM - Chest Pain Lab Data: Labs: Lab Results 01/16/20 01/16/20 01/16/20 Range/Units 15:19 15:19 15:19 WBC Cancelled Corrected WBC Cancelled RBC Cancelled Hgb Cancelled Hct Cancelled MCV Cancelled MCH Cancelled MCHC Cancelled RDW Cancelled Plt Count Cancelled MPV Cancelled Gran % Cancelled Neut % (Auto) Cancelled Lymph % (Auto) Cancelled [place] % (Auto) Cancelled Eos % (Auto) Cancelled Baso % (Auto) Cancelled Neut # (Auto) Cancelled Lymph # (Auto) Cancelled [place] # (Auto) Cancelled Eos # (Auto) Cancelled Baso # (Auto) Cancelled Absolute Gran (aut o) Cancelled Nucleated RBC % (a uto) Cancelled Nucleated RBCs # Cancelled D-Dimer 7.01 H (0-0.59) ug/mIFE U Sodium 135 L (136-145) mmol/L Potassium 5.5 H (3.5-5.1) mmol/L Chloride 93 L (98-107) mmol/L Carbon Dioxide 28 (22-29) mmol/L Anion Gap 19.5 H (5-19) BUN 41 H (8-23) mg/dL Creatinine 7.3 H* (0.5-0.9) mg/dL GFR Calculation 5.6 L (90-130) mL/min Glucose 89 (65-115) mg/dL Calculated Osmolal ity 277 L (285-295) mOsm/k g Calcium 10.0 (8.5-10.5) mg/dL Total Bilirubin 0.4 (0.15-1.2) mg/dL AST 29 (0-32) U/L ALT 20 (0-33) U/L Alkaline Phosphata se 117 H (35-105) IU/L Troponin T Baselin e (0-10) ng/L NT-Pro-B Natriuret Pep > 66653 H (0-125) pg/mL Total Protein 7.1 (6.6-8.7) g/dL Albumin 3.6 (3.5-5.2) g/dL Globulin 3.5 (1.3-4.6) g/dL 01/16/20 01/16/20 Range/Units 15:19 15:19 WBC 11.2 H Corrected WBC RBC 2.82 L Hgb 8.3 L Hct 28.3 L MCV 100.4 H MCH 29.4 MCHC 29.3 L RDW 15.8 H Plt Count 390 MPV 10.1 Gran % Neut % (Auto) 76.4 Lymph % (Auto) 13.2 [place] % (Auto) 7.3 Eos % (Auto) 2.0 Baso % (Auto) 0.4 Neut # (Auto) 8.5 H Lymph # (Auto) 1.5 [place] # (Auto) 0.8 Eos # (Auto) 0.2 Baso # (Auto) 0.0 Absolute Gran (aut o) Nucleated RBC % (a uto) 0 Nucleated RBCs # 0.0 D-Dimer (0-0.59) ug/mIFE U Sodium (136-145) mmol/L Potassium (3.5-5.1) mmol/L Chloride (98-107) mmol/L Carbon Dioxide (22-29) mmol/L Anion Gap (5-19) BUN (8-23) mg/dL Creatinine (0.5-0.9) mg/dL GFR Calculation (90-130) mL/min Glucose (65-115) mg/dL Calculated Osmolal ity (285-295) mOsm/k g Calcium (8.5-10.5) mg/dL Total Bilirubin (0.15-1.2) mg/dL AST (0-32) U/L ALT (0-33) U/L Alkaline Phosphata se (35-105) IU/L Troponin T Baselin e 130 H* (0-10) ng/L NT-Pro-B Natriuret Pep (0-125) pg/mL Total Protein (6.6-8.7) g/dL Albumin (3.5-5.2) g/dL Globulin (1.3-4.6) g/dL Discharge Plan Discharge Patient Disposition: Xfer Other Clinical Impression: Unstable angina pectoris, S/P CABG (coronary artery bypass graft) Chronic renal failure Qualifiers: Chronic kidney disease stage: unspecified stage Qualified Code(s): N18.9 - Chronic kidney disease, unspecified CHF (congestive heart failure) Qualifiers: Heart failure type: unspecified Heart failure chronicity: unspecified Qualified Code(s): I50.9 - Heart failure, unspecified Condition: Stable Referrals: Laisha Campoverde [Primary Care Provider] - Coding Level of Care Code ED [facility] Department Specialist for Chg Fwd Exam Comprehensive
[2020-01-16 15:58] LABS: D Dimer 7.01 ug/mIFEU (0-0.59)
[2020-01-16 16:05] LABS: Alanine Aminotransferase 20 U/L (0-33); Albumin Level 3.6 g/dL (3.5-5.2); Alkaline Phosphatase 117 IU/L (35-105); Anion Gap 19.5 (5-19); Aspartate Amino Transferase 29 U/L (0-32); Blood Urea Nitrogen 41 mg/dL (8-23); Carbon Dioxide 28 mmol/L (22-29); Chloride 93 mmol/L (98-107); Globulin 3.5 g/dL (1.3-4.6); Glomerular Filtration Rate 5.6 mL/min (90-130); Glucose 89 mg/dL (65-115); Osmolality Calculated 277 mOsm/kg (285-295); Potassium 5.5 mmol/L (3.5-5.1); Sodium 135 mmol/L (136-145); Total Bilirubin 0.4 mg/dL (0.15-1.2); Total Protein 7.1 g/dL (6.6-8.7)
[2020-01-16 16:07] LABS: Basophils % 0.4 %; Eosinophils # 0.2 10^3/uL (0.0-0.8); Hematocrit 28.3 % (37.0-47.0); Hemoglobin 8.3 g/dL (11.5-15.3); Lymphocytes # 1.5 10^3/uL (0.8-4.8); Lymphocytes % 13.2 %; Mean Corpuscular HGB Conc 29.3 g/dL (30.0-36.0); Mean Corpuscular Hemoglobin 29.4 pg (28.0-34.0); Mean Corpuscular Volume 100.4 fL (81-99); Mean Platelet Volume 10.1 fL (7.4-10.4); Monocytes # 0.8 10^3/uL (0.2-0.9); Monocytes % 7.3 %; Neutrophils # 8.5 10^3/uL (1.8-7.7); Neutrophils % 76.4 %; Nucleated Red Blood Cells % 0 %; Platelet Count 390 10^3/cmm (130-400); Red Blood Count 2.82 10^6/uL (4.1-5.3); Red Cell Distribution Width 15.8 % (12.1-15.1); White Blood Count 11.2 10^3/uL (4.0-10.0)
[2020-01-16 16:10] LABS: Troponin(5th) Baseline 130 ng/L (0-10)
[2020-01-16 16:31] LABS: NT Pro B Type Natriuretic Pept > 70000 pg/mL (0-125)
[2020-01-16] MEDS: iodixanol 320 mg/mL 100mL Btl IV (16:53)
[2020-01-16 17:05] VITALS: BP 188/86; PULSE 76; RESP 16; O2SAT 98
--- NOTE | 2020-01-16 17:31 | ECG_ITS ---
Measurements Intervals [place] Rate: 73 P: 86 [place]: 163 QRS: 61 QRSD: 81 T: 122 QT: 370 QTc: 410 SINUS RHYTHM ABNORMAL QRS-T ANGLE [QRS-T AXIS DIFFERENCE > 60] Compared to ECG 12/23/2019 20:17:11 First degree AV block no longer present Left-axis deviation no longer present Left bundle-branch block no longer present Electronically Signed On 01-16-2020 19:07:50 CDT by Lupe Bertrand M.D. [id number] f
[2020-01-16 17:40] LABS: Troponin 5 2HR Delta -6.9 ABS# (0-10)
[2020-01-16 17:42] LABS: Troponin 5 2HR 123.1 ng/L (0-10)
--- NOTE | 2020-01-16 17:43 | PC.NURSE ---
2 hr TRop 123.1
[2020-01-16 18:06] VITALS: BP 179/78; PULSE 70; RESP 16; O2SAT 97
[2020-01-16 19:19] VITALS: BP 163/87; PULSE 71; RESP 16; O2SAT 99
== END 2020-01-16 19:27 | disposition other institution (70) ==
PROVIDERS: Emergency Provider Family Medicine; PCP Nurse Practitioner Family
DX: I13.2 Hypertensive heart and chronic kidney disease with heart failure and with stage 5 chronic kidney disease, or end stage renal disease (principal); I50.9 Heart failure, unspecified; E11.22 Type 2 diabetes mellitus with diabetic chronic kidney disease; N18.6 End stage renal disease; Z99.2 Dependence on renal dialysis; Z95.1 Presence of aortocoronary bypass graft; I48.91 Unspecified atrial fibrillation; I25.110 Atherosclerotic heart disease of native coronary artery with unstable angina pectoris; J43.9 Emphysema, unspecified; F17.210 Nicotine dependence, cigarettes, uncomplicated
CPT/HCPCS: 12345; 71045; 71275; 80053; 83880; 84484; 85025; 85378; 93005; 99283; 99285; Q9967

== ENCOUNTER 2020-03-10 09:43 | Inpatient (IN) | payer MEDICARE, MEDICAID, SELFPAY ==
[2020-03-10] VITALS (15 sets, daily range): BP systolic 106–181; BP diastolic 42–75; PULSE 54–87; RESP 15–23; TEMP 36.3–36.9; O2SAT 92–100; BMI 32.1
--- NOTE | 2020-03-10 10:07 | XRR_ITS ---
PROCEDURE INFORMATION: Exam: XR Abdomen, 1 View Exam date and time: 03/10/2020 10:24 AM Age: 65 years old Clinical indication: Other: Diarrhea; Prior surgery; Surgery type: Dialysis port; Additional info: Diarrhea for several years, weight loss TECHNIQUE: Imaging protocol: XR of the abdomen. Views: Frontal supine view of the abdomen. 1 View. COMPARISON: CT abdomen pelvis con [id number] 10/11/2019 12:12 PM FINDINGS: Gastrointestinal tract: Bowel gas pattern is nonspecific. No mass effect upon the bowel loops. Distal rectal gas. Scattered loops of air filled small bowel none of which are dilated. Organs: Surgical clips are present in the region of the gallbladder fossa. Bones/joints: No acute process within the osseous structures of the spine or pelvis. Soft tissues: No appreciable calcifications XR/XR KUB portable [id number] IMPRESSION: Bowel gas pattern is nonspecific.
--- NOTE | 2020-03-10 10:11 | ED_ITS ---
Documented by User: ERIKA Ojeda 03/10/20 10:12 HPI - Nausea/Vomiting/Diarrhea General: Chief complaint: Nausea/Vomiting/Diarrhea Stated complaint: DIARRHEA X 1 WEEK Time Seen by Provider: 03/10/20 09:44 History of Present Illness: HPI Narrative: Patient arrived here via ambulance says that she has had diarrhea x1 week. She did see her PCP who gave medication that has not helped any. She has not been able to 10 dialysis due to her many episodes of diarrhea. Denies any nausea and vomiting abdominal pain shortness of breath or fever chills. MD elicited complaint: diarrhea Onset (ago): day(s) Description of vomiting: watery Description of diarrhea: watery Associated nausea: No Associated symtoms: Denies anxiety, change in vision, chest pain, headache(s) or nausea Review of Systems Const: Denies: fever(s), chills or body aches Eyes: Denies: change in vision or blurry vision ENMT: Denies: throat pain or nasal congestion Card: Denies: chest pain or dyspnea on exertion Resp: Denies: dyspnea, productive cough or non-productive cough GI: Reports: diarrhea; Denies: abdominal pain, nausea or vomiting Musc: Denies: extremity pain Skin/Breast: Denies: rash Neuro: Denies: headache(s) Psych: Denies: anxiety or depression Hussein/Lymph: Denies: easy bruising PFSH ED PFSH: Medical History (Updated 03/10/20 @ 12:43 by Em Kapadia) Anemia Anticoagulation adequate with anticoagulant therapy Atrial fibrillation Carotid artery disease Chronic bronchitis Chronic diarrhea Chronic pain disorder Coronary artery disease Diabetes Diastolic heart failure Emphysema of lung End-stage renal disease on hemodialysis Fibromyalgia GERD (gastroesophageal reflux disease) Hypertension Elevated but stable Hypothyroidism Irritable bowel syndrome Sleep apnea Venous insufficiency Surgical History (Updated 01/24/20 @ 00:00 by ) AVF (arteriovenous fistula) History of appendectomy History of cholecystectomy History of common carotid artery stent placement S/P hemodialysis catheter insertion Stented coronary artery PCI to mid LAD in December 2018 Family History Other CAD (coronary artery disease) Social History Smoking and tobacco status: current every day smoker Quit status (tobacco): has quit using tobacco Year quit tobacco: 2009 Second hand smoke exposure: Yes Smoking risk assessment/counseling performed?: No Alcohol intake: never Physical Exam Const: COMMON NORMALS: no acute distress, average body habitus and patient oriented x3 HENMT: COMMON NORMALS: normocephalic HEAD & SCALP: normal to inspection and normocephalic FACE & SINUS: normal facial exam Eye: COMMON NORMALS: conjunctivae normal GENERAL EYE: appearance normal, both eyes and all related structures CONJUNCTIVA: Yes conjunctivae normal Neck/C-Spine: COMMON NORMALS: no JVD Chest: COMMONS NORMALS: normal inspection of the chest Resp: COMMON NORMALS: normal respiratory effort and clear to auscultation bilaterally AUSCULTATION: clear to auscultation bilaterally Cardio: COMMON NORMALS: no JVD, regular rate and regular rhythm RATE: regular rate RHYTHM: regular rhythm GI: COMMON NORMALS: Normal to inspection, nondistended, normoactive bowel sounds present Extremity: COMMON NORMALS: normal to inspection and full ROM Neuro: COMMON NORMALS: patient oriented x3 Course Vital Signs: Vital signs: Vital Signs Temperature 97.3 F L 03/10/20 09:44 Pulse Rate 57 L 03/10/20 11:41 Respiratory Rate 20 H 03/10/20 11:41 Blood Pressure 119/65 03/10/20 10:32 Pulse Oximetry 98 03/10/20 11:41 MDM - Nausea/Vomiting/Diarrhea Lab Data: Labs: Lab Results 03/10/20 03/10/20 03/10/20 Range/Units 10:24 10:24 10:25 WBC 8.1 (4.0-10.0) 10^3/ uL RBC 4.38 (4.1-5.3) 10^6/u L Hgb 12.3 (11.5-15.3) g/dL Hct 42.2 (37.0-47.0) % MCV 96.3 (81-99) fL MCH 28.1 (28.0-34.0) pg MCHC 29.1 L (30.0-36.0) g/dL RDW 15.8 H (12.1-15.1) % Plt Count 236 (130-400) 10^3/c mm MPV 11.0 H (7.4-10.4) fL Neut % (Auto) 68.3 % Lymph % (Auto) 22.3 % [place] % (Auto) 4.8 % Eos % (Auto) 3.2 % Baso % (Auto) 0.7 % Neut # (Auto) 5.55 (1.8-7.7) 10^3/u L Lymph # (Auto) 1.8 (0.8-4.8) 10^3/u L [place] # (Auto) 0.4 (0.2-0.9) 10^3/u L Eos # (Auto) 0.3 (0.0-0.8) 10^3/u L Baso # (Auto) 0.1 (0.0-0.1) 10^3/u L Nucleated RBC % (a uto) 0 % Nucleated RBCs # 0.0 /100WBC Sodium 132 L 135 L (136-145) mmol/L Potassium 7.4 H* 7.0 H* (3.5-5.1) mmol/L Chloride 97 L 101 (98-107) mmol/L Carbon Dioxide 16 L 15 L (22-29) mmol/L Anion Gap 26.4 H 26.0 H (5-19) BUN 98 H* D 99 H* (8-23) mg/dL Creatinine 13.5 H* 13.6 H* (0.5-0.9) mg/dL GFR Calculation 2.7 L 2.7 L (90-130) mL/min Glucose 135 H 115 (65-115) mg/dL Calculated Osmolal ity 277 L 282 L (285-295) mOsm/k g Calcium 9.0 9.7 (8.5-10.5) mg/dL Total Bilirubin 0.4 (0.15-1.2) mg/dL AST 12 (0-32) U/L ALT 9 (0-33) U/L Alkaline Phosphata se 95 (35-105) IU/L Total Protein 7.5 (6.6-8.7) g/dL Albumin 3.8 (3.5-5.2) g/dL Globulin 3.7 (1.3-4.6) g/dL Discharge Plan Discharge Patient Disposition: Admitted As Inpatient Admit Provider: Zi Castorena Clinical Impression: Acute hyperkalemia, End-stage renal disease on hemodialysis Condition: Stable Referrals: Laisha Campoverde FNP [Primary Care Provider] - Sign Out Sign Out Data: Patient Sign Out occurred on 03/10/20 at 11:17. Patient's care was discussed, and care was transferred from to Em Kapadia. Coding Level of Care Code ED Digital Strategy Specialist for Chg Fwd Exam Comprehensive Documented by User: Em Kapadia 03/10/20 13:27 HPI - Nausea/Vomiting/Diarrhea General: Chief complaint: Nausea/Vomiting/Diarrhea Stated complaint: DIARRHEA X 1 WEEK Time Seen by Provider: 03/10/20 09:44 PFSH ED PFSH: Medical History (Updated 03/10/20 @ 12:43 by Em Kapadia) Anemia Anticoagulation adequate with anticoagulant therapy Atrial fibrillation Carotid artery disease Chronic bronchitis Chronic diarrhea Chronic pain disorder Coronary artery disease Diabetes Diastolic heart failure Emphysema of lung End-stage renal disease on hemodialysis Fibromyalgia GERD (gastroesophageal reflux disease) Hypertension Elevated but stable Hypothyroidism Irritable bowel syndrome Sleep apnea Venous insufficiency Surgical History (Updated 01/24/20 @ 00:00 by ) AVF (arteriovenous fistula) History of appendectomy History of cholecystectomy History of common carotid artery stent placement S/P hemodialysis catheter insertion Stented coronary artery PCI to mid LAD in December 2018 Family History Other CAD (coronary artery disease) Social History Smoking and tobacco status: current every day smoker Quit status (tobacco): has quit using tobacco Year quit tobacco: 2009 Second hand smoke exposure: Yes Smoking risk assessment/counseling performed?: No Alcohol intake: never Course ED course: 1325 -patient's repeat potassium has only come down to 7. Her vital signs are unchanged and she still relatively asymptomatic except for diarrhea. I contacted Dr. Harris and he is aware. We are expecting the patient to begin dialysis in the ICU in less than 30 minutes. Vital Signs: Vital signs: Vital Signs Temperature 97.3 F L 03/10/20 09:44 Pulse Rate 57 L 03/10/20 11:41 Respiratory Rate 20 H 03/10/20 11:41 Blood Pressure 119/65 03/10/20 10:32 Pulse Oximetry 98 03/10/20 11:41 MDM - Nausea/Vomiting/Diarrhea MDM Narrative: Medical decision making narrative: 1236 -the patient was seen and evaluated by me. I agree with Nitesh Ireland's assessment and plan. Please see his note for details in his history, physical exam and medical decision- making notes. Patient's care was turned over to me secondary to the significant hyperkalemia present. Patient's vital signs are stable and upon my history and exam she has no complaints. She states that her diarrhea is chronic but just worsened lately. She states she has had flareups like this before. On exam I s ee no sign of peritonitis. The patient's hyperkalemia was addressed with calcium gluconate as she did have some peak T waves on her EKG as well as insulin, glucose, albuterol, bicarbonate but Lasix could not be given as the patient no longer makes urine. She refused Kayexalate. I immediately contacted Dr. Alvarez who mediately began working on arranging for emergent dialysis. Currently at this time there repeat BMP is pending to assess with the hyperkalemic cocktail did for her potassium. She remains hemodynamically stable and I did review the case in full with Dr. Castorena he was agreeable to admission. Lab Data: Labs: Lab Results 03/10/20 03/10/20 03/10/20 Range/Units 10:24 10:24 10:25 WBC 8.1 (4.0-10.0) 10^3/ uL RBC 4.38 (4.1-5.3) 10^6/u L Hgb 12.3 (11.5-15.3) g/dL Hct 42.2 (37.0-47.0) % MCV 96.3 (81-99) fL MCH 28.1 (28.0-34.0) pg MCHC 29.1 L (30.0-36.0) g/dL RDW 15.8 H (12.1-15.1) % Plt Count 236 (130-400) 10^3/c mm MPV 11.0 H (7.4-10.4) fL Neut % (Auto) 68.3 % Lymph % (Auto) 22.3 % [place] % (Auto) 4.8 % Eos % (Auto) 3.2 % Baso % (Auto) 0.7 % Neut # (Auto) 5.55 (1.8-7.7) 10^3/u L Lymph # (Auto) 1.8 (0.8-4.8) 10^3/u L [place] # (Auto) 0.4 (0.2-0.9) 10^3/u L Eos # (Auto) 0.3 (0.0-0.8) 10^3/u L Baso # (Auto) 0.1 (0.0-0.1) 10^3/u L Nucleated RBC % (a uto) 0 % Nucleated RBCs # 0.0 /100WBC Sodium 132 L 135 L (136-145) mmol/L Potassium 7.4 H* 7.0 H* (3.5-5.1) mmol/L Chloride 97 L 101 (98-107) mmol/L Carbon Dioxide 16 L 15 L (22-29) mmol/L Anion Gap 26.4 H 26.0 H (5-19) BUN 98 H* D 99 H* (8-23) mg/dL Creatinine 13.5 H* 13.6 H* (0.5-0.9) mg/dL GFR Calculation 2.7 L 2.7 L (90-130) mL/min Glucose 135 H 115 (65-115) mg/dL Calculated Osmolal ity 277 L 282 L (285-295) mOsm/k g Calcium 9.0 9.7 (8.5-10.5) mg/dL Total Bilirubin 0.4 (0.15-1.2) mg/dL AST 12 (0-32) U/L ALT 9 (0-33) U/L Alkaline Phosphata se 95 (35-105) IU/L Total Protein 7.5 (6.6-8.7) g/dL Albumin 3.8 (3.5-5.2) g/dL Globulin 3.7 (1.3-4.6) g/dL Discharge Plan Discharge Patient Disposition: Admitted As Inpatient Admit Provider: Zi Castorena Clinical Impression: Acute hyperkalemia, End-stage renal disease on hemodialysis Condition: Stable Referrals: Laisha Campoverde FNP [Primary Care Provider] - Sign Out Sign Out Data: Patient Sign Out occurred on 03/10/20 at 11:17. Patient's care was discussed, and care was transferred from to Em Kapadia. Coding Level of Care Code ED Digital Strategy Specialist for Chg Fwd Exam Comprehensive
[2020-03-10] MEDS: diphenoxylate/atropine Tablet 2 TAB PO (10:15)
[2020-03-10 10:42] LABS: Basophils # 0.1 10^3/uL (0.0-0.1); Basophils % 0.7 %; Eosinophils # 0.3 10^3/uL (0.0-0.8); Eosinophils % 3.2 %; Hematocrit 42.2 % (37.0-47.0); Hemoglobin 12.3 g/dL (11.5-15.3); Lymphocytes # 1.8 10^3/uL (0.8-4.8); Lymphocytes % 22.3 %; Mean Corpuscular HGB Conc 29.1 g/dL (30.0-36.0); Mean Corpuscular Hemoglobin 28.1 pg (28.0-34.0); Mean Corpuscular Volume 96.3 fL (81-99); Monocytes # 0.4 10^3/uL (0.2-0.9); Monocytes % 4.8 %; Neutrophils # 5.55 10^3/uL (1.8-7.7); Neutrophils % 68.3 %; Nucleated Red Blood Cells % 0 %; Platelet Count 236 10^3/cmm (130-400); Red Blood Count 4.38 10^6/uL (4.1-5.3); Red Cell Distribution Width 15.8 % (12.1-15.1); White Blood Count 8.1 10^3/uL (4.0-10.0)
[2020-03-10 11:01] LABS: Alanine Aminotransferase 9 U/L (0-33); Albumin Level 3.8 g/dL (3.5-5.2); Alkaline Phosphatase 95 IU/L (35-105); Anion Gap 26.4 (5-19); Aspartate Amino Transferase 12 U/L (0-32); Carbon Dioxide 16 mmol/L (22-29); Chloride 97 mmol/L (98-107); Globulin 3.7 g/dL (1.3-4.6); Glomerular Filtration Rate 2.7 mL/min (90-130); Glucose 135 mg/dL (65-115); Osmolality Calculated 277 mOsm/kg (285-295); Sodium 132 mmol/L (136-145); Total Bilirubin 0.4 mg/dL (0.15-1.2); Total Protein 7.5 g/dL (6.6-8.7)
[2020-03-10 11:10] LABS: Blood Urea Nitrogen 98 mg/dL (8-23); Potassium 7.4 mmol/L (3.5-5.1)
--- NOTE | 2020-03-10 11:18 | ECG_ITS ---
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 Measurements Intervals [place] Rate: 53 P: 62 KS: 199 QRS: -23 QRSD: 106 T: 120 QT: 447 QTc: 422 Interpretive Statements SINUS BRADYCARDIA BORDERLINE LEFT AXIS DEVIATION [QRS AXIS < -20] ST DEVIATION AND MODERATE T-WAVE ABNORMALITY, CONSIDER LATERAL ISCHEMIA [-0.1+ mV T WAVE IN I/aVL/V5/V6] Compared to ECG 01/16/2020 17:34:15 T-wave abnormality now present Possible ischemia now present Sinus rhythm no longer present Electronically Signed On 03-10-2020 16:04:57 CDT by Karan Allison M.D. [id number] f
[2020-03-10] MEDS: sodium chloride 0.9% 500 ML 999 ML IV (11:34)
[2020-03-10] MEDS: calcium gluconate 0.1 gm/mL 10% SDV 10mL 2 GM IVP (11:35)
[2020-03-10] MEDS: sodium bicarbonate 8.4% 1 mEq/mL 50mL Syr 100 MEQ IVP (11:36)
[2020-03-10] MEDS: dextrose 50% syringe 50 mL IVP (11:36)
[2020-03-10] MEDS: insulin regular-human 100 units/1 mL 10 UNIT IVP (11:37)
--- NOTE | 2020-03-10 12:52 | P.PN_ITS ---
Subjective Subjective: Interval history: Amanda again returns to our facility with poor compliance of dialysis having missed dialysis for 1 week due to her diarrhea. She did have a severe episode of diarrhea in the ER Vitals/I&O/Wt Last Vital Signs Temp 97.3 F L 03/10/20 09:44 Pulse 57 L 03/10/20 11:41 Resp 20 H 03/10/20 11:41 BP 119/65 03/10/20 10:32 Pulse Ox 98 03/10/20 11:41 Weight last 48 hrs Weight 92.986 kg Physical Exam Narrative: EXAM NARRATIVE: Seen and examined via telemed with aid of bedside RN HEENT: wet mucosa, no jvp Lungs: CTABL CVS: S1 S2 no mumur Abdo: Soft, BS ok Ext x 4 minimal edema Neuro non focal Data : 03/11/20 03:59 03/11/20 03:59 Micro: Microbiology 03/10/20 10:15 Stool Lactoferrin - Final Stool A&P Additional A&P Information 1. ESRD - stat dialysis for hyperK - 2K bath, 2-3L UF - dose meds for eGFR < 15 on dialysis 2. Hypertension - Bp looks stable 3. Anemia and bone mgmt to be deferred to the outpatient clinic 4. Diarrhea per primary team - recurrent issues, will add probiotics and questran - needs to follow with GI as outpatient 5. Dialysis non-compliance - She wasn't able to go to dialysis due to severe diarrhea. She is again warned about the danger of dialysis non-compliance Attestations Medical Necessity Statement*: eval for ESRD mgmt Coding Level of Care Code Acute Associate Professor Of Library Media for Hector Hutchins
[2020-03-10 12:57] LABS: Calcium 9.7 mg/dL (8.5-10.5); Carbon Dioxide 15 mmol/L (22-29); Chloride 101 mmol/L (98-107); Glomerular Filtration Rate 2.7 mL/min (90-130); Glucose 115 mg/dL (65-115); Osmolality Calculated 282 mOsm/kg (285-295); Sodium 135 mmol/L (136-145)
[2020-03-10 13:09] LABS: Blood Urea Nitrogen 99 mg/dL (8-23)
--- NOTE | 2020-03-10 13:23 | PC.NURSE ---
Tried to call report to ICU, was told they will call back.
--- NOTE | 2020-03-10 14:01 | P.HP_ITS ---
Providers/Chief Complaint Admitting Physician: Zi Castorena MD Primary Care Provider: ERIKA Roman Chief Complaint: DIARRHEA X 1 WEEK History of Present Illness Amanda Ha is a 65 year old female presents to emerge department with severe acute on chronic diarrhea for the last 1 week. Patient reports that for many years she had 2-3 diarrheal bowel movements but for the last 1 week she has been having approximately 12 diarrheal bowel movements without evidence of melena or hematochezia. She denies it being malodorous. She denies drinking well water or being around ill people. She lives alone. She was unable to visit dialysis for the last 1 week. She otherwise denies any other complaints including abdominal pain or nausea. She denies shortness of breath or chest pain. Denies cough and reports that she does not produce any urine. Patient reports that she has been diabetic for many years but after she lost weight intentionally her insulin requirements significantly improved and she is not on any diabetic medications. Patient had three-vessel CABG several months ago and denies any cardiac symptoms even with exertion. Review of Systems Const: Denies: fever(s) or chills Eyes: Denies: change in vision ENMT: Denies: throat pain or change in hearing Card: Denies: chest pain, edema or lightheadedness Resp: Denies: dyspnea or productive cough GI: Reports: diarrhea; Denies: abdominal pain, nausea, vomiting, dysphagia, constipation, hematochezia or melena : Denies: difficulty voiding Musc: Denies: joint pain or joint swelling Skin/Breast: Denies: rash or erythema Neuro: Denies: headache(s) or weakness in extremities Psych: Denies: depression or suicidal ideation Endo: Denies: excessive sweating Hussein/Lymph: Denies: easy bleeding or tender lymph nodes All/Imm: Denies: throat swelling Medications/Allergies Home Medications Medication Instructions Recorded Confirmed Last Taken Type apixaban 2.5 mg tablet 2.5 mg PO BID 08/18/19 03/10/20 03/09/20 History levothyroxine 25 mcg tablet 100 mcg PO DAILY tab 08/18/19 03/10/20 03/09/20 History aspirin [Aspir-81] 81 mg PO DAILY 09/09/19 03/10/20 03/09/20 History albuterol sulfate [ProAir HFA] 2 puff INHALATION Q6H PRN 10/11/19 03/10/20 12/05/19 History gabapentin 200 mg PO BEDTIME 10/11/19 03/10/20 03/09/20 History montelukast [Singulair] 10 mg PO DAILY 10/11/19 03/10/20 03/09/20 History nitroglycerin [Nitrostat] 0.4 mg SUBLINGUAL Q5M PRN 10/11/19 03/10/20 12/21/19 History atorvastatin 80 mg PO DAILY 12/06/19 03/10/20 03/09/20 History clopidogrel 75 mg PO DAILY 12/06/19 03/10/20 03/09/20 History fluticasone propionate [Flonase 2 spray INTRANASAL DAILY 12/06/19 03/10/20 01/16/20 History Allergy Relief] B complex-vitamin C-folic acid 1 tab PO DAILY 01/16/20 03/10/20 03/09/20 History [Renal Vitamin] acetaminophen 650 mg PO Q6H PRN 01/16/20 03/10/20 Unknown History albuterol sulfate 2.5 mg INHALATION TID 01/16/20 03/10/20 01/16/20 History carvedilol [Coreg] 3.125 mg PO Q12H 01/16/20 03/10/20 03/09/20 History diphenoxylate-atropine [Lomotil] 2 tab PO QID PRN 01/16/20 03/10/20 Unknown History hydrocodone-acetaminophen [Danforth] 1 tab PO Q4H PRN 01/16/20 03/10/20 01/16/20 13:07 History insulin glargine [Lantus Solostar 10 unit SUBCUT BEDTIME 01/16/20 03/10/20 01/15/20 History U-100 Insulin] insulin lispro [Humalog U-100 See Rx Instructions .ROUTE .COMPLEX 01/16/20 03/10/20 Unknown History Insulin] lisinopril 20 mg PO DAILY 01/16/20 03/10/20 03/09/20 History melatonin 9 mg PO BEDTIME PRN 01/16/20 03/10/20 03/09/20 History mirtazapine 15 mg PO BEDTIME 01/16/20 03/10/20 03/09/20 History ondansetron HCl [Zofran] 4 mg PO Q8H PRN 01/16/20 03/10/20 Unknown History sevelamer carbonate 1,600 mg PO TID 01/16/20 03/10/20 03/09/20 History amlodipine 5 mg PO DAILY 03/10/20 03/10/20 03/09/20 History isosorbide mononitrate 30 mg PO DAILY 03/10/20 03/10/20 03/09/20 History meloxicam 7.5 mg PO DAILY 03/10/20 03/10/20 03/09/20 History metoprolol succinate 50 mg PO DAILY 03/10/20 03/10/20 03/09/20 History minoxidil 2.5 mg PO BID 03/10/20 03/10/20 03/09/20 History trazodone 50 mg PO BEDTIME 03/10/20 03/10/20 03/09/20 History Allergies Allergy/AdvReac Type Severity Reaction Status Date / Time adhesive Allergy Unknown Verified 11/04/19 07:28 codeine Allergy Unknown Verified 11/04/19 07:28 duloxetine [From Cymbalta] Allergy Unknown Verified 11/04/19 07:28 PFSH Acute PFSH: Medical History (Updated 03/10/20 @ 14:12 by Zi Castorena MD) Anemia Anticoagulation adequate with anticoagulant therapy Atrial fibrillation Carotid artery disease Chronic bronchitis Chronic diarrhea Chronic pain disorder Coronary artery disease Diabetes Diastolic heart failure Emphysema of lung End-stage renal disease on hemodialysis Fibromyalgia GERD (gastroesophageal reflux disease) Hypertension Elevated but stable Hypothyroidism Irritable bowel syndrome Sleep apnea Venous insufficiency Surgical History (Updated 01/24/20 @ 00:00 by ) AVF (arteriovenous fistula) History of appendectomy History of cholecystectomy History of common carotid artery stent placement S/P hemodialysis catheter insertion Stented coronary artery PCI to mid LAD in December 2018 Family History Other CAD (coronary artery disease) Social History Smoking and tobacco status: current every day smoker Quit status (tobacco): has quit using tobacco Year quit tobacco: 2009 Second hand smoke exposure: Yes Smoking risk assessment/counseling performed?: No Alcohol intake: never Vitals/I&O/Wt Last Vital Signs Temp 97.3 F L 03/10/20 09:44 Pulse 74 03/10/20 13:31 Resp 16 03/10/20 13:31 BP 116/73 03/10/20 13:31 Pulse Ox 96 03/10/20 13:31 Weight last 48 hrs Weight 92.986 kg Physical Exam Const: COMMON NORMALS: no acute distress, patient oriented x3 and alert HENMT: COMMON NORMALS: normocephalic and atraumatic HEAD & SCALP: normocephalic and atraumatic Eye: COMMON NORMALS: EOMs intact bilaterally, conjunctivae normal and no scleral icterus CONJUNCTIVA: Yes conjunctivae normal Neck/C-Spine: COMMON NORMALS: no lymphadenopathy and no meningeal signs Lymph: LYMPHATIC: no lymphadenopathy noted Chest: COMMONS NORMALS: normal palpation of entire chest wall Resp: COMMON NORMALS: No use of accessory muscles and clear to auscultation bilaterally AUSCULTATION: clear to auscultation bilaterally Cardio: COMMON NORMALS: regular rate, regular rhythm and No murmurs present (Cardio) RATE: regular rate RHYTHM: regular rhythm OTHER: No lower extremity edema. Appears very dry. Left elbow dialysis access without significant and concerning findings. GI: COMMON NORMALS: Soft to palpation and non-tender PALPATION: Yes Soft to palpation RECTAL EXAM: deferred : COMMON NORMALS: Yes no CVA tenderness BLADDER/KIDNEY EXAM: Yes no CVA tenderness Back/Pelvis: COMMON NORMALS: no CVA tenderness and thoracic and lumbar spine normal to inspection Extremity: COMMON NORMALS: normal to inspection and capillary refill normal Neuro: COMMON NORMALS: patient oriented x3 and no focal motor deficits SENSORIUM/ORIENTATION: Yes alert MENINGEAL SIGNS: Yes no meningeal signs Psych: COMMON NORMALS: mental status grossly normal, Normal thought process present and cooperative THOUGHT PROCESS: Normal thought process present Skin: COMMON NORMALS: no rashes or lesions noted GENERAL SKIN EXAM: no rashes or lesions noted Data : 03/10/20 10:24 03/10/20 10:25 Micro: Microbiology 03/10/20 10:15 Stool Lactoferrin - Final Stool A&P Assessment and plan (1) Acute diarrhea: This is on top of chronic diarrhea. Patient reports that she previously was diagnosed with irritable bowel syndrome of diarrheal type. Highly suspected to be secondary to acute viral syndrome. Status: Acute (2) Dehydration with hyponatremia: Status: Acute (3) Hyperkalemia: Status: Acute (4) End-stage renal disease on hemodialysis: Status: Acute Additional A&P Information PLAN: Patient to be admitted to ICU and undergo dialysis. Temporary treatment of hyperkalemia was performed in ER. Check stool studies and if infectious etiology is ruled out start patient on Imodium. Encouraged oral intake. Consider fluids after dialysis to keep up with loss. Attestations Medical Necessity Statement*: Patient with severe diarrhea and related dehydration requires close ICU monitoring and treatment secondary to severe hyperkalemia. I expect patient will require more than 2 midnights. Time Spent in Patient Care: Greater than 35 minutes Coding Level of Care Code Acute Tool Grinder Operator Surface for Hector Hutchins Diagnoses Acute diarrhea R19.7 Dehydration with hyponatremia E86.0; E87.1 Hyperkalemia E87.5 End-stage renal disease on hemodialysis N18.6; Z99.2
--- NOTE | 2020-03-10 14:03 | PC.RESP ---
Smoking Cessation and Pulmonary Rehab information sent to patient.
[2020-03-10] MEDS: heparin 5,000 unit/mL INJ 1 mL 5000 UNIT SUBCUT (15:28)
--- NOTE | 2020-03-10 20:42 | PC.NURSE ---
Left are dialysis fistula with good bruit and thrill noted.
[2020-03-10 20:57] LABS: Glucose Point of Care 133 mg/dL (70-110)
[2020-03-10] MEDS: gabapentin 100 mg Capsule 200 MG PO (21:31)
[2020-03-10] MEDS: HYDROcodone-acetaminophen 5-325 mg Tablet 1 TAB PO (21:32)
[2020-03-10] MEDS: carvedilol 3.125 mg Tablet PO (21:32)
[2020-03-10] MEDS: trazodone 50 mg Tablet PO (21:33)
[2020-03-11] VITALS (13 sets, daily range): BP systolic 110–161; BP diastolic 46–83; PULSE 62–77; RESP 13–27; TEMP 36.5–36.9; O2SAT 93–100
[2020-03-11] MEDS: heparin 5,000 unit/mL INJ 1 mL 5000 UNIT SUBCUT (02:09)
[2020-03-11] MEDS: HYDROcodone-acetaminophen 5-325 mg Tablet 1 TAB PO (02:20)
--- NOTE | 2020-03-11 02:22 | PC.NURSE ---
Patient reports that she wears oxygen at home sometimes, requesting oxygen. Placed on O2 at 2L NC. Assisted back to bed. Hydrocodone given for generalized discomfort to chest.
[2020-03-11 04:26] LABS: Basophils % 0.5 %; Eosinophils # 0.2 10^3/uL (0.0-0.8); Eosinophils % 3.7 %; Hematocrit 37.5 % (37.0-47.0); Hemoglobin 11.4 g/dL (11.5-15.3); Lymphocytes # 1.1 10^3/uL (0.8-4.8); Lymphocytes % 17.3 %; Mean Corpuscular HGB Conc 30.4 g/dL (30.0-36.0); Mean Corpuscular Volume 95.4 fL (81-99); Mean Platelet Volume 10.9 fL (7.4-10.4); Monocytes # 0.4 10^3/uL (0.2-0.9); Monocytes % 6.6 %; Neutrophils # 4.66 10^3/uL (1.8-7.7); Neutrophils % 71.4 %; Nucleated Red Blood Cells % 0 %; Platelet Count 198 10^3/cmm (130-400); Red Blood Count 3.93 10^6/uL (4.1-5.3); White Blood Count 6.5 10^3/uL (4.0-10.0)
[2020-03-11 04:53] LABS: Anion Gap 18.5 (5-19); Blood Urea Nitrogen 44 mg/dL (8-23); Calcium 8.5 mg/dL (8.5-10.5); Carbon Dioxide 24 mmol/L (22-29); Chloride 96 mmol/L (98-107); Glomerular Filtration Rate 4.9 mL/min (90-130); Glucose 103 mg/dL (65-115); Osmolality Calculated 274 mOsm/kg (285-295); Potassium 5.5 mmol/L (3.5-5.1); Sodium 133 mmol/L (136-145)
[2020-03-11 07:47] LABS: Glucose Point of Care 90 mg/dL (70-110)
--- NOTE | 2020-03-11 08:25 | P.PN_ITS ---
Subjective Subjective: Interval history: No diarrhea since admission. Dialysis uneventful yesterday. Hemodynamics stable. No edema and no other volume assoc Sx. Vitals/I&O/Wt Last Vital Signs Temp 98.4 F 03/11/20 04:00 Pulse 64 03/11/20 08:17 Resp 16 03/11/20 08:15 BP 110/46 03/11/20 06:00 Pulse Ox 100 03/11/20 08:15 03/10/20 03/11/20 03/11/20 22:59 06:59 14:59 Intake Total 640 / 640 300 / 940 Output Total 0 / 0 Balance 640 / 640 300 / 940 Weight last 48 hrs Weight 107.728 kg Weight 92.986 kg Physical Exam Narrative: EXAM NARRATIVE: Seen and examined via telemed with aid of bedside RN HEENT: wet mucosa, no jvp Lungs: CTABL CVS: S1 S2 no mumur Abdo: Soft, BS ok Ext x 4 minimal edema Neuro non focal Data : 03/11/20 03:59 03/11/20 03:59 Micro: Microbiology 03/10/20 10:15 C.difficile Toxin B Gene (PCR) - Final Stool - Stool Aspirate 03/10/20 10:15 Occult Blood (FIT) - Final Stool - Stool Aspirate 03/10/20 10:15 Enteric Pathogens (PCR) - Final Stool Routine Collection Parasite Antigen Panel - Final 03/10/20 10:15 Stool Lactoferrin - Final Stool A&P Additional A&P Information 1. ESRD - dialysis for hyperK today - 2K bath, 2-3L UF - dose meds for eGFR < 15 on dialysis 2. Hypertension - Bp looks stable 3. Anemia and bone mgmt to be deferred to the outpatient clinic 4. Diarrhea per primary team - recurrent issues, will add probiotics and questran - needs to follow with GI as outpatient 5. Dialysis non-compliance - She wasn't able to go to dialysis due to severe diarrhea. She is again warned about the danger of dialysis non-compliance - ok for DC after dialysis today Attestations Medical Necessity Statement*: mgmt of ESRD Coding Level of Care Code Acute Iron Setter for Hector Hutchins
[2020-03-11] MEDS: sevelamer 800 mg Tablet 1600 MG PO (09:38)
[2020-03-11] MEDS: minoxidil 10 mg Tablet 2.5 MG PO (09:38)
[2020-03-11] MEDS: amlodipine 5 mg Tablet PO (09:38)
[2020-03-11] MEDS: lactobacillus 1 Tablet 1 TAB PO ×2 (09:39→13:00)
[2020-03-11] MEDS: pantoprazole 40 mg SDV IVP (09:39)
[2020-03-11] MEDS: levothyroxine 100 mcg Tablet PO (09:39)
[2020-03-11] MEDS: lisinopril 20 mg Tablet PO (09:39)
[2020-03-11] MEDS: isosorbide mononitrate ER 30 mg Tablet PO (09:39)
[2020-03-11] MEDS: clopidogrel 75 mg Tablet PO (09:39)
[2020-03-11] MEDS: apixaban 5 mg Tablet 2.5 MG PO (09:39)
[2020-03-11] MEDS: cholestyramine powder 4 gm Pkt PO (09:39)
[2020-03-11] MEDS: atorvastatin 40 mg Tablet 80 MG PO (09:39)
[2020-03-11] MEDS: metoprolol succinate ER (24 HR) 50 mg Tablet PO (09:39)
[2020-03-11] MEDS: montelukast sodium 10 mg Tablet PO (09:39)
[2020-03-11] MEDS: fluticasone nasal spray 16gm Btl 2 SPRAY INTRANASAL (09:40)
[2020-03-11] MEDS: acetaminophen 325 mg Tablet 650 MG PO (09:53)
[2020-03-11] MEDS: carvedilol 3.125 mg Tablet PO (10:27)
--- NOTE | 2020-03-11 11:08 | PM.DCS ---
Discharge Providers Date of Admission: 03/10/20 11:39 Date of Discharge: March 11, 2020 Attending Provider at Admission: Zi Castorena MD Attending Provider at Discharge: Zi Castorena MD Primary Care Provider: ERIKA Roman Diagnoses at Discharge Discharge Diagnosis (1) Acute diarrhea: Status: Acute (2) Dehydration with hyponatremia: Status: Acute (3) Hyperkalemia: Status: Acute (4) End-stage renal disease on hemodialysis: Status: Acute Reason for Visit Reason for Visit: DIARRHEA X 1 WEEK Hospital Course Discharge Summary: Patient presented with acute on chronic diarrhea and dehydration. She was hyperkalemic and received initial treatment in ER followed by hemodialysis. Her potassium improved. Patient to have repeat hemodialysis today further improve her potassium level and after which she will be dismissed home if she remains stable. This morning patient reports feeling much better and wants to go home. She denies any shortness of breath chest pain or abdominal pain. Reports that she did not have any diarrhea since yesterday. She had cholestyramine started which appears to be helping. Since patient is on meloxicam I will add Protonix for GI protection. She ambulated in her room well. Has good oral intake. Physical Exam Const: COMMON NORMALS: no acute distress and patient oriented x3 Resp: COMMON NORMALS: normal respiratory effort and clear to auscultation bilaterally AUSCULTATION: clear to auscultation bilaterally Cardio: COMMON NORMALS: regular rate, regular rhythm and S2 normal heart sound present RATE: regular rate RHYTHM: regular rhythm HEART SOUNDS: S2 normal heart sound present OTHER: No lower extremity edema GI: COMMON NORMALS: Normal to inspection, nondistended, normoactive bowel sounds present, Soft to palpation and non-tender PALPATION: Yes Soft to palpation Neuro: COMMON NORMALS: patient oriented x3 and no focal motor deficits Discharge Data Data Completed and Pending: Completed Studies During Hospitalization Category Date Time Status XR KUB portable [id number] Stat Exams 03/10/20 10:07 Completed Pending at discharge Category Date Time Status Rota Virus AG Sto ol Stat Lab 03/10/20 10:15 Received Labs from last 24 hours 03/11/20 03/11/20 03/11/20 07:41 03:59 03:59 WBC 6.5 RBC 3.93 L Hgb 11.4 L Hct 37.5 MCV 95.4 MCH 29.0 MCHC 30.4 RDW 16.0 H Plt Count 198 MPV 10.9 H Neut % (Auto) 71.4 Lymph % (Auto) 17.3 [place] % (Auto) 6.6 Eos % (Auto) 3.7 Baso % (Auto) 0.5 Neut # (Auto) 4.66 Lymph # (Auto) 1.1 [place] # (Auto) 0.4 Eos # (Auto) 0.2 Baso # (Auto) 0.0 Nucleated RBC % (a uto) 0 Nucleated RBCs # 0.0 Sodium 133 L Potassium 5.5 H Chloride 96 L Carbon Dioxide 24 Anion Gap 18.5 BUN 44 H Creatinine 8.2 H* GFR Calculation 4.9 L Glucose 103 POC Glucose 90 Calculated Osmolal ity 274 L Calcium 8.5 03/10/20 03/10/20 03/10/20 20:47 10:25 10:24 WBC RBC Hgb Hct MCV MCH MCHC RDW Plt Count MPV Neut % (Auto) Lymph % (Auto) [place] % (Auto) Eos % (Auto) Baso % (Auto) Neut # (Auto) Lymph # (Auto) [place] # (Auto) Eos # (Auto) Baso # (Auto) Nucleated RBC % (a uto) Nucleated RBCs # Sodium 135 L Potassium 7.0 H* 7.4 H* Chloride 101 Carbon Dioxide 15 L Anion Gap 26.0 H BUN 99 H* 98 H* D Creatinine 13.6 H* 13.5 H* GFR Calculation 2.7 L Glucose 115 POC Glucose 133 Calculated Osmolal ity 282 L Calcium 9.7 Vitals: Last Vital Signs Temp 98.4 F 03/11/20 04:00 Pulse 64 03/11/20 08:17 Resp 16 03/11/20 08:15 BP 110/46 03/11/20 06:00 Pulse Ox 100 03/11/20 08:15 Discharge Plan Discharge Patient Disposition: Home Condition: Stable Prescriptions: New pantoprazole 40 mg Recon Soln 40 mg IVP DAILY Qty: 30 RF: 0 cholestyramine (with sugar) 4 gram Powder In Packet 4 g PO BID Qty: 60 RF: 0 Continued Eliquis 2.5 mg tablet 2.5 mg PO BID RF: 0 levothyroxine [Synthroid] 25 mcg tablet 100 mcg PO DAILY RF: 0 atorvastatin 80 mg tablet 80 mg PO DAILY RF: 0 clopidogrel 75 mg tablet 75 mg PO DAILY RF: 0 fluticasone propionate [Flonase Allergy Relief] 50 mcg/actuation [place],Suspension 2 spray INTRANASAL DAILY RF: 0 acetaminophen 325 mg Tablet 650 mg PO Q6H PRN (Reason: Pain) RF: 0 albuterol sulfate 2.5 mg /3 mL (0.083 %) Solution For Nebulization 2.5 mg inhalation TID RF: 0 hydrocodone-acetaminophen [[place]] 5-325 mg Tablet 1 tab PO Q4H PRN (Reason: Pain) RF: 0 lisinopril 20 mg Tablet 20 mg PO DAILY RF: 0 ondansetron HCl [Zofran] 4 mg Tablet 4 mg PO Q8H PRN (Reason: Nausea) RF: 0 diphenoxylate-atropine [Lomotil] 2.5-0.025 mg Tablet 2 tab PO QID PRN (Reason: Diarrhea) RF: 0 melatonin 3 mg Tablet 9 mg PO BEDTIME PRN (Reason: Sleep) RF: 0 carvedilol [Coreg] 3.125 mg Tablet 3.125 mg PO Q12H RF: 0 Renal Vitamin 0.8 mg Tablet 1 tab PO DAILY RF: 0 mirtazapine 15 mg Tablet 15 mg PO BEDTIME RF: 0 insulin lispro [Humalog U-100 Insulin] 100 unit/mL Solution See Rx Instructions .ROUTE .COMPLEX RF: 0 Lantus Solostar U-100 Insulin 100 unit/mL (3 mL) Insulin Pen 10 unit SUBCUT BEDTIME RF: 0 sevelamer carbonate 800 mg Tablet 1,600 mg PO TID RF: 0 trazodone 50 mg Tablet 50 mg PO BEDTIME RF: 0 metoprolol succinate 50 mg Tablet Extended Release 24 Hr 50 mg PO DAILY RF: 0 isosorbide mononitrate 30 mg Tablet Extended Release 24 Hr 30 mg PO DAILY RF: 0 amlodipine 5 mg Tablet 5 mg PO DAILY RF: 0 minoxidil 2.5 mg Tablet 2.5 mg PO BID RF: 0 meloxicam 7.5 mg Tablet 7.5 mg PO DAILY RF: 0 aspirin [Aspir-81] 81 mg Tablet,Delayed Release (Dr/Ec) 81 mg PO DAILY RF: 0 nitroglycerin [Nitrostat] 0.4 mg Tablet, Sublingual 0.4 mg SUBLINGUAL Q5M PRN (Reason: Chest Pain) RF: 0 montelukast [Singulair] 10 mg Tablet 10 mg PO DAILY RF: 0 gabapentin 100 mg Capsule 200 mg PO BEDTIME RF: 0 albuterol sulfate [ProAir HFA] 90 mcg/actuation Hfa Aerosol Inhaler 2 puff INHALATION Q6H PRN (Reason: Shortness Of Breath) RF: 0 Discharge Orders: Discharge Order (Routine); Ordered 03/11/20 Ordered By: Zi Castorena Referrals: Laisha Campoverde FNP [Primary Care Provider] - 4-7 days Discharge Diet: Advance as tolerated Discharge Activity: Increase activity as tolerated Activity Restrictions/Additional Instructions: Please call your doctor or present to emergency department if your condition worsens or you develop diarrhea, lightheadedness, fatigue or see blood in your stool or black stool. Please keep your blood pressure and heart rate log 3 times daily to present to primary care physician next visit for medication adjustment. Please follow-up with outpatient dialysis clinic as scheduled. Please discuss with your doctor to consider outpatient GI follow-up for further evaluation of chronic diarrhea. Discharge Attestations Time Spent in Discharge Care*: greater than 30 min Status at Discharge: Cognitive status at discharge: cognitively intact, Behavioral status at discharge: cooperative, Quality Metrics Clinical Quality Measures During this hospital stay, did patient experience: None Coding Level of Care Code Acute Director Of Architecture for Hector Hutchins Diagnoses Acute diarrhea R19.7 Dehydration with hyponatremia E86.0; E87.1 Hyperkalemia E87.5 End-stage renal disease on hemodialysis N18.6; Z99.2
[2020-03-11 11:29] LABS: Glucose Point of Care 91 mg/dL (70-110)
--- NOTE | 2020-03-11 11:42 | PC.CHAP ---
Pastoral Care Encounter/Spiritual Assessment Type of Contact [] Declined electrical unit rebuilder visit [] Patient/Family/Request visit [] Outpatient visit [] Follow-up visit [] Physician referral [] Code/Alert [X] Routine visit [] Staff referral [] Actively dying [] Patient sleeping [] Family support [] [] Out of room [] Palliative care [] [] Receiving care in room [] Pre-surgical visit [] Trauma [] Long length of stay [X] ICU visit [] Other: Relational/Emotional Strength [] Patient feels connected with others/family/visitors/staff [] Distress [X] Loneliness/isolation [] Abandonment Spirituality of Patient [] Person of [place] [] Attends [facility] of their [place] [X] Believes in Prayer [] Reads Bible or Amish materials [] There are Spiritual issues to be addressed Match Maker Interventions [X] Prayer [X] Active listening [] Non-anxious presence [] Spiritual/emotional support [] Crisis/trauma care [] Spiritual counseling [] Bereavement support [] Provided bereavement packet [] Provided Bible/devotional materials [] Provided toy/stuffed animal, coloring book to patient or family member [] Provided Communion [] Anointing/[place] [] Salvation [] Completed spiritual assessment [X] Other: advocacy for nutrition consultation Impact on Illness or Injury [] Angry [] Fearful [] Anxious [] Often cries [] Exhaustion [] Unable to work [] Unable to attend buddhism [] Unable to walk/stand [] Unable to read [] Unable to drive [] Unable to eat/drink [] Unable to sleep [] Unable to be with family [] Patient intubated [] Other: Summary: Pt was playing a game on her phone and not making eye contact, very nonchalant, during my visit. I was able to engage with her, however, and she explained that she will have to make some dietary changes after going home. She states that she has no one at home to help her. We discussed where she could find gluten free foods and that she could request to see a sample case porter before she is discharged if that would help. She accepted the offer for prayer and joined with me in that prayer. Time spent with patient: 10 mins
--- NOTE | 2020-03-11 12:40 | PC.SOCIAL ---
SS to setup ride for pt when d/c home. Nurse triggered SS to setup transportation for pt when pt d/c's home today. Dr Castorena said pt has no other needs, for SS to see pt. Cable Swager called [facility] in ICU, she said she will call SS when pt is almost done with her hemodialysis. Pt has Medicaid.
--- NOTE | 2020-03-11 13:37 | PC.SOCIAL ---
[employer] Ride has been Setup Diversity Specialist called [facility] to see what time pt would be done with Hemodialysis, Nurse said about 15:45. Diversity Specialist called [employer] & setup a Medicaid ride. Informed them that pt will be ready at 1600, & to call before coming. Trip#[id number]. Notified pt care nurse.
--- NOTE | 2020-03-11 15:41 | PC.NURSE ---
DISCHARGE INSTRUCTIONS REVIEWED WITH PATIENT; DISCUSSED GLUTEN FREE DIET AND LACTOSE FREE DIETS TO BE FOLLOWED SEPERATELY ORDERED BY DR. NARANJO; DISCUSSED PROBIOTIC AND LOMOTIL USE DIRECTED BY DR. NARANJO; INFORMED PATIENT OF 2 PRESCRIPTIONS SENT TO [facility]; ALL QUESTIONS ANSWERED; ALL ITEMS ACCOUNTED FOR BY PATIENT; IV REMOVED OUT OF LEFT FOOT; PT DRESSED HERSELF; ALL MONITORING DEVICES REMOVED; PT TAKEN BY WHEELCHAIR TO ER TO WAIT FOR TRANSPORTATION THAT IS TO ARRIVE AT 1600;
== END 2020-03-11 15:30 | disposition home or self-care (01) | DRG 640 ==
LOC: ER 12:43 → ICU 13:18
PROVIDERS: Emergency Medicine; Nurse Practitioner Family; Admitting Provider Internal Medicine; PCP Nurse Practitioner Family; Visit Provider Internal Medicine
DX: E87.5 Hyperkalemia (principal); N18.6 End stage renal disease; I13.2 Hypertensive heart and chronic kidney disease with heart failure and with stage 5 chronic kidney disease, or end stage renal disease; I50.32 Chronic diastolic (congestive) heart failure; E87.1 Hypo-osmolality and hyponatremia; E86.0 Dehydration; Z99.2 Dependence on renal dialysis; Z79.01 Long term (current) use of anticoagulants; Z79.02 Long term (current) use of antithrombotics/antiplatelets; Z79.4 Long term (current) use of insulin; K52.9 Noninfective gastroenteritis and colitis, unspecified; I48.91 Unspecified atrial fibrillation; I25.10 Atherosclerotic heart disease of native coronary artery without angina pectoris; K21.9 Gastro-esophageal reflux disease without esophagitis; M79.7 Fibromyalgia; E11.22 Type 2 diabetes mellitus with diabetic chronic kidney disease; E03.9 Hypothyroidism, unspecified; J43.9 Emphysema, unspecified; Z95.5 Presence of coronary angioplasty implant and graft; F17.210 Nicotine dependence, cigarettes, uncomplicated
CPT/HCPCS: 12345; 36415; 36416; 74018; 80048; 80053; 82274; 82962; 83630; 85025; 87425; 87493; 87506; 90935; 93005; 94640; 96372; 96375; 99284; C9113; J0610; J1644; J1815; J7040; J7611; Q3014

== ENCOUNTER 2020-03-25 17:32 | Emergency (ER) | payer MEDICARE, MEDICAID, SELFPAY ==
[2020-03-25 17:48] VITALS: BP 100/56; PULSE 90; RESP 18; TEMP 36.3; O2SAT 95; BMI 32.5
--- NOTE | 2020-03-25 19:24 | ED_ITS ---
HPI - Back Pain/Injury General: Chief Complaint: Back Pain/Injury Stated Complaint: DIZZY Time Seen by Provider: 03/25/20 19:24 Source: patient Mode of arrival: ambulatory Limitations: no limitations History of Present Illness: HPI Narrative: Patient comes in today with neck and mid back pain. Patient states she slipped and fell yesterday and fell and landed on her buttocks and since then she has had some neck pain but seems to have worsened over the last 24 hours. Patient is moving without difficulty. She is able to rotate her neck without any pain. Patient appears well. Patient appears in mild pain. Review of Systems General: Reports: 10 or more systems reviewed and unremarkable except in HPI and below Musc: Reports: neck pain and back pain [facility] ED PFSH: Medical History (Updated 03/25/20 @ 20:35 by ERIKA Yu) Anemia Anticoagulation adequate with anticoagulant therapy Atrial fibrillation Carotid artery disease Chronic bronchitis Chronic diarrhea Chronic pain disorder Coronary artery disease Diabetes Diastolic heart failure Emphysema of lung End-stage renal disease on hemodialysis Fibromyalgia GERD (gastroesophageal reflux disease) Hypertension Elevated but stable Hypothyroidism Irritable bowel syndrome Sleep apnea Venous insufficiency Surgical History (Updated 01/24/20 @ 00:00 by ) AVF (arteriovenous fistula) History of appendectomy History of cholecystectomy History of common carotid artery stent placement S/P hemodialysis catheter insertion Stented coronary artery PCI to mid LAD in December 2018 Family History Other CAD (coronary artery disease) Social History Smoking and tobacco status: current every day smoker Quit status (tobacco): has quit using tobacco Year quit tobacco: 2009 Second hand smoke exposure: Yes Smoking risk assessment/counseling performed?: No Alcohol intake: never Physical Exam Const: COMMON NORMALS: no acute distress and patient oriented x3 GENERAL APPEARANCE: cooperative HENMT: COMMON NORMALS: normocephalic and Normal external nose present HEAD & SCALP: normal to inspection and normocephalic NOSE: Normal external nose present MOUTH: Normal oral and palatal mucosa present THROAT: posterior oropharynx normal Eye: GENERAL EYE: appearance normal, both eyes and all related structures Neck/C-Spine: COMMON NORMALS: full ROM CERVICAL SPINE: Yes Paracervical muscle tenderness Lymph: LYMPHATIC: no lymphadenopathy noted Chest: COMMONS NORMALS: normal inspection of the chest Resp: COMMON NORMALS: normal respiratory effort EFFORT & INSPECTION: Yes able to speak in complete sentences Cardio: COMMON NORMALS: regular rate and regular rhythm RATE: regular rate RHYTHM: regular rhythm GI: COMMON NORMALS: non-tender : COMMON NORMALS: Yes no CVA tenderness BLADDER/KIDNEY EXAM: Yes no CVA tenderness Back/Pelvis: COMMON NORMALS: no CVA tenderness THORACIC SPINE/UPPER BACK: Yes paraspinal muscle tenderness LUMBAR SPINE/LOWER BACK: Yes paraspinal muscle tenderness Extremity: COMMON NORMALS: normal to inspection Neuro: COMMON NORMALS: patient oriented x3 and moves all extremities Psych: COMMON NORMALS: mental status grossly normal and cooperative Skin: COMMON NORMALS: no rashes or lesions noted GENERAL SKIN EXAM: no rashes or lesions noted Course Vital Signs: Vital signs: Vital Signs Temperature 97.4 F L 03/25/20 17:48 Pulse Rate 69 03/25/20 20:28 Respiratory Rate 18 03/25/20 17:48 Blood Pressure 86/45 03/25/20 20:28 Pulse Oximetry 95 03/25/20 17:48 MDM - Back Pain/Injury MDM Narrative: Medical decision making narrative: Patient comes in with complaints of neck pain and mid back pain. Patient has a history of renal dialysis and chronic kidney disease. Patient reports occasionally when she gets up she gets lightheaded. Exam notes muscle tenderness of the neck and back. Respirations are even lungs are clear to auscultation. Differential diagnosis includes but not limited to fracture of the vertebra, cervical spine fracture, sprain. X-rays of the neck noted no fracture. Reviewed exam with patient with recommendations for further treatment and follow-up. Patient reported understanding agreed to plan. Discharge Plan Discharge Patient Disposition: Home Clinical Impression: End-stage renal disease on hemodialysis, Acute neck pain Fall Qualifiers: Encounter type: initial encounter Qualified Code(s): W19.XXXA - Unspecified fall, initial encounter Condition: Stable Prescriptions: Continued [place] 5-325 mg Tablet 1 tab PO QID PRN (Reason: Pain) Qty: 10 RF: 0 Discontinued hydrocodone-acetaminophen [[place]] 5-325 mg Tablet 1 tab PO Q4H PRN (Reason: Pain) RF: 0 No Action Eliquis 2.5 mg tablet 2.5 mg PO BID RF: 0 levothyroxine [Synthroid] 25 mcg tablet 100 mcg PO DAILY RF: 0 atorvastatin 80 mg tablet 80 mg PO DAILY RF: 0 clopidogrel 75 mg tablet 75 mg PO DAILY RF: 0 fluticasone propionate [Flonase Allergy Relief] 50 mcg/actuation [place],Suspension 2 spray INTRANASAL DAILY RF: 0 acetaminophen 325 mg Tablet 650 mg PO Q6H PRN (Reason: Pain) RF: 0 albuterol sulfate 2.5 mg /3 mL (0.083 %) Solution For Nebulization 2.5 mg inhalation TID RF: 0 lisinopril 20 mg Tablet 20 mg PO DAILY RF: 0 ondansetron HCl [Zofran] 4 mg Tablet 4 mg PO Q8H PRN (Reason: Nausea) RF: 0 diphenoxylate-atropine [Lomotil] 2.5-0.025 mg Tablet 2 tab PO QID PRN (Reason: Diarrhea) RF: 0 melatonin 3 mg Tablet 9 mg PO BEDTIME PRN (Reason: Sleep) RF: 0 carvedilol [Coreg] 3.125 mg Tablet 3.125 mg PO Q12H RF: 0 Renal Vitamin 0.8 mg Tablet 1 tab PO DAILY RF: 0 mirtazapine 15 mg Tablet 15 mg PO BEDTIME RF: 0 insulin lispro [Humalog U-100 Insulin] 100 unit/mL Solution See Rx Instructions .ROUTE .COMPLEX RF: 0 Lantus Solostar U-100 Insulin 100 unit/mL (3 mL) Insulin Pen 10 unit SUBCUT BEDTIME RF: 0 sevelamer carbonate 800 mg Tablet 1,600 mg PO TID RF: 0 trazodone 50 mg Tablet 50 mg PO BEDTIME RF: 0 metoprolol succinate 50 mg Tablet Extended Release 24 Hr 50 mg PO DAILY RF: 0 isosorbide mononitrate 30 mg Tablet Extended Release 24 Hr 30 mg PO DAILY RF: 0 amlodipine 5 mg Tablet 5 mg PO DAILY RF: 0 minoxidil 2.5 mg Tablet 2.5 mg PO BID RF: 0 meloxicam 7.5 mg Tablet 7.5 mg PO DAILY RF: 0 pantoprazole 40 mg Recon Soln 40 mg IVP DAILY Qty: 30 RF: 0 cholestyramine (with sugar) 4 gram Powder In Packet 4 g PO BID Qty: 60 RF: 0 aspirin [Aspir-81] 81 mg Tablet,Delayed Release (Dr/Ec) 81 mg PO DAILY RF: 0 nitroglycerin [Nitrostat] 0.4 mg Tablet, Sublingual 0.4 mg SUBLINGUAL Q5M PRN (Reason: Chest Pain) RF: 0 montelukast [Singulair] 10 mg Tablet 10 mg PO DAILY RF: 0 gabapentin 100 mg Capsule 200 mg PO BEDTIME RF: 0 albuterol sulfate [ProAir HFA] 90 mcg/actuation Hfa Aerosol Inhaler 2 puff INHALATION Q6H PRN (Reason: Shortness Of Breath) RF: 0 Discharge Orders: Discharge Order (Routine); Ordered 03/25/20 Ordered By: Hubert Huitron Referrals: Laisha Campoverde FNP [Primary Care Provider] - Discharge Diet: Usual diet Discharge Activity: Increase activity as tolerated Activity Restrictions/Additional Instructions: Activity as tolerated. Continue with routine care. Use acetaminophen for pain control. Use hydrocodone for breakthrough pain. Follow-up with primary care for further recommendations and instructions. Return to the emergency department for new concerns. Coding Level of Care Code ED Child And Family Services Specialist for Hector Fwcallie Exam Comprehensive
--- NOTE | 2020-03-25 19:29 | XRR_ITS ---
PROCEDURE INFORMATION: Exam: XR Cervical Spine, 2 or 3 Views Exam date and time: 03/25/2020 7:51 PM Age: 65 years old Clinical indication: Injury or trauma; Fall; Initial encounter; Abrasion; Prior surgery; Surgery date: 6+ months TECHNIQUE: Imaging protocol: XR of the cervical spine, 2 or 3 views. COMPARISON: CT cervical spin wo con* [id number] 2019-11-04 07:49 FINDINGS: Limitations: Limited by patient's body habitus. Vertebrae: Straightening of the normal cervical lordotic curvature. Normal vertebral body heights and alignments. No fractures. Other bones/joints: Sternotomy. Soft tissues: Unremarkable. Vasculature: Carotid stent with mild narrowing. Other findings: C6 and C7 are not adequately visualized due to body habitus. XR/XR cervical spine 3V* [id number] IMPRESSION: 1. No acute fracture/subluxation. 2. C6 and C7 are not adequately visualized due to body habitus.
[2020-03-25] MEDS: HYDROcodone-acetaminophen 7.5-325 mg Tablet 1 TAB PO (20:17)
[2020-03-25 20:26] VITALS: BP 113/46; PULSE 62
[2020-03-25 20:28] VITALS: BP 80/46; BP 86/45; PULSE 69; PULSE 77
[2020-03-25 20:30] VITALS: BP 102/55; PULSE 70; O2SAT 94
[2020-03-25 20:56] VITALS: PULSE 71; RESP 16; O2SAT 98
== END 2020-03-25 21:07 | disposition home or self-care (01) ==
PROVIDERS: Emergency Provider Nurse Practitioner Family; PCP Nurse Practitioner Family
DX: I13.2 Hypertensive heart and chronic kidney disease with heart failure and with stage 5 chronic kidney disease, or end stage renal disease (principal); E11.22 Type 2 diabetes mellitus with diabetic chronic kidney disease; N18.6 End stage renal disease; I50.30 Unspecified diastolic (congestive) heart failure; I25.10 Atherosclerotic heart disease of native coronary artery without angina pectoris; J43.9 Emphysema, unspecified; F17.210 Nicotine dependence, cigarettes, uncomplicated; M54.2 Cervicalgia; Z79.01 Long term (current) use of anticoagulants; Z79.02 Long term (current) use of antithrombotics/antiplatelets; Z79.82 Long term (current) use of aspirin; Z79.4 Long term (current) use of insulin
CPT/HCPCS: 12345; 72040; 99282; 99283

== ENCOUNTER 2020-09-28 14:14 | Observation (INO) | payer MEDICARE, MEDICAID, SELFPAY ==
[2020-09-28] VITALS (7 sets, daily range): BP systolic 140–163; BP diastolic 58–89; PULSE 109–120; RESP 12–20; TEMP 36.3–36.4; O2SAT 95–100; BMI 34.4
--- NOTE | 2020-09-28 15:12 | ECG_ITS ---
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
--- NOTE | 2020-09-28 15:12 | XR_ITS ---
WS: [id number] PORTABLE CHEST HISTORY: dyspnea/cough COMPARISON: 01/16/2020 Status post CABG. Mild diffuse interstitial thickening with edema. Mild pulmonary vascular congestion with no pneumonia . No pleural effusion or pneumothorax. Cardiac size: Moderately enlarged heart. Similar to prior studies. Mediastinum/Aorta: Moderate atherosclerosis aorta. Short arterial stent noted in the expected locatio n of the LEFT subclavian artery. No osseous abnormality seen. XR/XR chest 1V portable [id number] IMPRESSION: 1. Mild pulmonary vascular congestion. 2. Moderate cardiomegaly.
--- NOTE | 2020-09-28 15:24 | W.ED.GENADLT ---
HPI - General Adult General: Chief complaint: General Medical Stated complaint: needs dialysis Time Seen by Provider: 09/28/20 15:03 History of Present Illness: HPI narrative: 65-year-old female presents to the emergency room by privately owned vehicle stating she needs to have dialysis. She is usually scheduled for hemodialysis 3 days a week at [facility] missed dialysis this morning. She states she falls frequently but this is not new. She does have a skin tear on her left hand. Striking her head no loss consciousness. He is on Eliquis. Associated symptoms: Deny chest pain, confusion, cough, diaphoresis, decreased appetite, dyspnea, fevers/chills, headache(s), malaise, nausea, rash, palpitations, seizures, short of breath, syncope, vomiting or weakness Treatments prior to arrival: none Review of Systems Const: Denies: malaise or diaphoresis ENMT: Denies: throat pain, ear or mastoid pain, nasal discharge or nasal congestion Card: Denies: chest pain, palpitations or syncope Resp: Denies: dyspnea GI: Denies: nausea or vomiting : Denies: flank pain, difficulty voiding, dysuria, urinary frequency or urinary urgency Skin/Breast: Denies: rash Neuro: Denies: headache(s) or confusion PFSH ED PFSH: Medical History (Updated 09/28/20 @ 19:26 by Sami Crockett MD) Anemia Anticoagulation adequate with anticoagulant therapy Atrial fibrillation Carotid artery disease Chronic bronchitis Chronic diarrhea Chronic pain disorder Coronary artery disease Diabetes Diastolic heart failure Emphysema of lung End-stage renal disease on hemodialysis Fibromyalgia GERD (gastroesophageal reflux disease) Hypertension Elevated but stable Hypothyroidism Irritable bowel syndrome Sleep apnea Venous insufficiency Surgical History AVF (arteriovenous fistula) History of appendectomy History of cholecystectomy History of common carotid artery stent placement S/P hemodialysis catheter insertion Stented coronary artery PCI to mid LAD in December 2018 Family History Other CAD (coronary artery disease) Social History Smoking and tobacco status: former smoker Quit status (tobacco): has quit using tobacco Year quit tobacco: 2010 Second hand smoke exposure: Yes Smoking risk assessment/counseling performed?: No Alcohol intake: never Substance/Drug Use: never Lives independently: Yes Household members: children and other Details: son, cousin Physical Exam Const: COMMON NORMALS: no acute distress GENERAL APPEARANCE: cooperative and comfortable HENMT: COMMON NORMALS: normocephalic, atraumatic and hearing grossly normal bilaterally HEAD & SCALP: normocephalic and atraumatic Eye: COMMON NORMALS: Equal, round and reactive pupils present, EOMs intact bilaterally, conjunctivae normal and no scleral icterus CONJUNCTIVA: Yes conjunctivae normal PUPIL: Yes Equal, round and reactive pupils present Neck/C-Spine: COMMON NORMALS: full ROM, no lymphadenopathy, supple and no JVD Lymph: LYMPHATIC: no lymphadenopathy noted and no lymphedema noted Resp: COMMON NORMALS: normal respiratory effort, No retractions, No use of accessory muscles and clear to auscultation bilaterally AUSCULTATION: clear to auscultation bilaterally Cardio: COMMON NORMALS: no JVD, regular rate, regular rhythm and No murmurs present (Cardio) RATE: regular rate RHYTHM: regular rhythm GI: COMMON NORMALS: Soft to palpation and No hepatosplenomegaly present AUSCULTATION: Yes normoactive bowel sounds PALPATION: Yes Soft to palpation, No Tenderness to palpation present (GI), No Guarding due to palpation present (GI) and Yes No hepatosplenomegaly present Extremity: COMMON NORMALS: normal to inspection, capillary refill normal, no clubbing, cyanosis or edema, no calf tenderness and no pedal edema Skin: COMMON NORMALS: no rashes or lesions noted GENERAL SKIN EXAM: no rashes or lesions noted Course Vital Signs: Vital signs: Vital Signs Temperature 97.2 F L 09/29/20 15:02 Pulse Rate 90 09/29/20 15:36 Respiratory Rate 17 09/29/20 15:36 Blood Pressure 111/60 09/29/20 15:02 Pulse Oximetry 98 09/29/20 15:36 MDM - General Adult MDM Narrative: Medical decision making narrative: She has hyperkalemia atrial fibrillation end-stage renal disease and will need dialysis discussed with nephrology and with hospitalist patient to be admitted for this. Had hoped to have the patient follow-up with her dialysis clinic tomorrow however given her degree of hyperkalemia she cannot wait until tomorrow to have dialysis. Lab Data: Labs: Lab Results 09/28/20 09/28/20 09/28/20 Range/Units 16:08 16:08 16:08 WBC 6.7 (4.0-10.0) 10^3/ uL RBC 4.47 (4.1-5.3) 10^6/u L Hgb 13.0 (11.5-15.3) g/dL Hct 40.3 (37.0-47.0) % MCV 90.2 (81-99) fL MCH 29.1 (28.0-34.0) pg MCHC 32.3 (30.0-36.0) g/dL RDW 18.5 H (12.1-15.1) % Plt Count 178 (130-400) 10^3/c mm MPV 11.9 H (7.4-10.4) fL Neut % (Auto) 73.2 % Lymph % (Auto) 18.4 % [place] % (Auto) 6.3 % Eos % (Auto) 0.9 % Baso % (Auto) 0.6 % Neut # (Auto) 4.88 (1.8-7.7) 10^3/u L Lymph # (Auto) 1.2 (0.8-4.8) 10^3/u L [place] # (Auto) 0.4 (0.2-0.9) 10^3/u L Eos # (Auto) 0.1 (0.0-0.8) 10^3/u L Baso # (Auto) 0.0 (0.0-0.1) 10^3/u L Nucleated RBC % (a uto) 0 % Nucleated RBCs # 0.0 /100WBC Sodium 128 L (136-145) mmol/L Potassium 7.1 H* (3.5-5.1) mmol/L Chloride 89 L (98-107) mmol/L Carbon Dioxide 18 L (22-29) mmol/L Anion Gap 28.1 H (5-19) BUN 67 H (8-23) mg/dL Creatinine 7.7 H* (0.5-0.9) mg/dL GFR Calculation 5.2 L (90-130) mL/min Glucose 109 (65-115) mg/dL Calculated Osmolal ity 286 (285-295) mOsm/k g Calcium 8.9 (8.5-10.5) mg/dL Total Bilirubin 1.9 H (0.15-1.2) mg/dL AST 27 (0-32) U/L ALT 20 (0-33) U/L Alkaline Phosphata se 140 H (35-105) IU/L Total Protein 7.4 (6.6-8.7) g/dL Albumin 3.1 L (3.5-5.2) g/dL Globulin 4.3 (1.3-4.6) g/dL PTH Intact 582.1 H (15-65) pg/mL Calcium (PTH Intac t) 9.7 (8.5-10.5) mg/dL Hep Bs Antigen Non-reactive (Nonreactive) Hep Bs Antibody 5.9 (0-8.5) Hepatitis C Antibo dy Non-reactive (Nonreactive) Discharge Plan Discharge Patient Disposition: Admitted As Inpatient Admit Provider: Sami Crockett Clinical Impression: Hyperkalemia, Atrial fibrillation, End-stage renal disease on hemodialysis, Hypertension Condition: Stable Coding Level of Care Code 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
[2020-09-28 16:18] LABS: Basophils % 0.6 %; Eosinophils # 0.1 10^3/uL (0.0-0.8); Eosinophils % 0.9 %; Hematocrit 40.3 % (37.0-47.0); Lymphocytes # 1.2 10^3/uL (0.8-4.8); Lymphocytes % 18.4 %; Mean Corpuscular HGB Conc 32.3 g/dL (30.0-36.0); Mean Corpuscular Hemoglobin 29.1 pg (28.0-34.0); Mean Corpuscular Volume 90.2 fL (81-99); Mean Platelet Volume 11.9 fL (7.4-10.4); Monocytes # 0.4 10^3/uL (0.2-0.9); Monocytes % 6.3 %; Neutrophils # 4.88 10^3/uL (1.8-7.7); Neutrophils % 73.2 %; Nucleated Red Blood Cells % 0 %; Platelet Count 178 10^3/cmm (130-400); Red Blood Count 4.47 10^6/uL (4.1-5.3); Red Cell Distribution Width 18.5 % (12.1-15.1); White Blood Count 6.7 10^3/uL (4.0-10.0)
[2020-09-28 16:36] LABS: Alanine Aminotransferase 20 U/L (0-33); Albumin Level 3.1 g/dL (3.5-5.2); Alkaline Phosphatase 140 IU/L (35-105); Blood Urea Nitrogen 67 mg/dL (8-23); Calcium 8.9 mg/dL (8.5-10.5); Carbon Dioxide 18 mmol/L (22-29); Chloride 89 mmol/L (98-107); Globulin 4.3 g/dL (1.3-4.6); Glomerular Filtration Rate 5.2 mL/min (90-130); Glucose 109 mg/dL (65-115); Osmolality Calculated 286 mOsm/kg (285-295); Sodium 128 mmol/L (136-145); Total Bilirubin 1.9 mg/dL (0.15-1.2); Total Protein 7.4 g/dL (6.6-8.7)
[2020-09-28 16:40] LABS: Anion Gap 28.1 (5-19); Aspartate Amino Transferase 27 U/L (0-32); Potassium 7.1 mmol/L (3.5-5.1)
[2020-09-28] MEDS: sodium bicarbonate 8.4% 1 mEq/mL 50mL Syr 100 MEQ IVP (17:00)
[2020-09-28] MEDS: calcium gluconate 0.1 gm/mL 10% SDV 10mL 2 GM IVP (17:03)
[2020-09-28] MEDS: sodium polystyrene sulfonate 15 gm/60 mL Btl 30 GM PO (17:04)
[2020-09-28] MEDS: insulin regular-human 100 units/1 mL 10 UNIT IVP (17:04)
--- NOTE | 2020-09-28 17:27 | P.CONIM_ITS ---
Providers/Reason For Consult Consulting Physican/Specialty*: antoine moseley md / telenephrology Reason for Consult*: ESRD, hyperkalemia Attending Physician: Sami Crockett Primary Care Provider: ERIAK Roman History of Present Illness History of Present Illness Amanda Ha is a 65 year old female ESRD, CAD, carotid art disease, DM, HTN, anemia. Pt missed HD this week and came to ER as she felt weak. she states she couldnt get to dialysis due to snow. she has chronic diarrhea. Review of Systems General: Reports: 10 or more systems reviewed and unremarkable except in HPI and below Narrative: weakness, diarrhea, headache, poor vision, no cp, no kramer. +SOB, weak, + lethargy Meds/Allergies Home Medications and Allergies Home Medications Medication Instructions Recorded Confirmed Last Taken Type apixaban 2.5 mg tablet 2.5 mg PO BID 08/18/19 03/10/20 03/09/20 History levothyroxine 25 mcg tablet 100 mcg PO DAILY tab 08/18/19 03/10/20 03/09/20 History aspirin [Aspir-81] 81 mg PO DAILY 09/09/19 03/10/20 03/09/20 History albuterol sulfate [ProAir HFA] 2 puff INHALATION Q6H PRN 10/11/19 03/10/20 12/05/19 History gabapentin 200 mg PO BEDTIME 10/11/19 03/10/20 03/09/20 History montelukast [Singulair] 10 mg PO DAILY 10/11/19 03/10/20 03/09/20 History nitroglycerin [Nitrostat] 0.4 mg SUBLINGUAL Q5M PRN 10/11/19 03/10/20 12/21/19 History atorvastatin 80 mg PO DAILY 12/06/19 03/10/20 03/09/20 History clopidogrel 75 mg PO DAILY 12/06/19 03/10/20 03/09/20 History fluticasone propionate [Flonase 2 spray INTRANASAL DAILY 12/06/19 03/10/20 01/16/20 History Allergy Relief] Lantus Solostar U-100 Insulin 10 unit SUBCUT BEDTIME 01/16/20 03/10/20 01/15/20 History Renal Vitamin 1 tab PO DAILY 01/16/20 03/10/20 03/09/20 History acetaminophen 650 mg PO Q6H PRN 01/16/20 03/10/20 Unknown History albuterol sulfate 2.5 mg INHALATION TID 01/16/20 03/10/20 01/16/20 History carvedilol [Coreg] 3.125 mg PO Q12H 01/16/20 03/10/20 03/09/20 History diphenoxylate-atropine [Lomotil] 2 tab PO QID PRN 01/16/20 03/10/20 Unknown History insulin lispro [Humalog U-100 See Rx Instructions .ROUTE .COMPLEX 01/16/20 03/10/20 Unknown History Insulin] lisinopril 20 mg PO DAILY 01/16/20 03/10/20 03/09/20 History melatonin 9 mg PO BEDTIME PRN 01/16/20 03/10/20 03/09/20 History mirtazapine 15 mg PO BEDTIME 01/16/20 03/10/20 03/09/20 History ondansetron HCl [Zofran] 4 mg PO Q8H PRN 01/16/20 03/10/20 Unknown History sevelamer carbonate 1,600 mg PO TID 01/16/20 03/10/20 03/09/20 History amlodipine 5 mg PO DAILY 03/10/20 03/10/20 03/09/20 History isosorbide mononitrate 30 mg PO DAILY 03/10/20 03/10/20 03/09/20 History meloxicam 7.5 mg PO DAILY 03/10/20 03/10/20 03/09/20 History metoprolol succinate 50 mg PO DAILY 03/10/20 03/10/20 03/09/20 History minoxidil 2.5 mg PO BID 03/10/20 03/10/20 03/09/20 History trazodone 50 mg PO BEDTIME 03/10/20 03/10/20 03/09/20 History cholestyramine (with sugar) 4 g PO BID #60 ea 03/11/20 Unknown Rx pantoprazole 40 mg IVP DAILY #30 ea 03/11/20 Unknown Rx [place] 1 tab PO QID PRN #10 tab 03/25/20 Unknown Rx Allergies Allergy/AdvReac Type Severity Reaction Status Date / Time adhesive Allergy Unknown Verified 11/04/19 07:28 codeine Allergy Unknown Verified 11/04/19 07:28 duloxetine [From Cymbalta] Allergy Unknown Verified 11/04/19 07:28 PFSH Acute PFSH: Medical History (Updated 09/28/20 @ 16:47 by Milan Hannah DO) Anemia Anticoagulation adequate with anticoagulant therapy Atrial fibrillation Carotid artery disease Chronic bronchitis Chronic diarrhea Chronic pain disorder Coronary artery disease Diabetes Diastolic heart failure Emphysema of lung End-stage renal disease on hemodialysis Fibromyalgia GERD (gastroesophageal reflux disease) Hypertension Elevated but stable Hypothyroidism Irritable bowel syndrome Sleep apnea Venous insufficiency Surgical History AVF (arteriovenous fistula) History of appendectomy History of cholecystectomy History of common carotid artery stent placement S/P hemodialysis catheter insertion Stented coronary artery PCI to mid LAD in December 2018 Family History Other CAD (coronary artery disease) Social History Smoking and tobacco status: current every day smoker Quit status (tobacco): has quit using tobacco Year quit tobacco: 2009 Second hand smoke exposure: Yes Smoking risk assessment/counseling performed?: No Alcohol intake: never Vitals/I&O/Wt Last Vital Signs Temp 97.6 F 09/28/20 14:27 Pulse 114 H 09/28/20 17:17 Resp 20 H 09/28/20 17:13 BP 155/71 09/28/20 17:00 Pulse Ox 95 09/28/20 17:13 Weight last 48 hrs Weight 99.79 kg Physical Exam Narrative: EXAM NARRATIVE: in bed, NARD VS noted, a fib heent- nc/at, eomi neck- no jvp lungs cta b/l heart irreg irreg, +BIBIANA abd soft, nt, nd, +BS ext LUE AVF w/ thrill and bruit legs trace edema neuro- a,a, o x 3 A&P Additional A&P Information 65 yr old female 1. ESRD- HD now for acidosis and hyperkalemia- HD now for 3.5 hrs, 2k, remove 2l 2. hyponatremia from diarrhea and renal failure- monitor w/ dialysis 3. met acidosis- inc AG -from Renal failure 4. check phos, pth 5. bp okay 6. a fib- rate control per medicine -on eliquis 7.hypothyroidism- check tsh 8. 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
--- NOTE | 2020-09-28 19:12 | P.HP_ITS ---
Providers/Chief Complaint Admitting Physician: Sami Crockett Primary Care Provider: ERIKA Roman Chief Complaint: dialysis History of Present Illness Pleasant 51-year-old lady with history of ESRD, CAD, status post CABG, carotid artery disease, DM 2, HTN, chronic anticoagulation due to atrial fibrillation, diastolic congestive heart failure, COPD has missed 2 sessions of hemodialysis due to increment weather, and came for evaluation to emergency department due to feeling weak. In ER noted to have metabolic abnormalities including sodium 128, potassium 7.1, chloride 89, bicarbonate 18, anion gap 20.1. BUN 67, creatinine 7.7. T bili noted 1.9. Alk phos 140. AST, ALT normal. Apart from missing hemodialysis she states she has been in baseline state of health. Denies any recent acute illness. Complains of having diarrhea for the past 6 months at least. Has chronic intermittent cough with COPD. Occasionally brings up white sputum. Denies more shortness of breath than usual. Chest x-ray with noted mild pulmonary vascular congestion. Moderate cardiomegaly. Due to severe metabolic abnormalities she is admitted and set up for urgent hemodialysis after in ER receiving insulin, Kayexalate, calcium gluconate, sodium bicarbonate. Received a albuterol breathing treatment. Review of Systems Const: Reports: fatigue; Denies: fever(s), chills, body aches or malaise Eyes: Denies: change in vision or eye redness ENMT: Denies: throat pain, oral sores or ear or mastoid pain Card: Denies: chest pain, edema, pre-syncope or dyspnea on exertion Resp: Denies: dyspnea, productive cough, change in phlegm color or hemoptysis GI: Reports: diarrhea (chronic); Denies: abdominal pain, nausea, vomiting, constipation, hematochezia or melena : Denies: flank pain, urinary frequency or hematuria Musc: Denies: back pain, joint swelling or joint redness Skin/Breast: Denies: rash, sores or new lesions Neuro: Denies: headache(s), numbness in extremities, weakness in extremities, dizziness, confusion or seizure-like activity Endo: Denies: polyuria or polydipsia Hussein/Lymph: Denies: easy bleeding or purpura All/Imm: Denies: urticaria, throat swelling or tongue swelling Medications/Allergies Home Medications Medication Instructions Recorded Confirmed Last Taken Type apixaban 2.5 mg tablet 2.5 mg PO BID 08/18/19 03/10/20 03/09/20 History levothyroxine 25 mcg tablet 100 mcg PO DAILY tab 08/18/19 03/10/20 03/09/20 History aspirin [Aspir-81] 81 mg PO DAILY 09/09/19 03/10/20 03/09/20 History albuterol sulfate [ProAir HFA] 2 puff INHALATION Q6H PRN 10/11/19 03/10/20 12/05/19 History gabapentin 200 mg PO BEDTIME 10/11/19 03/10/20 03/09/20 History montelukast [Singulair] 10 mg PO DAILY 10/11/19 03/10/20 03/09/20 History nitroglycerin [Nitrostat] 0.4 mg SUBLINGUAL Q5M PRN 10/11/19 03/10/20 12/21/19 History atorvastatin 80 mg PO DAILY 12/06/19 03/10/20 03/09/20 History clopidogrel 75 mg PO DAILY 12/06/19 03/10/20 03/09/20 History fluticasone propionate [Flonase 2 spray INTRANASAL DAILY 12/06/19 03/10/20 01/16/20 History Allergy Relief] Lantus Solostar U-100 Insulin 10 unit SUBCUT BEDTIME 01/16/20 03/10/20 01/15/20 History Renal Vitamin 1 tab PO DAILY 01/16/20 03/10/20 03/09/20 History acetaminophen 650 mg PO Q6H PRN 01/16/20 03/10/20 Unknown History albuterol sulfate 2.5 mg INHALATION TID 01/16/20 03/10/20 01/16/20 History carvedilol [Coreg] 3.125 mg PO Q12H 01/16/20 03/10/20 03/09/20 History diphenoxylate-atropine [Lomotil] 2 tab PO QID PRN 01/16/20 03/10/20 Unknown History insulin lispro [Humalog U-100 See Rx Instructions .ROUTE .COMPLEX 01/16/20 03/10/20 Unknown History Insulin] lisinopril 20 mg PO DAILY 01/16/20 03/10/20 03/09/20 History melatonin 9 mg PO BEDTIME PRN 01/16/20 03/10/20 03/09/20 History mirtazapine 15 mg PO BEDTIME 01/16/20 03/10/20 03/09/20 History ondansetron HCl [Zofran] 4 mg PO Q8H PRN 01/16/20 03/10/20 Unknown History sevelamer carbonate 1,600 mg PO TID 01/16/20 03/10/20 03/09/20 History amlodipine 5 mg PO DAILY 03/10/20 03/10/20 03/09/20 History isosorbide mononitrate 30 mg PO DAILY 03/10/20 03/10/20 03/09/20 History meloxicam 7.5 mg PO DAILY 03/10/20 03/10/20 03/09/20 History metoprolol succinate 50 mg PO DAILY 03/10/20 03/10/20 03/09/20 History minoxidil 2.5 mg PO BID 03/10/20 03/10/20 03/09/20 History trazodone 50 mg PO BEDTIME 03/10/20 03/10/20 03/09/20 History cholestyramine (with sugar) 4 g PO BID #60 ea 03/11/20 Unknown Rx pantoprazole 40 mg IVP DAILY #30 ea 03/11/20 Unknown Rx [place] 1 tab PO QID PRN #10 tab 03/25/20 Unknown Rx Allergies Allergy/AdvReac Type Severity Reaction Status Date / Time adhesive Allergy Unknown Verified 11/04/19 07:28 codeine Allergy Unknown Verified 11/04/19 07:28 duloxetine [From Cymbalta] Allergy Unknown Verified 11/04/19 07:28 PFSH Acute PFSH: Medical History (Updated 09/28/20 @ 19:26 by Sami Crockett MD) Anemia Anticoagulation adequate with anticoagulant therapy Atrial fibrillation Carotid artery disease Chronic bronchitis Chronic diarrhea Chronic pain disorder Coronary artery disease Diabetes Diastolic heart failure Emphysema of lung End-stage renal disease on hemodialysis Fibromyalgia GERD (gastroesophageal reflux disease) Hypertension Elevated but stable Hypothyroidism Irritable bowel syndrome Sleep apnea Venous insufficiency Surgical History AVF (arteriovenous fistula) History of appendectomy History of cholecystectomy History of common carotid artery stent placement S/P hemodialysis catheter insertion Stented coronary artery PCI to mid LAD in December 2018 Family History Other CAD (coronary artery disease) Social History Smoking and tobacco status: former smoker Quit status (tobacco): has quit using tobacco Year quit tobacco: 2009 Second hand smoke exposure: Yes Smoking risk assessment/counseling performed?: No Alcohol intake: never Substance/Drug Use: never Lives independently: Yes Household members: children and other Details: son, cousin Vitals/I&O/Wt Last Vital Signs Temp 97.4 F L 09/28/20 17:30 Pulse 115 H 09/28/20 17:33 Resp 19 H 09/28/20 17:33 BP 160/58 09/28/20 17:33 Pulse Ox 97 09/28/20 17:33 Weight last 48 hrs Weight 99.79 kg Physical Exam Const: COMMON NORMALS: no acute distress, patient oriented x3 and alert GENERAL APPEARANCE: comfortable NUTRITIONAL APPEARANCE: overweight ORIENTATION/CONSCIOUSNESS: Yes awake HENMT: COMMON NORMALS: oropharynx normal Neck/C-Spine: COMMON NORMALS: no JVD Resp: COMMON NORMALS: normal respiratory effort and clear to auscultation bilaterally AUSCULTATION: clear to auscultation bilaterally Cardio: COMMON NORMALS: no JVD, regular rhythm, S1 normal heart sound present, S2 normal heart sound present and No murmurs present (Cardio) RHYTHM: regular rhythm HEART SOUNDS: S1 normal heart sound present and S2 normal heart sound present GI: COMMON NORMALS: Normal to inspection, nondistended, normoactive bowel sounds present, Soft to palpation and non-tender PALPATION: Yes Soft to palpation Extremity: COMMON NORMALS: no joint enlargement and no pedal edema OTHER: RLE edema Neuro: COMMON NORMALS: patient oriented x3 and moves all extremities Skin: COMMON NORMALS: no rashes or lesions noted GENERAL SKIN EXAM: no rashes or lesions noted Data : 09/28/20 16:08 09/28/20 16:08 A&P Assessment and plan (1) Acute hyperkalemia: Received calcium gluconate, insulin, bicarbonate, albuterol, Kayexalate. Currently started on urgent hemodialysis. Reassess. Hold lisinopril for Status: Acute (2) Hyponatremia: Does not appear hypovolemic. Receiving hemodialysis. Reassess. Status: Acute (3) Metabolic acidosis: Hemodialysis. Status: Acute (4) Hyperbilirubinemia: Not entirely clear because of this. Does not have abdominal pain. Alk phos mildly elevated to 140. Other liver parameters normal. Reassess. If persistent assess by right upper quadrant ultrasound. Status: Acute (5) Chronic diarrhea: For at least 6 months or longer. Is on cholestyramine. Appears there is persistent. Will review her medication and see if anything could be contributing. Continue follow-up with PCP for additional work-up. Consider referral. Status: Acute (6) Right leg swelling: Venous duplex. Continue Eliquis. Status: Acute (7) Hypothyroidism: Status: Acute Additional A&P Information CAD CHF DM2 Attestations Medical Necessity Statement*: Place in observation. 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
[2020-09-28] MEDS: trazodone 50 mg Tablet PO (23:02)
[2020-09-29] VITALS (11 sets, daily range): BP systolic 111–129; BP diastolic 60–79; PULSE 70–111; RESP 16–19; TEMP 36.2–37.2; O2SAT 94–99
[2020-09-29 00:06] LABS: Calcium 9.7 mg/dL (8.5-10.5); Parathyroid Hormone 582.1 pg/mL (15-65)
[2020-09-29 00:35] LABS: Hepatitis B Surface AB 5.9 (0-8.5); Hepatitis B Surface Antigen Non-Reactive (Nonreactive); Hepatitis C Virus Antibody Non-Reactive (Nonreactive)
[2020-09-29 06:22] LABS: Basophils % 0.5 %; Eosinophils % 0.6 %; Hematocrit 36.5 % (37.0-47.0); Hemoglobin 11.6 g/dL (11.5-15.3); Lymphocytes # 0.6 10^3/uL (0.8-4.8); Mean Corpuscular HGB Conc 31.8 g/dL (30.0-36.0); Mean Corpuscular Hemoglobin 29.1 pg (28.0-34.0); Mean Corpuscular Volume 91.7 fL (81-99); Mean Platelet Volume 11.8 fL (7.4-10.4); Monocytes # 0.5 10^3/uL (0.2-0.9); Monocytes % 7.9 %; Neutrophils # 5.19 10^3/uL (1.8-7.7); Neutrophils % 81.5 %; Nucleated Red Blood Cells % 0 %; Platelet Count 139 10^3/cmm (130-400); Red Blood Count 3.98 10^6/uL (4.1-5.3); Red Cell Distribution Width 18.6 % (12.1-15.1); White Blood Count 6.4 10^3/uL (4.0-10.0)
[2020-09-29 06:37] LABS: Alanine Aminotransferase 17 U/L (0-33); Albumin Level 2.8 g/dL (3.5-5.2); Alkaline Phosphatase 119 IU/L (35-105); Anion Gap 18.7 (5-19); Aspartate Amino Transferase 20 U/L (0-32); Blood Urea Nitrogen 30 mg/dL (8-23); Calcium 8.4 mg/dL (8.5-10.5); Carbon Dioxide 27 mmol/L (22-29); Chloride 93 mmol/L (98-107); Globulin 3.6 g/dL (1.3-4.6); Glomerular Filtration Rate 9.3 mL/min (90-130); Glucose 74 mg/dL (65-115); Magnesium 1.7 mg/dL (1.7-2.3); Osmolality Calculated 283 mOsm/kg (285-295); Phosphorus 6.2 mg/dL (2.5-4.5); Potassium 4.7 mmol/L (3.5-5.1); Sodium 134 mmol/L (136-145); Total Bilirubin 1.7 mg/dL (0.15-1.2); Total Protein 6.4 g/dL (6.6-8.7)
[2020-09-29] MEDS: levothyroxine 100 mcg Tablet PO (08:42)
[2020-09-29] MEDS: montelukast sodium 10 mg Tablet PO (08:42)
[2020-09-29] MEDS: metoprolol succinate ER (24 HR) 50 mg Tablet PO (08:42)
[2020-09-29] MEDS: apixaban 5 mg Tablet 2.5 MG PO (08:42)
[2020-09-29] MEDS: clopidogrel 75 mg Tablet PO (08:43)
[2020-09-29] MEDS: aspirin 81 mg EC Tablet PO (08:43)
[2020-09-29] MEDS: pantoprazole 40 mg SDV IVP (08:48)
--- NOTE | 2020-09-29 12:39 | PM.PN ---
Subjective Subjective: Interval history: Mrs Ha Presented last night having missed dialysis due to poor weather conditions and being unable to get to the dialysis clinic. She did receive emergency dialysis yesterday evening, tolerated this therapy well and feels well today. She has been suffering from diarrhea recently, however, no episodes since hospitalization. No extremity edema or other symptoms of hypervolemia, no uremic symptoms. Vitals/I&O/Wt Last Vital Signs Temp 97.9 F 09/29/20 11:22 Pulse 96 09/29/20 11:22 Resp 17 09/29/20 11:22 BP 128/66 09/29/20 11:22 Pulse Ox 95 09/29/20 11:22 09/28/20 09/29/20 09/29/20 22:59 06:59 14:59 Intake Total 240 / 240 Balance 240 / 240 Weight last 48 hrs Weight 99.926 kg Weight 99.79 kg Physical Exam Narrative: EXAM NARRATIVE: Constitutional: Awake, comfortable HEENT: Wet mucosa, no jvp, non icteric Lungs: Bilaterally clear without discernible wheeze, rales in all lung zones CVS: S1 S2, no murmurs Abdo: Soft, BS ok Ext 4: Minimal edema, peripheral perfusion with no cyanosis Neurological: Grossly non-focal Data : 09/29/20 05:19 09/29/20 05:19 A&P Additional A&P Information 1. ESRD No acute indication for dialysis today, will plan on dialysis tomorrow morning prior to her transfer out. 2K-2-3 L ultrafiltration. Dose medication for GFR less than 15 on dialysis 2. Chronic ESRD issues should be further addressed as standard outpatient management in her dialysis clinic including anemia management, hypophosphatemia, secondary hyperparathyroidism etc. Okay to transfer back to intermediate facility, as I anticipate she will be here tomorrow morning, will dialyze her before discharge. 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
--- NOTE | 2020-09-29 13:18 | PC.CHAP ---
Pastoral Care Encounter/Spiritual Assessment Type of Contact [] Declined orchard worker visit [] Patient/Family/Request visit [] Outpatient visit [] Follow-up visit [] Physician referral [] Code/Alert [xx] Routine visit [] Staff referral [] Actively dying [] Patient sleeping [] Family support [] [] Out of room [] Palliative care [] [] Receiving care in room [] Pre-surgical visit [] Trauma [] Long length of stay [] ICU visit [] Other: Relational/Emotional Strength [xx] Patient feels connected with others/family/visitors/staff [] Distress [] Loneliness/isolation [] Abandonment Spirituality of Patient [xx] Person of Ciera [xx] Attends Mu-Ism of their [place] [xx] Believes in Prayer [xx] Reads Bible or Druze materials [] There are Spiritual issues to be addressed Caregiver Services Home Interventions [xx] Prayer [xx] Active listening [xx] Non-anxious presence [] Spiritual/emotional support [] Crisis/trauma care [] Spiritual counseling [] Bereavement support [] Provided bereavement packet [xx] Provided Bible/devotional materials [] Provided toy/stuffed animal, coloring book to patient or family member [] Provided Communion [] Anointing/[place] [] Salvation [xx] Completed spiritual assessment [] Other: Impact on Illness or Injury [] Angry [] Fearful [] Anxious [] Often cries [] Exhaustion [] Unable to work [] Unable to attend hinduism [] Unable to walk/stand [] Unable to read [] Unable to drive [] Unable to eat/drink [] Unable to sleep [] Unable to be with family [] Patient intubated [] Other: Summary Pt stated she feels better. She is awaiting dialysis and requested prayer for that. She stated she has much support from friends and taoist who pray for her. Time spent with patient 7 minutes.
--- NOTE | 2020-09-29 19:23 | USCV_ITS ---
Amanda Ha Age: 65 Gender: F : 1955 Exam Date: 09/29/2020 06:16 Ordering Phys: Sami Crockett MD Technologist: Gayatri Snider Exam Location: [facility] Indication: ASSESS FOR VTE HISTORY: Assess for VTE PROCEDURES: Venous duplex imaging was performed in only the right lower extremity. The following venous structures were evaluated: common femoral vein, profunda vein, proximal portion of the greater saphenous vein, superficial femoral vein, and the popliteal vein. In addition, the posterior tibial and peroneal trunk were evaluated. Serial compression, augmentation maneuvers, and spectral Doppler flow evaluation were performed. FINDINGS: Normal 2-D Doppler and augmentation and compressibility throughout the lower extremity venous structures. Additional imaging through the proximal calf veins also reveals no thrombus. Limited evaluation of the greater saphenous vein is patent with no thrombus.. There is a right lower extremity Ardon's cyst noted. Complex cystic mass with low level echos and no vascularity measuring 4.8 cm in the right popliteal fossa. CONCLUSIONS No DVT right lower extremity. Right popliteal fossa Ardon's cyst. Dr. Estela Dos Santos DO (Electronically Signed) Final Date: 29 September 2020 09:35 S
--- NOTE | 2020-09-29 23:03 | PM.DCS ---
Discharge Providers Date of Admission: 09/28/20 17:18 Date of Discharge: September 29, 2020 Attending Provider at Admission: Sami Crockett Attending Provider at Discharge: Sami Crockett Primary Care Provider: ERIKA Roman Diagnoses at Discharge Discharge Diagnosis (1) Acute hyperkalemia: Status: Acute (2) Hyponatremia: Status: Acute (3) Metabolic acidosis: Status: Acute (4) Hyperbilirubinemia: Status: Acute (5) Chronic diarrhea: Status: Acute (6) Right leg swelling: Status: Acute (7) Hypothyroidism: Status: Acute Reason for Visit Reason for Visit: dialysis Hospital Course Hospital Course Pleasant 65-year-old lady with ESRD, hemodialysis MWF presented for evaluation to ER after 2 missed hemodialysis sessions due to inclement weather. With noted severe hyperkalemia, metabolic acidosis, hyponatremia. She underwent urgent hemodialysis the same night. The next morning labs with improvement in sodium 128-134. Resolution of hyperkalemia 7.1-4.7. Resolution of metabolic acidosis, bicarbonate 18-27. Anion gap 28.1-18.7. BUN 67-30. Creatinine 7.7-4.7. This morning she is feeling well. She is awake, alert, denies any discomfort apart from some chronic discomfort in the right lower extremity where she had veins grafted for her CABG. Due to swelling in extremity this was imaged with venous duplex which was negative for DVT. Of note T bili, alkaline phosphatase noted with mild elevation, T bili 1.9, alk phos 140. She has remained without abdominal pain. Tolerated her meals well. She has history of cholecystectomy, with unremarkable appearance on CT abdomen pelvis back in October 2019. Both parameters improved today, down to 1.7 and 119 respectively, possibly related to volume status and metabolic derangements with need for hemodialysis. Please reassess T bili, alkaline phosphatase at the next visit, consider referral for additional evaluation. Please note on discharge she is asked to discontinue meloxicam due to cholestatic but also cardiovascular risks associated with this medication. Please review whether this medication is safe for her to continue. She is also asked to discontinue lisinopril due to severity of hyperkalemia. She is asked to maintain low potassium renal hemodialysis diet. Please reassess at the next visit. Due to history of falls during hospitalization Case management was also consulted to discuss options with her regarding undergoing skilled therapy at SNF. Please revisit with her regarding possible options for her to achieve this. Please also continue to work with her with regards to assessment management of chronic diarrhea. Consider referral to gastroenterology. Physical Exam Const: COMMON NORMALS: no acute distress, patient oriented x3 and alert GENERAL APPEARANCE: cooperative and comfortable NUTRITIONAL APPEARANCE: overweight ORIENTATION/CONSCIOUSNESS: Yes awake OTHER: Sitting up at the bedside, eating lunch. Pleasant. Conversant. HENMT: COMMON NORMALS: oropharynx normal Neck/C-Spine: COMMON NORMALS: no JVD Resp: COMMON NORMALS: normal respiratory effort and clear to auscultation bilaterally AUSCULTATION: clear to auscultation bilaterally Cardio: COMMON NORMALS: no JVD, regular rhythm, S1 normal heart sound present, S2 normal heart sound present and No murmurs present (Cardio) RHYTHM: regular rhythm HEART SOUNDS: S1 normal heart sound present and S2 normal heart sound present GI: COMMON NORMALS: Normal to inspection, nondistended, normoactive bowel sounds present, Soft to palpation and non-tender PALPATION: Yes Soft to palpation Extremity: COMMON NORMALS: no joint enlargement and no pedal edema OTHER: RLE edema 1-2+ Neuro: COMMON NORMALS: patient oriented x3 and moves all extremities SENSORIUM/ORIENTATION: Yes alert Skin: COMMON NORMALS: no rashes or lesions noted GENERAL SKIN EXAM: no rashes or lesions noted Discharge Data Data Completed and Pending: Completed Studies During Hospitalization Category Date Time Status XR chest 1V kayce ble [id number] Stat Exams 09/28/20 15:12 [place] [id number] Routin e Ultrasound 09/29/20 19:23 Completed Pending at discharge Category Date Time Status CDIFF [Clostridio ides Difficile PCR ] Routine Lab 09/28/20 23:11 Uncollected Comprehensive Met abolic Panel AM LA BS Lab 09/30/20 04:00 Ordered Comprehensive Met abolic Panel AM LA BS Lab 10/01/20 04:00 Ordered Magnesium AM LABS Lab 09/30/20 04:00 Ordered Magnesium AM LABS Lab 10/01/20 04:00 Ordered Phosphorus AM LAB S Lab 09/30/20 04:00 Ordered Phosphorus AM LAB S Lab 10/01/20 04:00 Ordered Labs from last 24 hours 09/29/20 09/29/20 09/29/20 05:19 05:19 05:19 WBC 6.4 RBC 3.98 L Hgb 11.6 Hct 36.5 L MCV 91.7 MCH 29.1 MCHC 31.8 RDW 18.6 H Plt Count 139 MPV 11.8 H Neut % (Auto) 81.5 Lymph % (Auto) 9.0 [place] % (Auto) 7.9 Eos % (Auto) 0.6 Baso % (Auto) 0.5 Neut # (Auto) 5.19 Lymph # (Auto) 0.6 L [place] # (Auto) 0.5 Eos # (Auto) 0.0 Baso # (Auto) 0.0 Nucleated RBC % (a uto) 0 Nucleated RBCs # 0.0 Sodium 134 L Cancelled Potassium 4.7 Cancelled Chloride 93 L Cancelled Carbon Dioxide 27 Cancelled Anion Gap 18.7 Cancelled BUN 30 H Cancelled Creatinine 4.7 H Cancelled GFR Calculation 9.3 L Cancelled Glucose 74 Cancelled Calculated Osmolal ity 283 L Cancelled Calcium 8.4 L Cancelled Phosphorus 6.2 H Magnesium 1.7 Total Bilirubin 1.7 H AST 20 ALT 17 Alkaline Phosphata se 119 H Total Protein 6.4 L Albumin 2.8 L Globulin 3.6 PTH Intact Calcium (PTH Intac t) Hep Bs Antigen Hep Bs Antibody Hepatitis C Antibo dy 09/28/20 16:08 WBC RBC Hgb Hct MCV MCH MCHC RDW Plt Count MPV Neut % (Auto) Lymph % (Auto) [place] % (Auto) Eos % (Auto) Baso % (Auto) Neut # (Auto) Lymph # (Auto) [place] # (Auto) Eos # (Auto) Baso # (Auto) Nucleated RBC % (a uto) Nucleated RBCs # Sodium Potassium Chloride Carbon Dioxide Anion Gap BUN Creatinine GFR Calculation Glucose Calculated Osmolal ity Calcium Phosphorus Magnesium Total Bilirubin AST ALT Alkaline Phosphata se Total Protein Albumin Globulin PTH Intact 582.1 H Calcium (PTH Intac t) 9.7 Hep Bs Antigen Non-reactive Hep Bs Antibody 5.9 Hepatitis C Antibo dy Non-reactive Vitals: Last Vital Signs Temp 97.2 F L 09/29/20 15:02 Pulse 92 09/29/20 15:43 Resp 17 09/29/20 15:36 BP 111/60 09/29/20 15:02 Pulse Ox 98 02/19/21 15:36 Discharge Plan Discharge Patient Disposition: Home Condition: Stable Prescriptions: Continued Eliquis 2.5 mg tablet 2.5 mg PO BID RF: 0 levothyroxine [Synthroid] 25 mcg tablet 100 mcg PO DAILY RF: 0 atorvastatin 80 mg tablet 80 mg PO DAILY RF: 0 clopidogrel 75 mg tablet 75 mg PO DAILY RF: 0 fluticasone propionate [Flonase Allergy Relief] 50 mcg/actuation [place],Suspension 2 spray INTRANASAL DAILY RF: 0 acetaminophen 325 mg Tablet 650 mg PO Q6H PRN (Reason: Pain) RF: 0 albuterol sulfate 2.5 mg /3 mL (0.083 %) Solution For Nebulization 2.5 mg inhalation TID RF: 0 ondansetron HCl [Zofran] 4 mg Tablet 4 mg PO Q8H PRN (Reason: Nausea) RF: 0 diphenoxylate-atropine [Lomotil] 2.5-0.025 mg Tablet 2 tab PO QID PRN (Reason: Diarrhea) RF: 0 melatonin 3 mg Tablet 9 mg PO BEDTIME PRN (Reason: Sleep) RF: 0 carvedilol [Coreg] 3.125 mg Tablet 3.125 mg PO Q12H RF: 0 Renal Vitamin 0.8 mg Tablet 1 tab PO DAILY RF: 0 mirtazapine 15 mg Tablet 15 mg PO BEDTIME RF: 0 insulin lispro [Humalog U-100 Insulin] 100 unit/mL Solution See Rx Instructions .ROUTE .COMPLEX RF: 0 Lantus Solostar U-100 Insulin 100 unit/mL (3 mL) Insulin Pen 10 unit SUBCUT BEDTIME RF: 0 sevelamer carbonate 800 mg Tablet 1,600 mg PO TID RF: 0 trazodone 50 mg Tablet 50 mg PO BEDTIME RF: 0 metoprolol succinate 50 mg Tablet Extended Release 24 Hr 50 mg PO DAILY RF: 0 isosorbide mononitrate 30 mg Tablet Extended Release 24 Hr 30 mg PO DAILY RF: 0 amlodipine 5 mg Tablet 5 mg PO DAILY RF: 0 minoxidil 2.5 mg Tablet 2.5 mg PO BID RF: 0 pantoprazole 40 mg Recon Soln 40 mg IVP DAILY Qty: 30 RF: 0 cholestyramine (with sugar) 4 gram Powder In Packet 4 g PO BID Qty: 60 RF: 0 hydrocodone-acetaminophen [[place]] 5-325 mg Tablet 1 tab PO QID PRN (Reason: Pain) Qty: 10 RF: 0 aspirin [Aspir-81] 81 mg Tablet,Delayed Release (Dr/Ec) 81 mg PO DAILY RF: 0 nitroglycerin [Nitrostat] 0.4 mg Tablet, Sublingual 0.4 mg SUBLINGUAL Q5M PRN (Reason: Chest Pain) RF: 0 montelukast [Singulair] 10 mg Tablet 10 mg PO DAILY RF: 0 gabapentin 100 mg Capsule 200 mg PO BEDTIME RF: 0 albuterol sulfate [ProAir HFA] 90 mcg/actuation Hfa Aerosol Inhaler 2 puff INHALATION Q6H PRN (Reason: Shortness Of Breath) RF: 0 Discontinued lisinopril 20 mg Tablet 20 mg PO DAILY RF: 0 meloxicam 7.5 mg Tablet 7.5 mg PO DAILY RF: 0 Discharge Orders: Discharge Order (Routine); Ordered 09/29/20 Ordered By: Sami Crockett Referrals: Nephrolog,y [Other] - 1 week Laisha Campoverde FNP [Primary Care Provider] - 10/03/20 8:45 am Discharge Diet: As Directed Discharge Activity: Increase activity as tolerated Patient Instructions: Dialysis Diet (GEN), Ardon's Cyst (GEN), Hyperkalemia (GEN), Opioid Safety Activity Restrictions/Additional Instructions: Please maintain low potassium, renal dialysis diet. Please discuss with your primary care doctor regarding chronic diarrhea. Continue work-up and treatment. Please discuss with your primary care doctor regarding incidentally found Ardon's cyst behind the right knee. 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 For now please discontinue meloxicam, discussed further with your primary care doctor regarding risks associated with this medication. For now please note you are asked to stop your lisinopril as this medication may contribute to retention of potassium. Please discuss again with your primary care doctor. Discharge Attestations Time Spent in Discharge Care*: greater than 30 min Status at Discharge: Cognitive status at discharge: cognitively intact, Behavioral status at discharge: cooperative, Quality Metrics Clinical Quality Measures During this hospital stay, did patient experience: None Coding Level of Care Code Acute Systems Security Analyst for Hector Hutchins Diagnoses Acute hyperkalemia E87.5 Hyponatremia E87.1 Metabolic acidosis E87.2 Hyperbilirubinemia E80.6 Chronic diarrhea K52.9 Right leg swelling M79.89 Hypothyroidism E03.9
[2020-09-30 02:36] VITALS: BP 111/60; PULSE 92; RESP 17; TEMP 36.2; O2SAT 98
== END 2020-09-29 19:30 | disposition home or self-care (01) ==
LOC: ER 16:47 → MEDSURG 21:28
PROVIDERS: Internal Medicine Nephrology; Admitting Provider Internal Medicine; Emergency Provider Family Medicine; PCP Nurse Practitioner Family; Visit Provider Internal Medicine
DX: E87.5 Hyperkalemia (principal); E87.1 Hypo-osmolality and hyponatremia; E87.2 Acidosis; E80.6 Other disorders of bilirubin metabolism; K52.9 Noninfective gastroenteritis and colitis, unspecified; M79.89 Other specified soft tissue disorders; E03.9 Hypothyroidism, unspecified; E11.22 Type 2 diabetes mellitus with diabetic chronic kidney disease; I13.2 Hypertensive heart and chronic kidney disease with heart failure and with stage 5 chronic kidney disease, or end stage renal disease; I50.30 Unspecified diastolic (congestive) heart failure; N18.6 End stage renal disease; Z95.1 Presence of aortocoronary bypass graft; Z79.01 Long term (current) use of anticoagulants; Z79.82 Long term (current) use of aspirin; J43.9 Emphysema, unspecified; M79.7 Fibromyalgia; G47.30 Sleep apnea, unspecified; Z82.49 Family history of ischemic heart disease and other diseases of the circulatory system; Z87.891 Personal history of nicotine dependence
CPT/HCPCS: 36415; 71045; 80053; 82310; 83735; 83970; 84100; 85025; 86706; 86803; 87340; 93005; 93971; 94640; 96374; 96375; 99285; C9113; G0378; J0610; J1644; J1815; J7611; Q3014

== ENCOUNTER 2020-11-20 00:11 | Emergency (ER) | payer MEDICARE, MEDICAID, SELFPAY ==
[2020-11-20] VITALS (19 sets, daily range): BP systolic 68–124; BP diastolic 36–58; PULSE 55–81; RESP 11–18; TEMP 36.4; O2SAT 92–100; BMI 38.7
--- NOTE | 2020-11-20 00:31 | ECG_ITS ---
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 Measurements Intervals [place] Rate: 71 P: 151 MD: 155 QRS: -28 QRSD: 94 T: 150 QT: 431 QTc: 469 Interpretive Statements ECTOPIC ATRIAL RHYTHM POSSIBLE LEFT ATRIAL ENLARGEMENT [-0.1mV P WAVE IN V1/V2] LOW QRS VOLTAGE IN EXTREMITY LEADS [QRS DEFLECTION < 0.5 mV IN LIMB LEADS] SEPTAL MYOCARDIAL INFARCTION , OF INDETERMINATE AGE [40+ ms Q WAVE IN V1/V2] Compared to ECG 09/28/2020 15:27:15 Ectopic atrial rhythm now present Low QRS voltage now present Myocardial infarct finding now present Electronically Signed On 11-20-2020 20:11:55 CDT by Lincoln Bridges M.D. [id number]
--- NOTE | 2020-11-20 00:31 | XRR_ITS ---
PROCEDURE INFORMATION: Exam: XR Chest Exam date and time: 11/20/2020 2:09 AM Age: 65 years old Clinical indication: Chest pain; Type not specified; Prior surgery; Surgery type: Appy, open heart, gb, stent, dialysis cath; Additional info: Cp TECHNIQUE: Imaging protocol: XR of the chest. Views: Frontal portable semiupright view of the chest. COMPARISON: CR XR chest 1V portable [id number] 09/28/2020 3:25 PM FINDINGS: Tubes, catheters and devices: The patient is status post median sternotomy with intact sternal cerclage wires. EKG leads are present overlying the chest. Lungs: Left lateral basilar partial atelectasis/infiltrate. The pulmonary vasculature remains congested. Pleural spaces: No definite pleural effusion. No pneumothorax. Heart/Mediastinum: Mediastinum: Stable. Stable mild cardiomegaly. Vasculature: Moderate aortic arch atherosclerotic calcification without ectasia. Bones/joints: Stable. XR/XR chest 1V portable [id number] IMPRESSION: 1. Left lateral basilar partial atelectasis/infiltrate, increased. Pneumonitis is difficult to exclude. Clinical correlation is recommended. 2. Persistent pulmonary vascular congestion.
[2020-11-20 00:39] LABS: Basophils % 0.6 %; Eosinophils # 0.1 10^3/uL (0.0-0.8); Eosinophils % 1.8 %; Hematocrit 30.1 % (37.0-47.0); Hemoglobin 9.1 g/dL (11.5-15.3); Lymphocytes % 19.8 %; Mean Corpuscular HGB Conc 30.2 g/dL (30.0-36.0); Mean Corpuscular Volume 99.3 fL (81-99); Mean Platelet Volume 12.1 fL (7.4-10.4); Monocytes # 0.6 10^3/uL (0.2-0.9); Monocytes % 11.6 %; Neutrophils # 3.34 10^3/uL (1.8-7.7); Neutrophils % 65.4 %; Nucleated Red Blood Cells % 0 %; Platelet Count 129 10^3/cmm (130-400); Red Blood Count 3.03 10^6/uL (4.1-5.3); Red Cell Distribution Width 17.8 % (12.1-15.1); White Blood Count 5.1 10^3/uL (4.0-10.0)
[2020-11-20 01:05] LABS: Alanine Aminotransferase 9 U/L (0-33); Albumin Level 3.1 g/dL (3.5-5.2); Alkaline Phosphatase 102 IU/L (35-105); Aspartate Amino Transferase 18 U/L (0-32); Blood Urea Nitrogen 34 mg/dL (8-23); Calcium 7.5 mg/dL (8.5-10.5); Carbon Dioxide 28 mmol/L (22-29); Chloride 102 mmol/L (98-107); Globulin 2.9 g/dL (1.3-4.6); Glomerular Filtration Rate 8.3 mL/min (90-130); Glucose 105 mg/dL (65-115); Osmolality Calculated 302 mOsm/kg (285-295); Sodium 142 mmol/L (136-145); Total Bilirubin 0.7 mg/dL (0.15-1.2)
[2020-11-20 01:08] LABS: Anion Gap 16.3 (5-19); Potassium 4.3 mmol/L (3.5-5.1); Troponin(5th) Baseline 108 ng/L (0-10)
[2020-11-20] MEDS: sodium chloride 0.9% 500 ML 999 ML IV (01:20)
--- NOTE | 2020-11-20 02:58 | ED_ITS ---
HPI - Chest Pain General: Chief Complaint: Chest Pain Stated Complaint: hypotensive Time Seen by Provider: 11/20/20 00:57 History of Present Illness: HPI narrative: 65-year-old female prison patient with end-stage renal disease on dialysis presents with hypotension. Evidently she was having chest pain in the prison, and they checked her blood pressure to give her some nitroglycerin, and it was quite low she presents awake alert with self resolution of the chest pain she does have a low blood pressure in the 100s over 40s. He has no complaints otherwise. Associated symptoms: Deny abdominal pain, dyspnea, fever(s), nausea, palpitations, syncope or vomiting Review of Systems Const: Denies: fever(s) or chills Eyes: Denies: change in vision ENMT: Denies: throat pain or nasal congestion Card: Reports: chest pain; Denies: palpitations, irregular heart rhythm or syncope Resp: Denies: dyspnea GI: Denies: abdominal pain, nausea or vomiting : Denies: dysuria Neuro: Denies: headache(s) PFS ED PFSH: Medical History (Updated 11/20/20 @ 04:40 by Mickey Doan DO) Anemia Anticoagulation adequate with anticoagulant therapy Atrial fibrillation Carotid artery disease Chronic bronchitis Chronic diarrhea Chronic pain disorder Coronary artery disease Diabetes Diastolic heart failure Emphysema of lung End-stage renal disease on hemodialysis Fibromyalgia GERD (gastroesophageal reflux disease) Hypertension Elevated but stable Hypothyroidism Irritable bowel syndrome Sleep apnea Venous insufficiency Surgical History AVF (arteriovenous fistula) History of appendectomy History of cholecystectomy History of common carotid artery stent placement S/P hemodialysis catheter insertion Stented coronary artery PCI to mid LAD in December 2018 Family History Other CAD (coronary artery disease) Social History Smoking and tobacco status: former smoker Quit status (tobacco): has quit using tobacco Year quit tobacco: 2009 Second hand smoke exposure: Yes Smoking risk assessment/counseling performed?: No Alcohol intake: never Lives independently: Yes Household members: children and other Details: son, cousin Physical Exam Const: GENERAL APPEARANCE: cooperative and frail appearing NUTRITIONAL APPEARANCE: obese ORIENTATION/CONSCIOUSNESS: Yes oriented to person and Yes oriented to place HENMT: COMMON NORMALS: normocephalic, external ears normal and Normal external nose present HEAD & SCALP: normocephalic FACE & SINUS: normal facial exam NOSE: Normal external nose present and No nasal discharge present EXTERNAL EAR: Yes external ears normal Eye: COMMON NORMALS: EOMs intact bilaterally and conjunctivae normal EYELID: eyelids normal CONJUNCTIVA: Yes conjunctivae normal Neck/C-Spine: COMMON NORMALS: full ROM GENERAL: No tracheal deviation Chest: COMMONS NORMALS: normal inspection of the chest CHEST: No tenderness Resp: COMMON NORMALS: clear to auscultation bilaterally EFFORT & INSPECTION: No tachypneic, No respiratory distress, No retractions, No uses accessory muscles and No tracheal deviation AUSCULTATION: clear to auscultation bilaterally, no rhonchi, no wheezes and lung sounds not diminished Cardio: COMMON NORMALS: regular rate and regular rhythm RATE: regular rate RHYTHM: regular rhythm HEART SOUNDS: no murmurs PERIPHERAL PULSES: radial pulses present GI: INSPECTION: No abdominal distension AUSCULTATION: No Hyperactive bowel sounds present and No Hypoactive bowel sounds present PALPATION: No Guarding due to palpation present (GI) and No Rigid due to palpation PERCUSSION: no dullness to percussion and no tympanic to percussion Neuro: SENSORIUM/ORIENTATION: Yes oriented to person and Yes oriented to place Psych: COMMON NORMALS: mental status grossly normal Skin: COMMON NORMALS: no rashes or lesions noted GENERAL SKIN EXAM: no rashes or lesions noted Course Vital Signs: Vital signs: Vital Signs Temperature 97.6 F 11/20/20 00:12 Pulse Rate 61 11/20/20 04:00 Respiratory Rate 12 11/20/20 04:00 Blood Pressure 98/45 11/20/20 04:00 Pulse Oximetry 98 11/20/20 04:00 MDM - Chest Pain MDM Narrative: Medical decision making narrative: 65-year-old female with a self resolving episode of chest pain in the prison. Her blood pressure was low, so she was sent for evaluation. Currently blood pressure is 106/54. Heart rate is 60. She is received 500 mL of fluid with increase in her blood pressure. She still satting 99% despite her renal disease her creatinine is 5.2. Her troponin did not elevated baseline. She does not have ST changes on her EKG. Her chest x-ray is essentially stable from prior. She will be allowed discharge back to the prison Lab Data: Labs: Lab Results 11/20/20 11/20/20 11/20/20 Range/Units 00:20 00:20 00:20 WBC 5.1 (4.0-10.0) 10^3/ uL RBC 3.03 L (4.1-5.3) 10^6/u L Hgb 9.1 L (11.5-15.3) g/dL Hct 30.1 L (37.0-47.0) % MCV 99.3 H (81-99) fL MCH 30.0 (28.0-34.0) pg MCHC 30.2 (30.0-36.0) g/dL RDW 17.8 H (12.1-15.1) % Plt Count 129 L (130-400) 10^3/c mm MPV 12.1 H (7.4-10.4) fL Neut % (Auto) 65.4 % Lymph % (Auto) 19.8 % [place] % (Auto) 11.6 % Eos % (Auto) 1.8 % Baso % (Auto) 0.6 % Neut # (Auto) 3.34 (1.8-7.7) 10^3/u L Lymph # (Auto) 1.0 (0.8-4.8) 10^3/u L [place] # (Auto) 0.6 (0.2-0.9) 10^3/u L Eos # (Auto) 0.1 (0.0-0.8) 10^3/u L Baso # (Auto) 0.0 (0.0-0.1) 10^3/u L Nucleated RBC % (a uto) 0 % Nucleated RBCs # 0.0 /100WBC Sodium 142 (136-145) mmol/L Potassium 4.3 (3.5-5.1) mmol/L Chloride 102 (98-107) mmol/L Carbon Dioxide 28 (22-29) mmol/L Anion Gap 16.3 (5-19) BUN 34 H (8-23) mg/dL Creatinine 5.2 H (0.5-0.9) mg/dL GFR Calculation 8.3 L (90-130) mL/min Glucose 105 (65-115) mg/dL Calculated Osmolal ity 302 H (285-295) mOsm/k g Calcium 7.5 L (8.5-10.5) mg/dL Total Bilirubin 0.7 (0.15-1.2) mg/dL AST 18 (0-32) U/L ALT 9 (0-33) U/L Alkaline Phosphata se 102 (35-105) IU/L Troponin T Baselin e 108 H* (0-10) ng/L Troponin T 120 Min [place] (0-10) ng/L Delta Troponin T (0-10) ABS# NT-Pro-B Natriuret Pep 81177 H (0-125) pg/mL Total Protein 6.0 L (6.6-8.7) g/dL Albumin 3.1 L (3.5-5.2) g/dL Globulin 2.9 (1.3-4.6) g/dL 11/20/20 Range/Units 03:45 WBC (4.0-10.0) 10^3/ uL RBC (4.1-5.3) 10^6/u L Hgb (11.5-15.3) g/dL Hct (37.0-47.0) % MCV (81-99) fL MCH (28.0-34.0) pg MCHC (30.0-36.0) g/dL RDW (12.1-15.1) % Plt Count (130-400) 10^3/c mm MPV (7.4-10.4) fL Neut % (Auto) % Lymph % (Auto) % [place] % (Auto) % Eos % (Auto) % Baso % (Auto) % Neut # (Auto) (1.8-7.7) 10^3/u L Lymph # (Auto) (0.8-4.8) 10^3/u L [place] # (Auto) (0.2-0.9) 10^3/u L Eos # (Auto) (0.0-0.8) 10^3/u L Baso # (Auto) (0.0-0.1) 10^3/u L Nucleated RBC % (a uto) % Nucleated RBCs # /100WBC Sodium (136-145) mmol/L Potassium (3.5-5.1) mmol/L Chloride (98-107) mmol/L Carbon Dioxide (22-29) mmol/L Anion Gap (5-19) BUN (8-23) mg/dL Creatinine (0.5-0.9) mg/dL GFR Calculation (90-130) mL/min Glucose (65-115) mg/dL Calculated Osmolal ity (285-295) mOsm/k g Calcium (8.5-10.5) mg/dL Total Bilirubin (0.15-1.2) mg/dL AST (0-32) U/L ALT (0-33) U/L Alkaline Phosphata se (35-105) IU/L Troponin T Baselin e (0-10) ng/L Troponin T 120 Min [place] 113.0 H (0-10) ng/L Delta Troponin T 5.0 (0-10) ABS# NT-Pro-B Natriuret Pep (0-125) pg/mL Total Protein (6.6-8.7) g/dL Albumin (3.5-5.2) g/dL Globulin (1.3-4.6) g/dL Discharge Plan Discharge Patient Disposition: [facility] Clinical Impression: Acute hypotension Chest pain Qualifiers: Chest pain type: unspecified Qualified Code(s): R07.9 - Chest pain, unspecified Condition: Stable Discharge Orders: Discharge ED (Routine); Ordered 11/20/20 Ordered By: Mickey Doan Referrals: Laisha Campoverde FNP [Primary Care Provider] - 4-7 days Discharge Diet: Advance as tolerated Discharge Activity: Resume usual activity Patient Instructions: Chest Pain (ED), Hypotension (ED) Activity Restrictions/Additional Instructions: Monitor blood pressures twice daily for the next 48 hours. Be sure to attend dialysis as scheduled. Return for repeated episodes of chest pain, mental status changes, lethargy, persistent low blood pressure, any other concerning symptoms peer Coding Level of Care Code ED Cardiac Monitor for Hector Fwcallie Exam Comprehensive
== END 2020-11-20 08:52 ==
PROVIDERS: Family Medicine; Emergency Provider Emergency Medicine; PCP Nurse Practitioner Family
DX: R07.9 Chest pain, unspecified (principal); I95.9 Hypotension, unspecified; I48.91 Unspecified atrial fibrillation; I25.10 Atherosclerotic heart disease of native coronary artery without angina pectoris; I13.2 Hypertensive heart and chronic kidney disease with heart failure and with stage 5 chronic kidney disease, or end stage renal disease; E11.22 Type 2 diabetes mellitus with diabetic chronic kidney disease; N18.6 End stage renal disease; I50.30 Unspecified diastolic (congestive) heart failure; J43.9 Emphysema, unspecified; Z87.891 Personal history of nicotine dependence
CPT/HCPCS: 36415; 71045; 80053; 83880; 84484; 85025; 93005; 96365; 96366; 99285; J7040

== ENCOUNTER 2021-02-07 14:08 | Observation (INO) | payer MEDICARE, MEDICAID, SELFPAY ==
[2021-02-07 14:14] VITALS: BP 116/46; PULSE 61; RESP 18; TEMP 36.8; O2SAT 95; BMI 34.4
--- NOTE | 2021-02-07 14:21 | XR_ITS ---
WS: [id number] Portable AP upright chest, 02/07/2021 Clinical Data: chest pain Comparison: Portable chest, 11/20/2020. Findings: No nodules, masses or effusions are seen. The heart is enlarged. The pulmonary vascularity is not increased. No pneumonia or pneumothorax is seen. Midline sternotomy sutures are present. The a ortic arch and descending aorta show calcification and tortuosity. XR/XR chest 1V portable [id number] Impression: Cardiomegaly and atherosclerosis.
--- NOTE | 2021-02-07 14:21 | ECG_ITS ---
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 Measurements Intervals [place] Rate: 59 P: 73 HI: 188 QRS: 16 QRSD: 99 T: 128 QT: 430 QTc: 426 Interpretive Statements SINUS BRADYCARDIA POSSIBLE LEFT ATRIAL ENLARGEMENT [-0.1mV P WAVE IN V1/V2] ST DEVIATION AND MODERATE T-WAVE ABNORMALITY, CONSIDER ANTEROLATERAL ISCHEMIA [-0.1+ mV T WAVE IN V3-V6] Compared to ECG 11/20/2020 00:17:36 T-wave abnormality now present Possible ischemia now present Ectopic atrial rhythm no longer present Myocardial infarct finding no longer present Electronically Signed On 02-08-2021 7:01:54 CDT by Tamie Brand M.D. [id number]
--- NOTE | 2021-02-07 14:23 | W.ED.CHESTPA ---
HPI - Chest Pain General: Chief Complaint: Chest Pain Stated Complaint: CHEST PAIN X 2 DAYS Time Seen by Provider: 02/07/21 14:12 Source: patient Mode of arrival: other (see na.) Limitations: no limitations History of Present Illness: HPI narrative: Patient reports history of chest pain for the past 2 to 3 days. She states the pain is pleuritic bilaterally. She denies any fever chills or sweats. She denies any shortness of breath. She states that she has mild chest pain now. She states she finished dialysis today and came straight here from dialysis clinic. She does have history of coronary artery disease and had coronary bypass graft few years ago. She had 324 mg aspirin prior to arrival. She also had one sublingual nitroglycerin. See nursing assessment. MD complaint: chest pain Pertinent past history: coronary artery disease Onset (ago): day(s) (2) Timing of current episode: episodic Prior episodes: Yes Onset: during rest and other (Worse with breathing) Pain location: left chest and right chest Pain radiation: none Severity: mild Quality: sharp Relieving factors: nothing Exacerbating factors: nothing Associated symptoms: Deny abdominal pain, diaphoresis, dyspnea, fever(s), leg edema, nausea, palpitations, sense of impending doom, syncope or vomiting Treatment prior to arrival: aspirin and nitroglycerin Risk Factors: Coronary artery disease risk factors: diabetes Related Data: On Oral Contraceptives: No Review of Systems Const: Denies: fever(s), chills, malaise or diaphoresis Eyes: Denies: change in vision ENMT: Denies: throat pain Card: Reports: chest pain; Denies: palpitations or syncope Resp: Denies: dyspnea GI: Denies: abdominal pain, nausea or vomiting : Denies: flank pain Musc: Denies: neck pain or back pain Skin/Breast: Denies: rash or pruritus Neuro: Denies: headache(s) or numbness in extremities Psych: Denies: anxiety Hussein/Lymph: Denies: enlarged lymph nodes [facility] PFSH: Medical History Anemia Anticoagulation adequate with anticoagulant therapy Atrial fibrillation Carotid artery disease Chronic bronchitis Chronic diarrhea Chronic pain disorder Coronary artery disease Diabetes Diastolic heart failure Emphysema of lung End-stage renal disease on hemodialysis Fibromyalgia GERD (gastroesophageal reflux disease) Hypertension Elevated but stable Hypothyroidism Irritable bowel syndrome Right leg swelling Sleep apnea Venous insufficiency Surgical History AVF (arteriovenous fistula) History of appendectomy History of cholecystectomy History of common carotid artery stent placement S/P hemodialysis catheter insertion Stented coronary artery PCI to mid LAD in December 2018 Family History Other CAD (coronary artery disease) Social History Smoking and tobacco status: former smoker Quit status (tobacco): has quit using tobacco Year quit tobacco: 2009 Second hand smoke exposure: Yes Smoking risk assessment/counseling performed?: No Alcohol intake: never Lives independently: Yes Household members: children and other Details: son, cousin Physical Exam Const: COMMON NORMALS: no acute distress, patient oriented x3, no limitations and well nourished EXAM LIMITATIONS: no altered mental status GENERAL APPEARANCE: cooperative and comfortable HENMT: COMMON NORMALS: normocephalic and atraumatic HEAD & SCALP: normocephalic and atraumatic FACE & SINUS: normal facial exam Eye: COMMON NORMALS: EOMs intact bilaterally Neck/C-Spine: COMMON NORMALS: full ROM, no lymphadenopathy, supple and no meningeal signs GENERAL: Yes normal visual inspection Lymph: LYMPHATIC: no lymphadenopathy noted Chest: COMMONS NORMALS: normal inspection of the chest and normal palpation of entire chest wall CHEST: No Ecchymosis present and No rash Resp: COMMON NORMALS: normal respiratory effort, No retractions and clear to auscultation bilaterally EFFORT & INSPECTION: No respiratory distress AUSCULTATION: clear to auscultation bilaterally Cardio: COMMON NORMALS: regular rate, regular rhythm and Peripheral pulses 2+ throughout JUGULAR VENOUS DISTENTION: no JVD RATE: regular rate RHYTHM: regular rhythm HEART SOUNDS: Murmur heart sound present (2/6 murmur over aortic valve) PERIPHERAL PULSES: Peripheral pulses 2+ throughout GI: COMMON NORMALS: Normal to inspection, nondistended, normoactive bowel sounds present and non-tender : COMMON NORMALS: Yes no CVA tenderness BLADDER/KIDNEY EXAM: Yes no CVA tenderness Back/Pelvis: COMMON NORMALS: no CVA tenderness Extremity: COMMON NORMALS: normal to inspection, full ROM and capillary refill normal Neuro: COMMON NORMALS: patient oriented x3, CN's II-XII intact bilaterally, no focal motor deficits and no sensory deficits noted MENINGEAL SIGNS: Yes no meningeal signs Psych: COMMON NORMALS: mental status grossly normal and Normal thought process present THOUGHT PROCESS: Normal thought process present Skin: COMMON NORMALS: no rashes or lesions noted and no wounds GENERAL SKIN EXAM: no rashes or lesions noted Course Vital Signs: Vital signs: Vital Signs Temperature 98.2 F 02/07/21 14:14 Pulse Rate 61 02/07/21 17:08 Respiratory Rate 24 H 02/07/21 17:08 Blood Pressure 104/56 02/07/21 17:08 Pulse Oximetry 94 02/07/21 17:08 MDM - Chest Pain MDM Narrative: Medical decision making narrative: Discussed case with Dr. Johnson. He will see the patient in the emergency room determine which bed he will admit the patient to. Lab Data: Attestation: I reviewed the patient's lab results. Labs: Lab Results 02/07/21 02/07/21 02/07/21 Range/Units 14:57 14:57 14:57 WBC 5.6 (4.0-10.0) 10^3/ uL RBC 4.23 (4.1-5.3) 10^6/u L Hgb 13.1 (11.5-15.3) g/dL Hct 41.1 (37.0-47.0) % MCV 97.2 (81-99) fL MCH 31.0 (28.0-34.0) pg MCHC 31.9 (30.0-36.0) g/dL RDW 13.2 (12.1-15.1) % Plt Count 165 (130-400) 10^3/c mm MPV 11.6 H (7.4-10.4) fL Neut % (Auto) 71.1 % Lymph % (Auto) 18.1 % Elliott % (Auto) 8.1 % Eos % (Auto) 1.6 % Baso % (Auto) 0.7 % Neut # (Auto) 3.98 (1.8-7.7) 10^3/u L Lymph # (Auto) 1.0 (0.8-4.8) 10^3/u L Elliott # (Auto) 0.5 (0.2-0.9) 10^3/u L Eos # (Auto) 0.1 (0.0-0.8) 10^3/u L Baso # (Auto) 0.0 (0.0-0.1) 10^3/u L Nucleated RBC % (a uto) 0 % Nucleated RBCs # 0.0 /100WBC PT Cancelled INR Cancelled APTT Cancelled Sodium Cancelled Potassium Cancelled Chloride Cancelled Carbon Dioxide Cancelled Anion Gap Cancelled BUN Cancelled Creatinine Cancelled GFR Calculation Cancelled Glucose Cancelled Calculated Osmolal ity Cancelled Calcium Cancelled Troponin T Baselin e NT-Pro-B Natriuret Pep Cancelled 02/07/21 02/07/21 02/07/21 Range/Units 14:57 15:20 15:20 WBC (4.0-10.0) 10^3/ uL RBC (4.1-5.3) 10^6/u L Hgb (11.5-15.3) g/dL Hct (37.0-47.0) % MCV (81-99) fL MCH (28.0-34.0) pg MCHC (30.0-36.0) g/dL RDW (12.1-15.1) % Plt Count (130-400) 10^3/c mm MPV (7.4-10.4) fL Neut % (Auto) % Lymph % (Auto) % Elliott % (Auto) % Eos % (Auto) % Baso % (Auto) % Neut # (Auto) (1.8-7.7) 10^3/u L Lymph # (Auto) (0.8-4.8) 10^3/u L Elliott # (Auto) (0.2-0.9) 10^3/u L Eos # (Auto) (0.0-0.8) 10^3/u L Baso # (Auto) (0.0-0.1) 10^3/u L Nucleated RBC % (a uto) % Nucleated RBCs # /100WBC PT 14.90 INR 1.14 APTT 32.2 Sodium 137 Potassium 3.8 Chloride 95 L Carbon Dioxide 35 H Anion Gap 10.8 BUN 13 Creatinine 3.5 H GFR Calculation 13.0 L Glucose 78 Calculated Osmolal ity 283 L Calcium 8.9 Troponin T Baselin e Cancelled NT-Pro-B Natriuret Pep 65253 H 02/07/21 Range/Units 15:20 WBC (4.0-10.0) 10^3/ uL RBC (4.1-5.3) 10^6/u L Hgb (11.5-15.3) g/dL Hct (37.0-47.0) % MCV (81-99) fL MCH (28.0-34.0) pg MCHC (30.0-36.0) g/dL RDW (12.1-15.1) % Plt Count (130-400) 10^3/c mm MPV (7.4-10.4) fL Neut % (Auto) % Lymph % (Auto) % Elliott % (Auto) % Eos % (Auto) % Baso % (Auto) % Neut # (Auto) (1.8-7.7) 10^3/u L Lymph # (Auto) (0.8-4.8) 10^3/u L Elliott # (Auto) (0.2-0.9) 10^3/u L Eos # (Auto) (0.0-0.8) 10^3/u L Baso # (Auto) (0.0-0.1) 10^3/u L Nucleated RBC % (a uto) % Nucleated RBCs # /100WBC PT INR APTT Sodium Potassium Chloride Carbon Dioxide Anion Gap BUN Creatinine GFR Calculation Glucose Calculated Osmolal ity Calcium Troponin T Baselin e 94 H NT-Pro-B Natriuret Pep Imaging Data^: CXR: Radiologist's impression: [address] [id number] ReportSigned Patient: Amanda Ha #: [id number]: 3Acct#:[id number]/Sex: 65 / FADM Date: 02/07/21Loc: ERRoom/Bed:Attending Dr: Ordering Provider/Ordering MD: Johny Oliva MD Date of Service: 02/07/21 Procedure(s): XR chest 1V portable [id number] Accession Number(s): [id number] Report Number: [id number] WS: [id number] Portable AP upright chest, 02/07/2021 Clinical Data: chest pain Comparison: Portable chest, 11/20/2020. Findings: No nodules, masses or effusions are seen. The heart is enlarged. The pulmonary vascularity is not increased. No pneumonia or pneumothorax is seen. Midline sternotomy sutures are present. The aortic arch and descending aorta show calcification and tortuosity. XR/XR chest 1V portable [id number] Impression: Cardiomegaly and atherosclerosis. Dictated By:Laisha He MDSigned By:Laisha He MDSigned Date/Time:02/07/21 1445 EKG Data^: EKG 1: Attestation: I personally reviewed and interpreted this EKG as follows: EKG interpretation date: 02/07/21 EKG interpretation time: 14:40 Prior EKG tracings: not available for review Interpretation: Normal sinus rhythm with heart rate of 59. Nonspecific ST-T changes, normal axis, left atrial enlargement. Normal ND interval. Normal QT interval. Impression normal sinus rhythm with nonspecific ST-T changes. EKG 2: EKG interpretation date: 02/07/21 EKG interpretation time: 17:00 Prior EKG tracings: available for review Interpretation: EKG shows a heart rate of 70 with normal sinus rhythm with nonspecific ST-T changes relatively unchanged from previous EKG. Patient is much artifact on this EKG. Normal axis. Normal ND interval, IVCD, left atrial enlargement. Nonspecific ST-T changes. Discharge Plan Discharge Clinical Impression: Non-STEMI (non-ST elevated myocardial infarction), Unstable angina pectoris Chronic kidney disease Qualifiers: Chronic kidney disease stage: on chronic dialysis Qualified Code(s): N18.6 - End stage renal disease Condition: Stable Prescriptions: No Action Eliquis 2.5 mg tablet 2.5 mg PO BID RF: 0 levothyroxine [Synthroid] 25 mcg tablet 100 mcg PO DAILY RF: 0 atorvastatin 80 mg tablet 80 mg PO DAILY RF: 0 clopidogrel 75 mg tablet 75 mg PO DAILY RF: 0 fluticasone propionate [Flonase Allergy Relief] 50 mcg/actuation Powell,Suspension 2 spray INTRANASAL DAILY RF: 0 acetaminophen 325 mg Tablet 650 mg PO Q6H PRN (Reason: Pain) RF: 0 albuterol sulfate 2.5 mg /3 mL (0.083 %) Solution For Nebulization 2.5 mg inhalation TID RF: 0 ondansetron HCl [Zofran] 4 mg Tablet 4 mg PO Q8H PRN (Reason: Nausea) RF: 0 diphenoxylate-atropine [Lomotil] 2.5-0.025 mg Tablet 2 tab PO QID PRN (Reason: Diarrhea) RF: 0 melatonin 3 mg Tablet 9 mg PO BEDTIME PRN (Reason: Sleep) RF: 0 carvedilol [Coreg] 3.125 mg Tablet 3.125 mg PO Q12H RF: 0 Renal Vitamin 0.8 mg Tablet 1 tab PO DAILY RF: 0 mirtazapine 15 mg Tablet 15 mg PO BEDTIME RF: 0 sevelamer carbonate 800 mg Tablet 1,600 mg PO TID RF: 0 trazodone 50 mg Tablet 50 mg PO BEDTIME RF: 0 metoprolol succinate 50 mg Tablet Extended Release 24 Hr 50 mg PO DAILY RF: 0 isosorbide mononitrate 30 mg Tablet Extended Release 24 Hr 30 mg PO DAILY RF: 0 minoxidil 2.5 mg Tablet 2.5 mg PO BID RF: 0 cholestyramine (with sugar) 4 gram Powder In Packet 4 g PO BID Qty: 60 RF: 0 Aspir-81 81 mg PO DAILY RF: 0 desoximetasone 0.05 % cream See Rx Instructions .ROUTE .COMPLEX RF: 0 hydrocodone-acetaminophen 5-325 mg tablet 1 tab PO QID PRN (Reason: Pain) RF: 0 pantoprazole 40 mg Tablet,Delayed Release (Dr/Ec) 40 mg PO DAILY RF: 0 nitroglycerin [Nitrostat] 0.4 mg Tablet, Sublingual 0.4 mg SUBLINGUAL Q5M PRN (Reason: Chest Pain) RF: 0 gabapentin 100 mg Capsule 200 mg PO BEDTIME RF: 0 albuterol sulfate [ProAir HFA] 90 mcg/actuation Hfa Aerosol Inhaler 2 puff INHALATION Q6H PRN (Reason: Shortness Of Breath) RF: 0 Referrals: Laisha Campoverde, SKIAGRAPHER [Primary Care Provider] - Coding Level of Care Code ED [employer] Pelletizer for Chg Fwd Exam Comprehensive
[2021-02-07 15:02] VITALS: RESP 18; O2SAT 96
[2021-02-07] MEDS: morphine 4 mg/mL SDV 1 mL 2 MG IVP (15:02)
[2021-02-07] MEDS: ondansetron 2 mg/ML SDV 2 mL 4 MG IVP (15:02)
[2021-02-07 15:04] LABS: Basophils % 0.7 %; Eosinophils # 0.1 10^3/uL (0.0-0.8); Eosinophils % 1.6 %; Hematocrit 41.1 % (37.0-47.0); Hemoglobin 13.1 g/dL (11.5-15.3); Lymphocytes % 18.1 %; Mean Corpuscular HGB Conc 31.9 g/dL (30.0-36.0); Mean Corpuscular Volume 97.2 fL (81-99); Mean Platelet Volume 11.6 fL (7.4-10.4); Monocytes # 0.5 10^3/uL (0.2-0.9); Monocytes % 8.1 %; Neutrophils # 3.98 10^3/uL (1.8-7.7); Neutrophils % 71.1 %; Nucleated Red Blood Cells % 0 %; Platelet Count 165 10^3/cmm (130-400); Red Blood Count 4.23 10^6/uL (4.1-5.3); Red Cell Distribution Width 13.2 % (12.1-15.1); White Blood Count 5.6 10^3/uL (4.0-10.0)
[2021-02-07 15:48] LABS: INR 1.14 (0.8-1.2)
[2021-02-07 15:49] LABS: Partial Thromboplastin Time 32.2 SECONDS (23.9-36.7)
[2021-02-07 16:00] LABS: Blood Urea Nitrogen 13 mg/dL (8-23); Calcium 8.9 mg/dL (8.5-10.5); Carbon Dioxide 35 mmol/L (22-29); Chloride 95 mmol/L (98-107); Glucose 78 mg/dL (65-115); NT Pro B Type Natriuretic Pept 34786 pg/mL (0-125); Osmolality Calculated 283 mOsm/kg (285-295); Sodium 137 mmol/L (136-145)
[2021-02-07 16:01] LABS: Anion Gap 10.8 (5-19); Potassium 3.8 mmol/L (3.5-5.1)
[2021-02-07 16:15] LABS: Troponin(5th) Baseline 94 ng/L (0-10)
--- NOTE | 2021-02-07 16:21 | ECG_ITS ---
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 Measurements Intervals [place] Rate: 70 P: 70 FL: 201 QRS: 5 QRSD: 97 T: 116 QT: 385 QTc: 418 Interpretive Statements SINUS RHYTHM LEFT ATRIAL ENLARGEMENT [-0.15mV P WAVE IN V1/V2] ST DEVIATION AND MODERATE T-WAVE ABNORMALITY, CONSIDER ANTEROLATERAL ISCHEMIA [-0.1+ mV T WAVE IN V3-V6] Compared to ECG 02/07/2021 14:34:15 Sinus bradycardia no longer present T-wave abnormality still present Possible ischemia still present Electronically Signed On 02-08-2021 7:14:13 CDT by Tamie Brand M.D. [id number]
[2021-02-07 17:08] VITALS: BP 104/56; PULSE 61; RESP 24; O2SAT 94
--- NOTE | 2021-02-07 18:09 | PM.HP ---
Providers/Chief Complaint Primary Care Provider: ERIKA Roman Chief Complaint: CHEST PAIN X 2 DAYS History of Present Illness Amanda Ha is a 65 year old female with a past medical history of end-stage renal disease, CAD, status post CABG, CAD status post stenting, carotid artery disease, type 2 diabetes mellitus, hypertension, on chronic anticoagulation Eliquis due to atrial fibrillation, diastolic CHF, COPD, who presents to [facility] from dialysis due to complaints of substernal chest pain. Patient tells me that for the last few days she has had some substernal chest pain, sharp pain, nonradiating, some associate shortness of breath, no lightheadedness, no no dizziness, no nausea, no vomiting. Patient tells me that she has had a history of open heart surgery, she not sure how many vessel bypasses, she has had stents placed by Dr. Kwon. Currently she is chest pain-free, her first troponin is 94, EKG does show slight ST depressions in the lateral leads, BNP is over 34,000, hospitalist team was called for admission Review of Systems Const: Denies: fever(s), chills, fatigue or malaise Eyes: Denies: change in vision or blurry vision ENMT: Denies: nasal congestion Card: Reports: chest pain; Denies: palpitations, irregular heart rhythm or edema Resp: Reports: dyspnea; Denies: productive cough, non-productive cough or wheezing GI: Denies: abdominal pain, nausea, vomiting, hematemesis, diarrhea, constipation, hematochezia or melena : Denies: flank pain, dysuria or urinary frequency Musc: Denies: neck pain or back pain Neuro: Denies: headache(s), dizziness or vertigo Endo: Denies: polyuria Medications/Allergies Home Medications Medication Instructions Recorded Confirmed Last Taken Type apixaban 2.5 mg tablet 2.5 mg PO BID 08/18/19 02/07/21 02/06/21 History levothyroxine 25 mcg tablet 100 mcg PO DAILY tab 08/18/19 02/07/21 02/06/21 History albuterol sulfate [ProAir HFA] 2 puff INHALATION Q6H PRN 10/11/19 02/07/21 1 Day Ago History ~09/28/20 gabapentin 200 mg PO BEDTIME 03/09/3002/07/21 02/06/21 History nitroglycerin [Nitrostat] 0.4 mg SUBLINGUAL Q5M PRN 10/11/19 02/07/21 02/07/21 History atorvastatin 80 mg PO DAILY 12/06/19 02/07/21 02/06/21 History clopidogrel 75 mg PO DAILY 12/06/19 02/07/21 02/06/21 History fluticasone propionate [Flonase 2 spray INTRANASAL DAILY 12/06/19 02/07/21 02/06/21 History Allergy Relief] Renal Vitamin 1 tab PO DAILY 01/16/20 02/07/21 02/06/21 History acetaminophen 650 mg PO Q6H PRN 01/16/20 02/07/21 Unknown History albuterol sulfate 2.5 mg INHALATION TID 01/16/20 02/07/21 1 Day Ago History ~09/28/20 carvedilol [Coreg] 3.125 mg PO Q12H 01/16/20 02/07/21 02/06/21 History diphenoxylate-atropine [Lomotil] 2 tab PO QID PRN 01/16/20 02/07/21 2 Days Ago History ~09/27/20 melatonin 9 mg PO BEDTIME PRN 01/16/20 02/07/21 02/06/21 History mirtazapine 15 mg PO BEDTIME 01/16/20 02/07/21 02/06/21 History ondansetron HCl [Zofran] 4 mg PO Q8H PRN 01/16/20 02/07/21 Unknown History sevelamer carbonate 1,600 mg PO TID 01/16/20 02/07/21 02/06/21 History isosorbide mononitrate 30 mg PO DAILY 03/10/20 02/07/21 02/06/21 History metoprolol succinate 50 mg PO DAILY 03/10/20 02/07/21 02/06/21 History minoxidil 2.5 mg PO BID 03/10/20 02/07/21 02/06/21 History trazodone 50 mg PO BEDTIME 03/10/20 02/07/21 02/06/21 History cholestyramine (with sugar) 4 g PO BID #60 ea 03/11/20 02/07/21 Unknown Rx Aspir-81 81 mg PO DAILY 02/07/21 02/07/21 02/06/21 History desoximetasone See Rx Instructions .ROUTE .COMPLEX 02/07/21 02/07/21 Unknown History hydrocodone-acetaminophen 1 tab PO QID PRN 02/07/21 02/07/21 Unknown History pantoprazole 40 mg PO DAILY 02/07/21 02/07/21 02/06/21 History Allergies Allergy/AdvReac Type Severity Reaction Status Date / Time adhesive Allergy Unknown Verified 11/20/20 00:18 codeine Allergy Unknown Verified 11/20/20 00:18 duloxetine [From Cymbalta] Allergy Unknown Verified 11/20/20 00:18 PFSH Acute PFSH: Medical History (Updated 02/07/21 @ 18:20 by Naveen Johnson MD) Anemia Anticoagulation adequate with anticoagulant therapy Atrial fibrillation Carotid artery disease Chronic bronchitis Chronic diarrhea Chronic pain disorder Coronary artery disease Diabetes Diastolic heart failure Emphysema of lung End-stage renal disease on hemodialysis Fibromyalgia GERD (gastroesophageal reflux disease) Hypertension Elevated but stable Hypothyroidism Irritable bowel syndrome Right leg swelling Sleep apnea Venous insufficiency Surgical History AVF (arteriovenous fistula) History of appendectomy History of cholecystectomy History of common carotid artery stent placement S/P hemodialysis catheter insertion Stented coronary artery PCI to mid LAD in December 2018 Family History Other CAD (coronary artery disease) Social History Smoking and tobacco status: former smoker Quit status (tobacco): has quit using tobacco Year quit tobacco: 2009 Second hand smoke exposure: Yes Smoking risk assessment/counseling performed?: No Alcohol intake: never Lives independently: Yes Household members: children and other Details: son, cousin Vitals/I&O/Wt Last Vital Signs Temp 98.2 F 02/07/21 14:14 Pulse 61 02/07/21 17:08 Resp 24 H 02/07/21 17:08 BP 104/56 02/07/21 17:08 Pulse Ox 94 02/07/21 17:08 Weight last 48 hrs Weight 99.79 kg Physical Exam Const: COMMON NORMALS: no acute distress and patient oriented x3 Eye: COMMON NORMALS: Equal, round and reactive pupils present and EOMs intact bilaterally GENERAL EYE: appearance normal, both eyes and all related structures PUPIL: Yes Equal, round and reactive pupils present Lymph: LYMPHATIC: no lymphadenopathy noted Resp: COMMON NORMALS: normal respiratory effort, No retractions, No use of accessory muscles and clear to auscultation bilaterally AUSCULTATION: clear to auscultation bilaterally Cardio: COMMON NORMALS: regular rate, regular rhythm, S1 normal heart sound present, S2 normal heart sound present, No gallops present (Cardio), No clicks present (Cardio) and No murmurs present (Cardio) RATE: regular rate RHYTHM: regular rhythm HEART SOUNDS: S1 normal heart sound present and S2 normal heart sound present GI: COMMON NORMALS: Normal to inspection, nondistended, normoactive bowel sounds present, Soft to palpation, non-tender and No hepatosplenomegaly present Extremity: COMMON NORMALS: normal to inspection NARRATIVE EXTREMITY EXAM: Left arm AV fistula site clean and dry, Neuro: COMMON NORMALS: patient oriented x3, CN's II-XII intact bilaterally, moves all extremities and no focal motor deficits Psych: COMMON NORMALS: mental status grossly normal, Normal thought process present and cooperative THOUGHT PROCESS: Normal thought process present Data : 02/07/21 14:57 02/07/21 15:20 A&P Assessment and plan (1) Non-STEMI (non-ST elevated myocardial infarction): -History of CABG, history of coronary artery stenting -No active chest pain -Baseline troponin 94, BNP 34 786 -EKG shows ST depressions in the lateral leads -Creatinine 3.5 Plan: -Admit to general medical floors as we do not have CSU beds -Serial EKGs, serial troponins, monitor for chest pain -Nitro for chest pain -Continue aspirin, Plavix, low-dose Eliquis, statin -Cardiac echocardiogram ordered -Although BNP is elevated, no clinical evidence of fluid overload, chest x-ray does not show fluid overload, she tells me that she had over 4 L removed after dialysis -Check TSH, mag, lipid panel, A1c -N.p.o. midnight, cardiac stress test tomorrow morning -Full code -Eliquis for DVT prophylaxis Status: Acute (2) Chronic kidney disease: Status: Acute Qualifiers: Chronic kidney disease stage: on chronic dialysis Qualified Code(s): N18.6 - End stage renal disease; Z99.2 - Dependence on renal dialysis (3) History of common carotid artery stent placement: Status: Acute (4) Diastolic heart failure: Status: Acute (5) Major depressive disorder, recurrent severe without psychotic features: Status: Acute (6) Generalized anxiety disorder: Status: Acute (7) End-stage renal disease on hemodialysis: Status: Acute (8) Hypothyroidism: Status: Acute (9) Diabetes: Status: Acute Attestations Medical Necessity Statement*: Patient requires hospitalization for chest pain, outpatient with observation Coding Level of Care Code Acute Call Taker for [facility] Fwd Diagnoses Non-STEMI (non-ST elevated myocardial infarction) I21.4 Chronic kidney disease N18.6; Z99.2 Chronic kidney disease stage: on chronic dialysis History of common carotid artery stent placement Z98.890; Z95.828 Diastolic heart failure I50.30 Major depressive disorder, recurrent severe without psychotic features F33.2 Generalized anxiety disorder F41.1 End-stage renal disease on hemodialysis N18.6; Z99.2 Hypothyroidism E03.9 Diabetes E11.9
[2021-02-07 18:30] LABS: Troponin 5 2HR 91.95 ng/L (0-10)
[2021-02-07 18:33] LABS: Troponin 5 2HR Delta -2.05 ABS# (0-10)
[2021-02-07 18:44] VITALS: PULSE 61; RESP 15; O2SAT 93
--- NOTE | 2021-02-07 20:21 | ECG_ITS ---
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 Measurements Intervals [place] Rate: 63 P: 67 VA: 182 QRS: -5 QRSD: 102 T: 123 QT: 422 QTc: 432 Interpretive Statements SINUS RHYTHM POSSIBLE LEFT ATRIAL ENLARGEMENT [-0.1mV P WAVE IN V1/V2] ST DEVIATION AND MODERATE T-WAVE ABNORMALITY, CONSIDER LATERAL ISCHEMIA [-0.1+ mV T WAVE IN I/aVL/V5/V6] Compared to ECG 02/07/2021 16:57:51 No significant changes Electronically Signed On 02-08-2021 7:06:38 CDT by Tamie Brand M.D. [id number]
[2021-02-07 22:17] LABS: Troponin 5 6HR 67.93 ng/L (0-10)
[2021-02-07 23:25] VITALS: BP 139/48; PULSE 70; RESP 15; O2SAT 93
[2021-02-08] VITALS (18 sets, daily range): BP systolic 71–145; BP diastolic 40–125; PULSE 51–93; RESP 13–18; TEMP 36.6–37; O2SAT 93–99
--- NOTE | 2021-02-08 00:44 | NMCV_ITS ---
NM sarah perf SPECT r/s* [id number] Amanda Ha Age: 65 Gender: F : 1955 Exam Date: 02/08/2021 12:18 Ordering Phys: Naveen Johnson MD Technologist: ARRON Hubbard Exam Location: [facility] Indications: CHEST PAIN X 2 DAYS STRESS TEST Please see separate stress test report in [facility] for full findings IMAGE PROTOCOL Rest/Stress 1 Lexiscan Day Radiopharmaceutical Dose (mCi) Administration Site Administered by Rest: Tc-99m 10.3 IV ARRON Hubbard Sestamibi Stress:Tc-99m 32.0 IV ARRON Osuna Sestamibi Rest: 08-Feb-2021 60 Discovery 630 Stress: 08-Feb-2021 30 Discovery 630 0.4mg Lexiscan. Supine position only as patient was unable to lay prone. SPECT RESULTS Technical Quality: Good Raw Data Analysis: Normal Image Corrections: No attenuation or motion correction applied Summed Stress Score: 11 Summed Rest Score: 11 Summed Difference Score: 4 PERFUSION FINDINGS Moderate area of minimal to moderately decreased tracer uptake in the basal and mid inferolateral, mid inferior, mid anteroseptal and all the apical segments. Some reversibility was noted in the mid anteroseptal and inferior wall region. Increased stress uptake was noted in the right ventricular free wall. FUNCTIONAL RESULTS (calculated via Gated SPECT) Stress Image LV EF (%): 51 Stress EDV (mL):178 TID: 0.76 Stress ESV (mL):87 FUNCTIONAL FINDINGS: Segmental wall motion analysis revealed mild diffuse hypokinesia of the septum and the LV apex IMPRESSIONS 1. Myocardial perfusion may revealing a moderate area of decreased uptake in the inferior, inferolateral, apical and neha septal regions with some reversibility in the inferior and anteroseptal region, suggestive of myocardial scarring in the distribution of the RCA/left circumflex artery with some areas of ischemia in the distribution of the right coronary artery and left anterior descending artery. 2. Normal LV ejection fraction 51%. 3. LV wall motion analysis revealing mild diffuse hypokinesia of the septum and the LV apex. 4. Mildly dilated LV cavity with an end-systolic volume of 87 mL. Because of the difference in the technical quality comparison with the previous study from 06/24/2019 is difficult. The extent of myocardial scarring appears to be less with improved LV ejection fraction. Dr Lisa Watson MD FACC (Electronically Signed) Final Date: 08 February 2021 16:02 S
--- NOTE | 2021-02-08 00:44 | ECG_ITS ---
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 Interpretive Statements NAME OF STUDY: LEXISCAN SESTAMIBI STRESS TEST INDICATION: Chest Pain PROCEDURE: At the baseline, the EKG revealed sinus bradycardia with a rate of 56 bpm. Poor R wave progression. Nonspecific T wave changes. The baseline blood pressure was 135/68 mm Hg with a heart rate of 55 beats/min. Lexiscan was infused over a period of 20 seconds. A total of 0.4 milligrams of Lexiscan was infused. The stress phase was continued for a total of 5 minutes. Heart rate at the end of the stress phase was 67 with a blood pressure 112/60. The EKG at the peak infusion revealed no significant changes. Sestamibi was injected 20 seconds after the Lexiscan infusion. Blood pressure at the end of the recovery phase was 100/64 with a heart rate of 70 per minute. CONCLUSION: 1. No significant EKG changes with the LexiScan infusion 2. No LexiScan induced chest pain or cardiac arrhythmia 3. Normal blood pressure and heart rate response 4. Sestamibi/sestamibi perfusion scan pending; see separate report. Electronically Signed On 02-09-2021 10:44:05 CDT by Lisa Watson M.D. [id number]
--- NOTE | 2021-02-08 00:44 | USCV_ITS ---
Leland Amanda Age: 65 Gender: F : 1955 Exam Date: 02/08/2021 06:19 Ordering Phys: Naveen Johnson MD Technologist: Dee Steel Exam Location: [facility] Indication: Chest pain BP: 130 / 46 HR: 54 Rhythm: Sinus bradycardia Technical Quality: Suboptimal MEASUREMENTS (Male / Female) Normal Values 2D ECHO LV Diastolic Diameter PLAX 5.5 cm 4.2 - 5.9 / 3.9 - 5.3 cm LV Systolic Diameter PLAX 4.0 cm LV Chamber Size 5.1 cm IVS Diastolic Thickness 1.3 cm 0.6 - 1.0 / 0.6 - 0.9 cm IVS Systolic Thickness 1.6 cm LVPW Diastolic Thickness 1.3 cm 0.6 - 1.0 / 0.6 - 0.9 cm LVPW Systolic Thickness 1.6 cm RV Chamber Size 4.2 cm LVOT Diameter 1.8 cm LV Ejection Fraction 2D Teich 54.7 % LV Ejection Fraction MOD 2C 50.3 % LV Ejection Fraction 2C AL 51.7 % LA Diameter 4.1 cm LA Width 3.6 cm LA Height 5.7 cm RA Width 3.3 cm RA Height 4.8 cm Aorta at Sinotubular Diameter 2.2 cm M-MODE LV Diastolic Diameter MM 6.2 cm 4.2 - 5.9 / 3.9 - 5.3 cm LV Systolic Diameter MM 4.4 cm LV Ejection Fraction MM Teich 54.3 % IVS Diastolic Thickness MM 1.2 cm 0.6 - 1.0 / 0.6 - 0.9 cm IVS Systolic Thickness MM 1.7 cm LVPW Diastolic Thickness MM 1.4 cm 0.6 - 1.0 / 0.6 - 0.9 cm LVPW Systolic Thickness MM 1.5 cm RV Diastolic Diameter MM 3.2 cm Aortic Annulus Diameter 3.1 cm LA Ao Ratio MM 1.5 MV E Point Septal Separation 1.0 cm DOPPLER AV Peak Velocity 208.0 cm/s LVOT Peak Velocity 137.0 cm/s AV Area Cont Eq vti 1.6 cm squared AV Area Cont Eq pk 1.6 cm squared MV Peak Velocity 113.0 cm/s MV Area PHT 3.0 cm squared Mitral E to A Ratio 1.6 MV E' Velocity 64.0 cm/s Mitral E to MV E' Ratio 12.8 Mitral E to LV E' Lateral Ratio 11.0 Mitral E to LV E' Septal Ratio 15.6 TR Peak Velocity 222.8 cm/s TR Peak Gradient 19.8 mmHg TV Peak E Velocity 84.0 cm/s Right Atrial Pressure 3.0 mmHg Pulmonary Artery Systolic Pressu 22.8 mmHg PV Peak Velocity 113.0 cm/s RV Acceleration Time 0.1 s RV Ejection Time 0.3 s RV AcT/ET 0.3 FINDINGS Left Ventricle Mildly dilated LV. LV systolic function is grossly normal. Regional wall motion abnormalities cannot be assessed because of poor visualization. Right Ventricle The right ventricle is normal in size and function. Right Atrium The right atrium is mildly dilated Left Atrium The left atrium is mildly dilated Mitral Valve Moderate mitral annular calcification without significant stenosis or prolapse. There is mild mitral regurgitation. Aortic Valve Aortic valve is thickened. There is mild aortic stenosis. By continuity equation, valve area is 1.5 cm squared and mean gradient is 10 mmHg. There is no aortic regurgitation. Tricuspid Valve Structurally normal tricuspid valve without significant stenosis. Trace tricuspid regurgitation. Insufficient TR jet to calculate RVSP Pulmonic Valve Structurally normal pulmonic valve without significant stenosis. There is no pulmonic regurgitation. Pericardium Normal pericardium without effusion. Aorta Normal ascending aorta dimension. CONCLUSIONS This is technically limited quality study because of poor ultrasonic windows. LV is mildly dilated. LV systolic function is grossly normal. No regional wall motion abnormalities cannot be assessed because of poor visualization. Biatrial enlargement Mild mitral regurgitation. Mild aortic stenosis is seen. Compared to prior study from 06/2019, no significant changes are noted. Lincoln Bridges MD (Electronically Signed) Final Date: 08 February 2021 12:22 S
[2021-02-08] MEDS: sevelamer 800 mg Tablet 1600 MG PO ×3 (02:01→20:56)
[2021-02-08] MEDS: trazodone 50 mg Tablet PO ×2 (02:03→20:56)
[2021-02-08] MEDS: gabapentin 100 mg Capsule 200 MG PO ×2 (02:03→20:56)
[2021-02-08] MEDS: HYDROcodone-acetaminophen 5-325 mg Tablet 1 TAB PO (02:04)
[2021-02-08] MEDS: mirtazapine 15 mg Tablet PO ×2 (02:04→20:56)
--- NOTE | 2021-02-08 02:14 | PC.NURSE ---
Pt given crackers and peanut butter to take with her medication; also given a popcicle at pt request.
--- NOTE | 2021-02-08 04:27 | PC.NURSE ---
Pt sleeping; SATS 85% RA. Placed on 2L O2 via NC, SATS now 97%
[2021-02-08 07:18] LABS: Basophils % 0.7 %; Eosinophils # 0.1 10^3/uL (0.0-0.8); Eosinophils % 1.7 %; Hematocrit 41.8 % (37.0-47.0); Hemoglobin 13.1 g/dL (11.5-15.3); Lymphocytes # 1.2 10^3/uL (0.8-4.8); Lymphocytes % 20.6 %; Mean Corpuscular HGB Conc 31.3 g/dL (30.0-36.0); Mean Corpuscular Hemoglobin 31.1 pg (28.0-34.0); Mean Corpuscular Volume 99.3 fL (81-99); Mean Platelet Volume 11.4 fL (7.4-10.4); Monocytes # 0.5 10^3/uL (0.2-0.9); Monocytes % 8.5 %; Neutrophils # 4.09 10^3/uL (1.8-7.7); Neutrophils % 68.3 %; Nucleated Red Blood Cells % 0 %; Platelet Count 150 10^3/cmm (130-400); Red Blood Count 4.21 10^6/uL (4.1-5.3)
[2021-02-08 07:32] LABS: INR 1.09 (0.8-1.2)
[2021-02-08 07:35] LABS: Alanine Aminotransferase 10 U/L (0-33); Albumin Level 3.3 g/dL (3.5-5.2); Alkaline Phosphatase 159 IU/L (35-105); Anion Gap 15.9 (5-19); Aspartate Amino Transferase 17 U/L (0-32); Blood Urea Nitrogen 22 mg/dL (8-23); Calcium 8.8 mg/dL (8.5-10.5); Carbon Dioxide 30 mmol/L (22-29); Chloride 93 mmol/L (98-107); Globulin 3.4 g/dL (1.3-4.6); Glomerular Filtration Rate 9.5 mL/min (90-130); Glucose 134 mg/dL (65-115); Magnesium 1.8 mg/dL (1.7-2.3); Osmolality Calculated 285 mOsm/kg (285-295); Phosphorus 4.5 mg/dL (2.5-4.5); Potassium 3.9 mmol/L (3.5-5.1); Sodium 135 mmol/L (136-145); Total Bilirubin 0.6 mg/dL (0.15-1.2); Total Protein 6.7 g/dL (6.6-8.7)
[2021-02-08 07:44] LABS: Chol HDL Ratio 1.48 mg/dL (0.0-4.40); Cholesterol 77 mg/dL (0-200); HDL Cholesterol 52 mg/dL (60-100); LDL Cholesterol Calculated 8 mg/dL (50-129); LDL HDL Ratio 0.15 RATIO (0.00-3.22); Triglycerides 83 mg/dL (0-150)
[2021-02-08 07:47] LABS: Estmated Average Glucose 103; Hemoglobin A1C 5.2 % (4.0-6.0)
[2021-02-08 08:07] LABS: NT Pro B Type Natriuretic Pept 49905 pg/mL (0-125)
[2021-02-08 08:08] LABS: Thyroid Stimulating Hormone 0.22 uIU/mL (0.27-4.20)
[2021-02-08] MEDS: atorvastatin 40 mg Tablet 80 MG PO (09:24)
[2021-02-08] MEDS: apixaban 5 mg Tablet 2.5 MG PO ×2 (09:25→18:24)
[2021-02-08] MEDS: pantoprazole DR 40 mg Tablet PO (09:26)
[2021-02-08] MEDS: aspirin 81 mg Chew Tablet PO (09:26)
[2021-02-08] MEDS: clopidogrel 75 mg Tablet PO (09:26)
[2021-02-08] MEDS: fluticasone nasal spray 16gm Btl 2 SPRAY INTRANASAL (09:27)
[2021-02-08] MEDS: minoxidil 10 mg Tablet 2.5 MG PO (09:27)
[2021-02-08] MEDS: isosorbide mononitrate ER 30 mg Tablet PO (09:27)
[2021-02-08] MEDS: levothyroxine 100 mcg Tablet PO (09:28)
[2021-02-08] MEDS: regadenoson 0.4 Mg/5 ml Syringe IVP (12:55)
--- NOTE | 2021-02-08 13:26 | PC.OT ---
OT NOTE: OT EVALUATION ORDERS RECEIVED. CURRENTLY IN STRESS TEST; WILL HOLD UNTIL TOMORROW.
--- NOTE | 2021-02-08 13:36 | PC.PT ---
Patient having cardiac stress test today, nursing recommends hold PT today, will attempt evaluation tomorrow
--- NOTE | 2021-02-08 16:11 | PM.PN ---
Subjective Subjective: Interval history: Patient was seen this morning, she did have an episode of chest pain early this morning, lasting a few seconds, no nausea, no vomiting, no shortness of breath, she is currently awaiting cardiac stress testing, did have low blood pressures and sinus bradycardia throughout the night, but denies lightheadedness, no dizziness Vitals/I&O/Wt Last Vital Signs Temp 98.4 F 02/08/21 15:00 Pulse 72 02/08/21 15:00 Resp 18 02/08/21 15:00 BP 71/44 02/08/21 15:00 Pulse Ox 98 02/08/21 15:00 Weight last 48 hrs Weight 99.79 kg Physical Exam Const: COMMON NORMALS: no acute distress and patient oriented x3 Resp: COMMON NORMALS: normal respiratory effort, No retractions, No use of accessory muscles and clear to auscultation bilaterally AUSCULTATION: clear to auscultation bilaterally Cardio: COMMON NORMALS: regular rate, regular rhythm, S1 normal heart sound present and S2 normal heart sound present RATE: regular rate RHYTHM: regular rhythm HEART SOUNDS: S1 normal heart sound present and S2 normal heart sound present GI: COMMON NORMALS: Normal to inspection, nondistended, normoactive bowel sounds present, Soft to palpation, non-tender and No hepatosplenomegaly present PALPATION: Yes Soft to palpation and Yes No hepatosplenomegaly present Extremity: COMMON NORMALS: no pedal edema Neuro: COMMON NORMALS: patient oriented x3 Psych: COMMON NORMALS: mental status grossly normal Data : 02/08/21 07:09 02/08/21 07:09 A&P Assessment and plan (1) Non-STEMI (non-ST elevated myocardial infarction): -History of CABG, history of coronary artery stenting -No active chest pain -Baseline troponin 94, 6 hours 67.93 BNP 32961 -EKG shows ST depressions in the lateral leads -Creatinine 4.6 Plan: -Admit to general medical floors as we do not have CSU beds -Serial EKGs, serial troponins, monitor for chest pain -Nitro for chest pain -Continue aspirin, Plavix, low-dose Eliquis, statin -Cardiac echocardiogram ordered -Although BNP is elevated, no clinical evidence of fluid overload, chest x-ray does not show fluid overload, she tells me that she had over 4 L removed after dialysis, has had low blood pressures throughout the day, hold minoxidil, hold Imdur -Check TSH 0.22, A1c 5.2 -Currently undergoing stress testing -Consult nephrology for dialysis tomorrow -Full code -Eliquis for DVT prophylaxis Status: Acute (2) Chronic kidney disease: Status: Acute Qualifiers: Chronic kidney disease stage: on chronic dialysis Qualified Code(s): N18.6 - End stage renal disease; Z99.2 - Dependence on renal dialysis (3) History of common carotid artery stent placement: Status: Acute (4) Diastolic heart failure: Status: Acute (5) Major depressive disorder, recurrent severe without psychotic features: Status: Acute (6) Generalized anxiety disorder: Status: Acute (7) End-stage renal disease on hemodialysis: Status: Acute (8) Hypothyroidism: Status: Acute (9) Diabetes: Status: Acute Attestations Medical Necessity Statement*: Patient requires hospitalization for NSTEMI Coding Level of Care Code Acute 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
--- NOTE | 2021-02-08 16:36 | PM.CONSULT ---
Providers/Reason For Consult Consulting Physician/Specialty*: antoine moseley md / telenephrology Reason for Consult*: ESRD care Attending Physician: Naveen Johnson MD Primary Care Provider: ERIKA Roman History of Present Illness History of Present Illness Amanda Ha is a 65 year old female on HD MWF, CAD s/p CABG and Coronary stents, DM type 2, htn, a fib on eliquis, COPD, diastolic dysfunction. The pt was admitted on 02-07-21 after HD w/ CP. She has had an echo and a stress test. renal is consulted for HD care. Review of Systems General: Reports: 10 or more systems reviewed and unremarkable except in HPI and below Narrative: weak, cp. no n/v/f/c/kramer/d/ + chronic sob. dec edema. + palps Meds/Allergies Home Medications and Allergies Home Medications Medication Instructions Recorded Confirmed Last Taken Type apixaban 2.5 mg tablet 2.5 mg PO BID 08/18/19 02/07/21 02/06/21 History levothyroxine 25 mcg tablet 100 mcg PO DAILY tab 08/18/19 02/07/21 02/06/21 History albuterol sulfate [ProAir HFA] 2 puff INHALATION Q6H PRN 10/11/19 02/07/21 1 Day Ago History ~09/28/20 gabapentin 200 mg PO BEDTIME 10/11/19 02/07/21 02/06/21 History nitroglycerin [Nitrostat] 0.4 mg SUBLINGUAL Q5M PRN 10/11/19 02/07/21 02/07/21 History atorvastatin 80 mg PO DAILY 12/06/19 02/07/21 02/06/21 History clopidogrel 75 mg PO DAILY 12/06/19 02/07/21 02/06/21 History fluticasone propionate [Flonase 2 spray INTRANASAL DAILY 12/06/19 02/07/21 02/06/21 History Allergy Relief] Renal Vitamin 1 tab PO DAILY 01/16/20 02/07/21 02/06/21 History acetaminophen 650 mg PO Q6H PRN 01/16/20 02/07/21 Unknown History albuterol sulfate 2.5 mg INHALATION TID 01/16/20 02/07/21 1 Day Ago History ~09/28/20 carvedilol [Coreg] 3.125 mg PO Q12H 01/16/20 02/07/21 02/06/21 History diphenoxylate-atropine [Lomotil] 2 tab PO QID PRN 01/16/20 02/07/21 2 Days Ago History ~09/27/20 melatonin 9 mg PO BEDTIME PRN 01/16/20 02/07/21 02/06/21 History mirtazapine 15 mg PO BEDTIME 01/16/20 02/07/21 02/06/21 History ondansetron HCl [Zofran] 4 mg PO Q8H PRN 01/16/20 02/07/21 Unknown History sevelamer carbonate 1,600 mg PO TID 01/16/20 02/07/21 02/06/21 History isosorbide mononitrate 30 mg PO DAILY 03/10/20 02/07/21 02/06/21 History metoprolol succinate 50 mg PO DAILY 03/10/20 02/07/21 02/06/21 History minoxidil 2.5 mg PO BID 03/10/20 02/07/21 02/06/21 History trazodone 50 mg PO BEDTIME 03/10/20 02/07/21 02/06/21 History cholestyramine (with sugar) 4 g PO BID #60 ea 03/11/20 02/07/21 Unknown Rx Aspir-81 81 mg PO DAILY 02/07/21 02/07/21 02/06/21 History desoximetasone See Rx Instructions .ROUTE .COMPLEX 02/07/21 02/07/21 Unknown History hydrocodone-acetaminophen 1 tab PO QID PRN 02/07/21 02/07/21 Unknown History pantoprazole 40 mg PO DAILY 02/07/21 02/07/21 02/06/21 History Allergies Allergy/AdvReac Type Severity Reaction Status Date / Time adhesive Allergy Unknown Verified 11/20/20 00:18 codeine Allergy Unknown Verified 11/20/20 00:18 duloxetine [From Cymbalta] Allergy Unknown Verified 11/20/20 00:18 Current Medications Current Medications Generic Name Dose Route Start Last Admin Trade Name Freq PRN Reason Stop Dose Admin Hydrocodone Bitart/Acetaminophen 1 tab 02/08/21 00:44 02/08/21 02:04 Hydrocodone-Acetaminophen 5-325 Mg Tablet PO 1 tab QID PRN Administration Pain Apixaban 2.5 mg 02/08/21 09:00 02/08/21 09:25 Apixaban 5 Mg Tablet PO 2.5 mg BID JOSEFINA Administration Aspirin 81 mg 02/08/21 09:00 02/08/21 09:26 Aspirin 81 Mg Chew Tablet PO 81 mg DAILY JOSEFINA Administration Atorvastatin Calcium 80 mg 02/08/21 09:00 02/08/21 09:24 Atorvastatin 40 Mg Tablet PO 80 mg DAILY JOSEFINA Administration Cholestyramine Resin 4 gm 02/08/21 00:44 02/08/21 09:26 Cholestyramine Powder 4 Gm Pkt PO Not Given BID JOSEFINA Clopidogrel Bisulfate 75 mg 02/08/21 09:00 02/08/21 09:26 Clopidogrel 75 Mg Tablet PO 75 mg DAILY JOSEFINA Administration Fluticasone Propionate 2 spray 02/08/21 09:00 02/08/21 09:27 Fluticasone Nasal [place] 16gm Btl INTRANASAL 2 spray DAILY JOSEFINA Administration Gabapentin 200 mg 02/08/21 00:44 02/08/21 02:03 Gabapentin 100 Mg Capsule PO 200 mg BEDTIME JOSEFINA Administration Isosorbide Mononitrate 30 mg 02/08/21 09:00 02/08/21 09:27 Isosorbide Mononitrate Er 30 Mg Tablet PO 30 mg DAILY JOSEFINA Administration Levothyroxine Sodium 100 mcg 02/08/21 09:00 02/08/21 09:28 Levothyroxine 100 Mcg Tablet PO 100 mcg DAILY JOSEFINA Administration Minoxidil 2.5 mg 02/08/21 09:00 02/08/21 09:27 Minoxidil 10 Mg Tablet PO 2.5 mg BID JOSEFINA Administration Mirtazapine 15 mg 02/08/21 00:44 02/08/21 02:04 Mirtazapine 15 Mg Tablet PO 15 mg BEDTIME JOSEFINA Administration Pantoprazole Sodium 40 mg 02/08/21 09:00 02/08/21 09:[address] 40 Mg Tablet PO 40 mg DAILY JOSEFINA Administration Sevelamer Carbonate 1,600 mg 02/08/21 00:44 02/08/21 09:25 Sevelamer 800 Mg Tablet PO 1,600 mg TID JOSEFINA Administration Trazodone HCl 50 mg 02/08/21 00:44 02/08/21 02:03 Trazodone 50 Mg Tablet PO 50 mg BEDTIME JOSEFINA Administration PFSH Acute PFSH: Medical History (Updated 02/07/21 @ 18:20 by Naveen Johnson MD) Anemia Anticoagulation adequate with anticoagulant therapy Atrial fibrillation Carotid artery disease Chronic bronchitis Chronic diarrhea Chronic pain disorder Coronary artery disease Diabetes Diastolic heart failure Emphysema of lung End-stage renal disease on hemodialysis Fibromyalgia GERD (gastroesophageal reflux disease) Hypertension Elevated but stable Hypothyroidism Irritable bowel syndrome Right leg swelling Sleep apnea Venous insufficiency Surgical History AVF (arteriovenous fistula) History of appendectomy History of cholecystectomy History of common carotid artery stent placement S/P hemodialysis catheter insertion Stented coronary artery PCI to mid LAD in December 2018 Family History Other CAD (coronary artery disease) Social History Smoking and tobacco status: former smoker Quit status (tobacco): has quit using tobacco Year quit tobacco: 2009 Second hand smoke exposure: Yes Smoking risk assessment/counseling performed?: No Alcohol intake: never Lives independently: Yes Household members: children and other Details: son, cousin Vitals/I&O/Wt Last Vital Signs Temp 98.4 F 02/08/21 15:00 Pulse 72 02/08/21 15:00 Resp 18 02/08/21 15:00 BP 71/44 02/08/21 15:00 Pulse Ox 98 02/08/21 15:00 Weight last 48 hrs Weight 99.79 kg Physical Exam Narrative: EXAM NARRATIVE: obese, uncomfortable, BP on low side heent- nc/at, eomi, anicteric neck supple lungs clear heart - irreg irreg, +S1, s2 abd soft, nt, nd, + bs ext LUE AVF w/ thrill and bruit neuro- a,a, o x 3 weak pulses mood normal no rashes noted exam by RN- telehealth visit A&P Additional A&P Information 65 yr old female ESRD 1. CP- s/p echo and stress test today -no significant change on echo since june 2019 echo 2. ESRD - HD MWF 3. low bp- agree w/ holding minoxidil 4. a fib- controlled rate on eliquis 5. hgb high- no LOYDA 6. DM control 7. normal phos, pth was 582 in sep 2020 seen and examined w/ RN -telehealth visit -discussed w/ Dr. Meagan Johnson Consult Attestations Medical Necessity Statement: CP, +BNP per medicine Time Spent in Patient Care: Greater than 35 minutes (>than 50% of time spent in counselling and/or direct pt care on unit). 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
--- NOTE | 2021-02-08 19:37 | P.CONIM_ITS ---
Providers/Reason For Consult Consulting Physician/Specialty*: Lincoln Bridges MD/ Cardiology Reason for Consult*: Chest pain Requesting Physician: Dr Johnson Attending Physician: Naveen Johnson MD Primary Care Provider: ERIKA Roman History of Present Illness History of Present Illness Amanda Ha is a 65 year old female with past medical history of atrial fibrillation on apixaban, CAD s/p CABG and PCI's in the past, end-stage renal disease on dialysis was transferred from dialysis secondary to chest discomfort episodes. According to patient she has been having chest discomfort episodes since Friday however it was worsening. According to patient the pain is worse on taking a deep breath. It lasts for less than a minute at a time. Her troponins were elevated but trended down. EKG does not show acute ST changes. Review of Systems Const: Denies: fever(s), chills, fatigue or malaise Eyes: Denies: change in vision or blurry vision ENMT: Denies: nasal congestion Card: Reports: chest pain; Denies: palpitations, irregular heart rhythm or edema Resp: Reports: dyspnea; Denies: productive cough, non-productive cough or wheezing GI: Denies: abdominal pain, nausea, vomiting, hematemesis, diarrhea, constipation, hematochezia or melena : Denies: flank pain, dysuria or urinary frequency Musc: Denies: neck pain or back pain Neuro: Denies: headache(s), dizziness or vertigo Endo: Denies: polyuria Meds/Allergies Home Medications and Allergies Home Medications Medication Instructions Recorded Confirmed Last Taken Type apixaban 2.5 mg tablet 2.5 mg PO BID 08/18/19 02/07/21 02/06/21 History levothyroxine 25 mcg tablet 100 mcg PO DAILY tab 08/18/19 02/07/21 02/06/21 History albuterol sulfate [ProAir HFA] 2 puff INHALATION Q6H PRN 10/11/19 02/07/21 1 Day Ago History ~09/28/20 gabapentin 200 mg PO BEDTIME 10/11/19 02/07/21 02/06/21 History nitroglycerin [Nitrostat] 0.4 mg SUBLINGUAL Q5M PRN 10/11/19 02/07/21 02/07/21 History atorvastatin 80 mg PO DAILY 12/06/19 02/07/21 02/06/21 History clopidogrel 75 mg PO DAILY 12/06/19 02/07/21 02/06/21 History fluticasone propionate [Flonase 2 spray INTRANASAL DAILY 12/06/19 02/07/21 02/06/21 History Allergy Relief] Renal Vitamin 1 tab PO DAILY 01/16/20 02/07/21 02/06/21 History acetaminophen 650 mg PO Q6H PRN 01/16/20 02/07/21 Unknown History albuterol sulfate 2.5 mg INHALATION TID 01/16/20 02/07/21 1 Day Ago History ~09/28/20 carvedilol [Coreg] 3.125 mg PO Q12H 01/16/20 02/07/21 02/06/21 History diphenoxylate-atropine [Lomotil] 2 tab PO QID PRN 01/16/20 02/07/21 2 Days Ago History ~09/27/20 melatonin 9 mg PO BEDTIME PRN 01/16/20 02/07/21 02/06/21 History mirtazapine 15 mg PO BEDTIME 01/16/20 02/07/21 02/06/21 History ondansetron HCl [Zofran] 4 mg PO Q8H PRN 01/16/20 02/07/21 Unknown History sevelamer carbonate 1,600 mg PO TID 01/16/20 02/07/21 02/06/21 History isosorbide mononitrate 30 mg PO DAILY 03/10/20 02/07/21 02/06/21 History metoprolol succinate 50 mg PO DAILY 03/10/20 02/07/21 02/06/21 History minoxidil 2.5 mg PO BID 03/10/20 02/07/21 02/06/21 History trazodone 50 mg PO BEDTIME 03/10/20 02/07/21 02/06/21 History cholestyramine (with sugar) 4 g PO BID #60 ea 03/11/20 02/07/21 Unknown Rx Aspir-81 81 mg PO DAILY 02/07/21 02/07/21 02/06/21 History desoximetasone See Rx Instructions .ROUTE .COMPLEX 02/07/21 02/07/21 Unknown History hydrocodone-acetaminophen 1 tab PO QID PRN 02/07/21 02/07/21 Unknown History pantoprazole 40 mg PO DAILY 02/07/21 02/07/21 02/06/21 History Allergies Allergy/AdvReac Type Severity Reaction Status Date / Time adhesive Allergy Unknown Verified 11/20/20 00:18 codeine Allergy Unknown Verified 11/20/20 00:18 duloxetine [From Cymbalta] Allergy Unknown Verified 11/20/20 00:18 Current Medications Current Medications Generic Name Dose Route Start Last Admin Trade Name Freq PRN Reason Stop Dose Admin Hydrocodone Bitart/Acetaminophen 1 tab 02/08/21 00:44 02/08/21 02:04 Hydrocodone-Acetaminophen 5-325 Mg Tablet PO 1 tab QID PRN Administration Pain Apixaban 2.5 mg 02/08/21 09:00 02/08/21 18:24 Apixaban 5 Mg Tablet PO 2.5 mg BID JOSEFINA Administration Aspirin 81 mg 02/08/21 09:00 02/08/21 09:26 Aspirin 81 Mg Chew Tablet PO 81 mg DAILY JOSEFINA Administration Atorvastatin Calcium 80 mg 02/08/21 09:00 02/08/21 09:24 Atorvastatin 40 Mg Tablet PO 80 mg DAILY JOSEFINA Administration Cholestyramine Resin 4 gm 02/08/21 00:44 02/08/21 18:23 Cholestyramine Powder 4 Gm Pkt PO Not Given BID JOSEFINA Clopidogrel Bisulfate 75 mg 02/08/21 09:00 02/08/21 09:26 Clopidogrel 75 Mg Tablet PO 75 mg DAILY JOSEFINA Administration Fluticasone Propionate 2 spray 02/08/21 09:00 02/08/21 09:27 Fluticasone Nasal [place] 16gm Btl INTRANASAL 2 spray DAILY JOSEFINA Administration Gabapentin 200 mg 02/08/21 00:44 02/08/21 02:03 Gabapentin 100 Mg Capsule PO 200 mg BEDTIME JOSEFINA Administration Isosorbide Mononitrate 30 mg 02/08/21 09:00 02/08/21 09:27 Isosorbide Mononitrate Er 30 Mg Tablet PO 30 mg DAILY JOSEFINA Administration Levothyroxine Sodium 100 mcg 02/08/21 09:00 02/08/21 09:28 Levothyroxine 100 Mcg Tablet PO 100 mcg DAILY JOSEFINA Administration Minoxidil 2.5 mg 02/08/21 09:00 02/08/21 09:27 Minoxidil 10 Mg Tablet PO 2.5 mg BID JOSEFINA Administration Mirtazapine 15 mg 02/08/21 00:44 02/08/21 02:04 Mirtazapine 15 Mg Tablet PO 15 mg BEDTIME JOSEFINA Administration Pantoprazole Sodium 40 mg 02/08/21 09:00 02/08/21 09:[address] 40 Mg Tablet PO 40 mg DAILY JOSEFINA Administration Sevelamer Carbonate 1,600 mg 02/08/21 00:44 02/08/21 17:25 Sevelamer 800 Mg Tablet PO Not Given TID JOSEFINA Trazodone HCl 50 mg 02/08/21 00:44 02/08/21 02:03 Trazodone 50 Mg Tablet PO 50 mg BEDTIME JOSEFINA Administration PFSH Acute PFSH: Medical History Anemia Anticoagulation adequate with anticoagulant therapy Atrial fibrillation Carotid artery disease Chronic bronchitis Chronic diarrhea Chronic pain disorder Coronary artery disease Diabetes Diastolic heart failure Emphysema of lung End-stage renal disease on hemodialysis Fibromyalgia GERD (gastroesophageal reflux disease) Hypertension Elevated but stable Hypothyroidism Irritable bowel syndrome Right leg swelling Sleep apnea Venous insufficiency Surgical History AVF (arteriovenous fistula) History of appendectomy History of cholecystectomy History of common carotid artery stent placement S/P hemodialysis catheter insertion Stented coronary artery PCI to mid LAD in December 2018 Family History Other CAD (coronary artery disease) Social History Smoking and tobacco status: former smoker Quit status (tobacco): has quit using tobacco Year quit tobacco: 2009 Second hand smoke exposure: Yes Smoking risk assessment/counseling performed?: No Alcohol intake: never Lives independently: Yes Household members: children and other Details: son, cousin Vitals/I&O/Wt Last Vital Signs Temp 98.0 F 02/08/21 19:08 Pulse 80 02/08/21 19:08 Resp 16 02/08/21 19:08 BP 101/50 02/08/21 19:08 Pulse Ox 94 02/08/21 19:08 02/08/21 02/08/21 02/08/21 06:59 14:59 22:59 Intake Total 240 / 240 Balance 240 / 240 Weight last 48 hrs Weight 220 lb Physical Exam Narrative: EXAM NARRATIVE: GENERAL: Patient is alert, awake and oriented x3. [] NECK: No jugular vein distension. [] HEENT: No cyanosis. No icterus. No pallor. [] HEART: Regular S1 and S2. No murmur, rub or gallop. [] LUNGS: Clear to auscultate bilaterally. [] ABDOMEN: Soft, nontender and nondistended. Positive bowel sounds. No guarding, rebound or tenderness. [] CENTRAL NERVOUS SYSTEM: Grossly nonfocal. [] EXTREMITIES: Lower extremities with 1+ edema bilaterally. Pulses palpable in the lower extremities, both dorsalis pedis and posterior tibial. [] A&P Assessment and plan (1) Diabetes: Status: Acute (2) End-stage renal disease on hemodialysis: Status: Acute (3) Elevated troponin: Status: Acute (4) Chest pain: Status: Acute (5) Coronary artery disease: Status: Acute Patient has atypical chest pain which is pleuritic in nature. Lasts for few seconds to less than a minute. She underwent echocardiogram that shows normal LV systolic function. She also had a nuclear stress test done that showed prior infarct in inferior, inferolateral, apical and neha septal regions with some reversibility in the inferior and anteroseptal region likely representing mavis-infarct ischemia. Given her overall presentation, and lack of uptrending troponins, we will conservatively manage her at this time. Continue current medications. Thank you for involving us with care of this patient. We will continue to follow. Please call with questions. Coding Level of Care Code Acute Subcontracts Manager for g Fwd Diagnoses Diabetes E11.9 End-stage renal disease on hemodialysis N18.6; Z99.2 Elevated troponin R79.89 Chest pain R07.9 Coronary artery disease I25.10
[2021-02-09] VITALS (8 sets, daily range): BP systolic 103–136; BP diastolic 29–80; PULSE 60–95; RESP 12–20; TEMP 36.4–36.9; O2SAT 91–98
[2021-02-09 04:02] LABS: Basophils % 0.5 %; Eosinophils # 0.2 10^3/uL (0.0-0.8); Eosinophils % 2.5 %; Hematocrit 42.3 % (37.0-47.0); Hemoglobin 13.3 g/dL (11.5-15.3); Lymphocytes # 1.6 10^3/uL (0.8-4.8); Lymphocytes % 24.2 %; Mean Corpuscular HGB Conc 31.4 g/dL (30.0-36.0); Mean Corpuscular Hemoglobin 31.2 pg (28.0-34.0); Mean Corpuscular Volume 99.3 fL (81-99); Mean Platelet Volume 11.2 fL (7.4-10.4); Monocytes # 0.5 10^3/uL (0.2-0.9); Monocytes % 7.3 %; Neutrophils # 4.19 10^3/uL (1.8-7.7); Nucleated Red Blood Cells % 0 %; Platelet Count 169 10^3/cmm (130-400); Red Blood Count 4.26 10^6/uL (4.1-5.3); Red Cell Distribution Width 12.9 % (12.1-15.1); White Blood Count 6.4 10^3/uL (4.0-10.0)
[2021-02-09 04:12] LABS: INR 1.19 (0.8-1.2)
[2021-02-09 04:24] LABS: Alanine Aminotransferase 9 U/L (0-33); Albumin Level 3.4 g/dL (3.5-5.2); Alkaline Phosphatase 151 IU/L (35-105); Anion Gap 17.5 (5-19); Aspartate Amino Transferase 14 U/L (0-32); Blood Urea Nitrogen 38 mg/dL (8-23); Carbon Dioxide 30 mmol/L (22-29); Chloride 94 mmol/L (98-107); Globulin 3.9 g/dL (1.3-4.6); Glomerular Filtration Rate 6.1 mL/min (90-130); Glucose 91 mg/dL (65-115); Osmolality Calculated 293 mOsm/kg (285-295); Phosphorus 6.1 mg/dL (2.5-4.5); Potassium 4.5 mmol/L (3.5-5.1); Sodium 137 mmol/L (136-145); Total Bilirubin 0.6 mg/dL (0.15-1.2); Total Protein 7.3 g/dL (6.6-8.7)
[2021-02-09 05:06] LABS: Hepatitis B Surface AB 36.6 (11.5-1000); Hepatitis C Virus Antibody Non-Reactive (Nonreactive)
--- NOTE | 2021-02-09 07:27 | PC.RESP ---
PULMONARY REHAB INFORMATION SENT TO PATIENT.
--- NOTE | 2021-02-09 07:28 | P.PN_ITS ---
Subjective Subjective: Interval history: feels better, slept well. denied CP over night Medications: Reviewed: Yes Medication Review Details: Current Medications Acetaminophen (Acetaminophen 325 Mg Tablet) 650 mg PO Q6H PRN PRN Reason: Pain Hydrocodone Bitart/Acetaminophen (Hydrocodone-Acetaminophen 5-325 Mg Tablet) 1 tab PO QID PRN PRN Reason: Pain Last Admin: 02/08/21 02:04 Dose: 1 tab Documented by: Albuterol Sulfate (Albuterol 2.5 Mg/0.5 Ml Neb) 2.5 mg INHALATION TID PRN PRN Reason: sob Albuterol Sulfate (Albuterol 8 Gm Mdi) 2 puff INHALATION Q6H PRN PRN Reason: Shortness Of Breath Apixaban (Apixaban 5 Mg Tablet) 2.5 mg PO BID [facility] Last Admin: 02/08/21 18:24 Dose: 2.5 mg Documented by: Aspirin (Aspirin 81 Mg Chew Tablet) 81 mg PO DAILY [facility] Last Admin: 02/08/21 09:26 Dose: 81 mg Documented by: Atorvastatin Calcium (Atorvastatin 40 Mg Tablet) 80 mg PO DAILY [facility] Last Admin: 02/08/21 09:24 Dose: 80 mg Documented by: Cholestyramine Resin (Cholestyramine Powder 4 Gm Pkt) 4 gm PO BID [facility] Last Admin: 02/08/21 18:23 Dose: Not Given Documented by: Clopidogrel Bisulfate (Clopidogrel 75 Mg Tablet) 75 mg PO DAILY [facility] Last Admin: 02/08/21 09:26 Dose: 75 mg Documented by: Diphenoxylate HCl/Atropine (Diphenoxylate/Atropine Tablet) 2 tab PO QID PRN PRN Reason: Diarrhea Fluticasone Propionate (Fluticasone Nasal [place] 16gm Btl) 2 spray INTRANASAL DAILY [facility] Last Admin: 02/08/21 09:27 Dose: 2 spray Documented by: Gabapentin (Gabapentin 100 Mg Capsule) 200 mg PO BEDTIME [facility] Last Admin: 02/08/21 20:56 Dose: 200 mg Documented by: Isosorbide Mononitrate (Isosorbide Mononitrate Er 30 Mg Tablet) 30 mg PO DAILY [facility] Last Admin: 02/08/21 09:27 Dose: 30 mg Documented by: Levothyroxine Sodium (Levothyroxine 100 Mcg Tablet) 100 mcg PO DAILY [facility] Last Admin: 02/08/21 09:28 Dose: 100 mcg Documented by: Minoxidil (Minoxidil 10 Mg Tablet) 2.5 mg PO BID [facility] Last Admin: 02/08/21 09:27 Dose: 2.5 mg Documented by: Mirtazapine (Mirtazapine 15 Mg Tablet) 15 mg PO BEDTIME [facility] Last Admin: 02/08/21 20:56 Dose: 15 mg Documented by: Naloxone HCl (Naloxone 0.4 Mg/Ml Sdv) 0.1 mg IVP Q2M PRN PRN Reason: OPIATERV Nitroglycerin (Nitroglycerin 0.4 Mg Sublingual Tablet) 0.4 mg SUBLINGUAL Q5M PRN PRN Reason: Chest Pain Non-Formulary Medication (Melatonin) 9 mg PO BEDTIME PRN PRN Reason: Sleep Ondansetron HCl (Ondansetron 4 Mg Tablet) 4 mg PO Q8H PRN PRN Reason: Nausea Ondansetron HCl (Ondansetron 2 Mg/Ml Sdv 2 Ml) 4 mg IVP Q8H PRN PRN Reason: vomiting, or N/V if npo Ondansetron HCl (Ondansetron 2 Mg/Ml Sdv 2 Ml) 4 mg IVP Q2M PRN PRN Reason: NAUSEA Pantoprazole Sodium (Pantoprazole Dr 40 Mg Tablet) 40 mg PO DAILY [facility] Last Admin: 02/08/21 09:26 Dose: 40 mg Documented by: Sevelamer Carbonate (Sevelamer 800 Mg Tablet) 1,600 mg PO TIDWM [facility] Trazodone HCl (Trazodone 50 Mg Tablet) 50 mg PO BEDTIME [facility] Last Admin: 02/08/21 20:56 Dose: 50 mg Documented by: Vitals/I&O/Wt Last Vital Signs Temp 97.6 F 02/09/21 04:00 Pulse 60 02/09/21 06:00 Resp 16 02/09/21 04:00 BP 121/45 02/09/21 04:00 Pulse Ox 93 02/09/21 04:00 02/08/21 02/09/21 02/09/21 22:59 06:59 14:59 Intake Total 480 / 480 Balance 480 / 480 Weight last 48 hrs Weight 99.79 kg Physical Exam Narrative: EXAM NARRATIVE: obese, comfortable, slept well, nc o2 heent- nc/at, eomi, anicteric neck supple lungs -b/l scattered crackles heart - irreg irreg, +S1, s2 abd soft, nt, nd, + bs ext LUE AVF w/ thrill and bruit neuro- a,a, o x 3 weak pulses mood normal no rashes noted exam by RN- telehealth visit Data : 02/09/21 03:26 07 03:26 A&P Additional A&P Information 65 yr old female ESRD 1. CP- s/p echo and stress test yesterday -no significant change on echo since june 2019 echo -await official plan 2. ESRD - HD MWF -HD now- 3.5 hrs, 3k, remove 2l 3. a fib- controlled rate on eliquis 4. hgb high- no LOYDA 5. DM control 6. cont phos binder, pth was 582 in sep 2020 seen and examined w/ RN -telehealth visit -discussed w/ Dr. Meagan Johnson Attestations Medical Necessity Statement*: per medicine, ESRD, CP Time Spent in Patient Care: 16 - 35 minutes (>than 50% of time spent in counselling and/or direct pt care on unit) . Coding Level of Care Code Acute Knife Setter for Hector Hutchins
[2021-02-09] MEDS: apixaban 5 mg Tablet 2.5 MG PO (07:59)
[2021-02-09] MEDS: pantoprazole DR 40 mg Tablet PO (07:59)
[2021-02-09] MEDS: clopidogrel 75 mg Tablet PO (07:59)
[2021-02-09] MEDS: sevelamer 800 mg Tablet 1600 MG PO (07:59)
[2021-02-09] MEDS: aspirin 81 mg Chew Tablet PO (07:59)
[2021-02-09] MEDS: b-complex-vitamin c Tablet 1 EACH PO (07:59)
[2021-02-09] MEDS: atorvastatin 40 mg Tablet 80 MG PO (07:59)
[2021-02-09] MEDS: levothyroxine 100 mcg Tablet PO (07:59)
--- NOTE | 2021-02-09 08:34 | PC.OT ---
Occupational Therapy screen completed, patient does not require skilled services at this time. Please request another evaluation if there is a status change.
--- NOTE | 2021-02-09 09:12 | P.PN_ITS ---
Subjective Subjective: Interval history: Patient is doing well. No complaints of chest pain, shortness of breath or palpitations. Vitals/I&O/Wt Last Vital Signs Temp 97.6 F 02/09/21 04:00 Pulse 75 02/09/21 07:41 Resp 18 02/09/21 07:41 BP 121/45 02/09/21 04:00 Pulse Ox 91 02/09/21 07:41 02/08/21 02/09/21 02/09/21 22:59 06:59 14:59 Intake Total 480 / 480 Balance 480 / 480 Weight last 48 hrs Weight 220 lb Physical Exam Narrative: EXAM NARRATIVE: GENERAL: Patient is alert, awake and oriented x3. [] NECK: No jugular vein distension. [] HEENT: No cyanosis. No icterus. No pallor. [] HEART: Regular S1 and S2. No murmur, rub or gallop. [] LUNGS: Clear to auscultate bilaterally. [] ABDOMEN: Soft, nontender and nondistended. Positive bowel sounds. No guarding, rebound or tenderness. [] CENTRAL NERVOUS SYSTEM: Grossly nonfocal. [] EXTREMITIES: Lower extremities with 1+ edema bilaterally. Pulses palpable in the lower extremities, both dorsalis pedis and posterior tibial. [] Data : 02/09/21 03:26 02/09/21 03:26 A&P Assessment and plan (1) Diabetes: Status: Acute (2) End-stage renal disease on hemodialysis: Status: Acute (3) Elevated troponin: Status: Acute (4) Chest pain: Status: Acute (5) Coronary artery disease: Status: Acute Patient has atypical chest pain which is pleuritic in nature. Lasts for few seconds to less than a minute. She underwent echocardiogram that shows normal LV systolic function. She also had a nuclear stress test done that showed prior infarct in inferior, inferolateral, apical and neha septal r egions with some reversibility in the inferior and anteroseptal region likely representing mavis-infarct ischemia. Given her overall presentation, and lack of uptrending troponins, we will conservatively manage her at this time. No more chest pain overnight. Continue current medications. Thank you for involving us with care of this patient. Patient is stable to be discharged from cardiology standpoint. Please call with questions. Attestations Medical Necessity Statement*: Care expected to cross 2 midnights. Coding Level of Care Code Acute Mental Health Therapist for Chg Fwd Diagnoses Diabetes E11.9 End-stage renal disease on hemodialysis N18.6; Z99.2 Elevated troponin R79.89 Chest pain R07.9 Coronary artery disease I25.10
--- NOTE | 2021-02-09 09:15 | PC.NURSE ---
pt left for dialysis at this time.
--- NOTE | 2021-02-09 11:08 | PC.CHAP ---
Pastoral Care Encounter/Spiritual Assessment Type of Contact [] Declined car refinisher visit [] Patient/Family/Request visit [] Outpatient visit [] Follow-up visit [] Physician referral [] Code/Alert [xx] Routine visit [] Staff referral [] Actively dying [] Patient sleeping [] Family support [] [] Out of room [] Palliative care [] [] Receiving care in room [] Pre-surgical visit [] Trauma [] Long length of stay [] ICU visit [] Other: Relational/Emotional Strength [xx] Patient feels connected with others/family/visitors/staff [] Distress [] Loneliness/isolation [] Abandonment Spirituality of Patient [xx] Person of Ciera [] Attends Scientologist of their [place] [xx] Believes in Prayer [xx] Reads Bible or Pentecostalism materials [] There are Spiritual issues to be addressed Logistics Management Specialist Interventions [xx] Prayer [xx] Active listening [xx] Non-anxious presence [] Spiritual/emotional support [] Crisis/trauma care [] Spiritual counseling [] Bereavement support [] Provided bereavement packet [] Provided Bible/devotional materials [] Provided toy/stuffed animal, coloring book to patient or family member [] Provided Communion [] Anointing/[place] [] Salvation [xx] Completed spiritual assessment [] Other: Impact on Illness or Injury [] Angry [] Fearful [] Anxious [] Often cries [] Exhaustion [] Unable to work [] Unable to attend anabaptism [] Unable to walk/stand [] Unable to read [] Unable to drive [] Unable to eat/drink [] Unable to sleep [] Unable to be with family [] Patient intubated [] Other: Summary Prayer only because patient was sleepy and did not want to visit. Time spent with patient 5 minutes
--- NOTE | 2021-02-09 12:29 | P.DS_ITS ---
Discharge Providers Date of Admission: 02/08/21 00:44 Date of Discharge: February 09, 2021 Attending Provider at Admission: Naveen Johnson MD Attending Provider at Discharge: Naveen Johnson MD Primary Care Provider: ERIKA Roman Diagnoses at Discharge Discharge Diagnosis (1) Diabetes: Status: Acute (2) End-stage renal disease on hemodialysis: Status: Acute (3) Elevated troponin: Status: Acute (4) Chest pain: Status: Acute (5) Coronary artery disease: Status: Acute Reason for Visit Reason for Visit: CHEST PAIN X 2 DAYS Hospital Course Hospital Course Amanda Ha is a 65 year old female with a past medical history of end- stage renal disease, CAD, status post CABG, CAD status post stenting, carotid artery disease, type 2 diabetes mellitus, hypertension, on chronic anticoagulation Eliquis due to atrial fibrillation, diastolic CHF, COPD, who presents to [facility] from dialysis due to complaints of substernal chest pain. For chest pain, for chest pain, patient had a baseline troponin of 94, 6-hour 67.93, EKG did show ST depressions in the lateral leads, BNP over 40,000, she did not look fluid overloaded, she recently had dialysis/4 L removed, had an echocardiogram which was performed, which was a limited study but LV systolic function was grossly normal, nuclear stress test was performed: 1. Myocardial perfusion may revealing a moderate area of decreased uptake in the inferior, inferolateral, apical and neha septal regions with some reversibility in the inferior and anteroseptal region, suggestive of myocardial scarring in the distribution of the RCA/left circumflex artery with some areas of ischemia in the distribution of the right coronary artery and left anterior descending artery. 2. Normal LV ejection fraction 51%. 3. LV wall motion analysis revealing mild diffuse hypokinesia of the septum and the LV apex. 4. Mildly dilated LV cavity with an end-systolic volume of 87 mL. Because of the difference in the technical quality comparison with the previous study from 06/24/2019 is difficult. The extent of myocardial scarring appears to be less with improved LV ejection fraction. Thus cardiology was consulted, who advised of continuing medical management, follow with cardiology as outpatient. Patient was discharged on home aspirin, statin, Plavix, Eliquis, Coreg, Imdur with close follow-up with cardiology as outpatient. Patient's blood pressures were low throughout her hospitalization, likely secondary to her fluid removal during dialysis, and over 4 L were removed. Her dose of Imdur was reduced to 15 mg once daily. And her minoxidil has been held until she sees her primary care and recheck blood pressure. Physical Exam Const: COMMON NORMALS: no acute distress and patient oriented x3 Resp: COMMON NORMALS: normal respiratory effort, No retractions, No use of accessory muscles and clear to auscultation bilaterally AUSCULTATION: clear to auscultation bilaterally Cardio: COMMON NORMALS: regular rate, regular rhythm, S1 normal heart sound present and S2 normal heart sound present RATE: regular rate RHYTHM: regular rhythm HEART SOUNDS: S1 normal heart sound present and S2 normal h eart sound present GI: COMMON NORMALS: Normal to inspection, nondistended, normoactive bowel sounds present and Soft to palpation PALPATION: Yes Soft to palpation Extremity: COMMON NORMALS: no pedal edema Neuro: COMMON NORMALS: patient oriented x3 Psych: COMMON NORMALS: mental status grossly normal Discharge Data Data Completed and Pending: Completed Studies During Hospitalization Category Date Time Status Sestamibi Stress Test Request Routi ne Exams 02/08/21 00:44 Completed XR chest 1V kayce ble [id number] Stat Exams 02/07/21 14:21 Completed NM sarah perf SPECT r/s* [id number] Routin e Nuc Med 02/08/21 00:44 Completed CV. echo complete * [id number] Routine Ultrasound 02/08/21 00:44 Completed Pending at discharge Category Date Time Status Complete Blood Co unt w/Auto AM LABS Lab 02/10/21 04:00 Ordered Comprehensive Met abolic Panel AM LA BS Lab 02/10/21 04:00 Ordered Magnesium AM LABS Lab 02/10/21 04:00 Ordered Miscellaneous Nita t Routine Lab 02/09/21 03:36 Received Phosphorus AM LAB S Lab 02/10/21 04:00 Ordered Prothrombin Time INR AM LABS Lab 02/10/21 04:00 Ordered Labs from last 24 hours 02/09/21 02/09/21 02/09/21 03:36 03:26 03:26 WBC RBC Hgb Hct MCV MCH MCHC RDW Plt Count MPV Neut % (Auto) Lymph % (Auto) [place] % (Auto) Eos % (Auto) Baso % (Auto) Neut # (Auto) Lymph # (Auto) [place] # (Auto) Eos # (Auto) Baso # (Auto) Nucleated RBC % (a uto) Nucleated RBCs # PT 15.50 H INR 1.19 Sodium 137 Potassium 4.5 Chloride 94 L Carbon Dioxide 30 H Anion Gap 17.5 BUN 38 H Creatinine 6.8 H* GFR Calculation 6.1 L Glucose 91 Calculated Osmolal ity 293 Calcium 9.0 Phosphorus 6.1 H Magnesium 2.0 Total Bilirubin 0.6 AST 14 ALT 9 Alkaline Phosphata se 151 H Total Protein 7.3 Albumin 3.4 L Globulin 3.9 Hep Bs Antigen Hep Bs Antibody Hepatitis C Antibo dy Misc Test Referenc e Pending 02/09/21 02/09/21 03:26 03:26 WBC 6.4 RBC 4.26 Hgb 13.3 Hct 42.3 MCV 99.3 H MCH 31.2 MCHC 31.4 RDW 12.9 Plt Count 169 MPV 11.2 H Neut % (Auto) 65.0 Lymph % (Auto) 24.2 [place] % (Auto) 7.3 Eos % (Auto) 2.5 Baso % (Auto) 0.5 Neut # (Auto) 4.19 Lymph # (Auto) 1.6 [place] # (Auto) 0.5 Eos # (Auto) 0.2 Baso # (Auto) 0.0 Nucleated RBC % (a uto) 0 Nucleated RBCs # 0.0 PT INR Sodium Potassium Chloride Carbon Dioxide Anion Gap BUN Creatinine GFR Calculation Glucose Calculated Osmolal ity Calcium Phosphorus Magnesium Total Bilirubin AST ALT Alkaline Phosphata se Total Protein Albumin Globulin Hep Bs Antigen Not Reportable Hep Bs Antibody 36.6 Hepatitis C Antibo dy Non-reactive Misc Test Referenc e Vitals: Last Vital Signs Temp 98.4 F 02/09/21 09:30 Pulse 95 02/09/21 09:30 Resp 18 02/09/21 09:30 BP 133/80 02/09/21 09:30 Pulse Ox 98 02/09/21 08:00 Discharge Plan Discharge Patient Disposition: Home Condition: Stable Prescriptions: Continued Eliquis 2.5 mg tablet 2.5 mg PO BID RF: 0 levothyroxine [Synthroid] 25 mcg tablet 100 mcg PO DAILY RF: 0 atorvastatin 80 mg tablet 80 mg PO DAILY RF: 0 clopidogrel 75 mg tablet 75 mg PO DAILY RF: 0 fluticasone propionate [Flonase Allergy Relief] 50 mcg/actuation [place],Suspension 2 spray INTRANASAL DAILY RF: 0 acetaminophen 325 mg Tablet 650 mg PO Q6H PRN (Reason: Pain) RF: 0 albuterol sulfate 2.5 mg /3 mL (0.083 %) Solution For Nebulization 2.5 mg inhalation TID RF: 0 ondansetron HCl [Zofran] 4 mg Tablet 4 mg PO Q8H PRN (Reason: Nausea) RF: 0 diphenoxylate-atropine [Lomotil] 2.5-0.025 mg Tablet 2 tab PO QID PRN (Reason: Diarrhea) RF: 0 melatonin 3 mg Tablet 9 mg PO BEDTIME PRN (Reason: Sleep) RF: 0 carvedilol [Coreg] 3.125 mg Tablet 3.125 mg PO Q12H RF: 0 Renal Vitamin 0.8 mg Tablet 1 tab PO DAILY RF: 0 mirtazapine 15 mg Tablet 15 mg PO BEDTIME RF: 0 sevelamer carbonate 800 mg Tablet 1,600 mg PO TID RF: 0 trazodone 50 mg Tablet 50 mg PO BEDTIME RF: 0 cholestyramine (with sugar) 4 gram Powder In Packet 4 g PO BID Qty: 60 RF: 0 Aspir-81 81 mg PO DAILY RF: 0 desoximetasone 0.05 % cream See Rx Instructions .ROUTE .COMPLEX RF: 0 hydrocodone-acetaminophen 5-325 mg tablet 1 tab PO QID PRN (Reason: Pain) RF: 0 pantoprazole 40 mg Tablet,Delayed Release (Dr/Ec) 40 mg PO DAILY RF: 0 nitroglycerin [Nitrostat] 0.4 mg Tablet, Sublingual 0.4 mg SUBLINGUAL Q5M PRN (Reason: Chest Pain) RF: 0 gabapentin 100 mg Capsule 200 mg PO BEDTIME RF: 0 albuterol sulfate [ProAir HFA] 90 mcg/actuation Hfa Aerosol Inhaler 2 puff INHALATION Q6H PRN (Reason: Shortness Of Breath) RF: 0 Changed isosorbide mononitrate 30 mg Tablet Extended Release 24 Hr 15 mg PO DAILY Qty: 0 RF: 0 Held minoxidil 2.5 mg Tablet 2.5 mg PO BID RF: 0 Hold Instructions: Resume on 02/16/21. hold until you see primary care Discontinued metoprolol succinate 50 mg Tablet Extended Release 24 Hr 50 mg PO DAILY RF: 0 Discharge Orders: Discharge Order (Routine); Ordered 02/09/21 Ordered By: Naveen Johnson Referrals: Laisha Campoverde FNP [Primary Care Provider] - Discharge Diet: Cardiac Discharge Activity: Resume usual activity Patient Instructions: Myocardial Infarction (DC), Opioid Safety Activity Restrictions/Additional Instructions: -If you have recurrent chest pain please come back to emergency room -Please follow-up with cardiology in 2 to 4 weeks -Your Coreg should be continued at 3.125 twice daily, Imdur dose has been decreased to 15 mg p.o. daily -Hold minoxidil until you see your primary care Discharge Attestations Time Spent in Discharge Care*: less than 30 min Status at Discharge: Cognitive status at discharge: cognitively intact , Behavioral status at discharge: cooperative , Quality Metrics Clinical Quality Measures During this hospital stay, did patient experience: None Coding Level of Care Code Acute Chg FW DC note Diagnoses Diabetes E11.9 End-stage renal disease on hemodialysis N18.6; Z99.2 Elevated troponin R79.89 Chest pain R07.9 Coronary artery disease I25.10
--- NOTE | 2021-02-09 14:30 | PC.SOCIAL ---
Medicaid ride set up ambulatory per nurse Shawna LPN. Trip #[id number]
--- NOTE | 2021-02-09 17:09 | PC.NURSE ---
pt left via wheelchair, d/c instructions provided, no questions or concerns. VS stable upon departure.
== END 2021-02-09 15:50 | disposition home or self-care (01) ==
LOC: ER 18:33 → ER IP 02-08 00:02 → CSU 02-08 10:42
PROVIDERS: Internal Medicine Nephrology; Admitting Provider Family Medicine; Emergency Provider Family Medicine; PCP Nurse Practitioner Family; Visit Provider Family Medicine
DX: I21.4 Non-ST elevation (NSTEMI) myocardial infarction (principal); R07.81 Pleurodynia; E11.22 Type 2 diabetes mellitus with diabetic chronic kidney disease; I13.2 Hypertensive heart and chronic kidney disease with heart failure and with stage 5 chronic kidney disease, or end stage renal disease; I50.30 Unspecified diastolic (congestive) heart failure; N18.6 End stage renal disease; Z99.2 Dependence on renal dialysis; R79.89 Other specified abnormal findings of blood chemistry; I25.10 Atherosclerotic heart disease of native coronary artery without angina pectoris; Z95.1 Presence of aortocoronary bypass graft; Z79.01 Long term (current) use of anticoagulants; E11.65 Type 2 diabetes mellitus with hyperglycemia; F41.1 Generalized anxiety disorder; F33.2 Major depressive disorder, recurrent severe without psychotic features
CPT/HCPCS: 36415; 71045; 78452; 80048; 80053; 80061; 83036; 83735; 83880; 84100; 84443; 84484; 85025; 85610; 85730; 86706; 86803; 87340; 93005; 93017; 93306; 96374; 96375; 97161; 99285; A9500; G0378; J2270; J2405; J2785; Q3014

== ENCOUNTER 2021-03-02 12:56 | Inpatient (IN) | payer MEDICARE, MEDICAID, SELFPAY ==
[2021-03-02] VITALS (39 sets, daily range): BP systolic 73–148; BP diastolic 31–110; PULSE 81–103; RESP 13–25; TEMP 36.6–36.8; O2SAT 85–98; BMI 32.1
--- NOTE | 2021-03-02 13:24 | XR_ITS ---
WS: [id number] Portable AP upright chest, 03/02/2021 Clinical Data: dyspnea/cough Comparison: Portable chest, 02/07/2021. Findings: No nodules, masses or effusions are seen. The heart is enlarged The pulmonary vascularity i s mildly increased. No pneumonia or pneumothorax is seen. The aortic arch and descending aorta show c alcification and tortuosity. Midline sternotomy sutures are noted. There are monitor leads on the jayesh st wall. XR/XR chest 1V portable [id number] Impression: 1. Cardiomegaly and mild pulmonary vascular congestion. 2. Atherosclerosis.
--- NOTE | 2021-03-02 13:43 | ED_ITS ---
HPI - Chest Pain General: Chief Complaint: Chest Pain Stated Complaint: N/V Time Seen by Provider: 03/02/21 13:24 History of Present Illness: HPI narrative: 65 yo female presents to the emergency room with complaints of chest pain. Began while she was at dialysis today she was 2 hours into her dialysis had chest pain radiating into her jaw shoulder and arm. She got nauseous and shortness of breath. Patient has diabetes mellitus known history of coronary artery disease with previous stenting subsequent bypass in 1 week ago she was at [facility] in [place] and had a stent placed. She is taking clopidogrel says she has been taking it regularly she is also on carvedilol apixaban atorvastatin complaint: chest pain Pertinent past history: coronary artery disease Onset (ago): hour(s) Timing of current episode: episodic Onset: during exertion Pain location: left chest Pain radiation: left arm, neck, jaw/teeth and left shoulder Quality: tightness and aching Relieving factors: nothing Exacerbating factors: nothing Context: other (PTCA 1 week ago) Associated symptoms: Reports diaphoresis, dyspnea, nausea and sense of impending doom; Deny abdominal pain, fever(s), leg edema, palpitations, syncope or vomiting Treatment prior to arrival: none Review of Systems Const: Reports: diaphoresis; Denies: fever(s) ENMT: Denies: throat pain, ear or mastoid pain, nasal discharge or nasal congestion Card: Denies: palpitations or syncope Resp: Reports: dyspnea GI: Reports: nausea; Denies: abdominal pain or vomiting : Denies: flank pain, difficulty voiding, dysuria, urinary frequency or urinary urgency Skin/Breast: Denies: rash or pruritus [facility] ED PFSH: Medical History Anemia Anticoagulation adequate with anticoagulant therapy Atrial fibrillation Carotid artery disease Chronic bronchitis Chronic diarrhea Chronic pain disorder Coronary artery disease Diabetes Diastolic heart failure Emphysema of lung End-stage renal disease on hemodialysis Fibromyalgia GERD (gastroesophageal reflux disease) Hypertension Elevated but stable Hypothyroidism Irritable bowel syndrome Right leg swelling Sleep apnea Venous insufficiency Surgical History AVF (arteriovenous fistula) History of appendectomy History of cholecystectomy History of common carotid artery stent placement S/P hemodialysis catheter insertion Stented coronary artery PCI to mid LAD in December 2018 Family History Other CAD (coronary artery disease) Social History Smoking and tobacco status: former smoker Quit status (tobacco): has quit using tobacco Year quit tobacco: 2009 Second hand smoke exposure: Yes Smoking risk assessment/counseling performed?: No Alcohol intake: never Lives independently: Yes Household members: children and other Details: son, cousin Physical Exam Const: GENERAL APPEARANCE: cooperative ORIENTATION/CONSCIOUSNESS: Yes awake, Yes oriented to person, Yes oriented to place and Yes oriented to time HENMT: COMMON NORMALS: normocephalic, atraumatic and hearing grossly normal bilaterally HEAD & SCALP: normocephalic and atraumatic Neck/C-Spine: COMMON NORMALS: no JVD Resp: COMMON NORMALS: normal respiratory effort, No retractions, No use of accessory muscles and clear to auscultation bilaterally AUSCULTATION: clear to auscultation bilaterally Cardio: COMMON NORMALS: no JVD, regular rate, regular rhythm and No murmurs present (Cardio) RATE: regular rate RHYTHM: regular rhythm GI: COMMON NORMALS: Soft to palpation and No hepatosplenomegaly present AUSCULTATION: Yes normoactive bowel sounds PALPATION: Yes Soft to palpation, No Tenderness to palpation present (GI), No Guarding due to palpation present (GI) and Yes No hepatosplenomegaly present Neuro: SENSORIUM/ORIENTATION: Yes oriented to person, Yes oriented to place and Yes oriented to time Course Vital Signs: Vital signs: Vital Signs Temperature 98.2 F 03/05/21 03:33 Pulse Rate 85 03/05/21 03:33 Respiratory Rate 20 H 03/05/21 03:33 Blood Pressure 105/57 03/05/21 03:33 Pulse Oximetry 100 03/05/21 03:33 MDM - Chest Pain MDM Narrative: Medical decision making narrative: EKG shows acute ST elevation in 2 and aVF. EKG was shown to me immediately after was done. First EKG done at 1341 STEMI alert called patient is still having acute chest pain. Reviewed with Dr. Montemayor who agrees her going to the [facility]. Lab Data: Labs: Lab Results 03/02/21 03/02/21 03/02/21 Range/Units 14:00 14:00 14:00 WBC 6.8 (4.0-10.0) 10^3/ uL RBC 3.32 L (4.1-5.3) 10^6/u L Hgb 10.3 L (11.5-15.3) g/dL Hct 32.7 L (37.0-47.0) % MCV 98.5 (81-99) fL MCH 31.0 (28.0-34.0) pg MCHC 31.5 (30.0-36.0) g/dL RDW 13.6 (12.1-15.1) % Plt Count 198 (130-400) 10^3/c mm MPV 10.4 (7.4-10.4) fL Neut % (Auto) 73.3 % Lymph % (Auto) 15.1 % [place] % (Auto) 8.4 % Eos % (Auto) 1.9 % Baso % (Auto) 0.6 % Neut # (Auto) 4.96 (1.8-7.7) 10^3/u L Lymph # (Auto) 1.0 (0.8-4.8) 10^3/u L [place] # (Auto) 0.6 (0.2-0.9) 10^3/u L Eos # (Auto) 0.1 (0.0-0.8) 10^3/u L Baso # (Auto) 0.0 (0.0-0.1) 10^3/u L Nucleated RBC % (a uto) 0 % Nucleated RBCs # 0.0 /100WBC APTT (23.9-36.7) SECO NDS Sodium 135 L (136-145) mmol/L Potassium 3.9 (3.5-5.1) mmol/L Chloride 94 L (98-107) mmol/L Carbon Dioxide 26 (22-29) mmol/L Anion Gap 18.9 (5-19) BUN 26 H (8-23) mg/dL Creatinine 4.4 H (0.5-0.9) mg/dL GFR Calculation 10.0 L (90-130) mL/min Glucose 138 H (65-115) mg/dL Calculated Osmolal ity 287 (285-295) mOsm/k g Calcium 8.5 (8.5-10.5) mg/dL Total Bilirubin 0.8 (0.15-1.2) mg/dL AST 15 (0-32) U/L ALT 9 (0-33) U/L Alkaline Phosphata se 152 H (35-105) IU/L Troponin T Baselin e 651 H* (0-10) ng/L Total Protein 7.1 (6.6-8.7) g/dL Albumin 3.8 (3.5-5.2) g/dL Globulin 3.3 (1.3-4.6) g/dL 03/02/21 Range/Units 14:00 WBC (4.0-10.0) 10^3/ uL RBC (4.1-5.3) 10^6/u L Hgb (11.5-15.3) g/dL Hct (37.0-47.0) % MCV (81-99) fL MCH (28.0-34.0) pg MCHC (30.0-36.0) g/dL RDW (12.1-15.1) % Plt Count (130-400) 10^3/c mm MPV (7.4-10.4) fL Neut % (Auto) % Lymph % (Auto) % [place] % (Auto) % Eos % (Auto) % Baso % (Auto) % Neut # (Auto) (1.8-7.7) 10^3/u L Lymph # (Auto) (0.8-4.8) 10^3/u L [place] # (Auto) (0.2-0.9) 10^3/u L Eos # (Auto) (0.0-0.8) 10^3/u L Baso # (Auto) (0.0-0.1) 10^3/u L Nucleated RBC % (a uto) % Nucleated RBCs # /100WBC APTT 29.3 (23.9-36.7) SECO NDS Sodium (136-145) mmol/L Potassium (3.5-5.1) mmol/L Chloride (98-107) mmol/L Carbon Dioxide (22-29) mmol/L Anion Gap (5-19) BUN (8-23) mg/dL Creatinine (0.5-0.9) mg/dL GFR Calculation (90-130) mL/min Glucose (65-115) mg/dL Calculated Osmolal ity (285-295) mOsm/k g Calcium (8.5-10.5) mg/dL Total Bilirubin (0.15-1.2) mg/dL AST (0-32) U/L ALT (0-33) U/L Alkaline Phosphata se (35-105) IU/L Troponin T Baselin e (0-10) ng/L Total Protein (6.6-8.7) g/dL Albumin (3.5-5.2) g/dL Globulin (1.3-4.6) g/dL Discharge Plan Discharge Patient Disposition: Admitted As Inpatient Admit Provider: Lupe Bertrand Clinical Impression: ST elevation (STEMI) myocardial infarction, Anticoagulation adequate with anticoagulant therapy, End-stage renal disease on hemodialysis, Diabetes Condition: Stable Discharge Diet: Cardiac and Diabetic Discharge Activity: Limit activity as instructed Coding Level of Care Code ED Seal [employer] Operator for Juang Fwd Exam Detailed
[2021-03-02 14:05] LABS: Basophils % 0.6 %; Eosinophils # 0.1 10^3/uL (0.0-0.8); Eosinophils % 1.9 %; Hematocrit 32.7 % (37.0-47.0); Hemoglobin 10.3 g/dL (11.5-15.3); Lymphocytes % 15.1 %; Mean Corpuscular HGB Conc 31.5 g/dL (30.0-36.0); Mean Corpuscular Volume 98.5 fL (81-99); Mean Platelet Volume 10.4 fL (7.4-10.4); Monocytes # 0.6 10^3/uL (0.2-0.9); Monocytes % 8.4 %; Neutrophils # 4.96 10^3/uL (1.8-7.7); Neutrophils % 73.3 %; Nucleated Red Blood Cells % 0 %; Platelet Count 198 10^3/cmm (130-400); Red Blood Count 3.32 10^6/uL (4.1-5.3); Red Cell Distribution Width 13.6 % (12.1-15.1); White Blood Count 6.8 10^3/uL (4.0-10.0)
[2021-03-02] MEDS: heparin 5,000 unit/mL INJ 1 mL 4000 UNIT SUBCUT (14:05)
[2021-03-02] MEDS: clopidogrel 300 mg Tablet 600 MG PO (14:07)
[2021-03-02] MEDS: morphine 4 mg/mL SDV 1 mL 2 MG IVP (14:07)
--- NOTE | 2021-03-02 14:07 | XACV_ITS ---
Ht: 170 cm Wt: 93 kg BSA: 2.13 m2 Gender: Female : 1955 Any Known Allergies: Other Exam Priority: Routine Procedure(s): Procedure Description: Diagnostic procedure Procedure Description: PCI procedure Procedure Description: Drug Eluting Coronary Stent Procedure Description: PTCA Procedure Description: Miscellaneous Procedure Description: ACT Procedure Description: Coronary Angiography Diagnostic Cath Status: Urgent Diagnostic Findings * Left Main has no disease. * Proximal Left Anterior Descending: total occlusion, RADHA: 0 flow. * Left Internal Mammary Artery to Mid Left Anterior Descending graft: patent. * Proximal Right Coronary Artery: significant 80% stenosis, RADHA: 3 flow. * Distal Right Coronary Artery: total occlusion, RADHA: 0 flow. * Proximal Circumflex: obstructive 70% stenosis, RADHA: 3 flow. * First Obtuse Marginal Branch Segment: obstructive 70% stenosis, RADHA: 3 flow. * Ascending Aorta to First Obtuse Marginal Branch Segment graft: patent. * Two grafts visualized. * Coronary angiography shows right dominance. PCI Status: Urgent PCI Indication: STEMI - Immediate PCI for STEMI Interventional Findings * Indication: Acute coronary syndromePlease note that patient was treated at an outside hospital [facility] with 2 drug-eluting stent in the RCA for acute coronary syndrome few days ago. It is possible she was not taking clopidogrel. She is a dialysis patient today during the dialysis she started having chest pain therefore she was brought in to the ER. She was taken to the District [facility] and noted to have thrombotically occluded RCA in the mid and distal as well as there was also a lesion in the proximal segment. Due to heavy burden of the thrombus Pronto catheter was used to perform thrombectomy. Multiple balloon angioplasty followed by deployment of distal stent postdilated with noncompliant balloon, excellent angiographic result with RADHA-3 flow was achieved. Patient was advised to be compliant with the clopidogrel.. * Proximal Right Coronary Artery: 80% stenosis treated with a AB TREK 2.50X30 RX BALLOON. 0% residual stenosis, RADHA: 3 flow. * Distal Right Coronary Artery: 100% stenosis treated with a MDT NC EUPHORA RX [id number] BALLOON, MDT R LEX 3.0X18 KAHLIL, and MDT NC EUPHORA RX [id number] BALLOON. 0% residual stenosis, RADHA: 3 flow. Conclusions 1. There is total occlusion coronary artery disease with three vessel disease. 2. Two coronary grafts visualized: all grafts patent. 3. Proximal Right Coronary Artery was treated with a Balloon. 4. Distal Right Coronary Artery was treated with a Balloon, Drug Eluting Stent, and Balloon. Recommendations * 1-Return to inpatient for close monitoring and routine cath care2-Risk factor modification for secondary prevention3-Statin and aspirin 81 mg life--long, if tolerated4-Patient was pre-loaded with 600 mg of Plavix, continue Plavix 75mg p.o. daily for at least one year. We will assess at the end of one year again to continue if further or not5-Continue optimal medical management6-Follow up with Dr. Bertrand in four weeks and your primary care in 10 days. Interventional RX Recommendation: PCI w/o planned CABG Diagnostic RX Recommendation: PCI w/o planned CABG Pressures Phase:Rest AO : 78 / 31 ( 32 ) @ 1:16:00 PM 99 / 45 ( 66 ) @ 1:28:00 PM 109 / -13 ( 14 ) @ 1:33:00 PM 54 / 35 ( 44 ) @ 1:34:00 PM 317 / 119 ( 71 ) @ 1:36:00 PM 58 / 36 ( 46 ) @ 1:41:00 PM Clinical Evaluation EBL: 5mL-10mL Procedural Details Procedure Consent Obtained. Pre-Procedure Time Out. Identified patient by full name and date of as verbalized by the patient/guarantor. Does the consent match the physician's order: Yes. Accurate & Complete Informed Consent: N/A Emergent; Informed Consent not obtained due to time critical life threat. Inpatient/Outpatient History & Physical on Chart: N/A Emergent; Informed Consent not obtained due to time critical life threat. If H&P is completed, is and addenduem needed: N/A Emergent; Informed Consent not obtained due to time critical life threat; If yes, is the addendum complete: N/A Emergent; Informed Consent not obtained due to time critical life threat. Visualize and Verify Site with Patient/Guarantor: N/A. Relevant Radiology Images available: N/A Emergent; Informed Consent not obtained due to time critical life threat. Pre-op teaching completed and patient verbalized understanding. The risks, benefits, and alternatives of sedation and/or procedure were discussed by physician. The patient agrees to continue. Procedure started. Correct patient, site and procedure confirmed by cath team. Current diagnosis: STEMI. PERRLA. 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 Lungs clear x 5 lobes. IV Site on Arrival: 18 gauge in the right forearm. Oxygen started at 2liters/min via nasal canula. bilateral groins was prepped with chloroprep then draped in the usual sterile fashion. Baseline sample Acquired. HR: 92 BPM. Equipment: 6F - Femoral. Cardiac Cath Pack. ACIST Manifold Kit Model BT 2000. Heparinized Saline (2 units/mL), 1000 mL bag. Kit, Micropuncture. Physician arrived. AP pads placed on patient. Physician scrubbed in. Large bruise noted Medical Pubis to right groin from prior procedure at previous facility. Lidocaine 1% infiltrated to the left groin. Arterial access obtained with micropuncture set. A 6 macedonian JR4 catheter in over wire. 4000 heparin and 600 plavix received in the ER. Arco guidewire was advanced through the guide catheter to lesion in the mid RCA. ACT drawn. Results 146 seconds. Therapeutic limits - pre-heparin administration 90-150 seconds and monitoring heparin during a vascular procedure >250 seconds. Activating the pronto for clot removal. Pronto out. Lab reported baseline troponin of 651. Inflation number : 1 A AB TREK 2.50X30 RX BALLOON was prepped and advanced across the Prox RCA , then inflated to 18 TASNEEM for 0:56 seconds. Inflation number: 2 The AB TREK 2.50X30 RX BALLOON was reinflated across the Prox RCA, to 16 TASNEEM for 0:15 seconds. Balloon out. Inflation number : 1 A MDT NC EUPHORA RX [id number] BALLOON was prepped and advanced across the Dist RCA , then inflated to 12 TASNEEM for 0:32 seconds. Inflation number: 2 The MDT NC EUPHORA RX [id number] BALLOON was reinflated across the Dist RCA, to 14 TASNEEM for 0:28 seconds. Balloon out. Levophed increased to 5mcg/min. Inflation Number : 3 A MDT R LEX 3.0X18 KAHLIL -Lot Number# [id number] was prepped and advanced across the Dist RCA. The stent was deployed at 18 TASNEEM for 0:12 seconds. Stent expiration date: 05/13/2022. Stent balloon out over wire. Inflation number : 4 A MDT NC EUPHORA RX [id number] BALLOON was prepped and advanced across the Dist RCA , then inflated to 16 TASNEEM for 0:07 seconds. Inflation number: 5 The MDT NC EUPHORA RX 3.96P00OR BALLOON was reinflated across the Dist RCA, to 12 TASNEEM for 0:19 seconds. Balloon out. SVG's to Circumflex visualized and patent. ACT drawn. Results 234 seconds. Therapeutic limits - pre-heparin administration 90-150 seconds and monitoring heparin during a vascular procedure >250 seconds. Catheter out. A 5 macedonian JL4 catheter in over wire. Catheter out. A 5 macedonian JR4 catheter in over wire. Hand injection performed. Everything out. Sheath(s) sutured into position with 2-0 silk and sterile 4x4's and Op-site applied over the site. No oozing or signs and symptoms of hematoma noted. Arterial sheath flushed and connected to tranducer and pressure bag with heparinized saline. Post Procedure: Pulses reassessed and unchanged. PERRLA. 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 No VTE prophylaxis required. A Suture was successful obtaining hemostatsis at the Right Femoral artery insertion site. Total IV fluids: 470 mL. PCI Indication: STEMI. Post-op diagnosis: STEMI. Complications: None. Estimated blood loss: 5mL-10mL. Vital chart was stopped. Procedure completed. Patient transferred by bed to 1st floor. Access Site Site: Right Femoral artery Sheath Size: 6 Fr Hemostasis Method: Suture Hemostasis Success: Successful Procedure Medications Start: 2:15 PM Stop: 2:15 PM Medication: Versed Amount: 1 mg Route: I.V. Start: 2:19 PM Stop: 2:19 PM Medication: 0.9% Saline Amount: 250 ml Route: I.V. bolus Start: 2:19 PM Stop: 2:19 PM Medication: Versed Amount: 1 mg Route: I.V. Start: 2:23 PM Stop: 2:23 PM Medication: Fentanyl Amount: 25 mcg Route: I.V. Start: 2:33 PM Stop: 2:33 PM Medication: Heparin Amount: 7000 units Route: I.V. Start: 2:39 PM Stop: 2:39 PM Medication: Aggrastat 12.5 mg/250 mL Amount: 47 ml Route: I.V. bolus Start: 2:39 PM Stop: 2:39 PM Medication: Aggrastat 12.5 mg/250 mL Amount: 16.9 ml/hr Route: I.V. drip Start: 2:43 PM Stop: 2:43 PM Medication: Levophed (norepinephrine) Amount: 4 mcg/min Route: I.V. drip Start: 2:54 PM Stop: 2:54 PM Medication: Fentanyl Amount: 25 mcg Route: I.V. Start: 3:09 PM Stop: 3:09 PM Medication: Heparin Amount: 2000 units Route: I.V. Start: 3:10 PM Stop: 3:10 PM Medication: Fentanyl Amount: 50 mcg Route: I.V. I, the attending physician, have reviewed and verified all procedure medications. Yes, all medications given per verbal order History/Risk Factors Hypertension: No Dyslipidemia: No Peripheral Arterial Disease (PAD): No Myocardial Infarction ([place]): No Obesity: Yes Renal Disease: No Prior Interventions PCI: No CABG: No Valve Surgery: No Report Signatures Finalized by Lupe Bertrand MD on 03/10/2021 06:13 PM
--- NOTE | 2021-03-02 14:11 | P.HP_ITS ---
Providers/Chief Complaint Primary Care Provider: ERIKA Roman Chief Complaint: N/V History of Present Illness Amanda Ha is a 65 year old female past medical history significant for chronic kidney disease on hemodialysis, obesity, history of CABG, ischemic cardiomyopathy, heart failure, history of atrial fibrillation presented with chest pain, EKG was consistent with ST elevation in the inferolateral leads. She was taken to the Surgical First Assistant noted to have thrombotically occluded proximal to mid RCA. It was treated with aspiration thrombectomy followed by multiple balloon angioplasty and drug-eluting stent placement in the distal RCA postdilated with noncompliant balloon in the proximal and distal segment. Patient was noted to be hypotensive with cardiogenic shock due to right ventricle infarct. She was given IV fluid and started on Levophed. Excellent angiographic result was achieved. Patient has a history of recent stent placement in the RCA few days ago at [facility]. Today while dialysis she started having chest pain. It is the reason she was sent to emergency room where her EKG was consistent with ST elevation [place] for which she was taken emergently to the Surgical First Assistant. She was loaded with Plavix given Aggrastat and heparin. I will hold apixaban for next 24 to 48 hours. Further plan will be devised as per progress of the patient. Since patient has not completed dialysis today therefore we will request nephrology for possible dialysis tomorrow. Review of Systems Const: Reports: diaphoresis; Denies: fever(s) Eyes: Denies: photophobia ENMT: Denies: throat pain, enlarged tonsils, ear or mastoid pain, nasal discharge or nasal congestion Card: Denies: palpitations or syncope Resp: Reports: dyspnea GI: Reports: nausea; Denies: abdominal pain or vomiting : Denies: flank pain, difficulty voiding, dysuria, urinary frequency or urinary urgency Musc: Denies: joint warmth Skin/Breast: Denies: rash or pruritus Psych: Denies: sleeping more All/Imm: Denies: acute wheezing Medications/Allergies Home Medications Medication Instructions Recorded Confirmed Last Taken Type apixaban 2.5 mg tablet 2.5 mg PO BID 08/18/19 03/02/21 03/02/21 History levothyroxine 25 mcg tablet 100 mcg PO DAILY tab 08/18/19 03/02/21 03/02/21 History albuterol sulfate [ProAir HFA] 2 puff INHALATION Q6H PRN 10/11/19 03/02/21 1 Day Ago History ~09/28/20 gabapentin 200 mg PO BEDTIME 10/11/19 03/02/21 03/01/21 History nitroglycerin [Nitrostat] 0.4 mg SUBLINGUAL Q5M PRN 10/11/19 03/02/21 02/07/21 History atorvastatin 80 mg PO DAILY 12/06/19 03/02/21 03/01/21 History clopidogrel 75 mg PO DAILY 12/06/19 03/02/21 03/02/21 History fluticasone propionate [Flonase 2 spray INTRANASAL DAILY 12/06/19 03/02/21 02/06/21 History Allergy Relief] Renal Vitamin 1 tab PO DAILY 01/16/20 03/02/21 03/01/21 History acetaminophen 650 mg PO Q6H PRN 01/16/20 03/02/21 Unknown History albuterol sulfate 2.5 mg INHALATION TID 01/16/20 03/02/21 1 Day Ago History ~09/28/20 diphenoxylate-atropine [Lomotil] 2 tab PO QID PRN 01/16/20 03/02/21 2 Days Ago History ~09/27/20 melatonin 9 mg PO BEDTIME PRN 01/16/20 03/02/21 02/06/21 History mirtazapine 15 mg PO BEDTIME 01/16/20 03/02/21 03/01/21 History ondansetron HCl [Zofran] 4 mg PO Q8H PRN 01/16/20 03/02/21 Unknown History sevelamer carbonate 1,600 mg PO TID 01/16/20 03/02/21 03/02/21 History minoxidil 2.5 mg PO BID 03/10/20 03/02/21 02/06/21 History trazodone 50 mg PO BEDTIME 03/10/20 03/02/21 03/01/21 History cholestyramine (with sugar) 4 g PO BID #60 ea 03/11/20 03/02/21 03/02/21 Rx aspirin 81 mg PO DAILY #0 02/07/21 03/02/21 03/02/21 History desoximetasone See Rx Instructions .ROUTE .COMPLEX 02/07/21 03/02/21 Unknown History hydrocodone-acetaminophen 1 tab PO QID PRN 02/07/21 03/02/21 Unknown History pantoprazole 40 mg PO DAILY 02/07/21 03/02/21 03/01/21 History Allergies Allergy/AdvReac Type Severity Reaction Status Date / Time adhesive Allergy Unknown Verified 03/02/21 13:07 codeine Allergy Unknown Verified 03/02/21 13:07 duloxetine [From Cymbalta] Allergy Unknown Verified 03/02/21 13:07 PFSH Acute PFSH: Medical History Anemia Anticoagulation adequate with anticoagulant therapy Atrial fibrillation Carotid artery disease Chronic bronchitis Chronic diarrhea Chronic pain disorder Coronary artery disease Diabetes Diastolic heart failure Emphysema of lung End-stage renal disease on hemodialysis Fibromyalgia GERD (gastroesophageal reflux disease) Hypertension Elevated but stable Hypothyroidism Irritable bowel syndrome Right leg swelling Sleep apnea Venous insufficiency Surgical History AVF (arteriovenous fistula) History of appendectomy History of cholecystectomy History of common carotid artery stent placement S/P hemodialysis catheter insertion Stented coronary artery PCI to mid LAD in December 2018 Family History Other CAD (coronary artery disease) Social History Smoking and tobacco status: former smoker Quit status (tobacco): has quit using tobacco Year quit tobacco: 2009 Second hand smoke exposure: Yes Smoking risk assessment/counseling performed?: No Alcohol intake: never Lives independently: Yes Household members: children and other Details: son, cousin Vitals/I&O/Wt Last Vital Signs Temp 97.9 F 03/02/21 12:57 Pulse 85 03/02/21 12:57 Resp 18 03/02/21 14:07 BP 119/78 03/02/21 12:57 Pulse Ox 98 03/02/21 14:07 Weight last 48 hrs Weight 205 lb Physical Exam Narrative: EXAM NARRATIVE: GENERAL: Patient is alert, awake and oriented x3. NECK: No jugular vein distension. HEENT: No cyanosis. No icterus. No pallor. HEART: Regular S1 and S2. No murmur, rub or gallop. LUNGS: Clear to auscultate bilaterally. ABDOMEN: Soft, nontender and nondistended. Positive bowel sounds. No guarding, rebound or tenderness. CENTRAL NERVOUS SYSTEM: Grossly nonfocal. EXTREMITIES: Lower extremities without edema bilaterally. Right groin to lower abdominal and suprapubic bruise from few days ago angiogram performed at [facility] Data : 03/02/21 14:00 03/02/21 14:00 A&P Assessment and plan (1) ST elevation (STEMI) myocardial infarction: As above thrombectomy followed by balloon angioplasty and drug-eluting stent placement in the distal RCA was performed with excellent angiographic result. Continue to monitor. Continue Aggrastat for 2 and half hours patient has been reloaded with Plavix 600 mg. Hold apixaban. Status: Acute (2) Diastolic heart failure: Well compensated. Status: Acute (3) Diabetes: Will use sliding scale for now. Status: Acute (4) End-stage renal disease on hemodialysis: Will request nephrology to help us in conducting dialysis tomorrow Status: Acute (5) Cardiogenic shock: Continue Levophed and IV fluid. Will titrate off Levophed first followed by IV fluid. Most likely due to cardiogenic shock secondary to right ventricle infarct hopefully with revascularization IV fluid and Levophed it will improve. Status: Acute Attestations Medical Necessity Statement*: Require continuation hospitalization for above defined care. I am expecting her stay to cross more than 2 midnights Coding Level of Care Code New Pt Acute Alley Tender for Hector Fwd Patient Type New History Comprehensive Exam Comprehensive Medical Decision Making High Complexity Diagnoses ST elevation (STEMI) myocardial infarction I21.3 Diastolic heart failure I50.30 Diabetes E11.9 End-stage renal disease on hemodialysis N18.6; Z99.2 Cardiogenic shock R57.0
--- NOTE | 2021-03-02 14:11 | W.PM.OPSUD ---
Surgery/Procedure H&P Update DATE OF PROCEDURE: March 02, 2021 DATE H&P PERFORMED: 03/02/21 PREOP DIAGNOSIS: Acute coronary syndrome PATIENT REASSESSED PRIOR TO SEDATION, WITH NO CHANGE NOTED: Yes PHYSICAL EXAM: alert, oriented x 3 and clear to auscultation bilaterally AIRWAY EVAL/ANESTHESIA PLAN: ASA II, Risks, benefits & alternatives of sedation and/or procedure discussed and Patient agrees to continue as planned ADDITIONAL INFORMATION: Patient has been explained all risk benefit major minor bleed urgent emergent bypass surgery, arrhythmia perforation tamponade stroke and worse case scenario .
[2021-03-02 14:36] LABS: Alanine Aminotransferase 9 U/L (0-33); Albumin Level 3.8 g/dL (3.5-5.2); Alkaline Phosphatase 152 IU/L (35-105); Anion Gap 18.9 (5-19); Aspartate Amino Transferase 15 U/L (0-32); Blood Urea Nitrogen 26 mg/dL (8-23); Calcium 8.5 mg/dL (8.5-10.5); Carbon Dioxide 26 mmol/L (22-29); Chloride 94 mmol/L (98-107); Globulin 3.3 g/dL (1.3-4.6); Glucose 138 mg/dL (65-115); Osmolality Calculated 287 mOsm/kg (285-295); Potassium 3.9 mmol/L (3.5-5.1); Sodium 135 mmol/L (136-145); Total Bilirubin 0.8 mg/dL (0.15-1.2); Total Protein 7.1 g/dL (6.6-8.7)
[2021-03-02 14:37] LABS: Troponin(5th) Baseline 651 ng/L (0-10)
[2021-03-02 15:55] LABS: Partial Thromboplastin Time 29.3 SECONDS (23.9-36.7)
[2021-03-02] MEDS: sodium chloride 0.9% 1,000 ML 100 ML IV (16:42)
--- NOTE | 2021-03-02 17:17 | ECG_ITS ---
Test Date: 2021-03-02 Pat Name: Amanda Ha Department: Room: 103 Gender: Female Direct Care Professional: : 1955 Requested By: Lupe Bertrand Order Number: [id number] Abe MD: Tamie Brand M.D. Measurements Intervals [place] Rate: 89 P: 79 KS: 209 QRS: -37 QRSD: 98 T: 108 QT: 354 QTc: 432 Interpretive Statements SINUS RHYTHM INFERIOR MYOCARDIAL INFARCTION [40+ ms Q WAVE AND/OR ST/T ABNORMALITY IN II/aVF], OF INDETERMINATE AGE ST DEVIATION AND MODERATE T-WAVE ABNORMALITY, CONSIDER LATERAL ISCHEMIA [-0.1+ mV T WAVE IN I/aVL/V5/V6] Compared to ECG 03/02/2021 13:41:33 T-wave abnormality now present Possible ischemia now present First degree AV block no longer present Intraventricular conduction delay no longer present ST (T wave) deviation no longer present Myocardial infarct finding still present Electronically Signed On 03-04-2021 18:42:20 CDT by Tamie Brand M.D. [id number]
[2021-03-02] MEDS: HYDROcodone-acetaminophen 5-325 mg Tablet 1 TAB PO (17:32)
--- NOTE | 2021-03-02 19:00 | PC.NURSE ---
Bedside report received from Maria E TAPIA. Patient is A & O. C/O of mild pain to left groin where sheath is in place. Moderate drainage to dressing, will monitor PTT for sheath removal. Patient voices no other needs at this time.
--- NOTE | 2021-03-02 19:24 | ECG_ITS ---
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 Measurements Intervals [place] Rate: 90 P: 85 IA: 216 QRS: 70 QRSD: 112 T: 122 QT: 394 QTc: 484 Interpretive Statements SINUS RHYTHM WITH FIRST DEGREE AV BLOCK MODERATE INTRAVENTRICULAR CONDUCTION DELAY [105+ ms QRS DURATION, 80+ ms Q/S IN V1/V2, NO Q AND 60+ ms R IN I/aVL/V5/V6] ST ELEVATION, CONSIDER INFERIOR INJURY [MARKED ST ELEVATION W/O NORMALLY INFLECTED T WAVE IN II/aVF] ACUTE PA Compared to ECG 02/07/2021 20:23:41 First degree AV block now present Intraventricular conduction delay now present ST (T wave) deviation now present Myocardial infarct finding now present T-wave abnormality no longer present Possible ischemia no longer present Electronically Signed On 03-02-2021 15:00:34 CDT by Lisa Watson M.D. [id number]
[2021-03-02 20:00] LABS: Partial Thromboplastin Time 152.1 SECONDS (23.9-36.7)
[2021-03-02] MEDS: mirtazapine 15 mg Tablet PO (21:23)
[2021-03-02] MEDS: gabapentin 100 mg Capsule 200 MG PO (21:24)
[2021-03-02] MEDS: sevelamer 800 mg Tablet 1600 MG PO (21:24)
[2021-03-02] MEDS: temazepam 15 mg Capsule PO (21:30)
[2021-03-02 22:21] LABS: Partial Thromboplastin Time 41.8 SECONDS (23.9-36.7)
[2021-03-02] MEDS: albuterol 8 gm MDI 2 PUFF INHALATION (23:12)
[2021-03-03] VITALS (31 sets, daily range): BP systolic 80–139; BP diastolic 43–90; PULSE 74–103; RESP 6–34; TEMP 36.3–37.1; O2SAT 77–100
[2021-03-03] MEDS: HYDROcodone-acetaminophen 5-325 mg Tablet 1 TAB PO (00:07)
--- NOTE | 2021-03-03 00:20 | PC.NURSE ---
Sheath removed at 2325 and pressure held for 25 minutes. Hemostasis achieved immediately. No hematoma formation, small bruise where pressure was held. Applied pressure dressing with no noticeable drainage after 10 minutes. Palpable dorsalis pedis pulses. Instructed patient to notify nurse of pain, bleeding or any other concerns. Vital signs stable, instructed patient of activity restrictions bed rest for the next 6 hours.
--- NOTE | 2021-03-03 02:18 | ECG_ITS ---
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 Measurements Intervals [place] Rate: 86 P: 75 SC: 192 QRS: -31 QRSD: 95 T: -37 QT: 407 QTc: 489 Interpretive Statements SINUS RHYTHM ST ELEVATION, CONSIDER INFERIOR INJURY ACUTE TN Compared to ECG 03/02/2021 17:22:32 T-wave abnormality no longer present Possible ischemia no longer present Myocardial infarct finding still present Electronically Signed On 03-04-2021 18:31:43 CDT by Tamie Brand M.D. [id number]
--- NOTE | 2021-03-03 02:42 | PC.NURSE ---
Patient C/O of chest pain to Lizzy RN and EKG ordered. This nurse has been in patients room several times since complaint and she is sleeping soundly. RR even and unlabored. No S/S of distress.
[2021-03-03] MEDS: sodium chloride 0.9% 1,000 ML 50 ML IV (03:20)
[2021-03-03 03:38] LABS: Glucose Point of Care 121 mg/dL (70-110)
[2021-03-03] MEDS: acetaminophen 325 mg Tablet 650 MG PO (04:23)
[2021-03-03 05:46] LABS: Basophils % 0.6 %; Eosinophils # 0.1 10^3/uL (0.0-0.8); Eosinophils % 1.9 %; Hematocrit 33.6 % (37.0-47.0); Hemoglobin 10.1 g/dL (11.5-15.3); Lymphocytes # 1.3 10^3/uL (0.8-4.8); Lymphocytes % 18.6 %; Mean Corpuscular HGB Conc 30.1 g/dL (30.0-36.0); Mean Corpuscular Hemoglobin 30.6 pg (28.0-34.0); Mean Corpuscular Volume 101.8 fL (81-99); Monocytes # 0.7 10^3/uL (0.2-0.9); Monocytes % 9.6 %; Neutrophils # 4.95 10^3/uL (1.8-7.7); Neutrophils % 68.9 %; Nucleated Red Blood Cells % 0 %; Platelet Count 236 10^3/cmm (130-400); White Blood Count 7.2 10^3/uL (4.0-10.0)
[2021-03-03 06:33] LABS: Anion Gap 16.9 (5-19); Blood Urea Nitrogen 31 mg/dL (8-23); Calcium 8.3 mg/dL (8.5-10.5); Carbon Dioxide 27 mmol/L (22-29); Chloride 97 mmol/L (98-107); Glomerular Filtration Rate 7.6 mL/min (90-130); Glucose 120 mg/dL (65-115); Osmolality Calculated 290 mOsm/kg (285-295); Potassium 4.9 mmol/L (3.5-5.1); Sodium 136 mmol/L (136-145)
[2021-03-03 06:42] LABS: Glucose Point of Care 162 mg/dL (70-110)
[2021-03-03] MEDS: sevelamer 800 mg Tablet 1600 MG PO ×2 (09:46→20:24)
[2021-03-03] MEDS: levothyroxine 100 mcg Tablet PO (09:46)
[2021-03-03] MEDS: atorvastatin 40 mg Tablet 80 MG PO (09:46)
[2021-03-03] MEDS: pantoprazole DR 40 mg Tablet PO (09:47)
[2021-03-03] MEDS: fluticasone nasal spray 16gm Btl 2 SPRAY INTRANASAL (09:47)
[2021-03-03] MEDS: aspirin 81 mg Chew Tablet PO (09:47)
[2021-03-03] MEDS: clopidogrel 75 mg Tablet PO (09:47)
--- NOTE | 2021-03-03 10:00 | P.CONIM_ITS ---
Providers/Reason For Consult Consulting Physician/Specialty*: Elizabet Tavarez DO, telenephrology Reason for Consult*: ESRD Attending Physician: Lupe Bertrand MD Primary Care Provider: ROCHELLE EMMANUEL MD History of Present Illness History of Present Illness Amanda Ha is a 65 year old female who developed chest pain 2 hours into hemodialysis yesterday. + NSTEMI. Had cardiac cath - report not available. She presently feels well and is anxious for discharge. Denies chest pain, dyspnea. Meds/Allergies Home Medications and Allergies Home Medications Medication Instructions Recorded Confirmed Last Taken Type apixaban 2.5 mg tablet 2.5 mg PO BID 08/18/19 03/02/21 03/02/21 History levothyroxine 25 mcg tablet 100 mcg PO DAILY tab 08/18/19 03/02/21 03/02/21 History albuterol sulfate [ProAir HFA] 2 puff INHALATION Q6H PRN 10/11/19 03/02/21 1 Day Ago History ~09/28/20 gabapentin 200 mg PO BEDTIME 10/11/19 03/02/21 03/01/21 History nitroglycerin [Nitrostat] 0.4 mg SUBLINGUAL Q5M PRN 10/11/19 03/02/21 02/07/21 History atorvastatin 80 mg PO DAILY 12/06/19 03/02/21 03/01/21 History clopidogrel 75 mg PO DAILY 12/06/19 03/02/21 03/02/21 History fluticasone propionate [Flonase 2 spray INTRANASAL DAILY 12/06/19 03/02/21 02/06/21 History Allergy Relief] Renal Vitamin 1 tab PO DAILY 01/16/20 03/02/21 03/01/21 History acetaminophen 650 mg PO Q6H PRN 01/16/20 03/02/21 Unknown History albuterol sulfate 2.5 mg INHALATION TID 01/16/20 03/02/21 1 Day Ago History ~09/28/20 diphenoxylate-atropine [Lomotil] 2 tab PO QID PRN 01/16/20 03/02/21 2 Days Ago History ~09/27/20 melatonin 9 mg PO BEDTIME PRN 01/16/20 03/02/21 02/06/21 History mirtazapine 15 mg PO BEDTIME 01/16/20 03/02/21 03/01/21 History ondansetron HCl [Zofran] 4 mg PO Q8H PRN 01/16/20 03/02/21 Unknown History sevelamer carbonate 1,600 mg PO TID 01/16/20 03/02/21 03/02/21 History minoxidil 2.5 mg PO BID 03/10/20 03/02/21 02/06/21 History trazodone 50 mg PO BEDTIME 03/10/20 03/02/21 03/01/21 History cholestyramine (with sugar) 4 g PO BID #60 ea 03/11/20 03/02/21 03/02/21 Rx aspirin 81 mg PO DAILY #0 02/07/21 03/02/21 03/02/21 History desoximetasone See Rx Instructions .ROUTE .COMPLEX 02/07/21 03/02/21 Unknown History hydrocodone-acetaminophen 1 tab PO QID PRN 02/07/21 03/02/21 Unknown History pantoprazole 40 mg PO DAILY 02/07/21 03/02/21 03/01/21 History Allergies Allergy/AdvReac Type Severity Reaction Status Date / Time adhesive Allergy Unknown Verified 03/02/21 13:07 codeine Allergy Unknown Verified 03/02/21 13:07 duloxetine [From Cymbalta] Allergy Unknown Verified 03/02/21 13:07 Current Medications Current Medications Generic Name Dose Route Start Last Admin Trade Name Freq PRN Reason Stop Dose Admin Acetaminophen 650 mg 03/02/21 15:24 03/03/21 04:23 Acetaminophen 325 Mg Tablet PO 650 mg Q6H PRN Administration MILD PAIN Hydrocodone Bitart/Acetaminophen 1 tab 03/02/21 15:20 03/03/21 00:07 Hydrocodone-Acetaminophen 5-325 Mg Tablet PO 1 tab QID PRN Administration Pain Albuterol Sulfate 2.5 mg 03/02/21 21:00 03/02/21 21:25 Albuterol 2.5 Mg/0.5 Ml Neb INHALATION Not Given TID JOSEFINA Albuterol Sulfate 2 puff 03/02/21 15:20 03/02/21 23:12 Albuterol 8 Gm Mdi INHALATION 2 puff Q6H PRN Administration Shortness Of Breath Aspirin 81 mg 03/03/21 09:00 03/03/21 09:47 Aspirin 81 Mg Chew Tablet PO 81 mg DAILY JOSEFINA Administration Atorvastatin Calcium 80 mg 03/03/21 09:00 03/03/21 09:46 Atorvastatin 40 Mg Tablet PO 80 mg DAILY JOSEFINA Administration Clopidogrel Bisulfate 75 mg 03/03/21 09:00 03/03/21 09:47 Clopidogrel 75 Mg Tablet PO 75 mg DAILY JOSEFINA Administration Clopidogrel Bisulfate 75 mg 03/03/21 09:00 03/03/21 09:47 Clopidogrel 75 Mg Tablet PO Not Given DAILY JOSEFINA Fluticasone Propionate 2 spray 03/03/21 09:00 03/03/21 09:47 Fluticasone Nasal [place] 16gm Btl INTRANASAL 2 spray DAILY JOSEFINA Administration Gabapentin 200 mg 03/02/21 21:00 03/02/21 21:24 Gabapentin 100 Mg Capsule PO 200 mg BEDTIME JOSEFINA Administration Tirofiban/Sodium Chloride 12.5 mg in 250 mls @ 16.9 mls/hr 03/02/21 15:30 03/03/21 05:41 Aggrastat IV Not Given .[id number] JOSEFINA Protocol Sodium Chloride 1,000 mls @ 100 mls/hr 03/02/21 15:30 03/03/21 03:20 Sodium Chloride 0.9% IV 50 mls/hr .Q10H JOSEFINA Administration Insulin Aspart 0 unit 03/02/21 21:00 03/03/21 07:39 Insulin Aspart 100 Unit/1 Ml SUBCUT 2 unit WM&BEDTIME JOSEFINA Administration Protocol Levothyroxine Sodium 100 mcg 03/03/21 09:00 03/03/21 09:46 Levothyroxine 100 Mcg Tablet PO 100 mcg DAILY JOSEFINA Administration Mirtazapine 15 mg 03/02/21 21:00 03/02/21 21:23 Mirtazapine 15 Mg Tablet PO 15 mg BEDTIME JOSEFINA Administration Pantoprazole Sodium 40 mg 03/03/21 09:00 03/03/21 09:[address] 40 Mg Tablet PO 40 mg DAILY JOSEFINA Administration Sevelamer Carbonate 1,600 mg 03/02/21 21:00 03/03/21 09:46 Sevelamer 800 Mg Tablet PO 1,600 mg TID JOSEFINA Administration Temazepam 15 mg 03/02/21 15:24 03/02/21 21:30 Temazepam 15 Mg Capsule PO 15 mg BEDTIME PRN Administration INSOMNIA PFSH Acute PFSH: Medical History Anemia Anticoagulation adequate with anticoagulant therapy Atrial fibrillation Carotid artery disease Chronic bronchitis Chronic diarrhea Chronic pain disorder Coronary artery disease Diabetes Diastolic heart failure Emphysema of lung End-stage renal disease on hemodialysis Fibromyalgia GERD (gastroesophageal reflux disease) Hypertension Elevated but stable Hypothyroidism Irritable bowel syndrome Right leg swelling Sleep apnea Venous insufficiency Surgical History AVF (arteriovenous fistula) History of appendectomy History of cholecystectomy History of common carotid artery stent placement S/P hemodialysis catheter insertion Stented coronary artery PCI to mid LAD in December 2018 Family History Other CAD (coronary artery disease) Social History Smoking and tobacco status: former smoker Quit status (tobacco): has quit using tobacco Year quit tobacco: 2009 Second hand smoke exposure: Yes Smoking risk assessment/counseling performed?: No Alcohol intake: never Lives independently: Yes Household members: children and other Details: son, cousin Vitals/I&O/Wt Last Vital Signs Temp 97.7 F 03/03/21 07:36 Pulse 86 03/03/21 07:36 Resp 20 H 03/03/21 07:36 BP 99/43 03/03/21 07:36 Pulse Ox 94 03/03/21 07:36 03/02/21 03/03/21 03/03/21 22:59 06:59 14:59 Intake Total 200 / 200 1329.743 / 1529.743 Balance 200 / 200 1329.743 / 1529.743 Weight last 48 hrs Weight 92.986 kg Physical Exam Const: COMMON NORMALS: no acute distress GENERAL APPEARANCE: cooperative A&P Additional A&P Information 1. ESRD, usually HD MWF 2. NSTEMI s/p cardiac cath Plan - HD today, 2.5h, 1500 ml UF if BP tolerates. 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
[2021-03-03] MEDS: albuterol 8 gm MDI 2 PUFF INHALATION ×3 (10:14→19:32)
[2021-03-03 11:37] LABS: Glucose Point of Care 74 mg/dL (70-110)
[2021-03-03 12:28] LABS: Hepatitis B Surface Antigen Non-Reactive (Nonreactive)
--- NOTE | 2021-03-03 12:55 | PM.PN ---
Subjective Subjective: Interval history: Feeling much better blood pressure is stable she is off the Levophed and IV fluid. She is awaiting dialysis today. Vitals/I&O/Wt Last Vital Signs Temp 97.3 F L 03/03/21 12:00 Pulse 76 03/03/21 12:00 Resp 12 03/03/21 12:00 BP 109/74 03/03/21 12:00 Pulse Ox 92 03/03/21 12:00 03/02/21 03/03/21 03/03/21 22:59 06:59 14:59 Intake Total 200 / 200 1329.743 / 1529.743 273.33 / 273.33 Balance 200 / 200 1329.743 / 1529.743 273.33 / 273.33 Weight last 48 hrs Weight 205 lb Physical Exam Narrative: EXAM NARRATIVE: GENERAL: Patient is alert, awake and oriented x3. NECK: No jugular vein distension. HEENT: No cyanosis. No icterus. No pallor. HEART: Regular S1 and S2. No murmur, rub or gallop. LUNGS: Clear to auscultate bilaterally. ABDOMEN: Soft, nontender and nondistended. Positive bowel sounds. No guarding, rebound or tenderness. CENTRAL NERVOUS SYSTEM: Grossly nonfocal. EXTREMITIES: Lower extremities without edema bilaterally. Right groin to lower abdominal and suprapubic bruise from few days ago angiogram performed at [facility]. Left groin no hematoma no bruising Const: COMMON NORMALS: alert Resp: COMMON NORMALS: clear to auscultation bilaterally AUSCULTATION: clear to auscultation bilaterally Neuro: SENSORIUM/ORIENTATION: Yes alert Data : 03/03/21 04:25 03/03/21 04:25 A&P Assessment and plan (1) ST elevation (STEMI) myocardial infarction: Status post balloon angioplasty thrombectomy and drug eluting stent placement in the distal RCA. Continue aspirin statin Plavix. Resume apixaban for atrial fibrillation. Upon discharge we may will stop the aspirin as patient is on apixaban and Plavix she is high risk for bleeding Status: Acute (2) Diastolic heart failure: Continued well compensated with Status: Acute (3) Diabetes: Continue sliding scale. Status: Acute (4) End-stage renal disease on hemodialysis: We appreciate nephrology consult. Patient is going to go for dialysis today after that planning to discharge Status: Acute (5) Cardiogenic shock: Resolved. Patient is off pressors and IV fluid. 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
[2021-03-03 19:27] LABS: Glucose Point of Care 99 mg/dL (70-110)
--- NOTE | 2021-03-03 19:40 | PC.NURSE ---
Received bedside report from REGINA Holm and REGINA Mcdonough. Patient returned from hemodialysis via bed. Placed telemetry. Patient requesting her dinner to be heated which was done. Patient provided sandwich in addition to her dinner tray. Patient denies pain. No distress observed.
[2021-03-03] MEDS: mirtazapine 15 mg Tablet PO (20:25)
[2021-03-03] MEDS: gabapentin 100 mg Capsule 200 MG PO (20:25)
[2021-03-04] VITALS (13 sets, daily range): BP systolic 91–112; BP diastolic 59–80; PULSE 83–99; RESP 16–21; TEMP 36.4–36.8; O2SAT 94–100
--- NOTE | 2021-03-04 00:07 | PC.NURSE ---
Patient has decreased blood pressure per cardiac monitoring. Assessed patient. Patient is lying left lateral. Had patient lie on her back and obtained manual pressure of 94/62. Patient denies any dizziness, lightheadedness or other discomforts. No distress observed.
--- NOTE | 2021-03-04 01:29 | PC.HD ---
Unable to access hemodialysis pre- and post-assessment, see paper flow sheet.
[2021-03-04] MEDS: ALPRAZolam 0.5 mg Tablet 0.25 MG PO ×2 (02:41→21:56)
[2021-03-04] MEDS: HYDROcodone-acetaminophen 5-325 mg Tablet 1 TAB PO ×2 (02:42→20:05)
[2021-03-04 06:35] LABS: Glucose Point of Care 149 mg/dL (70-110)
[2021-03-04] MEDS: albuterol 8 gm MDI 2 PUFF INHALATION ×2 (07:47→15:59)
--- NOTE | 2021-03-04 08:46 | P.PN_ITS ---
Subjective Subjective: Interval history: reports chest discomfort overnight, awaiting cardiac evaluation Medications: Reviewed: Yes Vitals/I&O/Wt Last Vital Signs Temp 97.8 F 03/04/21 08:00 Pulse 99 03/04/21 08:00 Resp 16 03/04/21 08:00 BP 91/64 03/04/21 04:00 Pulse Ox 99 03/04/21 08:00 03/03/21 03/04/21 03/04/21 22:59 06:59 14:59 Intake Total 600 / 993.33 240 / 1233.33 Balance 600 / 993.33 240 / 1233.33 Weight last 48 hrs Weight 92.986 kg Physical Exam Const: COMMON NORMALS: no acute distress GENERAL APPEARANCE: cooperative Extremity: GENERAL: No edema OTHER: AVF Data : 03/03/21 04:25 03/03/21 04:25 A&P Additional A&P Information 1. ESRD, HD MWF 2. NSTEMI s/p cardiac cath 3. Anemia, epogen and iron at dialysis Plan: Disposition per primary service. Next HD 03/05/21 Attestations Medical Necessity Statement*: per primary service Coding Level of Care Code Acute Plant Superintendent for [facility]ector Hutchins
[2021-03-04] MEDS: levothyroxine 100 mcg Tablet PO (08:57)
[2021-03-04] MEDS: sevelamer 800 mg Tablet 1600 MG PO ×3 (08:57→20:05)
[2021-03-04] MEDS: pantoprazole DR 40 mg Tablet PO (08:57)
[2021-03-04] MEDS: atorvastatin 40 mg Tablet 80 MG PO (08:57)
[2021-03-04] MEDS: clopidogrel 75 mg Tablet PO (08:57)
[2021-03-04] MEDS: aspirin 81 mg Chew Tablet PO (08:57)
[2021-03-04] MEDS: fluticasone nasal spray 16gm Btl 2 SPRAY INTRANASAL (08:58)
--- NOTE | 2021-03-04 09:00 | PC.NURSE ---
patient reporting mild chest pressure upon sitting up in bed with radiation to right arm HR 87 blood pressure 130/[address] posey notified blood pressure did drop upon lying back in bed to 91/41 patient reports no change in chest discomfort continue to monitor and he will be in to see patient
--- NOTE | 2021-03-04 09:02 | ECG_ITS ---
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 Measurements Intervals [place] Rate: 87 P: 88 PA: 172 QRS: 29 QRSD: 108 T: -64 QT: 410 QTc: 495 Interpretive Statements SINUS RHYTHM INFERIOR MYOCARDIAL INFARCTION, PROBABLY RECENT Compared to ECG 03/03/2021 02:51:34 No significant changes Electronically Signed On 03-04-2021 18:09:44 CDT by Tamie Brand M.D. [id number]
--- NOTE | 2021-03-04 10:00 | PC.NURSE ---
patient appears to be resting and blood pressure and hr are stable 117/53
[2021-03-04 11:37] LABS: Glucose Point of Care 146 mg/dL (70-110)
--- NOTE | 2021-03-04 14:36 | PC.NURSE ---
Dr posey on unit for assessment and plan of care verbal instructions to give Toradol 15mg IVP x 1
[2021-03-04] MEDS: ketorolac 30 mg/mL INJ 15 MG IVP (15:01)
--- NOTE | 2021-03-04 16:55 | ECG_ITS ---
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 Measurements Intervals [place] Rate: 89 P: 53 [place]: 160 QRS: -29 QRSD: 110 T: 217 QT: 397 QTc: 486 Interpretive Statements SINUS RHYTHM INFERIOR MYOCARDIAL INFARCTION [40+ ms Q WAVE AND/OR ST/T ABNORMALITY IN II/aVF], OF INDETERMINATE AGE ST DEVIATION AND MODERATE T-WAVE ABNORMALITY, CONSIDER LATERAL ISCHEMIA [-0.1+ mV T WAVE IN I/aVL/V5/V6] Compared to ECG 03/04/2021 09:35:56 T-wave abnormality now present Possible ischemia now present Myocardial infarct finding still present Electronically Signed On 03-04-2021 18:04:11 CDT by Tamie Brand M.D. [id number] f
--- NOTE | 2021-03-04 19:34 | PC.NURSE ---
Received bedside report from REGINA Holm. Patient sitting up in chair. Reports chest pain improved. Patient does c/o low back pain and is requesting something to help with sleep tonight. Discussed medications and patient verbalized understanding. No distress observed.
--- NOTE | 2021-03-04 19:41 | PC.NURSE ---
Blood pressures decreased. Patient denies any symptoms related to low blood pressure. Dr Bertrand present on the floor and this was discussed with him. Received verbal order NS 500ml bolus and NS 500ml at 100ml/hr for 5 hours. RBVO
[2021-03-04] MEDS: gabapentin 100 mg Capsule 200 MG PO (20:05)
[2021-03-04] MEDS: temazepam 15 mg Capsule PO (20:05)
[2021-03-04] MEDS: mirtazapine 15 mg Tablet PO (20:05)
[2021-03-04] MEDS: sodium chloride 0.9% 1,000 ML 500 ML IV (20:06)
--- NOTE | 2021-03-04 20:28 | P.PN_ITS ---
Subjective Subjective: Interval history: Patient complained of chest pain remained hypotensive therefore after dialysis yesterday her discharge was canceled. During today he was still hypotensive with mild chest pressure. Twelve-lead EKG did not show any significant ST changes. She was given Toradol which improved the pain. Medications: Reviewed: Yes Vitals/I&O/Wt Last Vital Signs Temp 98.3 F 03/04/21 19:32 Pulse 90 03/04/21 19:32 Resp 18 03/04/21 19:32 BP 102/80 03/04/21 15:20 Pulse Ox 100 03/04/21 19:32 03/04/21 03/04/21 03/04/21 06:59 14:59 22:59 Intake Total 240 / 1233.33 660 / 660 360 / 1020 Balance 240 / 1233.33 660 / 660 360 / 1020 Physical Exam Narrative: EXAM NARRATIVE: GENERAL: Patient is alert, awake and oriented x3. NECK: No jugular vein distension. HEENT: No cyanosis. No icterus. No pallor. HEART: Regular S1 and S2. No murmur, rub or gallop. LUNGS: Clear to auscultate bilaterally. ABDOMEN: Soft, nontender and nondistended. Positive bowel sounds. No guarding, rebound or tenderness. CENTRAL NERVOUS SYSTEM: Grossly nonfocal. EXTREMITIES: Lower extremities without edema bilaterally. Right groin to lower abdominal and suprapubic bruise from few days ago angiogram performed at [facility]. Left groin no hematoma no bruising Const: COMMON NORMALS: alert Resp: COMMON NORMALS: clear to auscultation bilaterally AUSCULTATION: clear to auscultation bilaterally Neuro: SENSORIUM/ORIENTATION: Yes alert Data : 03/03/21 04:25 03/03/21 04:25 A&P Assessment and plan (1) ST elevation (STEMI) myocardial infarction: I will hold antihypertensive. Continue Plavix. Will resume apixaban. We will monitor her, most likely chest pain is due to musculoskeletal versus pericarditis. We will try Toradol. Status: Acute (2) Diastolic heart failure: Continued well compensated with Status: Acute (3) Diabetes: Continue sliding scale. Status: Acute (4) End-stage renal disease on hemodialysis: We appreciate nephrology consult. Patient is going to go for dialysis today after that planning to discharge Status: Acute (5) Cardiogenic shock: Improved but patient remained hypotensive upon sitting in. We will push IV fluid. Further plan will be devised as per progress of the patient Status: Acute Attestations Medical Necessity Statement*: Patient require continuation hospitalization for above defined care. I will discontinue discharge due to hypotension and chest pain Coding Level of Care Code Acute Inspector Integrated Circuits for [facility] [place] Diagnoses ST elevation (STEMI) myocardial infarction I21.3 Diastolic heart failure I50.30 Diabetes E11.9 End-stage renal disease on hemodialysis N18.6; Z99.2 Cardiogenic shock R57.0
[2021-03-04] MEDS: apixaban 5 mg Tablet 2.5 MG PO (20:51)
[2021-03-04 20:53] LABS: Glucose Point of Care 154 mg/dL (70-110)
[2021-03-04] MEDS: magnesium hydroxide 30 mL UDC PO (23:17)
[2021-03-04] MEDS: acetaminophen 325 mg Tablet 650 MG PO (23:17)
[2021-03-05] VITALS (8 sets, daily range): BP systolic 102–166; BP diastolic 40–76; PULSE 65–102; RESP 16–20; TEMP 36.2–36.8; O2SAT 94–100
[2021-03-05 06:44] LABS: Glucose Point of Care 152 mg/dL (70-110)
[2021-03-05 07:49] LABS: Anion Gap 17.1 (5-19); Blood Urea Nitrogen 46 mg/dL (8-23); Calcium 8.3 mg/dL (8.5-10.5); Carbon Dioxide 27 mmol/L (22-29); Chloride 101 mmol/L (98-107); Glomerular Filtration Rate 5.8 mL/min (90-130); Glucose 92 mg/dL (65-115); Osmolality Calculated 302 mOsm/kg (285-295); Potassium 5.1 mmol/L (3.5-5.1); Sodium 140 mmol/L (136-145)
[2021-03-05] MEDS: aspirin 81 mg Chew Tablet PO (08:39)
[2021-03-05] MEDS: atorvastatin 40 mg Tablet 80 MG PO (08:39)
[2021-03-05] MEDS: levothyroxine 100 mcg Tablet PO (08:39)
[2021-03-05] MEDS: pantoprazole DR 40 mg Tablet PO (08:39)
[2021-03-05] MEDS: sevelamer 800 mg Tablet 1600 MG PO (08:39)
[2021-03-05] MEDS: apixaban 5 mg Tablet 2.5 MG PO (08:39)
[2021-03-05] MEDS: clopidogrel 75 mg Tablet PO (08:39)
--- NOTE | 2021-03-05 09:38 | PC.SOCIAL ---
IMM update IMM updated with patient. Copy of Pg 2 provided. Patient verbalized an understanding. Initialled, dated, timed, and placed in chart.
--- NOTE | 2021-03-05 10:45 | PM.PN ---
Subjective Subjective: Interval history: Ms. Ha is seen and examined on dialysis today. She is feeling well with no acute complaints. No chest pain at this time. Hemodynamics reviewed, remained stable. Minimal extremity edema, no other hypervolemic symptoms. No uremic symptoms. Access working well. Keen to go home after dialysis. Vitals/I&O/Wt Last Vital Signs Temp 98.2 F 03/05/21 03:33 Pulse 78 03/05/21 09:14 Resp 16 03/05/21 09:12 BP 105/57 03/05/21 03:33 Pulse Ox 94 03/05/21 09:12 03/04/21 03/05/21 03/05/21 22:59 06:59 14:59 Intake Total 1373.333 / 2033.333 806.667 / 2840.000 240 / 240 Output Total Balance 1373.333 / 2033.333 806.667 / 2840.000 239 / 239 Physical Exam Narrative: EXAM NARRATIVE: Constitutional: Awake, comfortable HEENT: Wet mucosa, no jvp, non icteric Lungs: Bilaterally clear without discernible wheeze, rales in all lung zones CVS: S1 S2, no murmurs Abdo: Soft, BS ok Ext 4: Minimal edema, peripheral perfusion with no cyanosis Neurological: Grossly non-focal Data : 03/03/21 04:25 03/05/21 07:13 A&P Additional A&P Information 1. ESRD Seen and examined on dialysis today, parameters reviewed. Continue MWF prescription as outpatient Dose medication for GFR less than 15 on dialysis 2. Status post STEMI status post balloon angioplasty, thrombectomy and drug-eluting stent in distal RCA. Management per Dr. Bertrand from cardiology Remains pain-free today. 3. Disposition Likely discharge after dialysis today. 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
--- NOTE | 2021-03-05 14:18 | P.DS_ITS ---
Discharge Providers Date of Admission: 03/02/21 15:37 Date of Discharge: March 05, 2021 Attending Provider at Admission: Lupe Bertrand MD Attending Provider at Discharge: Lupe Bertrand MD Primary Care Provider: ROCHELLE EMMANUEL MD Diagnoses at Discharge Discharge Diagnosis (1) ST elevation (STEMI) myocardial infarction: Status: Acute (2) Diastolic heart failure: Status: Acute (3) Diabetes: Status: Acute (4) End-stage renal disease on hemodialysis: Status: Acute (5) Cardiogenic shock: Status: Acute Reason for Visit Reason for Visit: N/V Hospital Course Hospital Course 66-year-old female past medical history significant for chronic kidney disease hypertension hyperlipidemia COPD underwent emergent angiogram noted to have occluded right coronary artery. Recently patient underwent coronary angiogram with stent placement in the RCA at an outside hospital in [facility]. While going through dialysis she started having chest pain. She was brought in to the ER and suspicion of ST elevation LA on EKG she was taken to the [facility]. Thrombectomy followed by balloon angioplasty and drug-eluting stent was performed excellent angiographic result was achieved. Patient underwent dialysis next day. It was our plan to discharge her but she remained hypotensive and occasionally complained of chest pain. She was observed over next day. Toradol was also given on the suspicion of pericarditis/pleuritis. She felt much better. Today after dialysis she is feeling more strength and improved. She denies any chest pain she is stable vital jimenez I will discharge her today. I will follow her up in the cardiology clinic. Patient has been advised to continue Plavix and apixaban 2.5 mg twice a day. She is advised to hold aspirin because of bleeding risk. Physical Exam Narrative: EXAM NARRATIVE: GENERAL: Patient is alert, awake and oriented x3. NECK: No jugular vein distension. HEENT: No cyanosis. No icterus. No pallor. HEART: Regular S1 and S2. No murmur, rub or gallop. LUNGS: Clear to auscultate bilaterally. ABDOMEN: Soft, nontender and nondistended. Positive bowel sounds. No guarding, rebound or tenderness. CENTRAL NERVOUS SYSTEM: Grossly nonfocal. EXTREMITIES: Lower extremities without edema bilaterally. Right groin to lower abdominal and suprapubic bruise from few days ago angiogram performed at [facility]. 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 Stat Exams 03/02/21 14:07 Taken Troponin T (5th) Once Urgent Lab 03/04/21 18:02 Received Labs from last 24 hours 03/05/21 03/05/21 03/04/21 07:13 06:23 19:44 Sodium 140 Potassium 5.1 Chloride 101 Carbon Dioxide 27 Anion Gap 17.1 BUN 46 H Creatinine 7.0 H* GFR Calculation 5.8 L Glucose 92 POC Glucose 152 H 154 H Calculated Osmolal ity 302 H Calcium 8.3 L Troponin T Gen 5 n g/L 03/04/21 18:02 Sodium Potassium Chloride Carbon Dioxide Anion Gap BUN Creatinine GFR Calculation Glucose POC Glucose Calculated Osmolal ity Calcium Troponin T Gen 5 n g/L Pending Vitals: Last Vital Signs Temp 97.7 F 03/05/21 09:20 Pulse 90 03/05/21 09:20 Resp 18 03/05/21 09:20 BP 102/40 03/05/21 09:20 Pulse Ox 94 03/05/21 09:12 Discharge Plan Discharge Patient Disposition: Home Condition: Stable Prescriptions: Continued Eliquis 2.5 mg tablet 2.5 mg PO BID RF: 0 levothyroxine [Synthroid] 25 mcg tablet 100 mcg PO DAILY RF: 0 atorvastatin 80 mg tablet 80 mg PO DAILY RF: 0 clopidogrel 75 mg tablet 75 mg PO DAILY RF: 0 fluticasone propionate [Flonase Allergy Relief] 50 mcg/actuation [place],Suspension 2 spray INTRANASAL DAILY RF: 0 acetaminophen 325 mg Tablet 650 mg PO Q6H PRN (Reason: Pain) RF: 0 albuterol sulfate 2.5 mg /3 mL (0.083 %) Solution For Nebulization 2.5 mg inhalation TID RF: 0 ondansetron HCl [Zofran] 4 mg Tablet 4 mg PO Q8H PRN (Reason: Nausea) RF: 0 diphenoxylate-atropine [Lomotil] 2.5-0.025 mg Tablet 2 tab PO QID PRN (Reason: Diarrhea) RF: 0 melatonin 3 mg Tablet 9 mg PO BEDTIME PRN (Reason: Sleep) RF: 0 Renal Vitamin 0.8 mg Tablet 1 tab PO DAILY RF: 0 mirtazapine 15 mg Tablet 15 mg PO BEDTIME RF: 0 sevelamer carbonate 800 mg Tablet 1,600 mg PO TID RF: 0 trazodone 50 mg Tablet 50 mg PO BEDTIME RF: 0 minoxidil 2.5 mg Tablet 2.5 mg PO BID RF: 0 Hold Instructions: Resume on 02/16/21. hold until you see primary care cholestyramine (with sugar) 4 gram Powder In Packet 4 g PO BID Qty: 60 RF: 0 desoximetasone 0.05 % cream See Rx Instructions .ROUTE .COMPLEX RF: 0 hydrocodone-acetaminophen 5-325 mg tablet 1 tab PO QID PRN (Reason: Pain) RF: 0 pantoprazole 40 mg Tablet,Delayed Release (Dr/Ec) 40 mg PO DAILY RF: 0 aspirin 81 mg Tablet,Chewable 81 mg PO DAILY Qty: 0 RF: 0 nitroglycerin [Nitrostat] 0.4 mg Tablet, Sublingual 0.4 mg SUBLINGUAL Q5M PRN (Reason: Chest Pain) RF: 0 gabapentin 100 mg Capsule 200 mg PO BEDTIME RF: 0 albuterol sulfate [ProAir HFA] 90 mcg/actuation Hfa Aerosol Inhaler 2 puff INHALATION Q6H PRN (Reason: Shortness Of Breath) RF: 0 Discharge Orders: Discharge Order (Routine); Ordered 03/05/21 Ordered By: Lupe Bertrand Referrals: Lupe Bertrand MD [Physician] - 04/12/21 3:15 pm (You have a cardiology followup with Dr. Bertrand at [facility] on April 12 at 3:15pm) Princess Dunaway FNP [Nurse Practitioner] - 03/12/21 9:15 am (You have a post procedure followup with ERIKA Pereyra at [facility] on March 12 at 9:15am) Discharge Diet: Cardiac and Diabetic Discharge Activity: Limit activity as instructed Patient Instructions: Left Heart Catheterization (DC), Opioid Safety Activity Restrictions/Additional Instructions: Follow-up with Princess Dunaway in 7 days. Follow-up with Dr. Bertrand in 6 weeks. No lifting of more than a gallon of milk for next 4 days. Resume apixaban Plavix and aspirin. We will stop aspirin after 1 month but will continue Plavix and apixaban for next 1 year. Discharge Attestations Time Spent in Discharge Care*: less than 30 min Status at Discharge: Cognitive status at discharge: cognitively intact , Behavioral status at discharge: cooperative , Quality Metrics Clinical Quality Measures During this hospital stay, did patient experience: None Coding Level of Care Code Established Pt Acute Chg FW DC note Patient Type Established History Detailed Exam Detailed Medical Decision Making Moderate Complexity Diagnoses ST elevation (STEMI) myocardial infarction I21.3 Diastolic heart failure I50.30 Diabetes E11.9 End-stage renal disease on hemodialysis N18.6; Z99.2 Cardiogenic shock R57.0
[2021-03-05] MEDS: HYDROcodone-acetaminophen 5-325 mg Tablet 1 TAB PO (14:42)
--- NOTE | 2021-03-05 19:08 | PC.HD ---
Patient developed 8/10 left chest pain which radiated down left arm. Patient's nurse notified, said she would notify cattle broker. Battalion Chief notified with order to terminate treatment (9 minutes early). Radiation to arm subsided with return of patient's blood and chest pain rated 7/10. By the time the needles were removed and sites dressed patient said pain was down to 4/10. Patient was sitting on the side of the bed playing on her phone while waiting for her nurse to come get her, no acute distress.
== END 2021-03-05 16:45 | disposition home or self-care (01) | DRG 246 ==
LOC: ER 14:05 → CSU 03-03 07:14
PROVIDERS: Internal Medicine; Admitting Provider Internal Medicine Cardiovascular Disease; Emergency Provider Family Medicine; PCP Family Medicine; Visit Provider Internal Medicine Cardiovascular Disease
PROC: 027034Z Dilation of Coronary Artery, One Artery with Drug-eluting Intraluminal Device, Percutaneous Approach (ICD-10-PCS; principal; 2021-03-02 13:45)
PROC: 027034Z Dilation of Coronary Artery, One Artery with Drug-eluting Intraluminal Device, Percutaneous Approach (ICD-10-PCS; 2021-03-02 13:45)
DX: I21.11 ST elevation (STEMI) myocardial infarction involving right coronary artery (principal); N18.6 End stage renal disease; R57.0 Cardiogenic shock; I13.2 Hypertensive heart and chronic kidney disease with heart failure and with stage 5 chronic kidney disease, or end stage renal disease; I50.32 Chronic diastolic (congestive) heart failure; I25.10 Atherosclerotic heart disease of native coronary artery without angina pectoris; Z95.5 Presence of coronary angioplasty implant and graft; Z95.1 Presence of aortocoronary bypass graft; E11.22 Type 2 diabetes mellitus with diabetic chronic kidney disease; Z99.2 Dependence on renal dialysis; E66.8 Other obesity; Z68.35 Body mass index [BMI] 35.0-35.9, adult; I25.5 Ischemic cardiomyopathy; I48.91 Unspecified atrial fibrillation; I95.9 Hypotension, unspecified; M79.7 Fibromyalgia; K21.9 Gastro-esophageal reflux disease without esophagitis; E03.9 Hypothyroidism, unspecified; Z87.891 Personal history of nicotine dependence; Z79.891 Long term (current) use of opiate analgesic; Z79.51 Long term (current) use of inhaled steroids; Z79.02 Long term (current) use of antithrombotics/antiplatelets; Z79.01 Long term (current) use of anticoagulants
CPT/HCPCS: 36415; 36416; 71045; 80048; 80053; 82962; 84484; 85025; 85347; 85730; 87340; 92973; 93005; 93455; 94640; 96372; 96374; 96375; 99285; C1725; C1757; C1769; C1874; C1887; C1894; C9600; J1644; J1815; J1885; J2250; J2270; J3010; J3246; J3535; J7030; Q3014; Q9967

== ENCOUNTER 2021-03-07 09:58 | Inpatient (IN) | payer MEDICARE, MEDICAID, SELFPAY ==
[2021-03-07] VITALS (7 sets, daily range): BP systolic 93–132; BP diastolic 60–89; PULSE 64–89; RESP 15–17; TEMP 36.9–37.1; O2SAT 94–100; BMI 31.9
--- NOTE | 2021-03-07 10:22 | XR_ITS ---
WS: [id number] XR chest 1V portable [id number] REASON FOR EXAM: chest pain FINDINGS: Status post sternotomy with coronary artery bypass surgery. Significant enlargement of the heart. Prominence of the central pulmonary arteries with rapid tapering of the more peripheral pulmonary art natalio vessels. There are chronic interstitial changes in both lungs. There appear to be Coco Blines in the periphe ral right lower lung which are not readily identifiable on the 03/02/2021 exam. There is accentuation of the minor fissure compared to the previous examination which may be due to fluid. Degenerative changes in the mid and lower thoracic spine and shoulder joints. XR/XR chest 1V portable [id number] IMPRESSION: Equivocal interval change which may indicate early heart failure. Findings of pulmonary artery hypertension.
--- NOTE | 2021-03-07 10:22 | ECG_ITS ---
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 Measurements Intervals [place] Rate: 87 P: 70 W[place]: 182 QRS: -28 QRSD: 118 T: 129 QT: 372 QTc: 449 Interpretive Statements SINUS RHYTHM BORDERLINE LEFT AXIS DEVIATION [QRS AXIS < -20] MODERATE INTRAVENTRICULAR CONDUCTION DELAY [110+ ms QRS DURATION] ST DEVIATION AND MODERATE T-WAVE ABNORMALITY, CONSIDER LATERAL ISCHEMIA [-0.1+ mV T WAVE IN I/aVL/V5/V6] INTERPRETATION BASED ON A DEFAULT AGE OF 40 YEARS Compared to ECG 03/04/2021 16:58:03 Intraventricular conduction delay now present Myocardial infarct finding no longer present T-wave abnormality still present Possible ischemia still present Electronically Signed On 03-08-2021 14:38:17 CDT by Lisa Watson M.D. [email or web address]
--- NOTE | 2021-03-07 12:16 | ED_ITS ---
HPI - Chest Pain General: Chief Complaint: Chest Pain Stated Complaint: CHEST PAIN Time Seen by Provider: 03/07/21 12:13 History of Present Illness: HPI narrative: This patient is a 66-year-old female who presents to the emergency department for chest pain. Patient states that she has been having this chest pain for about a week. Patient was recently in the hospital and did have a new stent placed by Dr. Montemayor cardiology. Patient states she was having chest pain upon discharge of the hospital and has continued. Will do medical evaluation treat as needed. MD complaint: chest pain Pertinent past history: coronary artery disease and asthma Onset: during rest Pain location: substernal Pain radiation: none Severity: moderate Quality: aching and heaviness Relieving factors: nothing Exacerbating factors: nothing Associated symptoms: Deny abdominal pain, dyspnea, fever(s), nausea, palpitations or vomiting Review of Systems General: Reports: 10 or more systems reviewed and unremarkable except in HPI and below Const: Denies: fever(s), chills, body aches or fatigue Eyes: Denies: change in vision or blurry vision ENMT: Denies: throat pain, hoarseness or mouth pain Card: Reports: chest pain; Denies: palpitations, irregular heart rhythm, edema, swelling of feet/ankles or lightheadedness Resp: Denies: dyspnea, productive cough, non-productive cough, wheezing or pain on inspiration GI: Denies: abdominal pain, nausea or vomiting : Denies: flank pain, difficulty voiding, dysuria, urinary frequency, urinary urgency or urinary hesitancy Musc: Denies: neck pain, back pain, extremity pain, extremity swelling, joint pain, joint swelling, joint redness, joint warmth or limited range of motion Skin/Breast: Denies: rash, pruritus, erythema or skin tenderness Neuro: Denies: headache(s), numbness in extremities or weakness in extremities Psych: Denies: anxiety or depression PFSH ED PFSH: Medical History Altered mental status Anemia Anticoagulation adequate with anticoagulant therapy Atrial fibrillation Carotid artery disease Chronic bronchitis Chronic chest pain Chronic diarrhea Chronic kidney disease Chronic pain disorder Coronary artery disease Coronary artery disease Diabetes Diastolic heart failure Diverticulitis Dizziness Dizziness Elevated troponin Emphysema of lung End-stage renal disease on hemodialysis Fibromyalgia Generalized anxiety disorder GERD (gastroesophageal reflux disease) Hyperbilirubinemia Hypertension Elevated but stable Hypothyroidism Irritable bowel syndrome Low back pain Major depressive disorder, recurrent severe without psychotic features Non-STEMI (non-ST elevated myocardial infarction) Noncompliance Osteoarthritis of left knee Post-traumatic stress disorder, chronic Right leg swelling Sleep apnea Unstable angina pectoris Urinary tract infection Venous insufficiency Surgical History AVF (arteriovenous fistula) History of appendectomy History of cholecystectomy History of common carotid artery stent placement S/P hemodialysis catheter insertion Stented coronary artery PCI to mid LAD in December 2018 Family History Other CAD (coronary artery disease) Social History Smoking and tobacco status: former smoker Quit status (tobacco): has quit using tobacco Year quit tobacco: 2009 Second hand smoke exposure: Yes Smoking risk assessment/counseling performed?: No Alcohol intake: never Lives independently: Yes Household members: children and other Details: son, cousin Physical Exam Const: COMMON NORMALS: no acute distress, average body habitus, patient oriented x3, no limitations, healthy appearing, alert and well nourished HENMT: COMMON NORMALS: normocephalic, atraumatic, hearing grossly normal bilaterally, external ears normal, EAC's normal, TM's normal bilaterally, Normal external nose present, Normal nasal mucous membranes and turbinates present, moist oral mucous membranes, oropharynx normal, dentition normal and gingiva normal HEAD & SCALP: normocephalic and atraumatic NOSE: Normal external nose present and Normal nasal mucous membranes and turbinates present EXTERNAL EAR: Yes external ears normal EXTERNAL AUDITORY CANAL: EAC's normal TYMPANIC MEMBRANE: TM's normal bilaterally Neck/C-Spine: COMMON NORMALS: full ROM, no lymphadenopathy, supple, no meningeal signs, no JVD, Thyroid normal and No carotid bruits THYROID: Thyroid normal Chest: COMMONS NORMALS: normal inspection of the chest, normal palpation of entire chest wall, normal inspection of the breasts and normal palpation of the breasts Breast/axilla inspection: Yes normal inspection of the breasts BREAST/AXILLA PALPATION: Yes normal palpation of the breasts Resp: COMMON NORMALS: normal respiratory effort, No retractions, No use of accessory muscles, clear to auscultation bilaterally and percussion normal AUSCULTATION: clear to auscultation bilaterally PERCUSSION: percussion normal Cardio: COMMON NORMALS: no JVD, regular rate, regular rhythm, S1 normal heart sound present, S2 normal heart sound present, No gallops present (Cardio), No clicks present (Cardio), No murmurs present (Cardio), No rub (Cardio) and Peripheral pulses 2+ throughout RATE: regular rate RHYTHM: regular rhythm HEART SOUNDS: S1 normal heart sound present and S2 normal heart sound present PERIPHERAL PULSES: Peripheral pulses 2+ throughout GI: COMMON NORMALS: Normal to inspection, nondistended, normoactive bowel sounds present, Soft to palpation, non-tender, No hepatosplenomegaly present, no masses and no bruits PALPATION: Yes Soft to palpation and Yes No hepatosplenomegaly present Back/Pelvis: COMMON NORMALS: thoracic and lumbar spine normal to inspection, no thoracic nor lumbar tenderness, thoraco-lumbar ROM normal and straight leg raise negative bilaterally Extremity: COMMON NORMALS: normal to inspection, full ROM, capillary refill normal, no joint enlargement, no clubbing, cyanosis or edema, no calf tenderness and no pedal edema Neuro: COMMON NORMALS: patient oriented x3 SENSORIUM/ORIENTATION: Yes alert MENINGEAL SIGNS: Yes no meningeal signs Course Consultations: Consultation #1: I did speak with Dr. Alvarez nephrology. We did discuss patient's case. He agrees to make room for the patient for dialysis upon admission. Due to fluid overload. Creatinine is 7.1. Potassium 5.5. Time: 13:45 Consultation #2: I have discussed at length with Dr. Watson cardiology. He states he will see patient as a consult. Request hospitalist admit. For medical management also did talk to Dr. Bertrand cardiology who agrees with hospital management. Time: 14:23 Consultation #3: I did discuss at length with Dr. Lee who is accepted the patient for admission Time: 15:02 Vital Signs: Vital signs: Vital Signs Temperature 98.5 F 03/07/21 12:48 Pulse Rate 89 03/07/21 12:48 Respiratory Rate 17 03/07/21 12:48 Blood Pressure 127/79 03/07/21 12:48 Pulse Oximetry 95 03/07/21 12:48 MDM - Chest Pain MDM Narrative: Medical decision making narrative: This patient is a 66-year-old female who presents to the emergency department for chest pain. Patient states that she has been having this chest pain for about a week. Patient was recently in the hospital and did have a new stent placed by Dr. Montemayor cardiology. Patient states she was having chest pain upon discharge of the hospital and has continued. Will do medical evaluation treat as needed. I did speak with Dr. Alvarez nephrology. We did discuss patient's case. He agrees to make room for the patient for dialysis upon admission. Due to fluid overload. Creatinine is 7.1. Potassium 5.5. I have discussed at length with Dr. Watson cardiology. He states he will see patient as a consult. Request hospitalist admit. For medical management also did talk to Dr. Bertrand cardiology who agrees with hospital management. I did discuss at length with Dr. Lee who is accepted the patient for admission Lab Data: Labs: Lab Results 03/07/21 03/07/21 03/07/21 Range/Units 11:35 11:35 11:35 WBC 6.3 (4.0-10.0) 10^3/ uL RBC 2.85 L (4.1-5.3) 10^6/u L Hgb 8.8 L (11.5-15.3) g/dL Hct 28.9 L (37.0-47.0) % MCV 101.4 H (81-99) fL MCH 30.9 (28.0-34.0) pg MCHC 30.4 (30.0-36.0) g/dL RDW 14.6 (12.1-15.1) % Plt Count 184 (130-400) 10^3/c mm MPV 11.2 H (7.4-10.4) fL Neut % (Auto) 77.4 % Lymph % (Auto) 12.9 % [place] % (Auto) 6.0 % Eos % (Auto) 2.2 % Baso % (Auto) 0.5 % Neut # (Auto) 4.88 (1.8-7.7) 10^3/u L Lymph # (Auto) 0.8 (0.8-4.8) 10^3/u L [place] # (Auto) 0.4 (0.2-0.9) 10^3/u L Eos # (Auto) 0.1 (0.0-0.8) 10^3/u L Baso # (Auto) 0.0 (0.0-0.1) 10^3/u L Nucleated RBC % (a uto) 0 % Nucleated RBCs # 0.0 /100WBC PT (12.1-14.9) SECO NDS INR (0.8-1.2) APTT (23.9-36.7) SECO NDS D-Dimer (0-0.59) ug/mIFE U Sodium 138 (136-145) mmol/L Potassium 5.5 H (3.5-5.1) mmol/L Chloride 100 (98-107) mmol/L Carbon Dioxide 25 (22-29) mmol/L Anion Gap 18.5 (5-19) BUN 46 H (8-23) mg/dL Creatinine 7.1 H* (0.5-0.9) mg/dL GFR Calculation 5.7 L (90-130) mL/min Glucose 72 (65-115) mg/dL Calculated Osmolal ity 296 H (285-295) mOsm/k g Calcium 8.5 (8.5-10.5) mg/dL Total Bilirubin 0.7 (0.15-1.2) mg/dL AST 25 (0-32) U/L ALT 15 (0-33) U/L Alkaline Phosphata se 134 H (35-105) IU/L Troponin T Baselin e Cancelled NT-Pro-B Natriuret Pep (0-125) pg/mL Total Protein 6.6 (6.6-8.7) g/dL Albumin 3.4 L (3.5-5.2) g/dL Globulin 3.2 (1.3-4.6) g/dL 03/07/21 03/07/21 03/07/21 Range/Units 11:35 11:35 14:22 WBC (4.0-10.0) 10^3/ uL RBC (4.1-5.3) 10^6/u L Hgb (11.5-15.3) g/dL Hct (37.0-47.0) % MCV (81-99) fL MCH (28.0-34.0) pg MCHC (30.0-36.0) g/dL RDW (12.1-15.1) % Plt Count (130-400) 10^3/c mm MPV (7.4-10.4) fL Neut % (Auto) % Lymph % (Auto) % [place] % (Auto) % Eos % (Auto) % Baso % (Auto) % Neut # (Auto) (1.8-7.7) 10^3/u L Lymph # (Auto) (0.8-4.8) 10^3/u L [place] # (Auto) (0.2-0.9) 10^3/u L Eos # (Auto) (0.0-0.8) 10^3/u L Baso # (Auto) (0.0-0.1) 10^3/u L Nucleated RBC % (a uto) % Nucleated RBCs # /100WBC PT 15.90 H (12.1-14.9) SECO NDS INR 1.24 H (0.8-1.2) APTT 40.7 H (23.9-36.7) SECO NDS D-Dimer 1.70 H (0-0.59) ug/mIFE U Sodium (136-145) mmol/L Potassium (3.5-5.1) mmol/L Chloride (98-107) mmol/L Carbon Dioxide (22-29) mmol/L Anion Gap (5-19) BUN (8-23) mg/dL Creatinine (0.5-0.9) mg/dL GFR Calculation (90-130) mL/min Glucose (65-115) mg/dL Calculated Osmolal ity (285-295) mOsm/k g Calcium (8.5-10.5) mg/dL Total Bilirubin (0.15-1.2) mg/dL AST (0-32) U/L ALT (0-33) U/L Alkaline Phosphata se (35-105) IU/L Troponin T Baselin e Cancelled NT-Pro-B Natriuret Pep > 47504 H (0-125) pg/mL Total Protein (6.6-8.7) g/dL Albumin (3.5-5.2) g/dL Globulin (1.3-4.6) g/dL Imaging Data^: CXR: Attestation: I personally reviewed and interpreted this imaging study as follows: Radiologist's impression: FINDINGS: Status post sternotomy with coronary artery bypass surgery. Significant enlargement of the heart. Prominence of the central pulmonary arteries with rapid tapering of the more peripheral pulmonary artery vessels. There are chronic interstitial changes in both lungs. There appear to be Coco Blines in the peripheral right lower lung which are not readily identifiable on the 03/02/2021 exam. There is accentuation of the minor fissure compared to the previous examination which may be due to fluid. Degenerative changes in the mid and lower thoracic spine and shoulder joints. XR/XR chest 1V portable [id number] IMPRESSION: Equivocal interval change which may indicate early heart failure. Findings of pulmonary artery hypertension. EKG Data^: EKG 1: Attestation: I personally reviewed and interpreted this EKG as follows: EKG interpretation date: 03/07/21 EKG interpretation time: 10:47 Prior EKG tracings: available for review Interpretation: Sinus rhythm with borderline left axis deviation moderate interventricular conduction delay. Nonspecific ST deviation and changes. Concerning for possible lateral ischemia. Heart rate 87 chronic abnormal EKG Discharge Plan Discharge Patient Disposition: Admitted As Inpatient Clinical Impression: Chest pain, Acute CHF (congestive heart failure), Acute on chronic kidney failure, Pulmonary hypertension, Acute hyperkalemia Condition: Stable Prescriptions: No Action Eliquis 2.5 mg tablet 2.5 mg PO BID RF: 0 levothyroxine [Synthroid] 25 mcg tablet 25 mcg PO QAM RF: 0 atorvastatin 80 mg tablet 80 mg PO DAILY RF: 0 clopidogrel 75 mg tablet 75 mg PO DAILY RF: 0 acetaminophen 325 mg Tablet 650 mg PO Q6H PRN (Reason: Pain) RF: 0 albuterol sulfate 2.5 mg /3 mL (0.083 %) Solution For Nebulization 2.5 mg inhalation Q8H PRN (Reason: Shortness Of Breath) RF: 0 ondansetron HCl [Zofran] 4 mg Tablet 4 mg PO Q8H PRN (Reason: Nausea) RF: 0 melatonin 3 mg Tablet 9 mg PO BEDTIME PRN (Reason: Sleep) RF: 0 sevelamer carbonate 800 mg Tablet 1,600 mg PO TID RF: 0 trazodone 50 mg Tablet 50 mg PO BEDTIME RF: 0 desoximetasone 0.05 % cream See Rx Instructions .ROUTE .COMPLEX RF: 0 hydrocodone-acetaminophen 5-325 mg tablet 1 tab PO DAILY MDD 1 TAB PRN (Reason: Pain) RF: 0 pantoprazole 40 mg Tablet,Delayed Release (Dr/Ec) 40 mg PO DAILY RF: 0 aspirin 81 mg Tablet,Chewable 81 mg PO DAILY Qty: 0 RF: 0 carvedilol 12.5 mg tablet 12.5 mg PO BID RF: 0 Zyrtec 10 mg Tablet 10 mg PO DAILY RF: 0 calcium acetate(phosphat bind) 667 mg Tablet 2,668 mg PO TID RF: 0 triamcinolone acetonide 0.025 % Cream 1 applic TOPICAL DAILY RF: 0 calcitriol 0.5 mcg Capsule 0.5 mcg PO .EVERY THIRD DAY RF: 0 darbepoetin lucas-albumin 60 mcg/mL Solution See Rx Instructions .ROUTE .COMPLEX RF: 0 cholecalciferol (vitamin D3) 1,250 mcg (50,000 unit) Capsule 50,000 unit PO Q7D RF: 0 calcipotriene 0.005 % cream See Rx Instructions .ROUTE .COMPLEX RF: 0 lidocaine 5 % ointment See Rx Instructions .ROUTE .COMPLEX RF: 0 nitroglycerin [Nitrostat] 0.4 mg Tablet, Sublingual 0.4 mg SUBLINGUAL Q5M PRN (Reason: Chest Pain) RF: 0 gabapentin 100 mg Capsule 200 mg PO BEDTIME RF: 0 albuterol sulfate [ProAir HFA] 90 mcg/actuation Hfa Aerosol Inhaler 2 puff INHALATION Q6H PRN (Reason: Shortness Of Breath) RF: 0 Referrals: ROCHELLE EMMANUEL MD [Primary Care Provider] - Coding Level of Care Code ED Adjunct Business Instructor for Chg Fwd Exam Comprehensive
--- NOTE | 2021-03-07 12:22 | ECG_ITS ---
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 Measurements Intervals [place] Rate: 78 P: 147 KS: 191 QRS: 124 QRSD: 124 T: 151 QT: 407 QTc: 466 Interpretive Statements ECTOPIC ATRIAL RHYTHM POSSIBLE LEFT ATRIAL ENLARGEMENT [-0.1mV P WAVE IN V1/V2] POSSIBLE RIGHT VENTRICULAR HYPERTROPHY [SOME/ALL OF: PROMINENT R IN V1, LATE TRANSITION, RAD, MIKE, SSS] MODERATE ST DEPRESSION [0.05+ mV ST DEPRESSION] Compared to ECG 03/07/2021 10:47:34 Ectopic atrial rhythm now present ST (T wave) deviation now present Sinus rhythm no longer present Intraventricular conduction delay no longer present T-wave abnormality no longer present Possible ischemia no longer present Electronically Signed On 03-22-2021 10:11:44 CDT by Tamie Brand M.D. [id number]
[2021-03-07 12:24] LABS: Basophils % 0.5 %; Eosinophils # 0.1 10^3/uL (0.0-0.8); Eosinophils % 2.2 %; Hematocrit 28.9 % (37.0-47.0); Hemoglobin 8.8 g/dL (11.5-15.3); Lymphocytes # 0.8 10^3/uL (0.8-4.8); Lymphocytes % 12.9 %; Mean Corpuscular HGB Conc 30.4 g/dL (30.0-36.0); Mean Corpuscular Hemoglobin 30.9 pg (28.0-34.0); Mean Corpuscular Volume 101.4 fL (81-99); Mean Platelet Volume 11.2 fL (7.4-10.4); Monocytes # 0.4 10^3/uL (0.2-0.9); Neutrophils # 4.88 10^3/uL (1.8-7.7); Neutrophils % 77.4 %; Nucleated Red Blood Cells % 0 %; Platelet Count 184 10^3/cmm (130-400); Red Blood Count 2.85 10^6/uL (4.1-5.3); Red Cell Distribution Width 14.6 % (12.1-15.1); White Blood Count 6.3 10^3/uL (4.0-10.0)
[2021-03-07 12:34] LABS: Alanine Aminotransferase 15 U/L (0-33); Albumin Level 3.4 g/dL (3.5-5.2); Alkaline Phosphatase 134 IU/L (35-105); Anion Gap 18.5 (5-19); Aspartate Amino Transferase 25 U/L (0-32); Blood Urea Nitrogen 46 mg/dL (8-23); Calcium 8.5 mg/dL (8.5-10.5); Carbon Dioxide 25 mmol/L (22-29); Chloride 100 mmol/L (98-107); Globulin 3.2 g/dL (1.3-4.6); Glomerular Filtration Rate 5.7 mL/min (90-130); Glucose 72 mg/dL (65-115); Osmolality Calculated 296 mOsm/kg (285-295); Potassium 5.5 mmol/L (3.5-5.1); Sodium 138 mmol/L (136-145); Total Bilirubin 0.7 mg/dL (0.15-1.2); Total Protein 6.6 g/dL (6.6-8.7)
[2021-03-07 12:43] LABS: INR 1.24 (0.8-1.2)
[2021-03-07 12:44] LABS: Partial Thromboplastin Time 40.7 SECONDS (23.9-36.7)
[2021-03-07] MEDS: nitroglycerin 1 gm/inch oint Pkt 0.5 INCH TOPICAL (13:02)
[2021-03-07] MEDS: aspirin 81 mg Chew Tablet 324 MG PO (13:02)
[2021-03-07 13:43] LABS: NT Pro B Type Natriuretic Pept > 70000 pg/mL (0-125)
--- NOTE | 2021-03-07 13:48 | PC.PHAR ---
PT UNABLE TO VERIFY MEDICATIONS-PT BROUGHT IN A MED LIST FROM [facility] DATED 02/27/21-MEDICATIONS ENTERED ARE MEDS FROM THE MED LIST FROM [facility],EXT MED HISTORY AND FROM PREVIOUS ENTERED MED LIST-A PREVIOUS ENTERED MED LIST HAD MINOXIDIL,MIRTAZAPINE,RENAL VITAMINS THOSE MEDICATIONS WERE NOT ON THE MED LIST FROM [facility]-NOTES ARE MADE IN THE PHARMACY COMMENTS ON RXS-PTS MED LIST FROM [facility] HAS COREG 3.125MG DCED-EXT MED HISTORY SHOWS 12.5MG BID FILLED ON 02/14/21 30D/S-[facility] LIST HAS CALCITRIOL EXT MED HISTORY DOESNT SHOW WHEN THAT HAS BEEN FILLED-
--- NOTE | 2021-03-07 14:59 | PM.HP ---
Providers/Chief Complaint Primary Care Provider: ROCHELLE EMMANUEL MD Chief Complaint: CHEST PAIN History of Present Illness Amanda Ha is a 66 year old female who has established history of coronary disease, anterior disease, hypertension, dyslipidemia, recently had a stent placement in RCA at outside hospital in [place], underwent emergent angiogram during her last admission with thrombectomy followed by balloon angioplasty and drug-eluting stent. She was complaining of chest pain after her angiogram as well consideration was being given to pleuritic pain for which she received Toradol she was advised to continue Plavix and Eliquis with instructions to hold aspirin presented today with chief complaint of recurrent chest pain and shortness of breath. Patient is stating that since her discharge she has been experiencing chest pain which she is describing as sharp stabbing pain left sternal border which gets worse on deep breathing and it is also reproducible. She has chronic sinusitis. Uses 2 to 3 L of oxygen at home. She has not taken aspirin or Plavix. Stating Plavix prescription was not sent to her pharmacy. She has taken Eliquis at home. No recent nausea, vomiting or diaphoresis. EKG showing nonspecific T wave changes in 1 aVL V5 and 6 Her chest pain is reproducible in the ER Troponins are pending Work-up is showing congestive heart failure Nephro consulted for dialysis today her last session was on Friday Dr. Watson consulted as well Review of Systems Const: Reports: chills, body aches and fatigue Eyes: Denies: change in vision ENMT: Denies: throat pain Card: Reports: dyspnea on exertion and orthopnea; Denies: chest pain Resp: Reports: dyspnea, pain on inspiration and chest congestion GI: Denies: abdominal pain : Denies: flank pain Musc: Denies: neck pain Skin/Breast: Reports: rash Neuro: Denies: headache(s) Psych: Denies: anxiety Endo: Denies: polyuria Hussein/Lymph: Reports: easy bruising All/Imm: Denies: urticaria Medications/Allergies Home Medications Medication Instructions Recorded Confirmed Last Taken Type apixaban 2.5 mg tablet 2.5 mg PO BID 08/18/19 03/07/21 03/02/21 History levothyroxine 25 mcg tablet 25 mcg PO QAM tab 08/18/19 03/07/21 03/02/21 History albuterol sulfate [ProAir HFA] 2 puff INHALATION Q6H PRN 10/11/19 03/07/21 1 Day Ago History ~09/28/20 gabapentin 200 mg PO BEDTIME 10/11/19 03/07/21 03/01/21 History nitroglycerin [Nitrostat] 0.4 mg SUBLINGUAL Q5M PRN 10/11/19 03/07/21 02/07/21 History atorvastatin 80 mg PO DAILY 12/06/19 03/07/21 03/01/21 History clopidogrel 75 mg PO DAILY 12/06/19 03/07/21 03/02/21 History acetaminophen 650 mg PO Q6H PRN 01/16/20 03/07/21 Unknown History albuterol sulfate 2.5 mg INHALATION Q8H PRN 01/16/20 03/07/21 1 Day Ago History ~09/28/20 melatonin 9 mg PO BEDTIME PRN 01/16/20 03/07/21 02/06/21 History ondansetron HCl [Zofran] 4 mg PO Q8H PRN 01/16/20 03/07/21 Unknown History sevelamer carbonate 1,600 mg PO TID 01/16/20 03/07/21 03/02/21 History trazodone 50 mg PO BEDTIME 03/10/20 03/07/21 03/01/21 History aspirin 81 mg PO DAILY #0 02/07/21 03/07/21 03/02/21 History desoximetasone See Rx Instructions .ROUTE .COMPLEX 02/07/21 03/07/21 Unknown History hydrocodone-acetaminophen 1 tab PO DAILY PRN MDD 1 TAB 02/07/21 03/07/21 Unknown History pantoprazole 40 mg PO DAILY 02/07/21 03/07/21 03/01/21 History calcipotriene See Rx Instructions .ROUTE .COMPLEX 03/07/21 03/07/21 Unknown History calcitriol 0.5 mcg PO .EVERY THIRD DAY 03/07/21 03/07/21 Unknown History calcium acetate(phosphat bind) 2,668 mg PO TID 03/07/21 03/07/21 Unknown History carvedilol 12.5 mg PO BID 03/07/21 03/07/21 Unknown History cetirizine [Zyrtec] 10 mg PO DAILY 03/07/21 03/07/21 Unknown History cholecalciferol (vitamin D3) 50,000 unit PO Q7D 03/07/21 03/07/21 Unknown History darbepoetin lucas-albumin See Rx Instructions .ROUTE .COMPLEX 03/07/21 03/07/21 Unknown History lidocaine See Rx Instructions .ROUTE .COMPLEX 03/07/21 03/07/21 Unknown History triamcinolone acetonide 1 applic TOPICAL DAILY 03/07/21 03/07/21 Unknown History Allergies Allergy/AdvReac Type Severity Reaction Status Date / Time adhesive Allergy Unknown Verified 03/02/21 13:07 codeine Allergy Unknown Verified 03/02/21 13:07 duloxetine [From Cymbalta] Allergy Unknown Verified 03/02/21 13:07 PFSH Acute PFSH: Medical History (Updated 03/07/21 @ 16:40 by Lupe Lee MD) Anemia Anticoagulation adequate with anticoagulant therapy Atrial fibrillation Chronic bronchitis Chronic chest pain Chronic diarrhea Chronic pain disorder Coronary artery disease Diabetes Diastolic heart failure Diverticulitis Dizziness Emphysema of lung End-stage renal disease on hemodialysis Fibromyalgia Generalized anxiety disorder GERD (gastroesophageal reflux disease) Hyperbilirubinemia Hypertension Elevated but stable Hypothyroidism Irritable bowel syndrome Low back pain Major depressive disorder, recurrent severe without psychotic features Noncompliance Osteoarthritis of left knee Post-traumatic stress disorder, chronic Right leg swelling Sleep apnea Venous insufficiency Surgical History AVF (arteriovenous fistula) History of appendectomy History of cholecystectomy History of common carotid artery stent placement S/P hemodialysis catheter insertion Stented coronary artery PCI to mid LAD in December 2018 Family History Other CAD (coronary artery disease) Social History Smoking and tobacco status: former smoker Quit status (tobacco): has quit using tobacco Year quit tobacco: 2009 Second hand smoke exposure: Yes Smoking risk assessment/counseling performed?: No Alcohol intake: never Lives independently: Yes Household members: children and other Details: son, cousin Vitals/I&O/Wt Last Vital Signs Temp 98.5 F 03/07/21 12:48 Pulse 89 03/07/21 12:48 Resp 17 03/07/21 12:48 BP 127/79 03/07/21 12:48 Pulse Ox 95 03/07/21 12:48 Weight last 48 hrs Weight 92.533 kg Physical Exam Narrative: EXAM NARRATIVE: male who was sitting in a chair when entered the room Was saturating well on 3 to nasal cannula Her chest pain is reproducible Normal hemodynamically S1, S2 congestive heart failure signs Crackles at the bases of lung bilaterally Abdomen soft distended with obesity no signs of peritonitis EOMI, PERRLA GCS 15 no neurological deficits No joint swelling No sign of ischemia gangrene or ulcer Data : 03/07/21 11:35 03/07/21 11:35 A&P Assessment and plan (1) Atypical chest pain: Status: Acute (2) Acute CHF (congestive heart failure): Status: Acute (3) Acute hyperkalemia: Status: Acute (4) Volume overload: Status: Acute Additional A&P Information Atypical chest pain Chest pain is reproducible, constant sharp stabbing pain gets worse on deep breathing Might benefit from anti-inflammatory EKG showing T wave changes lead I, aVL, V5, V6 Troponin pending Dr. Watson consulted, will follow up with his recommendations I would hold off on starting ACS protocol for now Patient has not taken aspirin Plavix in last 2 days stating Plavix prescription was not sent and aspirin was instructed to be stopped, she has taken her Eliquis at home Acute exacerbation of preserved ejection fraction heart failure Volume overloaded Started on Bumex however patient does not make enough urine Hemodialysis today: Dr. Dos Santos consulted Chest x-ray consistent with pulmonary edema Hyperkalemia: Anticipate improvement after dialysis Oxygen dependent COPD Oxygen requirement has not increased she saturating well on 3L nasal cannula, status post Covid infection, status post 2 doses of moderna vaccine Full code Cardiac diet DVT prophylaxis not needed currently on Eliquis Attestations Medical Necessity Statement*: Anticipating discharge within 48 hours Time Spent in Patient Care: 16 - 35 minutes Coding Level of Care Code Acute Bible Teacher for Hector Hutchins Diagnoses Atypical chest pain R07.89 Acute CHF (congestive heart failure) I50.9 Acute hyperkalemia E87.5 Volume overload E87.70
--- NOTE | 2021-03-07 15:09 | PM.CONSULT ---
Providers/Reason For Consult Consulting Physician/Specialty*: Nephrology Reason for Consult*: ESRD mgmt Primary Care Provider: ROCHELLE EMMANUEL MD History of Present Illness History of Present Illness Ms. Ha comes back to the hospital with substernal chest pain. The pain is similar to the discomfort that she had on Friday at the time of her discharge. Is persistent, nonradiating, no associated features of nausea, vomiting, diaphoresis etc. During her recent hospitalization she had a thrombectomy followed by balloon angioplasty and drug-eluting stent placement. She did receive dialysis on Friday as mentioned, well-known to our team, receiving dialysis on Friday, Friday and Friday. No recent access issues. She has some slight shortness of breath today but is maintaining her oxygen on room air. Mild lower extremity edema. No uremic symptoms. Review of Systems Narrative: ROS - 12 point review of systems completed per HPI and subjective assessment, this includes Constitutional: No weakness, fatigue Respiratory: No SOB on exertion, comfortable at rest CardioVasc: Some chest pain, no palpitations Gastrointestinal: No nausea, no vomiting Neurological: No seizures, no AMS Derm: No new rashes, lesions or wounds Immunological: No seasonal and no food allergies Meds/Allergies Home Medications and Allergies Home Medications Medication Instructions Recorded Confirmed Last Taken Type apixaban 2.5 mg tablet 2.5 mg PO BID 08/18/19 03/07/21 03/02/21 History levothyroxine 25 mcg tablet 25 mcg PO QAM tab 08/18/19 03/07/21 03/02/21 History albuterol sulfate [ProAir HFA] 2 puff INHALATION Q6H PRN 10/11/19 03/07/21 1 Day Ago History ~09/28/20 gabapentin 200 mg PO BEDTIME 10/11/19 03/07/21 03/01/21 History nitroglycerin [Nitrostat] 0.4 mg SUBLINGUAL Q5M PRN 10/11/19 03/07/21 02/07/21 History atorvastatin 80 mg PO DAILY 12/06/19 03/07/21 03/01/21 History clopidogrel 75 mg PO DAILY 12/06/19 03/07/21 03/02/21 History acetaminophen 650 mg PO Q6H PRN 01/16/20 03/07/21 Unknown History albuterol sulfate 2.5 mg INHALATION Q8H PRN 01/16/20 03/07/21 1 Day Ago History ~09/28/20 melatonin 9 mg PO BEDTIME PRN 01/16/20 03/07/21 02/06/21 History ondansetron HCl [Zofran] 4 mg PO Q8H PRN 01/16/20 03/07/21 Unknown History sevelamer carbonate 1,600 mg PO TID 01/16/20 03/07/21 03/02/21 History trazodone 50 mg PO BEDTIME 03/10/20 03/07/21 03/01/21 History aspirin 81 mg PO DAILY #0 02/07/21 03/07/21 03/02/21 History desoximetasone See Rx Instructions .ROUTE .COMPLEX 02/07/21 03/07/21 Unknown History hydrocodone-acetaminophen 1 tab PO DAILY PRN MDD 1 TAB 02/07/21 03/07/21 Unknown History pantoprazole 40 mg PO DAILY 02/07/21 03/07/21 03/01/21 History calcipotriene See Rx Instructions .ROUTE .COMPLEX 03/07/21 03/07/21 Unknown History calcitriol 0.5 mcg PO .EVERY THIRD DAY 03/07/21 03/07/21 Unknown History calcium acetate(phosphat bind) 2,668 mg PO TID 03/07/21 03/07/21 Unknown History carvedilol 12.5 mg PO BID 03/07/21 03/07/21 Unknown History cetirizine [Zyrtec] 10 mg PO DAILY 03/07/21 03/07/21 Unknown History cholecalciferol (vitamin D3) 50,000 unit PO Q7D 03/07/21 03/07/21 Unknown History darbepoetin lucas-albumin See Rx Instructions .ROUTE .COMPLEX 03/07/21 03/07/21 Unknown History lidocaine See Rx Instructions .ROUTE .COMPLEX 03/07/21 03/07/21 Unknown History triamcinolone acetonide 1 applic TOPICAL DAILY 03/07/21 03/07/21 Unknown History Allergies Allergy/AdvReac Type Severity Reaction Status Date / Time adhesive Allergy Unknown Verified 03/02/21 13:07 codeine Allergy Unknown Verified 03/02/21 13:07 duloxetine [From Cymbalta] Allergy Unknown Verified 03/02/21 13:07 PFSH Acute PFSH: Medical History Altered mental status Anemia Anticoagulation adequate with anticoagulant therapy Atrial fibrillation Carotid artery disease Chronic bronchitis Chronic chest pain Chronic diarrhea Chronic kidney disease Chronic pain disorder Coronary artery disease Coronary artery disease Diabetes Diastolic heart failure Diverticulitis Dizziness Dizziness Elevated troponin Emphysema of lung End-stage renal disease on hemodialysis Fibromyalgia Generalized anxiety disorder GERD (gastroesophageal reflux disease) Hyperbilirubinemia Hypertension Elevated but stable Hypothyroidism Irritable bowel syndrome Low back pain Major depressive disorder, recurrent severe without psychotic features Non-STEMI (non-ST elevated myocardial infarction) Noncompliance Osteoarthritis of left knee Post-traumatic stress disorder, chronic Right leg swelling Sleep apnea Unstable angina pectoris Urinary tract infection Venous insufficiency Surgical History AVF (arteriovenous fistula) History of appendectomy History of cholecystectomy History of common carotid artery stent placement S/P hemodialysis catheter insertion Stented coronary artery PCI to mid LAD in December 2018 Family History Other CAD (coronary artery disease) Social History Smoking and tobacco status: former smoker Quit status (tobacco): has quit using tobacco Year quit tobacco: 2009 Second hand smoke exposure: Yes Smoking risk assessment/counseling performed?: No Alcohol intake: never Lives independently: Yes Household members: children and other Details: son, cousin Vitals/I&O/Wt Last Vital Signs Temp 98.5 F 03/07/21 12:48 Pulse 89 03/07/21 12:48 Resp 17 03/07/21 12:48 BP 127/79 03/07/21 12:48 Pulse Ox 95 03/07/21 12:48 Weight last 48 hrs Weight 92.533 kg Physical Exam Narrative: EXAM NARRATIVE: Constitutional: Awake, comfortable HEENT: Wet mucosa, no jvp, non icteric Lungs: Bilaterally clear without discernible wheeze, rales in all lung zones CVS: S1 S2, no murmurs Abdo: Soft, BS ok Ext 4: Minimal edema, peripheral perfusion with no cyanosis Neurological: Grossly non-focal A&P Additional A&P Information 1. ESRD Given anticipated delay in getting her admitted, I will schedule her for dialysis tomorrow morning. I will be available throughout the night tonight in case she develops flash pulmonary edema. Tomorrow I will run her on 2K bath with ultrafiltration 3-4 L. Continue MWF schedule otherwise. Dose medication for GFR less than 15 on dialysis 2. Chest pain Management per cardiology, this was similar discomfort what she had on Friday time for discharge. Recent thrombectomy, angioplasty and stent placement, she remains on Eliquis, aspirin, Plavix. 3. Electrolytes Mild hyperkalemia, no treatment necessary, I will bring this down with dialysis tomorrow. Otherwise chemistry looks fine. 4. Anemia of ESRD If she remains in the hospital for more than a few days, check iron levels and give EPO, if this is an anticipated brief admission, she can receive iron and EPO as part of standard outpatient monthly dialysis management. Erich Alvarez MD Nephrology [phone] Patient seen and examined via telemedicine, with the assistance of the bedside RN > 25 min spent in evaluation and mgmt of patient Coding Level of Care Code Acute Supervisor Order Takers for Hector Hutchins
[2021-03-07 17:20] LABS: Troponin(5th) Baseline > 10000 ng/L (0-10)
--- NOTE | 2021-03-07 17:40 | PM.CONSULT ---
Providers/Reason For Consult Consulting Physician/Specialty*: MARV Watson MD/cardiology Reason for Consult*: Patient with chest pain and elevated troponin T Requesting Physician: Dr. Pena Primary Care Provider: ROCHELLE EMMANUEL MD History of Present Illness History of Present Illness Amanda Ha is a 66 year old female, is admitted to the hospital through the emergency room where she presented with complaints of chest pain and shortness of breath. Patient is a very poor historian. She appeared to be very drowsy at the time of my examination. Information is partly from the patient and also from the medical records and the medical staff. This patient was discharged in the hospital on the (2 days ago) from this hospital where she was admitted with a features of an acute inferior wall myocardial infarction. Prior to this, she was admitted to the [facility] where she underwent PCI of the right coronary artery. Repeat cardiac origination of her hospital revealed acute thrombosis of the right coronary artery. She underwent repeat PCI of the RCA by Dr. Bertrand. During the post procedure., She was complaining of pleuritic type of chest pain. She responded to anti-inflammatory and pain medications. She was discharged home in stable condition. According the patient, she started having chest pain around 4:00 this morning. She described as a sharp pain, get worse with deep inspiration. She may have a dull aching pain as well. She had associated shortness of breath. No nausea or vomiting. No fever, chills or cough. The pain was across the chest. No other radiation. Patient is known to have chronic kidney disease and is on hemodialysis. She is scheduled for dialysis today. Her creatinine was found to be around 7. He has a history of coronary disease and coronary bypass surgery. She apparently had a OSBORN to the LAD, venous graft to the diagonal artery. Cardiac colorization on the of this month in our hospital revealed patent OSBORN to the LAD and venous graft to the diagonal branch. She had mild to moderate diffuse disease in the circumflex artery. One of the obtuse marginal vessels were found to have around 60 to 70% lesion. The right coronary artery was found to be extensively stented. The patient, she was not taking the Plavix since the hospital discharge. Her explanation was that she did not have a prescription?. Her complaints medications questionable. She is also known to have chronic intermittent atrial fibrillation and is on long-term oral anticoagulation. She was discharged home on Plavix and Eliquis. At the time of my examination, patient is pain-free. Review of Systems Narrative: CONSTITUTIONAL: No fever or chills. EYES: No blurring of vision or other visual disturbances lately. ENT: No hoarseness of voice, auditory disturbances or sore throat. CARDIOVASCULAR: As mentioned above. RESPIRATORY: No significant cough. GASTROINTESTINAL: No hematemesis or melena. GENITOURINARY: No dysuria or hematuria. INTEGUMENTARY: No skin rashes or history of skin cancer. NEURO: History of neuropathy PSYCHIATRIC: No history of psychosis or major depression. HEMATOLOGIC: No bleeding disorders or significant anemia. ENDOCRINE: History of hypothyroidism MUSCULOSKELETAL: History of chronic pain ALLERGY/IMMUNOLOGY: As mentioned above. Meds/Allergies Home Medications and Allergies Home Medications Medication Instructions Recorded Confirmed Last Taken Type apixaban 2.5 mg tablet 2.5 mg PO BID 08/18/19 03/07/21 03/02/21 History levothyroxine 25 mcg tablet 25 mcg PO QAM tab 08/18/19 03/07/21 03/02/21 History albuterol sulfate [ProAir HFA] 2 puff INHALATION Q6H PRN 10/11/19 03/07/21 1 Day Ago History ~09/28/20 gabapentin 200 mg PO BEDTIME 10/11/19 03/07/21 03/01/21 History nitroglycerin [Nitrostat] 0.4 mg SUBLINGUAL Q5M PRN 10/11/19 03/07/21 02/07/21 History atorvastatin 80 mg PO DAILY 12/06/19 03/07/21 03/01/21 History clopidogrel 75 mg PO DAILY 12/06/19 03/07/21 03/02/21 History acetaminophen 650 mg PO Q6H PRN 01/16/20 03/07/21 Unknown History albuterol sulfate 2.5 mg INHALATION Q8H PRN 01/16/20 03/07/21 1 Day Ago History ~09/28/20 melatonin 9 mg PO BEDTIME PRN 01/16/20 03/07/21 02/06/21 History ondansetron HCl [Zofran] 4 mg PO Q8H PRN 01/16/20 03/07/21 Unknown History sevelamer carbonate 1,600 mg PO TID 01/16/20 03/07/21 03/02/21 History trazodone 50 mg PO BEDTIME 03/10/20 03/07/21 03/01/21 History aspirin 81 mg PO DAILY #0 02/07/21 03/07/21 03/02/21 History desoximetasone See Rx Instructions .ROUTE .COMPLEX 02/07/21 03/07/21 Unknown History hydrocodone-acetaminophen 1 tab PO DAILY PRN MDD 1 TAB 02/07/21 03/07/21 Unknown History pantoprazole 40 mg PO DAILY 02/07/21 03/07/21 03/01/21 History calcipotriene See Rx Instructions .ROUTE .COMPLEX 03/07/21 03/07/21 Unknown History calcitriol 0.5 mcg PO .EVERY THIRD DAY 03/07/21 03/07/21 Unknown History calcium acetate(phosphat bind) 2,668 mg PO TID 03/07/21 03/07/21 Unknown History carvedilol 12.5 mg PO BID 03/07/21 03/07/21 Unknown History cetirizine [Zyrtec] 10 mg PO DAILY 03/07/21 03/07/21 Unknown History cholecalciferol (vitamin D3) 50,000 unit PO Q7D 03/07/21 03/07/21 Unknown History darbepoetin lucas-albumin See Rx Instructions .ROUTE .COMPLEX 03/07/21 03/07/21 Unknown History lidocaine See Rx Instructions .ROUTE .COMPLEX 03/07/21 03/07/21 Unknown History triamcinolone acetonide 1 applic TOPICAL DAILY 03/07/21 03/07/21 Unknown History Allergies Allergy/AdvReac Type Severity Reaction Status Date / Time adhesive Allergy Unknown Verified 03/02/21 13:07 codeine Allergy Unknown Verified 03/02/21 13:07 duloxetine [From Cymbalta] Allergy Unknown Verified 03/02/21 13:07 PFSH Acute PFSH: Medical History (Updated 03/08/21 @ 18:38 by Lupe Lee MD) Anemia Anticoagulation adequate with anticoagulant therapy Atrial fibrillation Chronic bronchitis Chronic chest pain Chronic diarrhea Chronic pain disorder Coronary artery disease Diabetes Diastolic heart failure Diverticulitis Dizziness Emphysema of lung End-stage renal disease on hemodialysis Fibromyalgia Generalized anxiety disorder GERD (gastroesophageal reflux disease) Hyperbilirubinemia Hypertension Elevated but stable Hypotension Hypothyroidism Irritable bowel syndrome Low back pain Major depressive disorder, recurrent severe without psychotic features Noncompliance Osteoarthritis of left knee Post-traumatic stress disorder, chronic Right leg swelling Sleep apnea Venous insufficiency Surgical History AVF (arteriovenous fistula) History of appendectomy History of cholecystectomy History of common carotid artery stent placement S/P hemodialysis catheter insertion Stented coronary artery PCI to mid LAD in December 2018 Family History Other CAD (coronary artery disease) Social History Smoking and tobacco status: former smoker Quit status (tobacco): has quit using tobacco Year quit tobacco: 2009 Second hand smoke exposure: Yes Smoking risk assessment/counseling performed?: No Alcohol intake: never Lives independently: Yes Household members: children and other Details: son, cousin Vitals/I&O/Wt Last Vital Signs Temp 98.5 F 03/07/21 12:48 Pulse 68 03/07/21 17:00 Resp 15 03/07/21 17:00 BP 128/89 03/07/21 17:00 Pulse Ox 94 03/07/21 17:00 Weight last 48 hrs Weight 204 lb Physical Exam Narrative: EXAM NARRATIVE: GENERAL: The patient is very drowsy. Not in any acute distress. HEENT: Normal pallor. No icterus or lymphadenopathy. The pupils are reactant to light. Oral cavity: There are no mucous membrane lesions. Funduscopic examination: Fundus is not visualized NECK: Trachea appears to be central. No masses noted. No JVD or thyromegaly appreciated. No carotid bruit. RESPIRATORY: Chest is symmetrical. No intercostals muscle retraction or any accessory muscle activation. There is no chest wall tenderness. Breath sounds are heard bilaterally. No rales or rhonchi heard. No evidence of any consolidation. BREASTS: Deferred. HEART: The PMI could not be palpated no palpable precordial events. S1 and S2 are normal. No S3 or S4 heard. No pericardial rub or any click heard. Short systolic murmur at the base of the heart. No diastolic murmurs. ABDOMEN: No vessel pulsations or distention. No tenderness. No organomegaly appreciated. No abdominal bruit. Bowel sounds are normally heard. : Deferred. RECTAL: Deferred. LYMPHATIC: No lymphadenopathy noted in the neck or groin. EXTREMITIES: 1+ edema both lower extremities. No cyanosis. Peripheral pulses are weak bilaterally. MUSCULOSKELETAL: No acute joint deformities or swelling SKIN: There features of chronic venous stasis bilaterally NEUROPSYCHIATRIC: No focal motor deficits. Data Labs: Other Labs: Laboratory Last Values WBC 6.3 10^3/uL (4.0- 10.0) 03/07/21 11:35 RBC 2.85 10^6/uL (4.1 -5.3) L 03/07/21 11:35 Hgb 8.8 g/dL (11.5-15 .3) L 03/07/21 11:35 Hct 28.9 % (37.0-47.0 ) L 03/07/21 11:35 MCV 101.4 fL (81-99) H 03/07/21 11:35 MCH 30.9 pg (28.0-34. 0) 03/07/21 11:35 MCHC 30.4 g/dL (30.0-3 6.0) 03/07/21 11:35 RDW 14.6 % (12.1-15.1 ) 03/07/21 11:35 Plt Count 184 10^3/cmm (130 -400) 03/07/21 11:35 MPV 11.2 fL (7.4-10.4 ) H 03/07/21 11:35 Neut % (Auto) 77.4 % 03/07/21 11:35 Lymph % (Auto) 12.9 % 03/07/21 11:35 Coleman % (Auto) 6.0 % 03/07/21 11:35 Eos % (Auto) 2.2 % 03/07/21 11:35 Baso % (Auto) 0.5 % 03/07/21 11:35 Neut # (Auto) 4.88 10^3/uL (1.8 -7.7) 03/07/21 11:35 Lymph # (Auto) 0.8 10^3/uL (0.8- 4.8) 03/07/21 11:35 Coleman # (Auto) 0.4 10^3/uL (0.2- 0.9) 03/07/21 11:35 Eos # (Auto) 0.1 10^3/uL (0.0- 0.8) 03/07/21 11:35 Baso # (Auto) 0.0 10^3/uL (0.0- 0.1) 03/07/21 11:35 Nucleated RBC % (a uto) 0 % 03/07/21 11:35 Nucleated RBCs # 0.0 /100WBC 03/07/21 11:35 PT 15.90 SECONDS (12 .1-14.9) H 03/07/21 11:35 INR 1.24 (0.8-1.2) H 03/07/21 11:35 APTT 40.7 SECONDS (23. 9-36.7) H 03/07/21 11:35 D-Dimer 1.70 ug/mIFEU (0- 0.59) H 03/07/21 11:35 Sodium 138 mmol/L (136-1 45) 03/07/21 11:35 Potassium 5.5 mmol/L (3.5-5 .1) H 03/07/21 11:35 Chloride 100 mmol/L (98-10 7) 03/07/21 11:35 Carbon Dioxide 25 mmol/L (22-29) 03/07/21 11:35 Anion Gap 18.5 (5-19) 03/07/21 11:35 BUN 46 mg/dL (8-23) H 03/07/21 11:35 Creatinine 7.1 mg/dL (0.5-0. 9) H* 03/07/21 11:35 GFR Calculation 5.7 mL/min (90-13 0) L 03/07/21 11:35 Glucose 72 mg/dL (65-115) 03/07/21 11:35 Calculated Osmolal ity 296 mOsm/kg (285- 295) H 03/07/21 11:35 Calcium 8.5 mg/dL (8.5-10 .5) 03/07/21 11:35 Total Bilirubin 0.7 mg/dL (0.15-1 .2) 03/07/21 11:35 AST 25 U/L (0-32) 03/07/21 11:35 ALT 15 U/L (0-33) 03/07/21 11:35 Alkaline Phosphata se 134 IU/L (35-105) H 03/07/21 11:35 Troponin T Baselin e > 94718 ng/L (0-1 0) H* 03/07/21 15:19 Troponin T 120 Min sokaogon Cancelled 03/07/21 17:19 Delta Troponin T Cancelled 03/07/21 17:19 NT-Pro-B Natriuret Pep > 94774 pg/mL (0- 125) H 03/07/21 11:35 Total Protein 6.6 g/dL (6.6-8.7 ) 03/07/21 11:35 Albumin 3.4 g/dL (3.5-5.2 ) L 03/07/21 11:35 Globulin 3.2 g/dL (1.3-4.6 ) 03/07/21 11:35 Imaging^: Myocardial perfusion imaging: My impression: MPI done on 02/08/2021 1. Myocardial perfusion may revealing a moderate area of decreased uptake in the inferior, inferolateral, apical and neha septal regions with some reversibility in the inferior and anteroseptal region, suggestive of myocardial scarring in the distribution of the RCA/left circumflex artery with some areas of ischemia in the distribution of the right coronary artery and left anterior descending artery. 2. Normal LV ejection fraction 51%. 3. LV wall motion analysis revealing mild diffuse hypokinesia of the septum and the LV apex. 4. Mildly dilated LV cavity with an end-systolic volume of 87 mL. Because of the difference in the technical quality comparison with the previous study from 06/24/2019 is difficult. The extent of myocardial scarring appears to be less with improved LV ejection fraction. Echo: My impression: Mildly dilated LV cavity. Severe diffuse hypokinesia of the inferior wall. Ejection fraction around 50%.(visual). Grade III/IV diastolic dysfunction (restrictive filling pattern), severely elevated filling pressures. Possibly severe mitral valve regurgitation. Moderately increased left atrial size. Thickened mitral valve. Moderate mild mitral annular calcification Thickened aortic valve. There is no pericardial effusion. There are no intracardiac masses. Compared to the study from 02/08/2021, the possibility severe mitral regurgitation appears to be new A&P Assessment and plan (1) Non-ST elevation myocardial infarction (NSTEMI): Patient is a markedly elevated troponin T is consistent with non-ST elevation myocardial infarction. Is very possible that she might have occluded the right coronary artery -in view of the fact that she was not taking the Plavix and echocardiogram evidence of severe hypokinesis of the inferior wall. She is fairly stable hemodynamically at this time. In view of the recurrent occlusion of this artery with no new EKG changes and also in the absence of any chest pain at this time, it may be appropriate to continue the medical treatment for the time being. Her blood pressure Is relatively low. She needs to be carefully hydrated Status: Acute (2) Atypical chest pain: Her chest pain is mostly pleuritic in nature. Currently she is asymptomatic. In view of the markedly elevated troponin T, she need to be on IV heparin and Plavix. Status: Acute (3) End-stage renal disease on hemodialysis: Hemodialysis as per schedule Status: Acute (4) Acute on chronic diastolic (congestive) heart failure: Status: Acute (5) Moderate to severe mitral regurgitation: This needs to be further evaluated. She may benefit from a MERA, to further evaluate the mitral valve. This may be performed once the patient's cardiovascular status is more stable. Status: Acute Additional A&P Information Other problems are #1 chronic anemia #2 COPD #3 morbid obesity #4 on long-term oral anticoagulation Based on the patient's clinical progress and the results of the above test, further recommendations will be made. Thank you for the opportunity to evaluate this patient make these recommendations I discussed the recommendations with Dr. Lee. Dr. 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
[2021-03-07] MEDS: heparin 5,000 unit/mL INJ 1 mL 4000 UNIT IVP (18:48)
[2021-03-07] MEDS: clopidogrel 300 mg Tablet PO (18:49)
--- NOTE | 2021-03-07 19:03 | USCV_ITS ---
Amanda Ha Age: 66 Gender: F : 1955 Exam Date: 03/07/2021 19:18 Ordering Phys: Lisa Watson MD ([email or web address]) Technologist: Exam Location: [facility] [place] Indication: SOB CHEST PAIN BP: 134 / 78 HR: 64 Rhythm: Sinus Technical Quality: Adequate MEASUREMENTS (Male / Female) Normal Values 2D ECHO LV Diastolic Diameter PLAX 6.0 cm 4.2 - 5.9 / 3.9 - 5.3 cm LV Systolic Diameter PLAX 4.5 cm IVS Diastolic Thickness 1.0 cm 0.6 - 1.0 / 0.6 - 0.9 cm IVS Systolic Thickness 1.8 cm LVPW Diastolic Thickness 1.2 cm 0.6 - 1.0 / 0.6 - 0.9 cm LVPW Systolic Thickness 1.3 cm LVOT Diameter 2.1 cm LV Ejection Fraction 2D Teich 47.4 % LV Ejection Fraction MOD 2C 52.9 % LV Ejection Fraction 2C AL 53.1 % LA Diameter 4.9 cm LA Width 5.9 cm LA Height 5.9 cm RA Width 4.6 cm RA Height 5.3 cm Aorta at Sinotubular Diameter 2.6 cm DOPPLER AV Peak Velocity 175.0 cm/s LVOT Peak Velocity 70.0 cm/s AV Area Cont Eq vti 1.6 cm squared AV Area Cont Eq pk 1.3 cm squared MV Area PHT 5.1 cm squared Mitral E to A Ratio 2.2 MV E' Velocity 89.0 cm/s Mitral E to MV E' Ratio 24.7 Mitral E to LV E' Lateral Ratio 24.0 Mitral E to LV E' Septal Ratio 25.5 TR Peak Velocity 209.0 cm/s TR Peak Gradient 17.5 mmHg TV Peak E Velocity 100.0 cm/s Right Atrial Pressure 3.0 mmHg Pulmonary Artery Systolic Pressu 20.5 mmHg FINDINGS Left Ventricle Mildly dilated LV cavity. Severe diffuse hypokinesia of the inferior wall. Ejection fraction around 50%.Grade III/IV diastolic dysfunction (restrictive filling pattern), severely elevated filling pressures. Right Ventricle Possibly of normal size and ejection fraction Right Atrium Possibly of normal size Left Atrium Moderately increased left atrial size. Mitral Valve Thickened mitral valve. Moderate mild mitral annular calcification. Possibly severe mitral valve regurgitation. Aortic Valve Thickened aortic valve. Tricuspid Valve Trace tricuspid valve regurgitation. Pulmonic Valve Pulmonic valve not well visualized. Pericardium No pericardial effusion. Aorta Normal aortic annulus size. CONCLUSIONS Mildly dilated LV cavity. Severe diffuse hypokinesia of the inferior wall. Ejection fraction around 50%.(visual). Grade III/IV diastolic dysfunction (restrictive filling pattern), severely elevated filling pressures. Possibly severe mitral valve regurgitation. Moderately increased left atrial size. Thickened mitral valve. Moderate mild mitral annular calcification Thickened aortic valve. There is no pericardial effusion. There are no intracardiac masses. Compared to the study from 02/08/2021, the possibility severe mitral regurgitation appears to be new Dr Lisa Watson MD [facility] (Electronically Signed) Final Date: 07 March 2021 20:36 S
[2021-03-08] VITALS (36 sets, daily range): BP systolic 84–180; BP diastolic 27–134; PULSE 58–82; RESP 12–35; TEMP 36.3–36.6; O2SAT 94–100
[2021-03-08] MEDS: gabapentin 100 mg Capsule 200 MG PO ×2 (01:40→21:28)
[2021-03-08] MEDS: carvedilol 25 mg Tablet 12.5 MG PO (01:40)
[2021-03-08] MEDS: levothyroxine 25 mcg Tablet PO (07:05)
--- NOTE | 2021-03-08 07:12 | PM.PN ---
Subjective Subjective: Interval history: short of breath Medications: Reviewed: Yes Vitals/I&O/Wt Last Vital Signs Temp 98.5 F 03/07/21 12:48 Pulse 64 03/07/21 18:02 Resp 15 03/07/21 17:00 BP 93/67 03/07/21 18:02 Pulse Ox 100 03/07/21 18:02 Weight last 48 hrs Weight 92.533 kg Physical Exam Extremity: NARRATIVE EXTREMITY EXAM: + AVF Data : 03/08/21 07:50 03/08/21 07:50 A&P Additional A&P Information 1. ESRD 2. Hyperkalemia 3. 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
[2021-03-08 08:19] LABS: Basophils % 0.4 %; Eosinophils # 0.1 10^3/uL (0.0-0.8); Eosinophils % 2.9 %; Hemoglobin 8.5 g/dL (11.5-15.3); Lymphocytes # 0.8 10^3/uL (0.8-4.8); Lymphocytes % 17.2 %; Mean Corpuscular HGB Conc 30.4 g/dL (30.0-36.0); Mean Corpuscular Volume 102.2 fL (81-99); Mean Platelet Volume 11.4 fL (7.4-10.4); Monocytes # 0.3 10^3/uL (0.2-0.9); Monocytes % 6.5 %; Neutrophils # 3.47 10^3/uL (1.8-7.7); Neutrophils % 72.6 %; Nucleated Red Blood Cells % 0 %; Platelet Count 160 10^3/cmm (130-400); Red Blood Count 2.74 10^6/uL (4.1-5.3); Red Cell Distribution Width 14.9 % (12.1-15.1); White Blood Count 4.8 10^3/uL (4.0-10.0)
[2021-03-08 08:40] LABS: Anion Gap 21.1 (5-19); Blood Urea Nitrogen 56 mg/dL (8-23); Calcium 8.4 mg/dL (8.5-10.5); Carbon Dioxide 21 mmol/L (22-29); Chloride 97 mmol/L (98-107); Glomerular Filtration Rate 5.3 mL/min (90-130); Glucose 81 mg/dL (65-115); Osmolality Calculated 291 mOsm/kg (285-295); Potassium 6.1 mmol/L (3.5-5.1); Sodium 133 mmol/L (136-145)
[2021-03-08] MEDS: sevelamer 800 mg Tablet 1600 MG PO ×4 (09:37→21:28)
[2021-03-08] MEDS: calcitriol 0.25 mcg Capsule 0.5 MCG PO (09:38)
[2021-03-08] MEDS: calcium acetate 667 mg Capsule 2668 MG PO ×3 (09:38→21:29)
[2021-03-08] MEDS: atorvastatin 40 mg Tablet 80 MG PO (09:38)
[2021-03-08] MEDS: aspirin 81 mg Chew Tablet PO (09:38)
[2021-03-08] MEDS: clopidogrel 75 mg Tablet PO (09:38)
[2021-03-08] MEDS: pantoprazole DR 40 mg Tablet PO (09:38)
[2021-03-08 10:06] LABS: Troponin T (5th) Once > 10000 ng/L (0-10)
--- NOTE | 2021-03-08 12:26 | PC.NURSE ---
pt back in ER from dialysis
[2021-03-08 13:38] LABS: Troponin T (5th) Once > 10000 ng/L (0-10)
--- NOTE | 2021-03-08 13:40 | P.PN_ITS ---
Subjective Subjective: Interval history: Patient denies any chest pain. She was noted to be hypotensive, dialysis was not done due to hypotension. No arrhythmia noted. Medications: Reviewed: Yes Vitals/I&O/Wt Last Vital Signs Temp 98.5 F 03/07/21 12:48 Pulse 64 03/07/21 18:02 Resp 15 03/07/21 17:00 BP 102/64 03/08/21 06:00 Pulse Ox 96 03/08/21 06:00 Weight last 48 hrs Weight 204 lb Physical Exam Narrative: EXAM NARRATIVE: GENERAL: Patient is alert, awake and oriented x3. Denies any chest NECK: No jugular vein distension. HEENT: No cyanosis. No icterus. No pallor. HEART: Regular S1 and S2. No murmur, rub or gallop. LUNGS: Clear to auscultate bilaterally. ABDOMEN: Soft, nontender and nondistended. Positive bowel sounds. No guarding, rebound or tenderness. CENTRAL NERVOUS SYSTEM: Grossly nonfocal. EXTREMITIES: Lower extremities without edema bilaterally. Data : 03/08/21 07:50 03/08/21 07:50 A&P Assessment and plan (1) Hypotension: Hypotension could be multifactorial including RV infarct however autonomic is another consideration. No effusion was noted on the echocardiogram. Advised IV fluid and in case of need for hemodialysis may can use Levophed Status: Acute Qualifiers: Hypotension type: unspecified hypotension type Qualified Code(s): I95.9 - Hypotension, unspecified (2) Non-ST elevation myocardial infarction (NSTEMI): Patient remains noncompliant. Upon discharge she did not take Plavix despite of clear-cut instruction and multiple time of reminder before and at the time of discharge. It is a constant problem. Most likely patient has in-stent thrombosis due to noncompliance. Since she has completed infarct and not having any chest pain and because of the fact she is high risk for invasive strategy due to low hemoglobin I will continue to manage her medically. Patient agrees to it. Continue current regimen including Plavix and anticoagulation. Aspirin is on hold because of anemia. Use PPI. We can discontinue heparin before discharge and resume anticoagulation Status: Acute (3) Atypical chest pain: Denies any chest pain now. Status: Acute (4) End-stage renal disease on hemodialysis: Patient went for hemodialysis but due to hypotension it was stopped. May will give patient fluid and can use pressor in the form of Levophed Status: Acute (5) Acute on chronic diastolic (congestive) heart failure: Appear to be well compensated. Status: Acute (6) Moderate to severe mitral regurgitation: Could be ischemia related however patient has completed infarct continue to manage medically Status: Acute (7) Atrial fibrillation: Rate controlled continue heparin as anticoagulation which later can be switched back to oral Status: Acute Qualifiers: Atrial fibrillation type: permanent Qualified Code(s): I48.21 - Permanent atrial fibrillation Additional A&P Information I discussed the recommendations with Dr. Lee. Dr. 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
[2021-03-08 14:16] LABS: Hematocrit 28.7 % (37.0-47.0); Hemoglobin 8.7 g/dL (11.5-15.3)
[2021-03-08] MEDS: dextrose 50% syringe 50 mL IVP (14:35)
[2021-03-08] MEDS: calcium gluconate 0.1 gm/mL 10% SDV 10mL 1 GM IVP (14:40)
[2021-03-08] MEDS: sodium polystyrene sulfonate 15 gm/60 mL Btl PO (14:40)
[2021-03-08] MEDS: pantoprazole 40 mg SDV IVP (14:41)
[2021-03-08] MEDS: sodium chloride 0.9% (100 ml) 100 ML 200 ML (14:43)
[2021-03-08] MEDS: midodrine 5 mg TABLET 10 MG PO ×2 (14:44→21:38)
[2021-03-08] MEDS: ondansetron 2 mg/ML SDV 2 mL 4 MG IVP ×2 (15:23→19:55)
--- NOTE | 2021-03-08 15:56 | XR_ITS ---
WS: [id number] XR chest 1V portable [id number] REASON FOR EXAM: central line placement FINDINGS: Compared to the examination of 03/07/2021, a transverse right jugular vein central venous line is been placed. The tip is within the superior vena cava above the right atrium. There is no pneumothorax. There is marked cardiomegaly and interstitial changes compatible with pulmonary edema/congestive hear t failure. XR/XR chest 1V portable [id number] IMPRESSION: Transverse right jugular central venous line placement as above.
[2021-03-08] MEDS: sodium chloride 0.9 % (flush) syringe 10 mL IV (16:21)
[2021-03-08] MEDS: sodium chloride 0.9% 1,000 ML 100 ML IV (16:22)
--- NOTE | 2021-03-08 16:42 | ANES.PROC ---
Anesthesia Procedures Procedure/Date: 03/08/21 Central Venous Insert: Central Venous Line: 7fr 3-lumen 20cm Time Out Performed: Yes Consent: requested by attending/covering physician, risks and benefits reviewed and patient agrees to proceed Central Line: New Anesthesia monitors: pulse oximetry, EKG, BP cuff and oxygen Vein cannulated: right internal jugular Post procedure: Obtain Chest X-Ray Additional Comments: Seldinger technique, sterile prep, drape, gown and gloves. Seeker needle. Patient tolerated well. CXR no PTX.
--- NOTE | 2021-03-08 17:00 | PC.NURSE ---
Pt arrives to ICU from Ed. No c/o of pain Peripheral IV noted in right AC. Fistulas noted in Left arm, bruit auscultated. Central line noted in right neck, dressing saturated with blood. Dressing change done. Pt oriented to room and call light.
--- NOTE | 2021-03-08 18:00 | PC.RESP ---
Pulmonary Rehab information sent to patient.
[2021-03-08 18:21] LABS: Hemoglobin 8.1 g/dL (11.5-15.3)
--- NOTE | 2021-03-08 18:35 | PM.PN ---
Subjective Subjective: Interval history: Morning hemodialysis was not done because of hypotension: Aspirin as patient returned from dialysis room she had a bloody bowel movement Central line was placed by anesthesia H&H 8.5 and 8.1 Hemoglobin improved before we started levo Heparin discontinued She will be kept on Plavix considering his recent stent history, Eliquis on hold which is her home medication Transfer to ICU Not stable to be discharged Echo showing right coronary territory involvement however cardiology is not planning for any intervention for potassium she has been given insulin, D50, calcium gluconate and Kayexalate Repeat BMP at 7 PM Vitals/I&O/Wt Last Vital Signs Temp 98.5 F 03/07/21 12:48 Pulse 80 03/08/21 16:54 Resp 17 03/08/21 16:54 BP 180/134 03/08/21 16:54 Pulse Ox 100 03/08/21 16:54 03/08/21 03/08/21 03/08/21 06:59 14:59 22:59 Intake Total 0.583 / 0.583 18.467 / 19.050 Balance 0.583 / 0.583 18.467 / 19.050 Weight last 48 hrs Weight 92.533 kg Physical Exam Narrative: EXAM NARRATIVE: Patient was seen in the ER this morning She was still complaining of reproducible left-sided chest pain which she is able to pinpoint S1, S2 variable Congestive heart failure fluid overload + Bilateral breath sounds with crackles Distended abdomen Legs w edema Appropriate mood and affect EOMI, PERRLA Data : 03/08/21 18:07 03/08/21 07:50 A&P Assessment and plan (1) Hypotension: Status: Acute Qualifiers: Hypotension type: unspecified hypotension type Qualified Code(s): I95.9 - Hypotension, unspecified (2) Atrial fibrillation: Status: Acute Qualifiers: Atrial fibrillation type: permanent Qualified Code(s): I48.21 - Permanent atrial fibrillation (3) Moderate to severe mitral regurgitation: Status: Acute (4) Acute on chronic diastolic (congestive) heart failure: Status: Acute (5) End-stage renal disease on hemodialysis: Status: Acute (6) Non-ST elevation myocardial infarction (NSTEMI): Status: Acute (7) Volume overload: Status: Acute (8) Atypical chest pain: Status: Acute (9) Hyperkalemia: Status: Acute Additional A&P Information Non-ST segment elevation DE Had a bloody bowel movement and became hypotensive this morning Heparin discontinued before 48-hour Echo reviewed with cardio is not planning for any intervention at this time They recommended continuing Eliquis with Plavix Currently she will only get Plavix considering recent bleeding episode and hypotension Started Protonix 40 IV twice daily Hemoglobin has stayed stable and blood pressure improved before we started using levo A. fib without RVR Currently anticoagulation on hold along AV migdalia blocking agent due to hypotension and bleed Volume overloaded Missed her session of dialysis, neck session due tomorrow if clinically stable Hyperkalemia received insulin D50, calcium gluconate and Kayexalate will repeat BMP at 7 PM Nephro on board Atypical chest pain: Pleuritic chest pain might benefit from one-time dose of Toradol before dialysis Full code Renal dialysis diet DVT prophylaxis contraindicated due to recent GI bleed Need ICU for hyperkalemia volume overload and hypotension requiring levo we will change her to inpatient Attestations Medical Necessity Statement*: Anticipating stay in the hospital cross more than 2 midnight Time Spent in Patient Care: 16 - 35 minutes Coding Level of Care Code Acute Credit Collections Rep for g Fwd Diagnoses Hypotension I95.9 Hypotension type: unspecified hypotension type Atrial fibrillation I48.21 Atrial fibrillation type: permanent Moderate to severe mitral regurgitation I34.0 Acute on chronic diastolic (congestive) heart failure I50.33 End-stage renal disease on hemodialysis N18.6; Z99.2 Non-ST elevation myocardial infarction (NSTEMI) I21.4 Volume overload E87.70 Atypical chest pain R07.89 Hyperkalemia E87.5
[2021-03-08] MEDS: HYDROcodone-acetaminophen 5-325 mg Tablet 1 TAB PO (18:49)
--- NOTE | 2021-03-08 19:20 | PC.NURSE ---
Report given to REGINA Maldonado.
--- NOTE | 2021-03-08 19:47 | PC.NURSE ---
Shift summary: pt just arrived to ICU. She is alert and oriented and pleasant. COrge held per Dr Arciniega, pt due for dialysis tonight. At end of shift pt up to BSC, bright maroon tiny amount of stool noted.
[2021-03-08 19:50] LABS: Blood Urea Nitrogen 64 mg/dL (8-23); Carbon Dioxide 23 mmol/L (22-29); Chloride 98 mmol/L (98-107); Glomerular Filtration Rate 4.8 mL/min (90-130); Glucose 49 mg/dL (65-115); Osmolality Calculated 298 mOsm/kg (285-295); Sodium 136 mmol/L (136-145)
[2021-03-08 21:10] LABS: Troponin(5th) Baseline > 10000 ng/L (0-10)
--- NOTE | 2021-03-08 21:45 | PC.HD ---
Addendum entered by Rangel Christain RN 03/08/21 22:04: Late entry Original Note: 1115 On assessment, BP noted to be 73/37, pulse 60, pt sleepy but denied symptoms. Cuff repositioned and placed on lower extremety but BP consistently 73/35 to 82/36. Dr Tavarez notified with instructions to hold dialysis and notify pit inspector. Dr. Bertrand notified and ED notified to come get patient to go back to ED. Patient monitored closely until ED staff arrived with a cart. When patient sat up in recliner with feet on the ground, BP 62/43, pulse 59, pt still denied symptoms. Assisted onto cart and transported back to ED at 1220.
--- NOTE | 2021-03-08 22:22 | PC.HD ---
Pt now in ICU, was on Levophed but it is currently off but available at bedside if hypotension reoccurs. Dr. Tavarez and Dr Bertrand aware of K+ level this morning.
[2021-03-08 22:26] LABS: Troponin 5 2HR > 10000 ng/L (0-10); Troponin 5 2HR Delta 0 ABS# (0-10)
[2021-03-08] MEDS: trazodone 50 mg Tablet PO (23:32)
[2021-03-09] VITALS (64 sets, daily range): BP systolic 67–149; BP diastolic 41–83; PULSE 58–86; RESP 11–28; TEMP 36.4–36.8; O2SAT 70–100
[2021-03-09] MEDS: HYDROmorphone 1 mg/mL INJ 1 mL 0.4 MG IVP (00:51)
[2021-03-09] MEDS: sodium chloride 0.9% 1,000 ML 100 ML IV (00:54)
[2021-03-09] MEDS: pantoprazole 40 mg SDV IVP ×2 (02:28→14:02)
[2021-03-09] MEDS: sodium chloride 0.9 % (flush) syringe 10 mL IV (03:37)
[2021-03-09 04:16] LABS: Basophils % 0.4 %; Eosinophils # 0.1 10^3/uL (0.0-0.8); Eosinophils % 2.5 %; Hematocrit 26.5 % (37.0-47.0); Lymphocytes # 0.9 10^3/uL (0.8-4.8); Lymphocytes % 15.2 %; Mean Corpuscular HGB Conc 30.2 g/dL (30.0-36.0); Mean Corpuscular Hemoglobin 31.1 pg (28.0-34.0); Mean Corpuscular Volume 103.1 fL (81-99); Mean Platelet Volume 11.1 fL (7.4-10.4); Monocytes # 0.4 10^3/uL (0.2-0.9); Monocytes % 6.5 %; Neutrophils # 4.24 10^3/uL (1.8-7.7); Neutrophils % 74.9 %; Nucleated Red Blood Cells % 0 %; Platelet Count 160 10^3/cmm (130-400); Red Blood Count 2.57 10^6/uL (4.1-5.3); Red Cell Distribution Width 14.8 % (12.1-15.1); White Blood Count 5.7 10^3/uL (4.0-10.0)
[2021-03-09 04:35] LABS: Anion Gap 14.8 (5-19); Blood Urea Nitrogen 32 mg/dL (8-23); Calcium 8.5 mg/dL (8.5-10.5); Carbon Dioxide 28 mmol/L (22-29); Chloride 97 mmol/L (98-107); Glomerular Filtration Rate 8.2 mL/min (90-130); Glucose 76 mg/dL (65-115); Osmolality Calculated 286 mOsm/kg (285-295); Potassium 4.8 mmol/L (3.5-5.1); Sodium 135 mmol/L (136-145)
[2021-03-09 04:55] LABS: Troponin 5 6HR Delta 0 ng/L (0-12)
[2021-03-09 04:57] LABS: Troponin 5 6HR > 10000 ng/L (0-10)
[2021-03-09] MEDS: levothyroxine 25 mcg Tablet PO (05:52)
[2021-03-09] MEDS: midodrine 5 mg TABLET 10 MG PO ×2 (09:51→14:11)
[2021-03-09] MEDS: clopidogrel 75 mg Tablet PO (09:51)
[2021-03-09] MEDS: carvedilol 25 mg Tablet 12.5 MG PO (09:52)
[2021-03-09] MEDS: sevelamer 800 mg Tablet 1600 MG PO ×2 (09:52→17:41)
[2021-03-09] MEDS: atorvastatin 40 mg Tablet 80 MG PO (09:53)
[2021-03-09] MEDS: calcium acetate 667 mg Capsule 2668 MG PO ×2 (09:53→17:41)
--- NOTE | 2021-03-09 10:28 | PC.NURSE ---
0700: recd sleepng. awakened easly.
--- NOTE | 2021-03-09 10:28 | PC.NURSE ---
in this am. explaned possibility of going home today.
[2021-03-09] MEDS: ondansetron 2 mg/ML SDV 2 mL 4 MG IVP (10:50)
--- NOTE | 2021-03-09 11:32 | PC.NURSE ---
resting quietly after up to bsc. small smear b.m.
--- NOTE | 2021-03-09 12:10 | PC.NURSE ---
iv fluids stopped at this time.
--- NOTE | 2021-03-09 14:21 | PC.NURSE ---
resting quietly. awakened easily.
--- NOTE | 2021-03-09 15:00 | PC.NURSE ---
trixie here withdialysis
--- NOTE | 2021-03-09 15:21 | PM.PN ---
Subjective Subjective: Interval history: Feels better today with improvement in her chest pain. Minimal edema and no other hypervol Sx. Hemodynamics more stable today Medications: Reviewed: Yes Vitals/I&O/Wt Last Vital Signs Temp 97.6 F 03/09/21 00:37 Pulse 59 L 03/09/21 13:30 Resp 21 H 03/09/21 13:30 BP 127/59 03/09/21 13:00 Pulse Ox 97 03/09/21 13:30 03/09/21 03/09/21 03/09/21 06:59 14:59 22:59 Intake Total 853.333 / 018.936 5548 / 1480 Output Total 1999 Balance -1146.667 / -4974.839 0120 / 1479 Weight last 48 hrs Weight 101.2 kg Physical Exam Narrative: EXAM NARRATIVE: Constitutional: Awake, comfortable HEENT: Wet mucosa, no jvp, non icteric Lungs: Bilaterally clear without discernible wheeze, rales in all lung zones CVS: S1 S2, no murmurs Abdo: Soft, BS ok Ext 4: Minimal edema, peripheral perfusion with no cyanosis Neurological: Grossly non-focal Data : 03/09/21 03:44 03/09/21 03:44 A&P Additional A&P Information 1. ESRD She got dialysis yesterday and I will run her for a short run today, 2.5hrs only 2K bath with ultrafiltration 2 L. Continue MWF schedule Dose medication for GFR less than 15 on dialysis 2. Chest pain Management per cardiology, this was similar discomfort what she had on Friday time for discharge. Recent thrombectomy, angioplasty and stent placement, she remains on Eliquis, aspirin, Plavix. 3. Electrolytes Chemistry looks fine. 4. Anemia of ESRD If she remains in the hospital for more than a few days, check iron levels and give EPO, if this is an anticipated brief admission, she can receive iron and EPO as part of standard outpatient monthly dialysis management. 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
--- NOTE | 2021-03-09 17:05 | PM.DCS ---
Discharge Providers Date of Admission: 03/08/21 16:54 Date of Discharge: March 09, 2021 Attending Provider at Admission: Lupe Lee MD Attending Provider at Discharge: Lupe Lee MD Primary Care Provider: ROCHELLE EMMANUEL MD Diagnoses at Discharge Discharge Diagnosis (1) Non-ST elevation myocardial infarction (NSTEMI): Status: Acute (2) Atypical chest pain: Status: Acute (3) End-stage renal disease on hemodialysis: Status: Acute (4) Acute on chronic diastolic (congestive) heart failure: Status: Acute (5) Moderate to severe mitral regurgitation: Status: Acute Reason for Visit Reason for Visit: CHEST PAIN Hospital Course Hospital Course HPI Amanda Ha is a 66 year old female who has established history of coronary disease, anterior disease, hypertension, dyslipidemia, recently had a stent placement in RCA at outside hospital in [place], underwent emergent angiogram during her last admission with thrombectomy followed by balloon angioplasty and drug-eluting stent. She was complaining of chest pain after her angiogram as well consideration was being given to pleuritic pain for which she received Toradol she was advised to continue Plavix and Eliquis with instructions to hold aspirin presented today with chief complaint of recurrent chest pain and shortness of breath. Patient is stating that since her discharge she has been experiencing chest pain which she is describing as sharp stabbing pain left sternal border which gets worse on deep breathing and it is also reproducible. She has chronic sinusitis. Uses 2 to 3 L of oxygen at home. She has not taken aspirin or Plavix. Stating Plavix prescription was not sent to her pharmacy. She has taken Eliquis at home. No recent nausea, vomiting or diaphoresis. EKG showing nonspecific T wave changes in 1 aVL V5 and 6 Her chest pain is reproducible in the ER Troponins are pending Work-up is showing congestive heart failure Nephro consulted for dialysis today her last session was on Friday Dr. Watson consulted as well Hospital course Patient was admitted for management of non-ST segment elevation NH, she was started on ACS protocol, cardiology did not plan any intervention, troponin stayed above 10,000 probably consistent with completed infarct involving RCA patient has not been taking her Plavix stating she did not have any prescription. She stayed in the ER for about 24 hours the next day she was taken to the dialysis room however it was not done because of hypotension, she developed bright bleed per rectum and was admitted to ICU after placement of central line. He required vasopressors for about 12 to 16 hours which were titrated off after dialysis next day. Her hemoglobin stayed stable. She does get hypotensive during dialysis for which midodrine has been added, I do believe this is secondary to suboptimal cardiac function which gets worse during dialysis she is at risk of recurrent hypotension, high risk of mortality morbidity including demise cardiology deemed her stable to go home with instructions to hold her antiplatelets and Eliquis if there is recurrence of bleed Physical Exam Narrative: EXAM NARRATIVE: Constitutional: Awake, comfortable HEENT: Wet mucosa, no jvp, non icteric Lungs: Bilaterally clear without discernible wheeze, rales in all lung zones CVS: S1 S2, no murmurs Abdo: Soft, BS ok Ext 4: Minimal edema, peripheral perfusion with no cyanosis Neurological: Grossly non-focal Discharge Data Data Completed and Pending: Completed Studies During Hospitalization Category Date Time Status XR chest 1V kayce ble [id number] Routine Exams 03/08/21 15:56 Completed XR chest 1V kayce ble [id number] Urgent Exams 03/07/21 10:22 Completed CV. echo complete * [id number] Urgent Ultrasound 03/07/21 19:03 Completed Pending at discharge Category Date Time Status CA echo doppler c omplete Urgent Exams 03/07/21 17:56 Ordered Labs from last 24 hours 03/09/21 03/09/21 03/09/21 03:44 03:44 03:44 WBC 5.7 RBC 2.57 L Hgb 8.0 L Hct 26.5 L MCV 103.1 H MCH 31.1 MCHC 30.2 RDW 14.8 Plt Count 160 MPV 11.1 H Neut % (Auto) 74.9 Lymph % (Auto) 15.2 Atkinson % (Auto) 6.5 Eos % (Auto) 2.5 Baso % (Auto) 0.4 Neut # (Auto) 4.24 Lymph # (Auto) 0.9 Atkinson # (Auto) 0.4 Eos # (Auto) 0.1 Baso # (Auto) 0.0 Nucleated RBC % (a uto) 0 Nucleated RBCs # 0.0 Sodium 135 L Potassium 4.8 Chloride 97 L Carbon Dioxide 28 Anion Gap 14.8 BUN 32 H Creatinine 5.2 H GFR Calculation 8.2 L Glucose 76 Calculated Osmolal ity 286 Calcium 8.5 Troponin T Baselin e Troponin T 120 Min port gamble Delta Troponin T Troponin T Hi Sens 6Hr > 33110 H Troponin T Hi Sens 6Hr Delta 0 03/08/21 03/08/21 03/08/21 21:09 18:55 18:55 WBC RBC Hgb Hct MCV MCH MCHC RDW Plt Count MPV Neut % (Auto) Lymph % (Auto) Atkinson % (Auto) Eos % (Auto) Baso % (Auto) Neut # (Auto) Lymph # (Auto) Atkinson # (Auto) Eos # (Auto) Baso # (Auto) Nucleated RBC % (a uto) Nucleated RBCs # Sodium 136 Potassium 6.0 H Chloride 98 Carbon Dioxide 23 Anion Gap 21.0 H BUN 64 H Creatinine 8.3 H* GFR Calculation 4.8 L Glucose 49 L Calculated Osmolal ity 298 H Calcium 9.0 Troponin T Baselin e > 47615 H* Troponin T 120 Min port gamble > 18692 H Delta Troponin T 0 Troponin T Hi Sens 6Hr Troponin T Hi Sens 6Hr Delta 03/08/21 18:07 WBC RBC Hgb 8.1 L Hct 27.0 L MCV MCH MCHC RDW Plt Count MPV Neut % (Auto) Lymph % (Auto) Atkinson % (Auto) Eos % (Auto) Baso % (Auto) Neut # (Auto) Lymph # (Auto) Atkinson # (Auto) Eos # (Auto) Baso # (Auto) Nucleated RBC % (a uto) Nucleated RBCs # Sodium Potassium Chloride Carbon Dioxide Anion Gap BUN Creatinine GFR Calculation Glucose Calculated Osmolal ity Calcium Troponin T Baselin e Troponin T 120 Min port gamble Delta Troponin T Troponin T Hi Sens 6Hr Troponin T Hi Sens 6Hr Delta Vitals: Last Vital Signs Temp 97.6 F 03/09/21 00:37 Pulse 59 L 03/09/21 13:30 Resp 21 H 03/09/21 13:30 BP 127/59 03/09/21 13:00 Pulse Ox 97 03/09/21 13:30 Discharge Plan Discharge Patient Disposition: Home Condition: Stable Prescriptions: New midodrine 10 mg tablet 5 mg PO TID Qty: 60 RF: 0 Continued Eliquis 2.5 mg tablet 2.5 mg PO BID RF: 0 levothyroxine [Synthroid] 25 mcg tablet 25 mcg PO QAM RF: 0 atorvastatin 80 mg tablet 80 mg PO DAILY RF: 0 clopidogrel 75 mg tablet 75 mg PO DAILY RF: 0 acetaminophen 325 mg Tablet 650 mg PO Q6H PRN (Reason: Pain) RF: 0 albuterol sulfate 2.5 mg /3 mL (0.083 %) Solution For Nebulization 2.5 mg inhalation Q8H PRN (Reason: Shortness Of Breath) RF: 0 ondansetron HCl [Zofran] 4 mg Tablet 4 mg PO Q8H PRN (Reason: Nausea) RF: 0 melatonin 3 mg Tablet 9 mg PO BEDTIME PRN (Reason: Sleep) RF: 0 sevelamer carbonate 800 mg Tablet 1,600 mg PO TID RF: 0 trazodone 50 mg Tablet 50 mg PO BEDTIME RF: 0 desoximetasone 0.05 % cream See Rx Instructions .ROUTE .COMPLEX RF: 0 hydrocodone-acetaminophen 5-325 mg tablet 1 tab PO DAILY MDD 1 TAB PRN (Reason: Pain) RF: 0 pantoprazole 40 mg Tablet,Delayed Release (Dr/Ec) 40 mg PO DAILY RF: 0 aspirin 81 mg Tablet,Chewable 81 mg PO DAILY Qty: 0 RF: 0 Zyrtec 10 mg Tablet 10 mg PO DAILY RF: 0 calcium acetate(phosphat bind) 667 mg Tablet 2,668 mg PO TID RF: 0 triamcinolone acetonide 0.025 % Cream 1 applic TOPICAL DAILY RF: 0 calcitriol 0.5 mcg Capsule 0.5 mcg PO .EVERY THIRD DAY RF: 0 darbepoetin lucas-albumin 60 mcg/mL Solution See Rx Instructions .ROUTE .COMPLEX RF: 0 cholecalciferol (vitamin D3) 1,250 mcg (50,000 unit) Capsule 50,000 unit PO Q7D RF: 0 calcipotriene 0.005 % cream See Rx Instructions .ROUTE .COMPLEX RF: 0 lidocaine 5 % ointment See Rx Instructions .ROUTE .COMPLEX RF: 0 nitroglycerin [Nitrostat] 0.4 mg Tablet, Sublingual 0.4 mg SUBLINGUAL Q5M PRN (Reason: Chest Pain) RF: 0 gabapentin 100 mg Capsule 200 mg PO BEDTIME RF: 0 albuterol sulfate [ProAir HFA] 90 mcg/actuation Hfa Aerosol Inhaler 2 puff INHALATION Q6H PRN (Reason: Shortness Of Breath) RF: 0 Changed carvedilol 12.5 mg tablet 6.25 mg PO BID Qty: 0 RF: 0 Discharge Orders: Discharge Order (Routine); Ordered 03/09/21 Ordered By: Lupe Lee Referrals: ROCHELLE EMMANUEL MD [Primary Care Provider] - (please ! you will need to call for this follow up appointment , due to after hours discharge from [facility] ) Discharge Diet: Cardiac Discharge Activity: Increase activity as tolerated Patient Instructions: Midodrine (By mouth), Acute Kidney Injury (DC), Hemodialysis (DC), Hypotension (DC), Chest Pain Stoplight, Opioid Safety Activity Restrictions/Additional Instructions: Your blood pressure stays soft so you can decrease Coreg dose to 6.25mg twice a day and hold if blood pressure is less than 100mmhg at home, if notice bleed again, can stop eliquis first Discharge Attestations Time Spent in Discharge Care*: less than 30 min Status at Discharge: Cognitive status at discharge: cognitively intact, Behavioral status at discharge: cooperative, Quality Metrics Clinical Quality Measures During this hospital stay, did patient experience: AMI Clinical Trial Participant: No Contraindication to aspirin (AMI): On Warfarin or Pradaxa at discharge (eliquis and plavix) Contraindication to statin: Statin prescribed Contraindication to PCI: Intervention not indicated Contraindication to Fibrinolytics: Medical contraindication and None Coding Level of Care Code Acute [facility] DC note Diagnoses Non-ST elevation myocardial infarction (NSTEMI) I21.4 Atypical chest pain R07.89 End-stage renal disease on hemodialysis N18.6; Z99.2 Acute on chronic diastolic (congestive) heart failure I50.33 Moderate to severe mitral regurgitation I34.0
--- NOTE | 2021-03-09 17:39 | PC.NURSE ---
cvl not heparinized d/t pt. being discharged.
--- NOTE | 2021-03-09 18:42 | PC.NURSE ---
[employer] ride Trip #[id number] by wheelchair and 2l o2 self maintained.
--- NOTE | 2021-03-09 18:52 | PC.NURSE ---
waiting for ride to go home. instructed to be sure to take plavix, and if new scripts didnt go thru to [facility] in [place] to call icu tomorrow. instructed to be sure and not miss plavix.
--- NOTE | 2021-03-09 19:04 | PC.NURSE ---
discharged instructions given. waiting on ride.
--- NOTE | 2021-03-09 19:06 | P.PN_ITS ---
Subjective Subjective: Interval history: Getting dialysis. Denies any complaint. She still on mild pressor during dialysis as she drops of blood pressure Medications: Reviewed: Yes Vitals/I&O/Wt Last Vital Signs Temp 97.6 F 03/09/21 00:37 Pulse 70 03/09/21 18:46 Resp 16 03/09/21 18:46 BP 127/79 03/09/21 18:46 Pulse Ox 100 03/09/21 17:00 03/09/21 03/09/21 03/09/21 06:59 14:59 22:59 Intake Total 853.333 / 470.121 3604 / 1480 120 / 1600 Output Total 1999 Balance -1146.667 / -2720.589 4702 / 1479 120 / 1599 Weight last 48 hrs Weight 223 lb 1.725 oz Physical Exam Narrative: EXAM NARRATIVE: GENERAL: Patient is alert, awake and oriented x3. Denies any chest NECK: No jugular vein distension. HEENT: No cyanosis. No icterus. No pallor. HEART: Regular S1 and S2. No murmur, rub or gallop. LUNGS: Clear to auscultate bilaterally. ABDOMEN: Soft, nontender and nondistended. Positive bowel sounds. No guarding, rebound or tenderness. CENTRAL NERVOUS SYSTEM: Grossly nonfocal. EXTREMITIES: Lower extremities without edema bilaterally. Data : 03/09/21 03:44 03/09/21 03:44 A&P Assessment and plan (1) Non-ST elevation myocardial infarction (NSTEMI): Patient is a markedly elevated troponin T is consistent with non-ST elevation myocardial infarction. Is very possible that she might have occluded the right coronary artery -in view of the fact that she was not taking the Plavix and echocardiogram evidence of severe hypokinesis of the inferior wall. She is fairly stable hemodynamically at this time. In view of the recurrent occlusion of this artery with no new EKG changes and also in the absence of any chest pain at this time, it may be appropriate to continue the medical treatment for the time being. Her blood pressure Is relatively low. She needs to be carefully hydrated Continue IV hydration and current conservative management Status: Acute (2) Atypical chest pain: Discontinue heparin, continue Plavix aspirin Status: Acute (3) End-stage renal disease on hemodialysis: Patient is getting dialysis Status: Acute (4) Acute on chronic diastolic (congestive) heart failure: Well compensated. Continue current regimen Status: Acute (5) Moderate to severe mitral regurgitation: Continue medical management patient is not good candidate for intervention. Partly it will be functional/ischemic MR Status: Acute Additional A&P Information Other problems are #1 chronic anemia #2 COPD #3 morbid obesity #4 on long-term oral anticoagulation Based on the patient's clinical progress and the results of the above test, further recommendations will be made. Thank you for the opportunity to evaluate this patient make these recommendations I discussed the recommendations with Dr. Lee. Dr. Bertrand will be assuming her care in the morning Attestations Medical Necessity Statement*: Patient require continuation hospitalization for above defined care. Coding Level of Care Code Established Pt Acute [employer] Safety [employer] for Hector Hutchins Patient Type Established History Detailed Exam Detailed Medical Decision Making Moderate Complexity Diagnoses Non-ST elevation myocardial infarction (NSTEMI) I21.4 Atypical chest pain R07.89 End-stage renal disease on hemodialysis N18.6; Z99.2 Acute on chronic diastolic (congestive) heart failure I50.33 Moderate to severe mitral regurgitation I34.0
--- NOTE | 2021-03-10 12:32 | PC.HD ---
Pre treatment, thrill and pulse not appreciable but bruit audible, possibly r/t lower BP. As a result, cannulation was difficult with 2 sticks required to access each site. Fistula had good draw/flush and worked well throughout treatment. Once BP came up with Levophed during treatment the thrill and pulse were easily palpable and remained through conclusion of treatment and after needles removed.
== END 2021-03-09 18:45 | disposition home or self-care (01) | DRG 280 ==
LOC: ER 15:04 → ER IP 03-08 13:46 → ICU 03-08 20:11
PROVIDERS: Internal Medicine Cardiovascular Disease; Physician Assistant; Admitting Provider Internal Medicine; Emergency Provider Emergency Medicine; PCP Family Medicine; Visit Provider Internal Medicine
DX: I22.2 Subsequent non-ST elevation (NSTEMI) myocardial infarction (principal); I50.33 Acute on chronic diastolic (congestive) heart failure; N18.6 End stage renal disease; I13.2 Hypertensive heart and chronic kidney disease with heart failure and with stage 5 chronic kidney disease, or end stage renal disease; I48.21 Permanent atrial fibrillation; F33.9 Major depressive disorder, recurrent, unspecified; I21.19 ST elevation (STEMI) myocardial infarction involving other coronary artery of inferior wall; I95.9 Hypotension, unspecified; I25.10 Atherosclerotic heart disease of native coronary artery without angina pectoris; Z95.5 Presence of coronary angioplasty implant and graft; E11.22 Type 2 diabetes mellitus with diabetic chronic kidney disease; Z99.2 Dependence on renal dialysis; E78.5 Hyperlipidemia, unspecified; J32.9 Chronic sinusitis, unspecified; Z99.81 Dependence on supplemental oxygen; D63.1 Anemia in chronic kidney disease; J43.9 Emphysema, unspecified; G89.29 Other chronic pain; M79.7 Fibromyalgia; F41.1 Generalized anxiety disorder; E03.9 Hypothyroidism, unspecified; M54.5 Low back pain; M17.12 Unilateral primary osteoarthritis, left knee; F43.12 Post-traumatic stress disorder, chronic; E66.01 Morbid (severe) obesity due to excess calories; Z68.35 Body mass index [BMI] 35.0-35.9, adult; I34.0 Nonrheumatic mitral (valve) insufficiency; R07.81 Pleurodynia; T45.526A Underdosing of antithrombotic drugs, initial encounter; Z91.128 Patient's intentional underdosing of medication regimen for other reason; Z95.1 Presence of aortocoronary bypass graft; E87.5 Hyperkalemia; Z87.891 Personal history of nicotine dependence; G47.30 Sleep apnea, unspecified
CPT/HCPCS: 36415; 36592; 71045; 80048; 80053; 83880; 84484; 85014; 85018; 85025; 85378; 85610; 85730; 90935; 93005; 93306; 96365; 96372; 96375; 99291; 99292; C1751; C9113; G0378; J0610; J1170; J1642; J1644; J1815; J2405; J7030

== ENCOUNTER 2021-03-23 14:26 | Emergency (ER) | payer MEDICARE, MEDICAID, SELFPAY ==
[2021-03-23] VITALS (8 sets, daily range): BP systolic 99–122; BP diastolic 27–79; PULSE 79–88; RESP 15–22; TEMP 36.6–36.8; O2SAT 96–98; BMI 31.8
--- NOTE | 2021-03-23 17:07 | ED_ITS ---
HPI - General Adult General: Chief complaint: General Medical Stated complaint: GI BLEED Time Seen by Provider: 03/23/21 17:06 History of Present Illness: HPI narrative: 66-year-old female comes in today with complaints of persistent bleeding for the last 3 weeks from her rectum. Patient was discharged from the hospital at the first of the month and at that time she had some rectal bleeding. Since then patient has continued rectal bleeding. Patient is alert and oriented. Patient denies any other complaints except weakness. Review of Systems General: Reports: 10 or more systems reviewed and unremarkable except in HPI and below GI: Reports: hematochezia PFS ED PFS: Medical History (Updated 03/23/21 @ 20:21 by ERIKA Yu) Anemia Anticoagulation adequate with anticoagulant therapy Atrial fibrillation Chronic bronchitis Chronic chest pain Chronic diarrhea Chronic pain disorder Coronary artery disease Diabetes Diastolic heart failure Diverticulitis Dizziness Emphysema of lung End-stage renal disease on hemodialysis Fibromyalgia Generalized anxiety disorder GERD (gastroesophageal reflux disease) Hyperbilirubinemia Hypertension Elevated but stable Hypotension Hypothyroidism Irritable bowel syndrome Low back pain Major depressive disorder, recurrent severe without psychotic features Noncompliance Osteoarthritis of left knee Post-traumatic stress disorder, chronic Right leg swelling Sleep apnea Venous insufficiency Surgical History AVF (arteriovenous fistula) History of appendectomy History of cholecystectomy History of common carotid artery stent placement S/P hemodialysis catheter insertion Stented coronary artery PCI to mid LAD in December 2018 Family History Other CAD (coronary artery disease) Social History Smoking and tobacco status: former smoker Quit status (tobacco): has quit using tobacco Year quit tobacco: 2009 Second hand smoke exposure: Yes Smoking risk assessment/counseling performed?: No Alcohol intake: never Lives independently: Yes Household members: children and other Details: son, cousin Physical Exam Const: COMMON NORMALS: no acute distress and patient oriented x3 GENERAL APPEARANCE: cooperative HENMT: COMMON NORMALS: normocephalic and Normal external nose present HEAD & SCALP: normal to inspection and normocephalic NOSE: Normal external nose present Eye: GENERAL EYE: appearance normal, both eyes and all related structures Neck/C-Spine: COMMON NORMALS: full ROM Chest: COMMONS NORMALS: normal inspection of the chest Resp: COMMON NORMALS: normal respiratory effort EFFORT & INSPECTION: Yes able to speak in complete sentences Cardio: COMMON NORMALS: regular rate and regular rhythm RATE: regular rate RHYTHM: regular rhythm GI: COMMON NORMALS: non-tender RECTAL EXAM: abnormal sphincter tone and Abnormal stool present (Dark-colored stool with strong positive Hemoccult) Back/Pelvis: COMMON NORMALS: thoracic and lumbar spine normal to inspection Extremity: COMMON NORMALS: normal to inspection Neuro: COMMON NORMALS: patient oriented x3 and moves all extremities Psych: COMMON NORMALS: mental status grossly normal and cooperative Skin: COMMON NORMALS: no rashes or lesions noted GENERAL SKIN EXAM: no rashes or lesions noted Course ED course: 1844, reviewed patient with Dr. Doan, we feel the patient will be good to transfuse 2 units of blood and discharged to home with recommended follow-up with surgery for colonoscopy and upper endoscopy. I reviewed this with patient who agreed to plan. 1217, patient is resting well. Second unit of packed red blood cells is infusing. I listen to lung sounds they were clear. Patient requested something to help her sleep patient was ordered a half a milligram Ativan. Vital Signs: Vital signs: Vital Signs Temperature 98.2 F 03/23/21 23:45 Pulse Rate 82 03/23/21 23:45 Respiratory Rate 18 03/23/21 23:45 Blood Pressure 104/27 03/23/21 23:45 Pulse Oximetry 98 03/23/21 22:50 MDM - General Adult MDM Narrative: Medical decision making narrative: Patient came in today for complaints of blood in stool. Patient has noticed blood in stool for the past 3 weeks. Patient states that when she was discharged from the hospital 3 weeks ago she had blood in her stool then and had discussed it with one of the providers and they said that she would need to have colonoscopy. Patient states that no one had ever called her for the colonoscopy. Patient was in dialysis and had a hemoglobin checked today and it was down to 7. Patient was recommended to come to the ER for further evaluation. On exam patient is alert oriented and denies any complaints. Abdomen is soft and nontender. Skin is warm and dry. Differential diagnosis includes but not limited to GI bleed, peptic ulcer disease, carcinoma, polyp. Laboratory values did note a hemoglobin which was at 7 which is down from 8 3 weeks ago. Remainder of labs were unremarkable. Patient does have chronic kidney disease and is on dialysis therapy her creatinine was 5.3. I reviewed the exam with Dr. Doan and we discussed options we felt that patient could have a transfusion today and then follow-up at the first of next week with specialist for endoscopy examination. Since patient has only lost 1 point from her hemoglobin over the last 3 weeks we felt it was safe that patient could wait. We discussed this with patient who is very agreeable to plan. Patient was infused with 2 units of packed red blood cells. Case management was placed to assist with endoscopy follow-up. Lab Data: Labs: Lab Results 03/23/21 03/23/21 03/23/21 Range/Units 17:21 18:33 18:33 WBC 5.8 (4.0-10.0) 10^3/ uL RBC 2.19 L (4.1-5.3) 10^6/u L Hgb 7.0 L (11.5-15.3) g/dL Hct 22.6 L (37.0-47.0) % MCV 103.2 H (81-99) fl MCH 32.0 (28.0-34.0) pg MCHC 31.0 (30.0-36.0) g/dL RDW 16.6 H (12.1-15.1) % Plt Count 198 (130-400) 10^3/c mm MPV 10.7 H (7.4-10.4) fL Neut % (Auto) 69.3 % Lymph % (Auto) 19.6 % [place] % (Auto) 8.4 % Eos % (Auto) 1.9 % Baso % (Auto) 0.5 % Neut # (Auto) 4.04 (1.8-7.7) 10^3/u L Lymph # (Auto) 1.1 (0.8-4.8) 10^3/u L [place] # (Auto) 0.5 (0.2-0.9) 10^3/u L Eos # (Auto) 0.1 (0.0-0.8) 10^3/u L Baso # (Auto) 0.0 (0.0-0.1) 10^3/u L Nucleated RBC % (a uto) 0 % Nucleated RBCs # 0.0 /100WBC Sodium 135 L (136-145) mmol/L Potassium 3.6 (3.5-5.1) mmol/L Chloride 93 L (98-107) mmol/L Carbon Dioxide 29 (22-29) mmol/L Anion Gap 16.6 (5-19) BUN 34 H (8-23) mg/dL Creatinine 5.3 H (0.5-0.9) mg/dL GFR Calculation 8.0 L (90-130) mL/min Glucose 83 (65-115) mg/dL Calculated Osmolal ity 287 (285-295) mOsm/k g Calcium 8.9 (8.5-10.5) mg/dL Total Bilirubin 0.9 (0.15-1.2) mg/dL AST 12 (0-32) U/L ALT 6 (0-33) U/L Alkaline Phosphata se 131 H (35-105) IU/L Total Protein 7.2 (6.6-8.7) g/dL Albumin 3.8 (3.5-5.2) g/dL Globulin 3.4 (1.3-4.6) g/dL Blood Type A Positive Rho(D) Type Positive / 4+ Antibody Screen Negative Crossmatch See Detail Discharge Plan Discharge Clinical Impression: GI (gastrointestinal bleed) Qualifiers: GI bleed type/associated pathology: unspecified gastrointestinal hemorrhage type Qualified Code(s): K92.2 - Gastrointestinal hemorrhage, unspecified Condition: Stable Prescriptions: No Action levothyroxine [Synthroid] 25 mcg tablet 25 mcg PO DAILY RF: 0 atorvastatin 80 mg tablet 80 mg PO DAILY RF: 0 acetaminophen 325 mg Tablet 650 mg PO Q6H PRN (Reason: Pain) RF: 0 ondansetron HCl [Zofran] 4 mg Tablet 4 mg PO Q8H PRN (Reason: Nausea) RF: 0 melatonin 3 mg Tablet 9 mg PO BEDTIME PRN (Reason: Sleep) RF: 0 sevelamer carbonate 800 mg Tablet 2,400 mg PO TID RF: 0 trazodone 50 mg Tablet 50 mg PO BEDTIME RF: 0 pantoprazole 40 mg Tablet,Delayed Release (Dr/Ec) 40 mg PO DAILY RF: 0 cetirizine [Zyrtec] 10 mg Tablet 10 mg PO DAILY RF: 0 midodrine 10 mg tablet 5 mg PO TID Qty: 60 RF: 0 clopidogrel 75 mg tablet 75 mg PO DAILY 30 Days Qty: 30 RF: 3 nitroglycerin [Nitrostat] 0.4 mg Tablet, Sublingual 0.4 mg SUBLINGUAL Q5M PRN (Reason: Chest Pain) RF: 0 gabapentin 100 mg Capsule 200 mg PO BEDTIME RF: 0 albuterol sulfate [ProAir HFA] 90 mcg/actuation Hfa Aerosol Inhaler 2 puff INHALATION Q6H PRN (Reason: Shortness Of Breath) RF: 0 Referrals: ROCHELLE EMMANUEL MD [Primary Care Provider] - Discharge Diet: Usual diet Discharge Activity: Increase activity as tolerated Patient Instructions: Gastrointestinal Bleeding (ED) Activity Restrictions/Additional Instructions: Home and rest. Light diet. Drink plenty of fluids unless otherwise restricted. Follow-up with primary care. Case management will contact you regarding follow- up appointment with specialist for endoscopy. Return to the ER for worsening bleeding or passing of clots in stool. Coding Level of Care Code ED Center Machine Operator for [facility] Fwd Exam Comprehensive
[2021-03-23 18:01] LABS: Basophils % 0.5 %; Eosinophils # 0.1 10^3/uL (0.0-0.8); Eosinophils % 1.9 %; Hematocrit 22.6 % (37.0-47.0); Lymphocytes # 1.1 10^3/uL (0.8-4.8); Lymphocytes % 19.6 %; Mean Corpuscular Volume 103.2 fl (81-99); Mean Platelet Volume 10.7 fL (7.4-10.4); Monocytes # 0.5 10^3/uL (0.2-0.9); Monocytes % 8.4 %; Neutrophils # 4.04 10^3/uL (1.8-7.7); Neutrophils % 69.3 %; Nucleated Red Blood Cells % 0 %; Platelet Count 198 10^3/cmm (130-400); Red Blood Count 2.19 10^6/uL (4.1-5.3); Red Cell Distribution Width 16.6 % (12.1-15.1); White Blood Count 5.8 10^3/uL (4.0-10.0)
[2021-03-23 19:15] LABS: Alanine Aminotransferase 6 U/L (0-33); Albumin Level 3.8 g/dL (3.5-5.2); Alkaline Phosphatase 131 IU/L (35-105); Anion Gap 16.6 (5-19); Aspartate Amino Transferase 12 U/L (0-32); Blood Urea Nitrogen 34 mg/dL (8-23); Calcium 8.9 mg/dL (8.5-10.5); Carbon Dioxide 29 mmol/L (22-29); Chloride 93 mmol/L (98-107); Globulin 3.4 g/dL (1.3-4.6); Glucose 83 mg/dL (65-115); Osmolality Calculated 287 mOsm/kg (285-295); Potassium 3.6 mmol/L (3.5-5.1); Sodium 135 mmol/L (136-145); Total Bilirubin 0.9 mg/dL (0.15-1.2); Total Protein 7.2 g/dL (6.6-8.7)
[2021-03-23] MEDS: HYDROcodone-acetaminophen 5-325 mg Tablet 1 TAB PO (21:56)
[2021-03-23] MEDS: sodium chloride 0.9% 250 ML IV (21:57)
[2021-03-23] MEDS: diphenhydrAMINE 50 mg Capsule PO (23:06)
[2021-03-24 06:45] VITALS: BP 99/62; PULSE 80; RESP 22; TEMP 36.8; O2SAT 97
--- NOTE | 2021-03-26 10:47 | DCPLANNER ---
aquatic centre manager had message to schedule a follow up appointment for patient with general surgery. aquatic centre manager emailed patients information to Catrachita at [facility] General Surgery. Patients information will be printed and reviewed. Clinic will call patient with appointment information.
--- NOTE | 2021-04-02 14:56 | DCPLANNER ---
Patient has a follow up appointment for patient with [facility] General Surgery scheduled for , April 05, 2021 at 1:[address] Ac at general surgery. Clinic will call patient with appointment information.
--- NOTE | 2021-04-06 07:59 | DCPLANNER ---
Patient had a follow up appointment scheduled for 04.05.21 with general surgery - patient did attend appointment.
== END 2021-03-24 06:45 | disposition home or self-care (01) ==
PROVIDERS: Emergency Provider Nurse Practitioner Family; PCP Family Medicine
DX: K92.2 Gastrointestinal hemorrhage, unspecified (principal); I48.91 Unspecified atrial fibrillation; I25.10 Atherosclerotic heart disease of native coronary artery without angina pectoris; I13.2 Hypertensive heart and chronic kidney disease with heart failure and with stage 5 chronic kidney disease, or end stage renal disease; I50.30 Unspecified diastolic (congestive) heart failure; N18.6 End stage renal disease; E11.22 Type 2 diabetes mellitus with diabetic chronic kidney disease; J43.9 Emphysema, unspecified; E03.9 Hypothyroidism, unspecified; Z87.891 Personal history of nicotine dependence; Z95.5 Presence of coronary angioplasty implant and graft; Z99.2 Dependence on renal dialysis
CPT/HCPCS: 36430; 80053; 85025; 86850; 86900; 86920; 96360; 99284; J7050; P9016; Q0163